=== PATIENT | female | born 1945 | race Caucasian/White ===

== ENCOUNTER 2018-10-23 01:34 | Inpatient (IN) | payer MEDICARE, MEDICAID ==
[2018-10-23] MEDS ORDERED: Levofloxacin 500 MG IVPREMIX(* 500 MG/100 ML BAG IVPB ONE (02:14)
[2018-10-23] MEDS ORDERED: Vancomycin(*) 1,000 MG in NS 0.9% 250 ML* 250 ML IVPB ONE (02:14)
--- NOTE | 2018-10-23 02:27 | ED ---
Skin Complaint - HPI Summary HPI Summary: This patient is a 73 year old F brought in by EMS to [facility] with a chief complaint of LLE cellulitis for the last month. She states it is not worse tonight states she came because she doesnt get enough help from [place], the [facility] where she lives. The patient rates the pain 9/10 in severity. Patient reports chills. Patient denies fever. She ambulates with a walker at baseline, does not see wound care, and states she is not on medication for it, her abx course was done at the of this month. Hx IDDM - History of Current Complaint Chief Complaint: EDExtremityLower Time Seen by Provider: 10/23/18 02:03 Stated Complaint: LEG PAIN Hx Obtained From: Patient Onset/Duration: Started Weeks Ago - 4, Still Present Skin Exposure Onset/Duration: Weeks Ago Timing: Constant, Lasting Weeks Onset Severity: Moderate Current Severity: Severe Pain Intensity: 9 Pain Scale Used: 0-10 Numeric Skin Location: Leg - Left Character: Redness Associated Signs & Symptoms: Chills - Allergy/Home Medications Allergies/Adverse Reactions: Allergies Allergy/AdvReac Type Severity Reaction Status Date / Time MS [place] [[place]] Allergy See Comment Verified 12/23/14 12:09 MS Penicillins [Penicillins] Allergy Hives Verified 12/23/14 12:09 PMH/Surg Hx/FS Hx/Imm Hx Endocrine/Hematology History: Reports: Hx Diabetes Cardiovascular History: Reports: Hx Hypertension - Cancer History Cancer Type, Location and Year: rectal - Surgical History Surgery Procedure, Year, and Place: rectal, hernia, tonsils, adnoids Infectious Disease History: Unable to Obtain/Confirm Infectious Disease History: Denies: Traveled Outside the [place] in Last 30 Days - Family History Known Family History: Positive: Non-Contributory Negative: Renal Disease, Seizure Disorder - Social History Alcohol Use: None Substance Use Type: Reports: None Smoking Status (MU): Never Smoked Tobacco Review of Systems Positive: Chills. Negative: Fever Positive: Other - increasing LLE cellulitis All Other Systems Reviewed And Are Negative: Yes Physical Exam - Summary Physical Exam Summary: VITAL SIGNS: Reviewed. GENERAL: Patient is a well-developed and nourished female who is lying comfortable in the stretcher. Patient is not in any acute respiratory distress. HEAD AND FACE: No signs of trauma. No ecchymosis, hematomas or skull depressions. No sinus tenderness. EYES: PERRLA, EOMI x 2, No injected conjunctiva, no nystagmus. EARS: Hearing grossly intact. Ear canals and tympanic membranes are within normal limits. MOUTH: Oropharynx within normal limits. NECK: Supple, trachea is midline, no adenopathy, no JVD, no carotid bruit, no c- spine tenderness, neck with full ROM. CHEST: Symmetric, no tenderness at palpation LUNGS: Clear to auscultation bilaterally. No wheezing or crackles. CVS: Regular rate and rhythm, S1 and S2 present, no murmurs or gallops appreciated. ABDOMEN: Soft, non-tender. No signs of distention. No rebound no guarding, and no masses palpated. Bowel sounds are normal. EXTREMITIES: bilateral LE redness, warmth, and edema. The left more than the right. NEURO: Alert and oriented x 3. No acute neurological deficits. Speech is normal and follows commands. SKIN: Dry and warm Triage Information Reviewed: Yes Vital Signs On Initial Exam: Initial Vitals Temp Pulse Resp BP Pulse Ox 98.9 F 95 18 165/76 95 10/23/18 01:37 10/23/18 01:37 10/23/18 01:37 10/23/18 01:37 10/23/18 01:37 Vital Signs Reviewed: Yes Diagnostics - Vital Signs Vital Signs Temp Pulse Resp BP Pulse Ox 10/23/18 01:37 98.9 F 95 18 165/76 95 - Laboratory Result Diagrams: 10/23/18 02:25 10/23/18 02:25 Lab Statement: Any lab studies that have been ordered have been reviewed, and results considered in the medical decision making process. Course/Dx - Course Assessment/Plan: This patient is a 73 year old F brought in by EMS to [facility] with a chief complaint of LLE cellulitis for the last month. She states it is not worse tonight states she came because she doesnt get enough help from [place], the jail where she lives. The patient rates the pain 9/10 in severity. Patient reports chills. Patient denies fever. She ambulates with a walker at baseline, does not see wound care, and states she is not on medication for it, her abx course was done at the of this month. Hx IDDM. Bloodwork obtained. In the ED course the patient was given tylenol and IV abx. We discussed patient care with Dr. Dyer who has accepted the patient for admission. Patient will be admitted. The patient is agreeable with this plan. - Diagnoses Provider Diagnoses: Cellulitis - Physician Notifications Discussed Care Of Patient With: Karen Dyer Time Discussed With Above Provider: 03:36 Instructed by Provider To: Admit As Inpatient Discharge - Sign-Out/Discharge Documenting (check all that apply): Patient Departure - admitted - Discharge Plan Condition: Fair Disposition: ADMITTED TO [facility] Referrals: Nate Douglass MD [Primary Care Provider] - - Attestation Statements Document Initiated by Scribe: Yes Documenting Scribe: Jim Huertas Provider For Whom Scribe is Documenting (Include Credential): Laura Spencer MD Scribe Attestation: Jim Borges , scribed for Laura Spencer MD on 10/23/18 at 0454. Status of Scribe Document: Ready
[2018-10-23 02:36] LABS: ABS Basophils 0 10^3/ul (0-0.2); ABS Eosinophils 0.2 10^3/ul (0-0.6); ABS Lymphocytes 0.7 10^3/ul (1.0-4.8); ABS Monocytes 0.5 10^3/ul (0-0.8); ABS Neutrophils 5.4 10^3/ul (1.5-7.7); ABS Nucleated RBC 0 10^3/ul; Eosinophil % 2.5 %; Hematocrit 30 % (35-47); Lymphocyte % 10.6 %; Mean Corpuscular HGB Conc 34 g/dl (31-36); Mean Corpuscular Hemoglobin 27 pg (27-31); Mean Corpuscular Volume 82 fL (80-97); Mean Platelet Volume 6.6 fL (7.4-10.4); Nucleated Red Blood Cells % 0; Platelet Count 247 10^3/ul (150-450); Red Blood Count 3.67 10^6/ul (4.00-5.40); Red Cell Distribution Width 17 % (10.5-15); White Blood Count 6.9 10^3/ul (3.5-10.8)
[2018-10-23 02:42] LABS: INR 0.97 (0.77-1.02)
[2018-10-23 02:51] LABS: EGFR Non-African American 33.2 (>60)
[2018-10-23] MEDS ORDERED: Acetaminophen TAB* 325 MG PO ONE (03:52)
[2018-10-23] MEDS ORDERED: Albuterol 2.5 MG/3 ML NEB.SOL* (0.083%) INH PRN (05:12)
[2018-10-23] MEDS ORDERED: Dextrose 50% Syringe 50 ML* 25 GM/50 ML SYRINGE IV PUSH PRN ×2 (05:29→14:18)
[2018-10-23] MEDS ORDERED: Insulin LISPRO* 1 UNITS UNIT SUBCUT SCH (08:30)
--- NOTE | 2018-10-23 09:07 | HP ---
CC: Providers at [facility] * HISTORY AND PHYSICAL: DATE OF ADMISSION: 10/23/18 PRIMARY CARE PROVIDER: Provider at [facility]. CHIEF COMPLAINT: Lower extremity redness. HISTORY OF PRESENT ILLNESS: Ms. Chowdhury is a 73-year-old female who is poor historian who is currently a resident of [facility], who was sent to the emergency room for concerns of possible bilateral lower extremity cellulitis. The patient states that she has had erythema to her bilateral lower legs for quite some time. She states that she has had an open wound on the left lower leg for approximately 2 months; however, later in our evaluation states that the wound had been present for a year. She believes it has been getting progressively worse. She admits to chills. She states that at times antibiotic ointment is being applied to the wound, other times she states just a gauze dressing is applied. She does admit to pain within the left lower extremity. The right leg, while it has some erythema, is not painful or concerning to her. She is really unable to provide any further history. PAST MEDICAL HISTORY: 1. Type 2 diabetes. 2. Hyperlipidemia. 3. Hypothyroidism. 4. Osteoporosis. 5. Bipolar disorder. 6. Anxiety. 7. History of rectal carcinoma status post resection, XRT, and chemotherapy. PAST SURGICAL HISTORY: 1. Rectal surgery. 2. Tonsillectomy. 3. Hernia repair. MEDICATIONS: 1. Tylenol 1000 mg p.o. q.8 hours p.r.n. pain. 2. Calcium plus D 1 tab p.o. b.i.d. 3. Albuterol 1 neb inhaled q.4 hours p.r.n. shortness of breath. 4. Aspirin 81 mg p.o. daily. 5. Tessalon 100 mg p.o. t.i.d. 6. Doxepin 10 mg p.o. q.h.s. 7. Lasix 40 mg p.o. daily. 8. Gabapentin 600 mg p.o. b.i.d. 9. NovoLog 7 units subcutaneous t.i.d. p.c. 10. Toujeo 88 units subcutaneous daily. 11. Levothyroxine 125 mcg p.o. daily. 12. Metolazone 2.5 mg p.o. daily. 13. Potassium chloride 10 mEq p.o. daily. 14. Entresto 49/51 mg 1 tab p.o. b.i.d. 15. Sertraline 50 mg p.o. daily. 16. Simvastatin 20 mg p.o. q.h.s. 17. Januvia 25 mg p.o. daily. ALLERGIES: PENICILLIN and LITHIUM. FAMILY HISTORY: Mom at the age of 76, her history is unknown. Dad at the age of 77, he reportedly of [place]. SOCIAL HISTORY: The patient smoked for a very short period of time several decades ago. She denies any alcohol use. She worked as a area secretary. She is . She has 2 children. She states that she does not want either of her daughters to be her healthcare proxy and at this point she cannot choose somebody to be her proxy. REVIEW OF SYSTEMS: A complete 11-system review of systems is obtained. Pertinent positives and negatives are as per HPI and in addition, the patient does also complain of cough that has been present over the last 2 months and chronic shortness of breath. PHYSICAL EXAMINATION GENERAL: The patient is a well-developed, morbidly obese elderly female seen sitting in the stretcher, eating sandwich, in no acute distress. VITAL SIGNS: Blood pressure 106/71, pulse 99, respirations 20, temp 98.9, and O2 sat 94% on room air. HEENT: Pupils are equal and round. Extraocular muscles are intact. Oropharynx is clear. Oral mucosa is moist. There is what appears to be a pencil eraser-sized papilla on the tongue that looks slightly inflamed. There is no submandibular, cervical, or supraclavicular adenopathy. Thyroid is not enlarged. No thyroid nodules are noted. PULMONARY: Lungs are clear to auscultation bilaterally. CARDIAC: Normal S1, S2. Regular rate and rhythm. There is a 3/6 systolic murmur heard best at the right upper sternal border. There is 1 to 2+ bilateral lower extremity pitting edema. ABDOMEN: Bowel sounds are present. Abdomen is obese, soft, nontender, nondistended. MUSCULOSKELETAL: There is no cyanosis or clubbing of the digits. There is full active range of motion of all 4 extremities. SKIN: Warm and dry. There is mild erythema to the right distal leg consistent with chronic venous stasis changes. There is brighter red and more angry appearing skin on the left leg. There is shallow ulceration with denuded skin almost circumferentially around the distal left leg. There is weeping from this area. There appears to be bogginess underneath it. This is painful to touch for the patient. I suspect this is chronic venous stasis ulcer. NEURO: Cranial nerves II through XII are grossly intact. Sensation is intact to light touch throughout. Strength is 5/5 and symmetric in both upper and lower extremities bilaterally. PSYCH: The patient is alert. She is oriented to situation. She is a very poor historian. LABORATORY DATA: WBC 6.9, hemoglobin 10.0, hematocrit 30, platelets 247,000. INR 0.97. Sodium 135, potassium 4.4, chloride 102, CO2 of 28, BUN 36, creatinine 1.54, glucose 282, lactic acid 1.1, calcium 9.7. Bilirubin 0.2, AST 12, ALT 14, alk phos 88. CPK 24, CRP 18.01. Albumin 3.4. ASSESSMENT AND PLAN: Ms. Chowdhury is a 73-year-old female with a history of diabetes, heart failure - unclear type, hypothyroidism, bipolar disorder and anxiety who presents to the emergency room with complaints of mainly left lower extremity redness, ulceration, and pain. 1. Venous stasis ulceration to left lower extremity. At this point, I suspect the wound on the patient's left lower extremity is a venous stasis ulceration. It is quite large. I do question if the patient may have been picking at this somewhat. She; however, states that she has not. I have a low suspicion that this is infected; however, her CRP is mildly elevated at 18. Given this is darker/brighter red than the right, I will go ahead and start doxycycline 100 mg IV q.12 hours. I will also obtain an ultrasound to the left lower leg to evaluate for underlying abscess. Wound consult will be ordered. ID consultation should be considered. He will follow the patient clinically for signs of true infection including fever or change in white blood cell count or increasing CRP. 2. Congestive heart failure. The patient is already on Entresto and Lasix. I will continue these 2 medications. A transthoracic echocardiogram will be ordered to evaluate her EF and murmur. The patient may benefit from increased diuretic therapy at this point to decrease swelling in her legs and thereby potentially improving the wound on her left leg. 3. Stage 3 chronic kidney disease. We do not have any prior labs to compare today's creatinine to; however, my suspicion is the patient has chronic kidney disease. This is based on her history of congestive heart failure and diabetes. We will monitor her creatinine. 4. Type 2 diabetes. I will continue Toujeo or an equivalent. We will also continue short-acting insulin t.i.d. p.c. and a sliding scale. 5. Bipolar disorder. We will continue doxepin at bedtime and sertraline. 6. Hyperlipidemia. Continue simvastatin. 7. DVT prophylaxis. According to the Adult Thrombosis Prophylaxis Risk Factor Assessment Guide, the patient has a total risk factor score of 5, making her the highest risk. She will be placed on heparin 5000 units subcutaneous q.8 hours. 8. Code status is full. TIME SPENT: Sixty-five minutes was spent admitting this patient. [id number]/[facility] #: [id number] RYAN
[2018-10-23] MEDS: Heparin VIAL(*) 5000 UNITS/ML VIAL (FIVE THOUSAND) SUBCUT SCH ×3 (09:37→21:20)
[2018-10-23] MEDS: Furosemide TAB* 40 MG PO SCH (09:38)
[2018-10-23] MEDS: Potassium Chlor TAB* 10 MEQ TAB.ER PO SCH (09:38)
[2018-10-23] MEDS: Aspirin 81 mg CHEW TAB* 81 MG TAB.CHEW PO SCH (09:38)
[2018-10-23] MEDS: Metolazone TAB* 5 MG PO SCH (09:40)
[2018-10-23] MEDS: Sertraline* 50 MG TAB PO SCH (09:41)
[2018-10-23] MEDS: Insulin GLARGINE(*) 1 UNITS UNIT SUBCUT SCH (09:41)
[2018-10-23] MEDS: Gabapentin CAP(*) 300 MG PO SCH ×2 (09:41→21:19)
[2018-10-23] MEDS: Acetaminophen TAB* 325 MG PO PRN ×2 (09:58→22:39)
[2018-10-23] MEDS: Levothyroxine TAB* 125 MCG TAB PO SCH (09:59)
[2018-10-23] MEDS: CMC:SitaGLIPtin (NF) 25 MG TAB PO SCH (09:59)
[2018-10-23] MEDS: DOXYcycline IV* 100 MG in NS 0.9% 250 ML* 250 ML IVPB SCH ×2 (10:01→21:22)
[2018-10-23] MEDS: Sacubitril/Valsartan 49/51(NF) TAB PO SCH ×2 (10:09→18:36)
[2018-10-23] MEDS: Insulin LISPRO* 1 UNITS UNIT SUBCUT SCH ×5 (10:09→21:21)
[2018-10-23] MEDS ORDERED: traMADol TAB* 50 MG PO PRN (13:13)
[2018-10-23] MEDS ORDERED: Perflutren Lipid Microsphere* 3 ML VIAL ONE (13:21)
--- NOTE | 2018-10-23 16:12 | ECHO ---
Patient: BINA RAMESH [facility] Rec#: [id number] : 1945 Date: 10/23/2018 Age: 73y Height: 152 cm / 59.8 in Weight: 91 kg / 200.6 lbs Sex: F BSA: 1.87 Room#: [facility] Admit Date#: 10/23/2018 Type: Inpatient Referring: Karen Dyer DO Reading: Celio Jerome MD Court Manager: Ila Kenyon RD,RDMS CC: Carlo King MD Transthoracic Echocardiogram Indication: CHF BP: 146/56 HR: 104 Rhythm: NSR with PVCs Findings History: DM, HTN, HLD, rectal cancer, chemotherapy Technical Comments: The study quality is fair. Left Ventricle: The left ventricular chamber size is normal. Mild to moderate concentric left ventricular hypertrophy is observed. There is global hypokinesis of the left ventricle with minor regional variation. There is mild to moderately decreased left ventricular systolic function. The estimated ejection fraction is 40-45%. There is an E to A reversal in the mitral valve flow pattern suggestive of diastolic dysfunction. Left Atrium: The left atrium is mildly dilated. Right Ventricle: The right ventricle wall thickness is mildly increased. The right ventricular cavity size is normal. The right ventricular global systolic function is low normal. Right Atrium: The right atrial cavity size is normal. Aortic Valve: The aortic valve is trileaflet. The aortic valve leaflets are mildly thickened. There is aortic annular calcification. There is a trace of aortic regurgitation. There is mild aortic stenosis. The mean gradient of the aortic valve is 13 mmHg. The aortic valve area, by VTI's, is calculated at 1.2 cm2. Mitral Valve: The mitral valve leaflets are mildly thickened. There is a trace of mitral regurgitation. There is no evidence of mitral stenosis. Tricuspid Valve: The tricuspid valve leaflets are normal. There is no evidence of tricuspid valve regurgitation. Unable to estimate the right ventricular systolic pressure. Pulmonic Valve: There is no evidence of pulmonic valve thickening. There is a trace pulmonic regurgitation. Pericardium: There is no significant pericardial effusion. Aorta: The aortic root appears normal. There is no dilatation of the aortic arch. Pulmonary Artery: The main pulmonary artery appears normal. Venous: The inferior vena cava is not visualized. Contrast: Definity was used to optimize study. A total of 2 ml was used. Summary: There was not any prior study for comparison. Conclusions Mild to moderate concentric left ventricular hypertrophy is observed. There is global hypokinesis of the left ventricle with minor regional variation. There is mild to moderately decreased left ventricular systolic function. The estimated ejection fraction is 40-45%. The right ventricular global systolic function is low normal. The aortic valve leaflets are mildly thickened. There is mild aortic stenosis. The mean gradient of the aortic valve is 13 mmHg. There is a trace of aortic regurgitation. There is a trace of mitral regurgitation. There is no evidence of tricuspid valve regurgitation. Unable to estimate the right ventricular systolic pressure. There is no significant pericardial effusion. Measurements Name Value Normal Range RVIDd (AP) 2D 3.1 cm (0.9 - 2.6) RVDdMajor (2D) 3.1 cm (2.2 - 4.4) RAd ISD 4CH 4.5 cm (3.4 - 4.9) RA (A4C)W 3.2 cm (2.9 - 4.6) IVSd (2D) 1.4 cm (0.6 - 1) LVPWd (2D) 1.4 cm (0.6 - 1) LVIDd (2D) 4.8 cm (3.6 - 5.4) LVIDs (2D) 3.3 cm - LV FS (2D) 32 % (25 - 45) Aortic Annulus 2.1 cm (1.4 - 2.6) Ao root diameter (2D) 2.6 cm (2.1 - 3.5) Ascending Ao 2.9 cm (2.1 - 3.4) Aortic arch 3.1 cm (1.8 - 3.4) LA dimension (AP) 2D 4.7 cm (2.3 - 3.8) LAd ISD 4CH 5.7 cm (2.9 - 5.3) LA ISD 4CH W 4 cm (2.5 - 4.5) Name Value Normal Range LA ESV BP (A/L) index 21 ml/m2 - Name Value Normal Range MV E-wave Vmax 0.5 m/sec - MV deceleration time 77 msec - MV A-wave Vmax 1.1 m/sec - MV E:A ratio 0.5 ratio - LV septal e' Vmax 0.07 m/sec - LV lateral e' Vmax 0.07 m/sec - LV E:e' septal ratio 7 ratio - LV E:e' lateral ratio 7 ratio - Name Value Normal Range AV Vmax 2.3 m/sec - AV VTI 42.5 cm - AV peak gradient 22 mmHg - AV mean gradient 13 mmHg - LVOT diameter 2 cm - LVOT Vmax 0.8 m/sec - LVOT VTI 16 cm - LVOT peak gradient 2.6 mmHg - LVOT mean gradient 2 mmHg - DOI (VTI) 0.4 ratio - AMY (continuity Vmax) 1.1 cm2 - AMY (continuity VTI) 1.2 cm2 - Name Value Normal Range MV Vmax 1 m/sec - MV VTI 19 cm - MV peak gradient 4 mmHg - MV mean gradient 2 mmHg - MV PHT 121 msec - MVA (PHT) 1.8 cm2 - MVA (continuity VTI) 2.6 cm2 - Name Value Normal Range RAP 8 mmHg - Name Value Normal Range PV Vmax 0.8 m/sec - PV peak gradient 2.6 mmHg -
[2018-10-23] MEDS: traMADol TAB* 50 MG PO PRN (18:27)
--- NOTE | 2018-10-23 19:16 | PN ---
Subjective Date of Service: 10/23/18 Interval History: Call received from nurse in the morning and patient did not have prn tylenol ordered and she usually takes tylenol for pain. Tylenol ordered. Later in the morning call received that tylenol not covering pain in left lower leg. Creatinine Clearance calculated 48ml/min. Tramadol ordered at 25 mg BID prn hold for sedation. On reassessment patient reports improvement in pain. Denies cp, sob, palpitations, n/v/d. Reports occasional cough which has been present for 2 weeks. 12 point ros completed and all other negative except as above mentioned Objective Active Medications: Acetaminophen (Tylenol Tab*) 975 mg PO Q8H PRN PRN Reason: PAIN OR TEMPERATURE Last Admin: 10/23/18 09:58 Dose: 975 mg Albuterol (Ventolin 2.5 Mg/3 Ml Neb.Keyana*) 2.5 mg INH Q4H PRN PRN Reason: SOB/WHEEZING Aspirin (Aspirin 81 Mg Chew Tab*) 81 mg PO DAILY [facility] Last Admin: 10/23/18 09:38 Dose: 81 mg Atorvastatin Calcium (Lipitor*) 10 mg PO BEDTIME [facility] Benzonatate (Tessalon Cap*) 100 mg PO TID PRN PRN Reason: COUGH Dextrose (D50w Syringe 50 Ml*) 12.5 gm IV PUSH .FOR FS < 60 - SS PRN PRN Reason: FS < 60 Doxepin HCl (Doxepin Hcl) 10 mg PO BEDTIME [facility] Furosemide (Lasix Tab*) 40 mg PO DAILY [facility] Last Admin: 10/23/18 09:38 Dose: 40 mg Gabapentin (Neurontin Cap(*)) 600 mg PO BID [facility] Last Admin: 10/23/18 09:41 Dose: 600 mg Heparin Sodium (Porcine) (Heparin Vial(*)) 5,000 units SUBCUT Q8HR [facility] Last Admin: 10/23/18 13:29 Dose: 5,000 units Doxycycline Hyclate 100 mg/ (Sodium Chloride) 250 mls @ 250 mls/hr IVPB Q12H [facility] Last Admin: 10/23/18 10:01 Dose: 250 mls/hr Insulin Glargine (Lantus(*)) 88 units SUBCUT DAILY [facility] Last Admin: 10/23/18 09:41 Dose: 88 units Insulin Human Lispro (Humalog*) 0 units SUBCUT ACHS [facility]; Protocol Last Admin: 10/23/18 18:36 Dose: 2 units Insulin Human Lispro (Humalog*) 4 units SUBCUT TID [facility] Levothyroxine Sodium (Synthroid Tab*) 125 mcg PO 0800 [facility] Last Admin: 10/23/18 09:59 Dose: 125 mcg Metolazone (Zaroxolyn Tab*) 2.5 mg PO DAILY [facility] Last Admin: 10/23/18 09:40 Dose: 2.5 mg Potassium Chloride (Klor Con Er Tab*) 10 meq PO DAILY [facility] Last Admin: 10/23/18 09:38 Dose: 10 meq Sacubitril/Valsartan (Entresto 49/51(Nf)) 1 tab PO 0800,1600 [facility] Last Admin: 10/23/18 18:36 Dose: Not Given Sertraline HCl (Zoloft*) 50 mg PO DAILY [facility] Last Admin: 10/23/18 09:41 Dose: 50 mg Sitagliptin Phosphate (Januvia (Nf)) 25 mg PO DAILY [facility]; Protocol Last Admin: 10/23/18 09:59 Dose: 25 mg Tramadol HCl (Ultram*) 25 mg PO Q12H PRN PRN Reason: PAIN Last Admin: 10/23/18 18:27 Dose: 25 mg Vital Signs - 8 hr 10/23/18 10/23/18 10/23/18 11:30 13:30 18:27 Temperature 99.1 F Pulse Rate 104 Respiratory 18 22 20 Rate Blood Pressure 134/41 (mmHg) O2 Sat by Pulse 98 Oximetry Oxygen Devices in Use Now: None Appearance: Chronically ill, NAD Eyes: PERRLA Ears/Nose/Mouth/Throat: Mucous Membranes Moist Neck: NL Appearance and Movements; NL JVP Respiratory: Symmetrical Chest Expansion and Respiratory Effort, Clear to Auscultation Cardiovascular: RRR, No Edema, - - S1, S2 present. Systolic murmur appreciated. No rubs or jallops Abdominal: NL Sounds; No Tenderness; No Distention Lymphatic: No Cervical Adenopathy Extremities: - - Mild bilateral le edema Skin: - - ulceration to anterior left lower leg; surrounding erythema and large amount serous weeping. Neurological: Alert and Oriented x 3, NL Muscle Strength and Tone Nutrition: Taking PO's Result Diagrams: 10/23/18 02:25 12/03/18 02:25 Additional Lab and Data: Laboratory Results - last 24 hr 10/23/18 10/23/18 10/23/18 02:25 02:25 02:25 WBC 6.9 RBC 3.67 L Hgb 10.0 L Hct 30 L MCV 82 MCH 27 MCHC 34 RDW 17 H Plt Count 247 MPV 6.6 L Neut % (Auto) 78.9 Lymph % (Auto) 10.6 Sanders % (Auto) 7.4 Eos % (Auto) 2.5 Baso % (Auto) 0.6 Absolute Neuts (auto) 5.4 Absolute Lymphs (auto) 0.7 L Absolute Monos (auto) 0.5 Absolute Eos (auto) 0.2 Absolute Basos (auto) 0 Absolute Nucleated RBC 0 Nucleated RBC % 0 INR (Anticoag Therapy) 0.97 APTT 35.3 Sodium 135 Potassium 4.4 Chloride 102 Carbon Dioxide 28 Anion Gap 5 BUN 36 H Creatinine 1.54 H Est GFR ( Amer) 40.2 Est GFR (Non-Af Amer) 33.2 BUN/Creatinine Ratio 23.4 H Glucose 282 H POC Glucose (mg/dL) Lactic Acid Calcium 9.7 Total Bilirubin 0.20 AST 12 L ALT 14 Alkaline Phosphatase 88 Total Creatine Kinase 24 C-Reactive Protein 18.01 H Total Protein 6.0 L Albumin 3.4 Globulin 2.6 Albumin/Globulin Ratio 1.3 10/23/18 10/23/18 10/23/18 02:25 08:32 11:40 WBC RBC Hgb Hct MCV MCH MCHC RDW Plt Count MPV Neut % (Auto) Lymph % (Auto) Sanders % (Auto) Eos % (Auto) Baso % (Auto) Absolute Neuts (auto) Absolute Lymphs (auto) Absolute Monos (auto) Absolute Eos (auto) Absolute Basos (auto) Absolute Nucleated RBC Nucleated RBC % INR (Anticoag Therapy) APTT Sodium Potassium Chloride Carbon Dioxide Anion Gap BUN Creatinine Est GFR ( Amer) Est GFR (Non-Af Amer) BUN/Creatinine Ratio Glucose POC Glucose (mg/dL) 205 H 271 H Lactic Acid 1.1 Calcium Total Bilirubin AST ALT Alkaline Phosphatase Total Creatine Kinase C-Reactive Protein Total Protein Albumin Globulin Albumin/Globulin Ratio Microbiology and Other Data: Awaiting wound culture Diagnostic Imaging: TECHNIQUE: Ankle-brachial indices and Doppler tracings were obtained of the lower extremities bilaterally. Volume pulse recordings were acquired at the bilateral ankles. REPORT: Ankle-brachial indices: Right: Value (SBP) Index Brachial: 157 Posterior tibialis: 170 1.08 Dorsalis pedis: 155 0.99 Digit: 92 0.59 Left: Value (SBP) Index Brachial: 147 Posterior tibialis: 110 0.70 Dorsalis pedis: 130 0.83 Digit: 64 0.41 Doppler waveforms (acquired at rest): In the interrogated lower extremity arteries, Doppler waveforms are triphasic at the right dorsalis pedis artery, biphasic at the right posterior tibial artery and left dorsalis pedis artery while the left posterior tibial artery is monophasic with notably reduced amplitude.. Volume pulse recordings (acquired at rest): Volume pulse recordings, measured at the bilateral ankles, are symmetric. IMPRESSION: Claudication values and derangement of arterial waveforms are recorded in the left lower extremity. In the presence of a chronic left lower extremity wound this could be seen in the setting of "critical limb ischemia". EKG Data: . Assess/Plan/Problems-Billing Assessment: 73 yr old female with DM, HF (unclear type), hypothyroid, bipolar, anxiety; who presented to the ed with left lower extremity redness, ulceration, and pain. She was admitted for IV abx and further evaluation given her hx of diabetes and heart disease - Patient Problems (1) Wound of left lower extremity Comment: - Redness to left lower extremeity with ulceration to left anterior matias. Weeping. - Wound consult appreciated. Dressing change ordered placed per their recommendations. - Wound culture sent - Consider ID consult tomorrow - Cont Doxy - Monitor WBC, CRP and vital signs (2) Venous stasis Comment: - Bilateral legs have evidence of venous statis - ABIs obtained - Dr Daniel to consult tomorrow for possible intervention (3) CHF (congestive heart failure) Comment: - Echo revealed EF of 40 to 45% - Mild aortic stenosis (4) CKD (chronic kidney disease) stage 3, GFR 30-59 ml/min Comment: - Creatinine 1.54 - Prior labs reveal this is slightly elevated from patient baseline - Will continue to monitor (5) Diabetes Comment: - Continue long acting insulin - Continue sliding scale - Patient initially refused standing 7 units TID. After explaining rational patient agreed to 4 units lispro TID - Will continue to monitor (6) Bipolar disorder Comment: - Cont meds as same from home (7) DVT (deep venous thrombosis) Comment: - Subq heparin (8) Full code status Comment: - Full code Status and Disposition: Inpatient. D/c return to [facility] when medically stable Attending: Alecia Sanchez
[2018-10-23 19:46] LABS: Urine Appearance Clear; Urine Blood Negative (Negative); Urine Color Straw; Urine Ketones Negative (Negative); Urine Protein Negative (Negative); Urine Red Blood Cell Trace(0-2/hpf) (Absent); Urine Specific Gravity 1.009 (1.010-1.030); Urine Urobilinogen Negative (Negative); Urine White Blood Cell Trace(0-5/hpf) (Absent)
[2018-10-23] MEDS: Atorvastatin* 10 MG TAB PO SCH (21:19)
[2018-10-24] MEDS: DOXEPIN 10 MG PO SCH ×2 (03:04→23:47)
[2018-10-24] MEDS: Heparin VIAL(*) 5000 UNITS/ML VIAL (FIVE THOUSAND) SUBCUT SCH ×3 (05:28→21:11)
[2018-10-24 06:53] LABS: Hematocrit 31 % (35-47); Hemoglobin 10.2 g/dl (12.0-16.0); Mean Corpuscular HGB Conc 33 g/dl (31-36); Mean Corpuscular Hemoglobin 27 pg (27-31); Mean Corpuscular Volume 82 fL (80-97); Mean Platelet Volume 6.5 fL (7.4-10.4); Platelet Count 243 10^3/ul (150-450); Red Blood Count 3.73 10^6/ul (4.00-5.40); Red Cell Distribution Width 17 % (10.5-15); White Blood Count 5.9 10^3/ul (3.5-10.8)
[2018-10-24 07:15] LABS: EGFR Non-African American 34.5 (>60)
[2018-10-24] MEDS: DOXYcycline IV* 100 MG in NS 0.9% 250 ML* 250 ML IVPB SCH ×2 (08:44→21:11)
[2018-10-24] MEDS: Insulin LISPRO* 1 UNITS UNIT SUBCUT SCH ×7 (08:45→21:11)
[2018-10-24] MEDS: Insulin GLARGINE(*) 1 UNITS UNIT SUBCUT SCH (08:45)
[2018-10-24] MEDS: Furosemide TAB* 40 MG PO SCH (08:49)
[2018-10-24] MEDS: Gabapentin CAP(*) 300 MG PO SCH ×2 (08:49→21:09)
[2018-10-24] MEDS: CMC:SitaGLIPtin (NF) 25 MG TAB PO SCH (08:50)
[2018-10-24] MEDS: Metolazone TAB* 5 MG PO SCH (08:50)
[2018-10-24] MEDS: Levothyroxine TAB* 125 MCG TAB PO SCH (08:50)
[2018-10-24] MEDS: Potassium Chlor TAB* 10 MEQ TAB.ER PO SCH (08:50)
[2018-10-24] MEDS: Sertraline* 50 MG TAB PO SCH (08:50)
[2018-10-24] MEDS: Aspirin 81 mg CHEW TAB* 81 MG TAB.CHEW PO SCH (08:50)
[2018-10-24] MEDS: Sacubitril/Valsartan 49/51(NF) TAB PO SCH (10:33)
[2018-10-24] MEDS: Acetaminophen TAB* 325 MG PO PRN (13:31)
--- NOTE | 2018-10-24 16:53 | PN ---
Subjective Date of Service: 10/24/18 Interval History: Sitting in recliner chair. Reports pain in left leg where wound is located and rates pain at "5". Reports pain is improved from yesterday. Reports she is urinating without difficulty, but per her baseline has some difficulty holding urine and has been incontinent waiting for someone to answer her call tiwari. It was noted that patient's socks were wet with urine. Reports occasional cough x 2 weeks. Denies sob, cp, palpitations, headache, weakness, fever/chills, n/v/d. Objective Active Medications: Acetaminophen (Tylenol Tab*) 975 mg PO Q8H PRN PRN Reason: PAIN OR TEMPERATURE Last Admin: 10/24/18 13:31 Dose: 975 mg Albuterol (Ventolin 2.5 Mg/3 Ml Neb.Keyana*) 2.5 mg INH Q4H PRN PRN Reason: SOB/WHEEZING Aspirin (Aspirin 81 Mg Chew Tab*) 81 mg PO DAILY [facility] Last Admin: 10/24/18 08:50 Dose: 81 mg Atorvastatin Calcium (Lipitor*) 10 mg PO BEDTIME [facility] Last Admin: 10/23/18 21:19 Dose: 10 mg Benzonatate (Tessalon Cap*) 100 mg PO TID PRN PRN Reason: COUGH Dextrose (D50w Syringe 50 Ml*) 12.5 gm IV PUSH .FOR FS < 60 - SS PRN PRN Reason: FS < 60 Doxepin HCl (Doxepin Hcl) 10 mg PO BEDTIME [facility] Last Admin: 10/24/18 03:04 Dose: Not Given Furosemide (Lasix Tab*) 40 mg PO DAILY [facility] Last Admin: 10/24/18 08:49 Dose: 40 mg Gabapentin (Neurontin Cap(*)) 600 mg PO BID [facility] Last Admin: 10/24/18 08:49 Dose: 600 mg Heparin Sodium (Porcine) (Heparin Vial(*)) 5,000 units SUBCUT Q8HR [facility] Last Admin: 10/24/18 13:28 Dose: 5,000 units Doxycycline Hyclate 100 mg/ (Sodium Chloride) 250 mls @ 250 mls/hr IVPB Q12H [facility] Last Admin: 10/24/18 08:44 Dose: 250 mls/hr Insulin Glargine (Lantus(*)) 88 units SUBCUT DAILY [facility] Last Admin: 10/24/18 08:45 Dose: 88 units Insulin Human Lispro (Humalog*) 0 units SUBCUT ACHS [facility]; Protocol Last Admin: 10/24/18 13:28 Dose: 6 units Insulin Human Lispro (Humalog*) 4 units SUBCUT TID [facility] Last Admin: 10/24/18 13:28 Dose: 4 unit Levothyroxine Sodium (Synthroid Tab*) 125 mcg PO 0800 [facility] Last Admin: 10/24/18 08:50 Dose: 125 mcg Metolazone (Zaroxolyn Tab*) 2.5 mg PO DAILY [facility] Last Admin: 10/24/18 08:50 Dose: 2.5 mg Potassium Chloride (Klor Con Er Tab*) 10 meq PO DAILY [facility] Last Admin: 10/24/18 08:50 Dose: 10 meq Sacubitril/Valsartan (Entresto /(Nf)) 2 tab PO BID [facility] Sertraline HCl (Zoloft*) 50 mg PO DAILY [facility] Last Admin: 10/24/18 08:50 Dose: 50 mg Sitagliptin Phosphate (Januvia (Nf)) 25 mg PO DAILY [facility]; Protocol Last Admin: 10/24/18 08:50 Dose: 25 mg Tramadol HCl (Ultram*) 25 mg PO Q12H PRN PRN Reason: PAIN Last Admin: 10/23/18 18:27 Dose: 25 mg Vital Signs - 8 hr 10/24/18 10/24/18 10/24/18 08:49 09:25 11:01 Temperature 97.9 F Pulse Rate 98 Respiratory 16 20 16 Rate Blood Pressure 151/75 (mmHg) O2 Sat by Pulse 93 94 Oximetry 10/24/18 10/24/18 11:41 15:01 Temperature 98.4 F Pulse Rate 100 Respiratory 16 18 Rate Blood Pressure 138/69 (mmHg) O2 Sat by Pulse 96 Oximetry Oxygen Devices in Use Now: None Appearance: Chronically ill, NAD Eyes: No Scleral Icterus Ears/Nose/Mouth/Throat: Mucous Membranes Moist Neck: NL Appearance and Movements; NL JVP Respiratory: Symmetrical Chest Expansion and Respiratory Effort, Clear to Auscultation Cardiovascular: RRR, - - S1, s2 present. Murmur appreciated. Mild bilateral le edema Abdominal: NL Sounds; No Tenderness; No Distention Lymphatic: No Cervical Adenopathy Extremities: No Clubbing, Cyanosis Skin: - - Dressing intact. Mild drainage noted on outer aspect of dressing. Neurological: Alert and Oriented x 3 Nutrition: Taking PO's Result Diagrams: 10/24/18 06:37 10/24/18 06:37 Additional Lab and Data: Laboratory Results - last 24 hr 10/23/18 10/23/18 10/23/18 17:41 19:00 20:26 WBC RBC Hgb Hct MCV MCH MCHC RDW Plt Count MPV Sodium Potassium Chloride Carbon Dioxide Anion Gap BUN Creatinine Est GFR ( Amer) Est GFR (Non-Af Amer) BUN/Creatinine Ratio Glucose POC Glucose (mg/dL) 154 H 129 H Calcium C-Reactive Protein Urine Color Straw Urine Appearance Clear Urine pH 5.0 Ur Specific [place] 1.009 L Urine Protein Negative Urine Ketones Negative Urine Blood Negative Urine Nitrate Negative Urine Bilirubin Negative Urine Urobilinogen Negative Ur Leukocyte Esterase Trace A Urine WBC (Auto) Trace(0-5/hpf) Urine RBC (Auto) Trace(0-2/hpf) Ur Squamous Epith Cells Present A Urine Bacteria Absent Hyaline Casts Present A Urine Glucose Negative 10/24/18 10/24/18 10/24/18 06:37 06:37 08:02 WBC 5.9 RBC 3.73 L Hgb 10.2 L Hct 31 L MCV 82 MCH 27 MCHC 33 RDW 17 H Plt Count 243 MPV 6.5 L Sodium 137 Potassium 3.7 Chloride 103 Carbon Dioxide 26 Anion Gap 8 BUN 37 H Creatinine 1.49 H Est GFR ( Amer) 41.7 Est GFR (Non-Af Amer) 34.5 BUN/Creatinine Ratio 24.8 H Glucose 271 H POC Glucose (mg/dL) 334 H Calcium 9.1 C-Reactive Protein 20.54 H Urine Color Urine Appearance Urine pH Ur Specific [place] Urine Protein Urine Ketones Urine Blood Urine Nitrate Urine Bilirubin Urine Urobilinogen Ur Leukocyte Esterase Urine WBC (Auto) Urine RBC (Auto) Ur Squamous Epith Cells Urine Bacteria Hyaline Casts Urine Glucose 10/24/18 12:02 WBC RBC Hgb Hct MCV MCH MCHC RDW Plt Count MPV Sodium Potassium Chloride Carbon Dioxide Anion Gap BUN Creatinine Est GFR ( Amer) Est GFR (Non-Af Amer) BUN/Creatinine Ratio Glucose POC Glucose (mg/dL) 203 H Calcium C-Reactive Protein Urine Color Urine Appearance Urine pH Ur Specific [place] Urine Protein Urine Ketones Urine Blood Urine Nitrate Urine Bilirubin Urine Urobilinogen Ur Leukocyte Esterase Urine WBC (Auto) Urine RBC (Auto) Ur Squamous Epith Cells Urine Bacteria Hyaline Casts Urine Glucose Microbiology and Other Data: Microbiology 10/23/18 18:30 Ankle Left Gram Stain - Final 10/23/18 18:30 Ankle Left Wound Culture - Preliminary Strep Group G 10/23/18 02:25 Blood Venous Aerobic Blood Culture - Preliminary No Growth Day 1 10/23/18 02:25 Blood Venous Anaerobic Blood Culture - Preliminary No Growth Day 1 10/23/18 02:17 Blood Venous Aerobic Blood Culture - Preliminary No Growth Day 1 10/23/18 02:17 Blood Venous Anaerobic Blood Culture - Preliminary No Growth Day 1 10/23/18 19:30 Nasal Nasal Screen MRSA (PCR) - Final Mrsa Not Detected Diagnostic Imaging: TECHNIQUE: Ankle-brachial indices and Doppler tracings were obtained of the lower extremities bilaterally. Volume pulse recordings were acquired at the bilateral ankles. REPORT: Ankle-brachial indices: Right: Value (SBP) Index Brachial: 157 Posterior tibialis: 170 1.08 Dorsalis pedis: 155 0.99 Digit: 92 0.59 Left: Value (SBP) Index Brachial: 147 Posterior tibialis: 110 0.70 Dorsalis pedis: 130 0.83 Digit: 64 0.41 Doppler waveforms (acquired at rest): In the interrogated lower extremity arteries, Doppler waveforms are triphasic at the right dorsalis pedis artery, biphasic at the right posterior tibial artery and left dorsalis pedis artery while the left posterior tibial artery is monophasic with notably reduced amplitude.. Volume pulse recordings (acquired at rest): Volume pulse recordings, measured at the bilateral ankles, are symmetric. IMPRESSION: Claudication values and derangement of arterial waveforms are recorded in the left lower extremity. In the presence of a chronic left lower extremity wound this could be seen in the setting of "critical limb ischemia". EKG Data: . Assess/Plan/Problems-Billing Assessment: 73 yr old female with DM, HF (unclear type), hypothyroid, bipolar, anxiety; who presented to the ed with left lower extremity redness, ulceration, and pain. She was admitted for IV abx and further evaluation given her hx of diabetes and heart disease - Patient Problems (1) Wound of left lower extremity Comment: - Redness to left lower extremeity with ulceration to left anterior matias. Weeping. - Wound consult appreciated. Dressing change ordered placed per their recommendations. - Wound culture revealed Group G strep. - Will consult ID - Cont Doxy - Monitor labs and vital signs (2) Venous stasis Comment: - Bilateral legs have evidence of venous statis - ABIs obtained - Dr Daniel to consult for possible intervention (3) CHF (congestive heart failure) Comment: - Echo revealed EF of 40 to 45% - Mild aortic stenosis (4) CKD (chronic kidney disease) stage 3, GFR 30-59 ml/min Comment: - Creatinine 1.49 - Prior labs reveal this is slightly elevated from patient baseline - Will continue to monitor (5) Diabetes Comment: - Continue long acting insulin - Continue sliding scale - Continue to units lispro TID - Will continue to monitor (6) Bipolar disorder Comment: - Cont meds as same from home (7) DVT (deep venous thrombosis) Comment: - Subq heparin (8) Full code status Comment: - Full code Status and Disposition: Inpatient. D/c return to [facility] when medically stable Attending: Holly Agarwal
--- NOTE | 2018-10-24 17:09 | CONSULT ---
Consult Consult: Date of Service: 10/24/18 Patient: BINA CHOWDHURY /Age: 02 1945 73 Admission Date: 10/23/18 Reason for Consultation Request: Left leg wound with in the presence of an abnormal GEN Consulting Provider: Brea Taylor JUVENILE COURT JUDGE PCP: Providers at [facility] (Focused) HISTORY OF PRESENT ILLNESS: Ms. Chowdhury is a 73-year-old female who is currently a resident of [facility], who was sent to the emergency room for concerns of possible bilateral lower extremity cellulitis. The patient states that she has had erythema to her bilateral lower legs for quite some time. She states that she has had an open wound on the left lower leg for approximately 2 months and erythematous swelling of both legs for a year. She believes it has been getting progressively worse. She states that at times antibiotic ointment is being applied to the wound, other times she states just a gauze dressing is applied. She does admit to pain within the left lower extremity. The right leg, while it has some erythema, is not painful or concerning to her. Prior to the wound she denies lower leg pain, symptoms characteristic of claudication or night time rest pain. She denies any walking limitations separate from the leg wound. She denies any large varicose veins. She reports she "sometimes gets her blood sugar down to the hundreds", but is usually over 200. PAST MEDICAL HISTORY: 1. Type 2 diabetes. 2. Hyperlipidemia. 3. Hypothyroidism. 4. Osteoporosis. 5. Bipolar disorder. 6. Anxiety. 7. History of rectal carcinoma status post resection, XRT, and chemotherapy. PAST SURGICAL HISTORY: 1. Rectal surgery. 2. Tonsillectomy. 3. Hernia repair. Pre-Admission MEDICATIONS: 1. Tylenol 1000 mg p.o. q.8 hours p.r.n. pain. 2. Calcium plus D 1 tab p.o. b.i.d. 3. Albuterol 1 neb inhaled q.4 hours p.r.n. shortness of breath. 4. Aspirin 81 mg p.o. daily. 5. Tessalon 100 mg p.o. t.i.d. 6. Doxepin 10 mg p.o. q.h.s. 7. Lasix 40 mg p.o. daily. 8. Gabapentin 600 mg p.o. b.i.d. 9. NovoLog 7 units subcutaneous t.i.d. p.c. 10. Toujeo 88 units subcutaneous daily. 11. Levothyroxine 125 mcg p.o. daily. 12. Metolazone 2.5 mg p.o. daily. 13. Potassium chloride 10 mEq p.o. daily. 14. Entresto 49/51 mg 1 tab p.o. b.i.d. 15. Sertraline 50 mg p.o. daily. 16. Simvastatin 20 mg p.o. q.h.s. 17. Januvia 25 mg p.o. daily. ALLERGIES: PENICILLIN and LITHIUM. FAMILY HISTORY: Mom at the age of 76, her history is unknown. Dad at the age of 77, he reportedly of [place]. SOCIAL HISTORY: The patient smoked for a very short period of time several decades ago. She denies any alcohol use. REVIEW OF SYSTEMS: A complete 11-system review of systems is obtained. Pertinent positives and negatives are as per HPI and in addition, the patient does also complain of cough and chronic shortness of breath. PHYSICAL EXAMINATION: Selected Entries 10/24/18 15:01 Temperature 98.4 F Temperature Oral Source Pulse Rate 100 Respiratory 18 Rate Blood Pressure 138/69 (mmHg) Blood Pressure 88 Mean O2 Sat by Pulse 96 Oximetry Patient on Room Yes Air GENERAL: The patient is a morbidly obese elderly female seen sitting on her bed in no acute distress. HEENT: Pupils are equal and round. Extraocular muscles are intact. Oropharynx is clear. Oral mucosa is moist. PULMONARY: Lungs are clear to auscultation bilaterally. CARDIOVASCULAR: Normal S1, S2. Regular rate and rhythm. 2+ pulses are readily palpable at bilateral DPA, pop and [employer] 1+ MEDICAL TRANSCRIPTION RADIOLOGY bilaterally. ABDOMEN: Bowel sounds are present. Abdomen is obese, soft, nontender, nondistended. RLQ ostomy with bag is in place. MUSCULOSKELETAL: There is full active range of motion of all 4 extremities. SKIN: Warm and dry. There is mild erythema to the bilateral lower extremities. The left lower leg wound is dressed with sterile gauze that was not taken down. No large varicose veins are seen in the recumbant position. NEURO: Cranial nerves II through XII are grossly intact. Sensation is intact to light touch throughout. Strength is 5/ 5 and symmetric in both upper and lower extremities bilaterally. Vascular Imaging: Patient Name: BINA CHOWDHURY Medical Record#: [id number] Ordering Physician: Brea Taylor NP Acct.#: [id number] : 1945 Age: 73 Sex: F Location: [address] [place] [address] MEDICAL Exam Date: 10/23/18 1419 ADM Status: ADM IN Order Information: VL ANK/ BRACHIAL INDICES Accession Number: [id number] CPT: 80850 INDICATION: Left medial calf wound x1 month COMPARISON: None. TECHNIQUE: Ankle-brachial indices and Doppler tracings were obtained of the lower extremities bilaterally. Volume pulse recordings were acquired at the bilateral ankles. REPORT: Ankle-brachial indices: Right: Value (SBP) Index Brachial: 157 Posterior tibialis: 170 1.08 Dorsalis pedis: 155 0.99 Digit: 92 0.59 Left: Value (SBP) Index Brachial: 147 Posterior tibialis: 110 0.70 Dorsalis pedis: 130 0.83 Digit: 64 0.41 Doppler waveforms (acquired at rest): In the interrogated lower extremity arteries, Doppler waveforms are triphasic at the right dorsalis pedis artery, biphasic at the right posterior tibial artery and left dorsalis pedis artery while the left posterior tibial artery is monophasic with notably reduced amplitude. Volume pulse recordings (acquired at rest): Volume pulse recordings, measured at the bilateral ankles, are symmetric. IMPRESSION: Claudication values and derangement of arterial waveforms are recorded in the left lower extremity. In the presence of a chronic left lower extremity wound this could be seen in the setting of "critical limb ischemia". <Electronically signed by Francois Daniel MD in OV> 10/23/181653 Dictated By: Francois Daniel MD Dictated Date/Time: 10/23/181653 Transcribed Date/Time: 10/23/18 1646 Relevant Labs: Laboratory Tests 10/24/18 10/24/18 06:37 06:37 WBC 5.9 RBC 3.73 L Hgb 10.2 L Hct 31 L BUN 37 H Creatinine 1.49 H Est GFR ( Amer) 41.7 Est GFR (Non-Af Amer) 34.5 Laboratory Tests 10/23/18 10/23/18 10/23/18 11:40 17:41 20:26 POC Glucose (mg/dL) 271 H 154 H 129 H C-Reactive Protein 10/24/18 10/24/18 10/24/18 06:37 08:02 12:02 POC Glucose (mg/dL) 334 H 203 H C-Reactive Protein 20.54 H SUMMARY: 73 yof with history and physical exam findings most consistent with a left lower leg venous stasis ulcer and bilateral lower leg venous hypertension. There are no physical exam findings to indicate flow limiting arterial insufficiency influencing her left lower leg wound. PLAN/RECOMMENDATION: 1. Venous reflux ultrasound of the LLE to determine if there is superficial varicose veins disease contributing to her presentation. * If this is positive then medical grade compression stockings or leg wraps will be recommended. 2. The patient appears to be a poorly controlled diabetic which will at least exacerbate her left leg wound. * The patient was encouraged to be more attentive to good blood sugar control.
[2018-10-24] MEDS: Benzonatate CAP* 100 MG PO PRN (18:11)
[2018-10-24] MEDS: traMADol TAB* 50 MG PO PRN (21:07)
[2018-10-24] MEDS: SACUBITRIL PO SCH (21:08)
[2018-10-24] MEDS: VALSARTAN PO SCH (21:08)
[2018-10-24] MEDS: Atorvastatin* 10 MG TAB PO SCH (21:09)
[2018-10-25] MEDS ORDERED: traZODone TAB* 50 MG TAB PO PRN (00:56)
[2018-10-25] MEDS: Heparin VIAL(*) 5000 UNITS/ML VIAL (FIVE THOUSAND) SUBCUT SCH ×2 (05:11→12:19)
[2018-10-25 06:09] LABS: ABS Basophils 0 10^3/ul (0-0.2); ABS Eosinophils 0.2 10^3/ul (0-0.6); ABS Lymphocytes 0.7 10^3/ul (1.0-4.8); ABS Monocytes 0.5 10^3/ul (0-0.8); ABS Neutrophils 6.2 10^3/ul (1.5-7.7); ABS Nucleated RBC 0 10^3/ul; Hematocrit 29 % (35-47); Hemoglobin 9.8 g/dl (12.0-16.0); Lymphocyte % 8.7 %; Mean Corpuscular HGB Conc 34 g/dl (31-36); Mean Corpuscular Hemoglobin 27 pg (27-31); Mean Corpuscular Volume 81 fL (80-97); Mean Platelet Volume 6.3 fL (7.4-10.4); Nucleated Red Blood Cells % 0; Platelet Count 225 10^3/ul (150-450); Red Blood Count 3.58 10^6/ul (4.00-5.40); Red Cell Distribution Width 17 % (10.5-15); White Blood Count 7.5 10^3/ul (3.5-10.8)
[2018-10-25 07:50] LABS: EGFR Non-African American 36.2 (>60)
[2018-10-25] MEDS: Gabapentin CAP(*) 300 MG PO SCH (09:08)
[2018-10-25] MEDS: Aspirin 81 mg CHEW TAB* 81 MG TAB.CHEW PO SCH (09:09)
[2018-10-25] MEDS: Potassium Chlor TAB* 10 MEQ TAB.ER PO SCH (09:09)
[2018-10-25] MEDS: Levothyroxine TAB* 125 MCG TAB PO SCH (09:09)
[2018-10-25] MEDS: Furosemide TAB* 40 MG PO SCH (09:09)
[2018-10-25] MEDS: VALSARTAN PO SCH (09:10)
[2018-10-25] MEDS: SACUBITRIL PO SCH (09:10)
[2018-10-25] MEDS: Sertraline* 50 MG TAB PO SCH (09:10)
[2018-10-25] MEDS: Metolazone TAB* 5 MG PO SCH (09:12)
[2018-10-25] MEDS: Insulin GLARGINE(*) 1 UNITS UNIT SUBCUT SCH (09:13)
[2018-10-25] MEDS: Insulin LISPRO* 1 UNITS UNIT SUBCUT SCH ×5 (09:17→17:25)
[2018-10-25] MEDS: DOXYcycline IV* 100 MG in NS 0.9% 250 ML* 250 ML IVPB SCH (09:24)
[2018-10-25] MEDS: Benzonatate CAP* 100 MG PO PRN ×2 (09:36→14:47)
[2018-10-25] MEDS ORDERED: Potassium Chlor TAB* 10 MEQ TAB.ER PO ONE (09:38)
[2018-10-25] MEDS: CMC:SitaGLIPtin (NF) 25 MG TAB PO SCH (09:45)
[2018-10-25 12:12] LABS: Immature Retic Fraction 0.59
[2018-10-25 12:13] LABS: Corrected Retic Count 2.3 % (0.5-1.5); Hematocrit for Retic CNT 29 % (35-47); RBC Retic Count 3.58 10^6/ul (4.6-6.2)
[2018-10-25] MEDS ORDERED: Insulin LISPRO* 1 UNITS UNIT SUBCUT SCH (14:00)
[2018-10-25] MEDS ORDERED: Nystatin TOP POWDER* 15 GM BTL TOPICAL SCH (14:00)
[2018-10-25 14:22] VITALS: BP 113/63
[2018-10-25] MEDS ORDERED: Magnesium Oxide TAB* 400 MG PO ONE (15:12)
--- NOTE | 2018-10-25 16:07 | DS ---
AMENDED REPORT NOW INCLUDES DESIGNATED COSIGNER - ESIGNED BEFORE ADJUSTMENTS CC: [facility]; Dr. Francois Daniel; W[facility] * DATE OF ADMISSION: 10/23/2018. DATE OF DISCHARGE: 10/25/2018. PRIMARY CARE PHYSICIAN: Provider at [facility]. ATTENDING PHYSICIAN: Dr. Holly Somers * (dictated by Bryan Pulido NP). PRIMARY DIAGNOSIS: Venous stasis ulcer of left lower extremity. SECONDARY DIAGNOSES: 1. Congestive heart failure. 2. Stage 3 chronic kidney disease. 3. Type 2 diabetes. 4. Bipolar disorder. CONSULTATIONS WHILE IN THE HOSPITAL: Dr. Francois Daniel; W[facility]. PROCEDURES WHILE IN THE HOSPITAL: There were no procedures. STUDIES WHILE IN THE HOSPITAL: 1. Ankle brachial indices: Impression: Claudication values and derangement of arterial waveforms are recorded in the left lower extremity. Per Dr. Daniel , there are no physical findings to indicate flow limiting arterial insufficiency influencing her left lower leg wound. 2. Soft tissue ultrasound: Impression: Extensive infiltrative subcutaneous edema noted. No loculated abscess collection evident. The visualized superficial veins appear patent. 3. Transthoracic echocardiogram: Impression: Mild to moderate concentric left ventricular hypertrophy is observed. There is global hypokinesis of the left ventricle with minor regional variation. There is mild to moderately decreased left ventricular systolic function. The estimated ejection fraction is 40 to 45 percent. The right ventricular global systolic function is low normal. The aortic valve leaflets are mildly thickened. There is mild aortic stenosis. The mean gradient of the aortic valve is 13 mmHg. There is a trace of aortic regurgitation. There is a trace of mitral regurgitation. There is no evidence of tricuspid valve regurgitation. Unable to estimate the right ventricular systolic pressure. There is no significant pericardial effusion. DISCHARGE HOME MEDICATIONS: No new home medications. Continued home medications: 1. Zoloft 50 mg p.o. daily. 2. Potassium 10 mEq p.o. daily. 3. Synthroid 125 mcg p.o. 0800. 4. Gabapentin 600 mg p.o. b.i.d. 5. Lasix 40 mg p.o. daily. 6. Doxepin 10 mg p.o. at bedtime. 7. Aspirin 81 mg p.o. daily. 8. Metolazone 2.5 mg p.o. daily. 9. Benzonatate 100 mg p.o. t.i.d. prn. 10. Albuterol 2.5 mg/3 ml 2.5 mg inhalation q.4 hours prn. 11. Tylenol 1,000 mg p.o. q.8 hours prn. 12. Calcium Carbonate/vitamin D3 one tab p.o. b.i.d. 13. Entresto 49 mg-51 mg tablet one tab p.o. 0800, 1600. 14. Januvia 25 mg p.o. daily. 15. Simvastatin 20 mg p.o. at bedtime. Changed home medications: 1. Insulin NovoLog 10 units subcu t.i.d. 2. Insulin Glargine 95 units subcu daily. Discontinued home medications: No home medications were discontinued. HISTORY OF PRESENT ILLNESS/HOSPITAL COURSE: Ms. Chowdhury is a 73-year-old female with a past medical history of diabetes, heart failure, hypothyroid, bipolar disorder, and anxiety who presented to the emergency room on 10/23/2018 with erythema to the bilateral lower legs for quite some time and an open wound on the left lower leg for approximately two months. Please see history and physical dictated by Dr. Dyer for a complete summary of the events leading up to the hospitalization. In short, when the patient presented to the ED she was noted to have mild erythema to the right distal leg consistent with chronic venous stasis changes and there was brighter red and more angry appearing skin on the left leg with a shallow ulcer with denuded skin almost circumferentially around the distal left leg. This area was also weeping and appeared to be boggy underneath. This area was also painful to the touch and it was suspected she had a chronic venous stasis ulcer. She was admitted to rule out infection and for further evaluation of venous stasis insufficiency and of venous stasis ulceration. There was concern for infection as her CRP was mildly elevated at 18 and the area was darker/brighter red than the right. She was admitted to the Medical floor and started on Doxycycline 100 mg IV. Ultrasound and GEN's were obtained as above. The patient was also consulted by Wound Care, ID, and Vascular Interventionalist. Ms. Chowdhury is stable for discharge today. Vital signs are temperature 97.8, pulse 97, respirations 21, blood pressure 113/63. LABORATORY DATA: Sodium 134, potassium 3.4, chloride 99, carbon dioxide 24, BUN 42, creatinine 1.43, glucose 293, magnesium 1.7. REVIEW OF SYSTEMS: The patient reports pain in the left lower matias where the wound is located. She reports pain has improved since admission. The patient denies numbness/tingling, fever/chills, calf pain, shortness of breath, palpitations, chest pain, nausea, vomiting, diarrhea. A 12 point review of systems was completed and all others are negative besides aforementioned. PHYSICAL ASSESSMENT: General: Ms. Chowdhury is an obese, elderly female, sitting in a recliner, in no acute distress. She appears stated age. HEENT: EOM's intact. PERRLA. Sclerae within normal limits. Oral mucosa moist and without lesions. Pharynx clear. Neck: Full range of motion. Supple. No cervical or supraclavicular lymphadenopathy. Respiratory: Symmetrical chest expansion. No accessory muscle use. Lung sounds are clear to auscultation. No rhonchi, wheezes, or rales. CV: Regular rate and rhythm. S1, S2 present. Systolic murmur appreciated. No rubs or gallops. No JVD. Extremities: Reddish discoloration to bilateral lower extremities consistent with venous insufficiency. Trace edema to bilateral lower extremities. Left anterior matias ulcer 14 cm x 16 cm x 0.1 cm with a center ulceration that is approximately 9 cm x 10 cm x 0.1 cm. Pedal pulses are +2 by palpation bilaterally. Musculoskeletal: No pain or deformities. Abdomen: Soft, nontender to palpation. Bowel sounds times four. Ostomy. Neuro: Awake, alert, and oriented times four. Moves all extremities. Skin: Grossly intact besides above mentioned on left anterior matias. DISCHARGE PLAN/FOLLOW-UP: 1. Left anterior matias venous stasis ulcer: The patient should have her first dressing change done by the Wound Care Clinic at [facility] on 10/27/18 at 0930. The patient should be monitored for signs and symptoms of infection, including increasing redness to area, fever, tachycardia, and chills. If dressing becomes saturated or falls off, please gently cleanse daily with soap and water. Apply collagen to open area and cover with ABD pad and wrap with gauze. Elevate legs when in bed. 2. Venous insufficiency: The patient has chronic venous insufficiency and would benefit from a venous reflux ultrasound of the left lower extremity to determine if there is superficial varicose vein disease contributing to her presentation. If these results are positive, then medical grade compression stockings or leg wraps will be recommended. I have ordered this venous reflux ultrasound and scheduled it for 11/06/18 at 2 pm at [facility] 3. Diabetes: The patient is a poorly controlled diabetic which at the least is exacerbating her left leg wound. The patient should be on a strict diabetic/ consistent carb diet. I have increased her long-acting insulin to 95 units a day. I have also increased her NovoLog insulin to 10 units t.i.d. This has been done as the patient has been hyperglycemic throughout her hospital stay with an average of 250 blood sugar. In addition, the patient's hemoglobin A1c today was 9.0. Therefore, I believe the patient would also benefit from a follow- up with Dr. Miguel Angel Hurley for better disease management. Referral has been placed and his office will reach out to patient. Patient should also have finger sticks obtained and recorded Morning, before meals and before bed for 2 weeks 4. Congestive heart failure: The patient had a transthoracic echocardiogram as mentioned above. The patient should continue her Entresto and Lasix as previously ordered. The patient should have a follow-up CBC and BMP in one to two weeks. 5. Stage three chronic kidney disease: The patient's creatinine remained elevated during her hospital stay. This is consistent with previous values on previous hospital stays. Creatinine today is 1.43. The patient should continue home medications the same. 6. Bipolar disorder: The patient should continue Doxepin and Sertraline. 7. Hyperlipidemia: Continue Simvastatin. 8. Anemia: The patient was noted to be mildly anemic with a hemoglobin of 9.8 and hematocrit of 29. I suspect this is due to the patient's chronic kidney disease with an elevated creatinine of 1.43. The patient did have iron studies which support the diagnosis of anemia due to chronic kidney disease: Iron 43, TIBC 245, saturation 18, unsaturated iron binding less than 230, transferrin 175 , ferritin 123.6. 9. Education: The patient was educated on diabetic diet, wound care, and when to seek further medical treatment. Please monitor the patient for any new or worsening symptoms such as shortness of breath, lightheadedness, dizziness, chest discomfort, high fever, chills, night sweats, loss of consciousness, or any other worrisome signs or symptoms and have her return to the emergency room immediately if any of these occur. This is a summarized report of a complex medical history and hospital stay. For further details, please see the entire medical record. In addition, this plan has been discussed with my attending, Dr. Holly Somers , who agrees with my plan. TIME SPENT: Approximately 45 minutes were spent on this discharge, greater than half that time was spent [id number] with the patient discussing discharge plan and instructions. BRYAN PULIDO, JORGE L [id number]/CPS #: [id number] RYAN
[2018-10-25] MEDS ORDERED: Potassium Chlor TAB* 20 MEQ TAB.ER PO ONE (19:00)
--- NOTE | 2018-10-25 20:05 | CONS ---
CONSULTATION REPORT: DATE OF CONSULT: 10/25/18 REQUESTING PROVIDER: Brea Taylor NP CONSULTING SERVICE: Infectious Disease. REASON FOR CONSULTATION: Left leg wound. IMPRESSION: 1. Bilateral venous stasis changes and venous stasis ulceration of the left leg. It grew group G Strep. There is no cellulitis or purulent drainage. I do not think there is an infection and blood cultures have been negative. 2. Likely venous insufficiency. 3. Chronic kidney disease. 4. Obesity. 5. PENICILLIN allergy. RECOMMENDATIONS: We will stop the doxycycline. Dr. Daniel has seen her and is going to arrange for ultrasound evaluation of venous flow. HISTORY OF PRESENT ILLNESS: This is a 73-year-old woman who had been in [facility] with diagnosis of cellulitis, had some antibiotics there, then was transferred to [facility] and then brought here for question of recurrence of cellulitis. She has had a left lower leg anterior medial leg ulceration for about a year. She has swelling in both legs. It does seem to get better. It is better when she wakes up first thing in the morning, worse during the course of the day. She has had no fevers, chills, or sweats. She had a culture of the wound here that grew group G Strep. Blood cultures essentially are negative. She has been on doxycycline here. She has had no fever and her C-reactive protein was about 18. She denies pain in her legs. She had an abnormal GEN and had been seen by Dr. Daniel. PAST MEDICAL HISTORY: 1. Morbid obesity. 2. Type 2 diabetes. 3. Hyperlipidemia. 4. Hypothyroidism. 5. Osteoporosis. 6. Bipolar disorder. 7. Anxiety. 8. Rectal cancer, status post resection, radiation and chemotherapy. 9. Status post tonsillectomy. 10. Status post hernia repair. ALLERGIES: PENICILLIN and LITHIUM. MEDICATIONS: 1. Tylenol. 2. Albuterol. 3. Aspirin. 4. Lipitor. 5. Lasix. 6. Gabapentin. 7. Heparin subcutaneous injection. 8. Insulin lispro. 9. Levothyroxine. 10. Metolazone. 11. Sertraline. 12. Sitagliptin. 13. Trazodone. 14. Doxycycline 100 mg IV every 12 hours. SOCIAL HISTORY: She lives in [place]. She has no travel or sick contacts. FAMILY HISTORY: No recurrent infections. Mom at 76. Father at 77 with an LA. REVIEW OF SYSTEMS: A 14-point review was negative except as noted above in the history of present illness. PHYSICAL EXAMINATION: Vital Signs: Temperature 36, heart rate 90, respiratory rate 18, blood pressure 126/42, oxygen saturation 93% on room air. In general, she is awake, not in distress. Neurologic: She is oriented x3. Follows all commands. Sensation: Decreased to light touch in both feet. HEENT: There is no conjunctival hemorrhage. Oropharynx: Without lesions. Neck is supple without mass. Heart: Regular rate and rhythm without murmurs, rubs, or gallops. Lungs are clear to auscultation bilaterally. Abdomen: Soft, nontender, nondistended. There are bowel sounds present. Skin: There are no rashes or splinter hemorrhages. Musculoskeletal: There is no spine tenderness to palpation. There is bilateral lower extremity nonpitting edema. There is a left anterior medial leg ulceration with some fibrinous slough. No surrounding erythema. There is no drainage. LABORATORY DATA: White blood cell count 7.5, hemoglobin 9.8, platelets 225. Creatinine 1.4. Please see impressions and recommendations outlined above. Thanks for asking me to see Ms. Chowdhury in consultation. [id number]/CPS #: [id number] RYAN
[2018-10-26] MEDS ORDERED: Insulin GLARGINE(*) 1 UNITS UNIT SUBCUT SCH (09:00)
== END 2018-10-25 17:50 | DRG 300 ==
LOC: ED 01:34 → MED 06:55
PROVIDERS: ADMIT Hospitalist; ATTEND Internal Medicine
DX: I87.2 Venous insufficiency (chronic) (peripheral) (principal); L03.116 Cellulitis of left lower limb; I13.0 Hypertensive heart and chronic kidney disease with heart failure and stage 1 through stage 4 chronic kidney disease, or unspecified chronic kidney disease; 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 of unspecified part of left lower leg with unspecified severity; Z68.41 Body mass index [BMI] 40.0-44.9, adult; I50.9 Heart failure, unspecified; E03.9 Hypothyroidism, unspecified; M81.0 Age-related osteoporosis without current pathological fracture; F31.9 Bipolar disorder, unspecified; F41.9 Anxiety disorder, unspecified; E66.01 Morbid (severe) obesity due to excess calories; N18.3 Chronic kidney disease, stage 3 (moderate); E11.22 Type 2 diabetes mellitus with diabetic chronic kidney disease; E78.5 Hyperlipidemia, unspecified; E11.622 Type 2 diabetes mellitus with other skin ulcer; E11.65 Type 2 diabetes mellitus with hyperglycemia; I73.9 Peripheral vascular disease, unspecified; D64.9 Anemia, unspecified; I08.0 Rheumatic disorders of both mitral and aortic valves; Z85.048 Personal history of other malignant neoplasm of rectum, rectosigmoid junction, and anus; Z88.0 Allergy status to penicillin; Z88.8 Allergy status to other drugs, medicaments and biological substances; Z82.49 Family history of ischemic heart disease and other diseases of the circulatory system; Z87.891 Personal history of nicotine dependence; Z92.21 Personal history of antineoplastic chemotherapy; Z92.3 Personal history of irradiation; Z79.82 Long term (current) use of aspirin; Z79.4 Long term (current) use of insulin
CPT/HCPCS: 36415; 80048; 80053; 81003; 81015; 82550; 82728; 83036; 83540; 83550; 83605; 83735; 85025; 85027; 85045; 85610; 85730; 86140; 87040; 87070; 87077; 87086; 87184; 87186; 87205; 87641; 93306; 93922; 99284; A9270-GY; C8929; J1644; J1956; J3370

== ENCOUNTER 2019-03-16 11:58 | Inpatient (IN) | payer MEDICARE, MEDICAID ==
[2019-03-16] MEDS ORDERED: Dextrose 50% Syringe 50 ML* 25 GM/50 ML SYRINGE IV PUSH PRN (14:25)
--- NOTE | 2019-03-16 14:42 | WND ---
CC: Primary Care Physician; [facility]; Wound Center WOUND CENTER CONSULTATION REPORT: DATE OF CONSULT: 03/16/19 HISTORY OF PRESENT ILLNESS: Ms. Chowdhury is a 74-year-old female, who presented to the wound center for routine care. This is being her 20th week at the wound center for venous stasis ulcerations at t he left lower extremity. The patient is a group home patient with urinary incontinence and lymphed fer along with venous insufficiency with reflux, who is scheduled for venous surgery in 2 weeks' time . At last visit a week ago, the patient showed improvement with regard to the ulcers, they were longsta nding, and we kept placing compression dressings to the sites. The patient has minimal pain. PAST MEDICAL HISTORY: Reviewed. PHYSICAL EXAM: Today, the patient is 211 pounds, body mass index at 41, temperature 97, blood pressu re 124/48, pulse 80, respirations 20. Alert and oriented x3, in no apparent distress. Focused exami nation of the left lower extremity reveals persistent edema with hyperpigmentation along with celluli tis at lower extremity consistent with infection. Wound measures 7.5 x 12 cm; it is mostly partial t hickness consistent with venous stasis disease with weeping drainage. It is minimally tender. It wa s coarsely debrided today and a collagen dressing was applied. IMPRESSION: Persistent venous stasis disease, now with cellulitis in a patient who is morbidly obese with multiple comorbidities, who I believe would benefit from leg elevation and IV antibiotics in [facility]. I described this recommendation to the hospitalist service, who agreed to admit. I feel that the patient will be ready for her vein surgery in 2 weeks' time, but it will be nice to have mo re control of the cellulitis and other complications with regards to the left lower extremity. The spitalist service was nice enough to admit her for this process. IV antibiotics recommended and leg elevation. I will see her on Tuesday. No surgical visit through the weekend is expected. My recomme ndation for wound care is alginate dressing daily followed by ABDs, and roll gauze. [id number]/[facility] #: [id number]
[2019-03-16] MEDS ORDERED: Clindamycin 600 MG/D5W BAG(*) 600 MG/50 ML BAG IV SCH (15:00)
[2019-03-16] MEDS: Acetaminophen TAB* 325 MG PO PRN (16:29)
[2019-03-16] MEDS: Heparin VIAL(*) 5000 UNITS/ML VIAL (FIVE THOUSAND) SUBCUT SCH ×2 (16:35→21:49)
[2019-03-16] MEDS: Insulin LISPRO* 1 UNITS UNIT SUBCUT SCH ×2 (16:35→21:49)
[2019-03-16 16:52] LABS: C Reactive Protein 11.54 mg/L (<8.01)
--- NOTE | 2019-03-16 17:18 | HP ---
CC: Kenny* HISTORY AND PHYSICAL: DATE OF ADMISSION: 03/16/19 PROVIDER: Oneida Ghosh NP. PRIMARY CARE PROVIDER: Kenny. ATTENDING PHYSICIAN WHILE IN THE HOSPITAL: Dr. Laz Prater* (dictated by Oneida Ghosh NP). CHIEF COMPLAINT: Left lower leg redness. HISTORY OF PRESENT ILLNESS: Ms. Chowdhury is a 74-year-old female with a past medical history significant for bipolar; anxiety; depression; diabetes; hyperlipidemia; hypothyroid; osteoporosis; history of rectal carcinoma, status post resection with a colostomy, who presents from the wound clinic for admission for left lower leg cellulitis. The patient has been treated at the wound clinic for approximately 20 weeks for venous stasis ulcers and cellulitis along with lymphedema. She was recently started on Bactrim p.o. as an outpatient with worsening symptoms in the left lower leg. Due to the worsening redness, Dr. Figueroa had recommended that the patient be admitted for IV antibiotics for cellulitis. The patient denies any fever, chills, nausea, vomiting, or diarrhea. Denies any chest pain or shortness of breath. Denies any hematuria, dysuria, focal weakness, or sensory loss. She does report pain in her left lower leg x20 weeks. She says that it is mild and dull aching, no changes. She does report that the leg is slightly more red than normal. She denies any depression or anxiety. The patient reports that she noticed approximately 2 to 3 days ago that she had increased redness in her right lower leg and when she went to her followup visit at the wound clinic today, it was recommended that she be admitted for IV antibiotics for treatment of cellulitis. PAST MEDICAL HISTORY: Significant for: 1. Depression. 2. Anxiety. 3. Bipolar disorder. 4. History of rectal carcinoma, status post resection with colostomy. 5. Hypothyroid. 6. Hyperlipidemia. 7. Type 2 diabetes. 8. Venous stasis disease. 9. Chronic Kidney Disease PAST SURGICAL HISTORY: 1. Rectal surgery. 2. Tonsillectomy. 3. Hernia repair. 4. Colostomy. HOME MEDICATIONS: 1. Aspirin 81 mg p.o. daily. 2. Furosemide 40 mg p.o. daily. 3. Doxepin 10 mg p.o. at bedtime. 4. Gabapentin 600 mg p.o. b.i.d. 5. NovoLog 24 units with meals, withholding for blood sugar less than 120. 6. Levothyroxine 125 mcg. 7. Zaroxolyn 2.5 mg p.o. daily. 8. Potassium chloride 10 mEq p.o. daily. 9. Entresto 49 mg/51 mg tablet 1 tablet b.i.d. 10. Zoloft 50 mg p.o. daily. 11. Zocor 20 mg at bedtime. 12. Januvia 25 mg p.o. daily. 13. Acetaminophen 1000 mg p.o. q.8 hours as needed for pain. 14. Albuterol nebulizer 2.5 mg p.o. q.4 hours as needed for shortness of breath. 15. Calcium with vitamin D one tab p.o. daily. 16. Bactrim DS 1 tablet po BID ALLERGIES: To PENICILLIN and LITHIUM. FAMILY HISTORY: Mom at the age of 76, unknown. Dad at 77 from a reported possible [place]. SOCIAL HISTORY: The patient denies any tobacco, alcohol, or illicit drug use. She currently resides at [facility]. Surrogate decision maker, in the event she is unable to make her own decision, are her daughters. She is a full code. REVIEW OF SYSTEMS: A review of 14 systems was completed. All pertinent positives were mentioned in the HPI. Otherwise were negative. PHYSICAL EXAMINATION GENERAL: At this time. Ms. Chowdhury is a 74-year-old female, resting comfortably in the bed in her room. She is in no acute distress. VITAL SIGNS: Temperature 97.4, pulse is 80, respirations are 20, O2 saturation 94%, blood pressure 127/49. HEENT: Head is atraumatic, normocephalic. Eyes: EOMs are intact. Sclerae anicteric and not pale. Oral mucosa appeared to be moist. NECK: Supple. LUNGS: Diminished throughout bilaterally. There are no wheezes, rales, or rhonchi. CARDIAC: S1, S2. Regular rate and rhythm. No murmurs, rubs, or gallops. ABDOMEN: Obese, soft, nontender. She does have a colostomy with light brown stool noted to the bag. Stoma is pink. Bowel sounds are present x4. EXTREMITIES: Bilateral lower extremities with +1 pitting edema. Her left lower leg with redness from just below the matias to the top of her ankle with a moderate amount of serous drainage. Dressing was saturated on arrival. Pedal pulses are +1 bilaterally. She is able to move all 4 extremities. There is no clubbing or cyanosis. NEUROLOGIC: She is awake, alert, oriented x3. Speech is clear. Thought process is intact. There are no gross focal deficits. SKIN: Her left lower extremity with edema and erythema with weeping serosanguineous drainage. DIAGNOSTIC STUDIES/LAB DATA: The patient currently has a CBC, BMP, wound culture and CRP that are currently pending as well as blood cultures. ASSESSMENT AND PLAN: Ms. Chowdhury is a 74-year-old female with past medical history significant for anxiety, depression, hyperlipidemia, diabetes type 2, venous stasis ulcers, who was a direct admission from wound care clinic for left lower leg cellulitis that failed outpatient doxycycline. The patient will be admitted for IV antibiotics to the medical floor. 1. Left lower leg cellulitis. I would encourage elevation. Dressing care as per Dr. Figueroa's recommendation of alginate dressing then cover with an ABD and roll gauze. We will start her on clindamycin 600 mg IV q.8 hours. Wound culture has been sent. CBC and BMP are currently pending. CRP is also currently pending. 2. Diabetes. I will place her on lispro sliding scale and resume her home Lantus. She will have fingersticks a.c. and h.s. 3. Depression and anxiety. She will continue on Zoloft as previously prescribed. 4. History of diastolic heart failure with ejection fraction of 40% to 45%. The patient will be continued on her Zaroxolyn and furosemide as previously prescribed. 5. Hypothyroidism. She will continue on levothyroxine as previously prescribed. 6. Chronic Kidney Disease. We will get a BMP, results are currently pending. Medications will be based on renal function and adjusted as needed. 6. FEN: She can have a consistent carb diet. 7. Code status: She is a full code. 8. DVT prophylaxis: I will place her on heparin subcu. TIME SPENT: Time spent on this admission was approximately 60 minutes, greater than half that time was spent at the bedside reviewing events leading thus far to her hospitalization, performing my physical exam, and reviewing my plan of care. ONEIDA GHOSH, ANTISQUEAK CHALKER [id number]/[facility] #: [id number] RYAN
[2019-03-16 18:30] LABS: ABS Basophils 0 10^3/ul (0-0.2); ABS Eosinophils 0.2 10^3/ul (0-0.6); ABS Lymphocytes 0.7 10^3/ul (1.0-4.8); ABS Monocytes 0.4 10^3/ul (0-0.8); ABS Neutrophils 4.5 10^3/ul (1.5-7.7); ABS Nucleated RBC 0 10^3/ul; Eosinophil % 4.1 %; Hematocrit 30 % (33-41); Hemoglobin 9.8 g/dL (12.0-16.0); Mean Corpuscular HGB Conc 33 g/dL (31-36); Mean Corpuscular Hemoglobin 28 pg (27-31); Mean Corpuscular Volume 85 fL (80-97); Mean Platelet Volume 6.8 fL (7.4-10.4); Nucleated Red Blood Cells % 0; Platelet Count 237 10^3/uL (150-450); Red Blood Count 3.52 10^6 /uL (3.70-4.87); Red Cell Distribution Width 19 % (10.5-15); White Blood Count 5.9 10^3/uL (3.5-10.8)
[2019-03-16 18:40] LABS: BUN/Creatinine Ratio 25.7 (8-20); Calcium 9.4 mg/dL (8.6-10.3); EGFR African American 22.6 (>60); EGFR Non-African American 18.7 (>60)
[2019-03-16 18:47] LABS: Potassium 5.1 mmol/L (3.5-5.0)
[2019-03-16] MEDS ORDERED: Vancomycin per Pharmacy* NOTE FOLLOW UP PRN (18:52)
[2019-03-16] MEDS ORDERED: Vancomycin 1500 MG IV - x ONCE IVPB ONE ×2 (19:00)
[2019-03-16] MEDS ORDERED: Albuterol 2.5 MG/3 ML NEB.SOL* (0.083%) INH PRN (20:11)
[2019-03-16] MEDS ORDERED: Benzonatate CAP* 100 MG PO PRN (20:11)
[2019-03-16] MEDS ORDERED: DOXEPIN 10 MG PO SCH (21:00)
[2019-03-16] MEDS ORDERED: NS 0.9% 500 ML* 500 ML IV SCH (21:00)
[2019-03-16] MEDS ORDERED: Cefepime* 2 GM in Dextrose 50mL Q24H (Duplex) IV SCH (21:00)
[2019-03-16] MEDS: Gabapentin CAP(*) 300 MG PO SCH (21:50)
[2019-03-16] MEDS: Atorvastatin* 10 MG TAB PO SCH (21:50)
[2019-03-16] MEDS: metroNIDAZOLE * 500 MG TABLET PO SCH (21:50)
[2019-03-17] MEDS: Carvedilol TAB* 3.125 MG PO SCH ×3 (00:31→21:17)
[2019-03-17] MEDS: Heparin VIAL(*) 5000 UNITS/ML VIAL (FIVE THOUSAND) SUBCUT SCH ×3 (05:29→21:17)
[2019-03-17] MEDS: Levothyroxine TAB* 125 MCG TAB PO SCH (05:29)
[2019-03-17] MEDS ORDERED: Vancomycin Random Level* NOTE FOLLOW UP ONE (06:00)
[2019-03-17] MEDS ORDERED: SACUBITRIL PO SCH (08:00)
[2019-03-17] MEDS ORDERED: VALSARTAN PO SCH (08:00)
[2019-03-17] MEDS: metroNIDAZOLE * 500 MG TABLET PO SCH ×2 (08:03→21:20)
[2019-03-17] MEDS: Gabapentin CAP(*) 300 MG PO SCH ×2 (08:03→21:16)
[2019-03-17] MEDS: Sertraline* 50 MG TAB PO SCH (08:03)
[2019-03-17] MEDS: Aspirin 81 mg CHEW TAB* 81 MG TAB.CHEW PO SCH (08:03)
[2019-03-17] MEDS: Insulin GLARGINE(*) 1 UNITS UNIT SUBCUT SCH ×2 (08:04→21:15)
[2019-03-17] MEDS: Insulin LISPRO* 1 UNITS UNIT SUBCUT SCH ×4 (08:05→21:18)
[2019-03-17 08:18] LABS: Vancomycin Random 16.3 mcg/mL
[2019-03-17 08:21] LABS: BUN/Creatinine Ratio 27.1 (8-20); Blood Urea Nitrogen 59 mg/dL (6-24); CO2 Carbon Dioxide 21 mmol/L (22-32); Chloride 107 mmol/L (101-111); EGFR African American 26.8 (>60); EGFR Non-African American 22.2 (>60); Glucose 234 mg/dL (70-100); Sodium 136 mmol/L (135-145)
[2019-03-17 08:32] LABS: Anion Gap 8 mmol/L (2-11); Potassium 5.1 mmol/L (3.5-5.0)
[2019-03-17] MEDS ORDERED: Potassium Chlor TAB* 10 MEQ TAB.ER PO SCH (09:00)
[2019-03-17] MEDS ORDERED: Furosemide TAB* 40 MG PO SCH (09:00)
[2019-03-17] MEDS: Vancomycin(*) 1,000 MG in NS 0.9% 250 ML* 250 ML IVPB SCH ×2 (10:46→22:10)
[2019-03-17] MEDS ORDERED: Insulin LISPRO* 1 UNITS UNIT SUBCUT ONE (12:05)
--- NOTE | 2019-03-17 14:58 | PN ---
Subjective Date of Service: 03/17/19 Interval History: Pt's R forearm IV infiltrated, the area is swollen and pruritic L leg still swollen and "red" Objective Active Medications: Acetaminophen (Tylenol Tab*) 650 mg PO Q6H PRN PRN Reason: FEVER/PAIN Last Admin: 03/16/19 16:29 Dose: 650 mg Albuterol (Ventolin 2.5 Mg/3 Ml Neb.Keyana*) 2.5 mg INH Q4H PRN PRN Reason: SOB/WHEEZING Aspirin (Aspirin 81 Mg Chew Tab*) 81 mg PO DAILY [facility] Last Admin: 03/17/19 08:03 Dose: 81 mg Atorvastatin Calcium (Lipitor*) 10 mg PO BEDTIME [facility] Last Admin: 03/16/19 21:50 Dose: 10 mg Benzonatate (Tessalon Cap*) 100 mg PO TID PRN PRN Reason: COUGH Last Admin: 03/16/19 21:50 Dose: 100 mg Carvedilol (Coreg Tab*) 3.125 mg PO BID [facility] Last Admin: 03/17/19 08:04 Dose: 3.125 mg Dextrose (D50w Syringe 50 Ml*) 12.5 gm IV PUSH .FOR FS < 60 - SS PRN PRN Reason: FS < 60 Furosemide (Lasix Tab*) 40 mg PO DAILY [facility] Gabapentin (Neurontin Cap(*)) 600 mg PO BID [facility] Last Admin: 03/17/19 08:03 Dose: 600 mg Heparin Sodium (Porcine) (Heparin Vial(*)) 5,000 units SUBCUT Q8HR [facility] Last Admin: 03/17/19 13:45 Dose: 5,000 units Vancomycin HCl 1,000 mg/ (Sodium Chloride) 250 mls @ 166.667 mls/hr IVPB Q12H [facility] Last Admin: 03/17/19 10:46 Dose: 166.667 mls/hr Insulin Glargine (Lantus(*)) 32 units SUBCUT 2100 [facility] Insulin Glargine (Lantus(*)) 48 units SUBCUT DAILY [facility] Last Admin: 03/17/19 08:04 Dose: 48 unit Insulin Human Lispro (Humalog*) 0 units SUBCUT ACHS [facility]; Protocol Last Admin: 03/17/19 12:09 Dose: 6 units Levothyroxine Sodium (Synthroid Tab*) 125 mcg PO 0600 [facility] Last Admin: 03/17/19 05:29 Dose: 125 mcg Metolazone (Zaroxolyn Tab*) 2.5 mg PO DAILY [facility] Metronidazole (Flagyl) 500 mg PO BID [facility] Last Admin: 03/17/19 08:03 Dose: 500 mg Pharmacy Consult (Vancomycin Per Pharmacy*) 1 note FOLLOW UP . PRN PRN Reason: PER PROTOCOL Pharmacy Profile Note (Vancomycin Trough Check) 1 note FOLLOW UP 0930 ONE Stop: 03/19/19 09:31 Sertraline HCl (Zoloft*) 50 mg PO DAILY [facility] Last Admin: 03/17/19 08:03 Dose: 50 mg Vital Signs - 8 hr 03/17/19 03/17/19 03/17/19 07:56 08:00 08:03 Temperature 97.0 F Pulse Rate 98 Respiratory 20 20 20 Rate Blood Pressure 136/42 (mmHg) O2 Sat by Pulse 94 Oximetry 03/17/19 03/17/19 08:19 10:17 Temperature Pulse Rate Respiratory 20 19 Rate Blood Pressure (mmHg) O2 Sat by Pulse Oximetry Oxygen Devices in Use Now: None Appearance: 74 yo F in nAD, AAOx3 Eyes: No Scleral Icterus, PERRLA Ears/Nose/Mouth/Throat: NL Teeth, Lips, Gums, Mucous Membranes Moist Neck: NL Appearance and Movements; NL JVP, Trachea Midline Respiratory: Symmetrical Chest Expansion and Respiratory Effort, Clear to Auscultation Cardiovascular: NL Sounds; No Murmurs; No JVD Abdominal: NL Sounds; No Tenderness; No Distention, No Hepatosplenomegaly Lymphatic: No Cervical Adenopathy Extremities: No Clubbing, Cyanosis, - - b/l LE's edema L>>R with left leg below the knee with marked erytherma due to cellulitis and edema. Dressings the were just applied by RN were not removed. will evaluate wound later Skin: No Nodules or Sclerosis Neurological: Alert and Oriented x 3, NL Muscle Strength and Tone Result Diagrams: 03/16/19 16:27 03/17/19 07:17 Microbiology and Other Data: Microbiology 03/16/19 16:34 Skin and Soft Tissue MRSA/MSSA (PCR - Final Leg Left Mrsa Positive S.aureus Positive Gram Stain - Final Assess/Plan/Problems-Billing Assessment: 74 yo F with h/o venous stasis leg ulcers, obesity, DM, CKD3 hypothyroidism with left leg cellulitis - Patient Problems (1) Wound of left lower extremity Comment: - with cellulitis. -cx positive MRSA:Vanc started, cont Flagyl, d/c Cefepime. - Dressing change ordered placed as per Dr. Figueroa recommendations. (2) CHF (congestive heart failure) Comment: - Echo revealed EF of 40 to 45% in 10/2018 - chronic diastolc CHF, not in exacerbation, cont Lasix , metolazone, daily weights -holding Aldactone for hyperkalemia (3) CKD (chronic kidney disease) stage 3, GFR 30-59 ml/min Comment: - Creatinine 1.5-baseline. - now slightly elevated from patient baseline - Will continue to monitor (4) Diabetes Comment: - Continue long acting insulin - Continue sliding scale (5) Venous stasis Comment: - Bilateral legs have evidence of venous stasis -leg elevation encouraged (6) Normocytic anemia Comment: new since 2018 [place] iron studies, check stool hemocult no evidence of acute bleeding (7) DVT prophylaxis Comment: HSQ Status and Disposition: inpatient
[2019-03-17 15:21] LABS: Corrected Retic Count 2.3 % (0.5-1.5); Hematocrit for Retic CNT 30 % (33-41); Immature Retic Fraction 0.56; RBC Retic Count 3.53 10^6/uL (3.70-4.87)
[2019-03-17 15:32] LABS: % Iron Saturation 8 % (15-55); Iron 22 ug/dL (50-212); Total Iron Binding Capacity 290 mcg/dL (250-450); Transferrin 207 mg/dL (203-362)
[2019-03-17 15:57] LABS: Folate 12.19 ng/mL (>3.99)
[2019-03-17] MEDS: Atorvastatin* 10 MG TAB PO SCH (21:16)
[2019-03-17] MEDS: Acetaminophen TAB* 325 MG PO PRN (21:20)
[2019-03-18] MEDS: Levothyroxine TAB* 125 MCG TAB PO SCH (05:06)
[2019-03-18] MEDS: Heparin VIAL(*) 5000 UNITS/ML VIAL (FIVE THOUSAND) SUBCUT SCH ×3 (05:07→21:45)
[2019-03-18 08:06] LABS: Hematocrit 29 % (33-41); Hemoglobin 9.5 g/dL (12.0-16.0); Mean Corpuscular HGB Conc 33 g/dL (31-36); Mean Corpuscular Hemoglobin 28 pg (27-31); Mean Corpuscular Volume 84 fL (80-97); Mean Platelet Volume 6.1 fL (7.4-10.4); Platelet Count 194 10^3/uL (150-450); Red Blood Count 3.47 10^6 /uL (3.70-4.87); Red Cell Distribution Width 19 % (10.5-15); White Blood Count 3.7 10^3/uL (3.5-10.8)
[2019-03-18] MEDS: Insulin LISPRO* 1 UNITS UNIT SUBCUT SCH ×4 (08:10→21:45)
[2019-03-18] MEDS: Insulin GLARGINE(*) 1 UNITS UNIT SUBCUT SCH ×2 (08:11→21:47)
[2019-03-18] MEDS: Gabapentin CAP(*) 300 MG PO SCH ×2 (08:11→21:44)
[2019-03-18] MEDS: Aspirin 81 mg CHEW TAB* 81 MG TAB.CHEW PO SCH (08:11)
[2019-03-18] MEDS: Furosemide TAB* 40 MG PO SCH (08:11)
[2019-03-18] MEDS: Sertraline* 50 MG TAB PO SCH (08:11)
[2019-03-18] MEDS: Metolazone TAB* 5 MG PO SCH (08:11)
[2019-03-18] MEDS: metroNIDAZOLE * 500 MG TABLET PO SCH (08:11)
[2019-03-18] MEDS: Carvedilol TAB* 3.125 MG PO SCH ×2 (08:11→21:45)
[2019-03-18 08:31] LABS: BUN/Creatinine Ratio 27.4 (8-20); Calcium 8.8 mg/dL (8.6-10.3); EGFR African American 34.6 (>60); EGFR Non-African American 28.6 (>60); Potassium 4.6 mmol/L (3.5-5.0)
[2019-03-18] MEDS ORDERED: Spironolactone TAB* 25 MG PO SCH (09:00)
[2019-03-18 09:38] LABS: Urine Appearance Cloudy; Urine Bacteria Absent (Absent); Urine Bilirubin Negative (Negative); Urine Blood Negative (Negative); Urine Color Yellow; Urine Glucose Negative (Negative); Urine Ketones Negative (Negative); Urine Nitrite Negative (Negative); Urine Protein Negative (Negative); Urine Red Blood Cell Trace(0-2/hpf) (Absent); Urine Specific Gravity 1.013 (1.010-1.030); Urine Squamous Epithelial Cell Present (Absent); Urine Urobilinogen Negative (Negative); Urine White Blood Cell Trace(0-5/hpf) (Absent)
[2019-03-18] MEDS ORDERED: NS 0.9% 250 ML* 250 ML ONE (10:05)
[2019-03-18] MEDS: Vancomycin(*) 1,000 MG in NS 0.9% 250 ML* 250 ML IVPB SCH ×2 (10:09→21:44)
--- NOTE | 2019-03-18 10:27 | PN ---
Subjective Date of Service: 03/18/19 Interval History: pt did not sleep well,otherwise no new complaints Objective Active Medications: Acetaminophen (Tylenol Tab*) 650 mg PO Q6H PRN PRN Reason: FEVER/PAIN Last Admin: 03/17/19 21:20 Dose: 650 mg Albuterol (Ventolin 2.5 Mg/3 Ml Neb.Keyana*) 2.5 mg INH Q4H PRN PRN Reason: SOB/WHEEZING Aspirin (Aspirin 81 Mg Chew Tab*) 81 mg PO DAILY [facility] Last Admin: 03/18/19 08:11 Dose: 81 mg Atorvastatin Calcium (Lipitor*) 10 mg PO BEDTIME [facility] Last Admin: 03/17/19 21:16 Dose: 10 mg Benzonatate (Tessalon Cap*) 100 mg PO TID PRN PRN Reason: COUGH Last Admin: 03/16/19 21:50 Dose: 100 mg Carvedilol (Coreg Tab*) 3.125 mg PO BID [facility] Last Admin: 03/18/19 08:11 Dose: 3.125 mg Dextrose (D50w Syringe 50 Ml*) 12.5 gm IV PUSH .FOR FS < 60 - SS PRN PRN Reason: FS < 60 Furosemide (Lasix Tab*) 40 mg PO DAILY [facility] Last Admin: 03/18/19 08:11 Dose: 40 mg Gabapentin (Neurontin Cap(*)) 600 mg PO BID [facility] Last Admin: 03/18/19 08:11 Dose: 600 mg Heparin Sodium (Porcine) (Heparin Vial(*)) 5,000 units SUBCUT Q8HR [facility] Last Admin: 03/18/19 05:07 Dose: 5,000 units Vancomycin HCl 1,000 mg/ (Sodium Chloride) 250 mls @ 166.667 mls/hr IVPB Q12H [facility] Last Admin: 03/18/19 10:09 Dose: 166.667 mls/hr Insulin Glargine (Lantus(*)) 32 units SUBCUT 2100 [facility] Last Admin: 03/17/19 21:15 Dose: 32 units Insulin Glargine (Lantus(*)) 48 units SUBCUT DAILY [facility] Last Admin: 03/18/19 08:11 Dose: 48 unit Insulin Human Lispro (Humalog*) 0 units SUBCUT ACHS [facility]; Protocol Last Admin: 03/18/19 08:10 Dose: 9 units Levothyroxine Sodium (Synthroid Tab*) 125 mcg PO 0600 [facility] Last Admin: 03/18/19 05:06 Dose: 125 mcg Metolazone (Zaroxolyn Tab*) 2.5 mg PO DAILY [facility] Last Admin: 03/18/19 08:11 Dose: 2.5 mg Metronidazole (Flagyl) 500 mg PO BID [facility] Last Admin: 03/18/19 08:11 Dose: 500 mg Pharmacy Consult (Vancomycin Per Pharmacy*) 1 note FOLLOW UP . PRN PRN Reason: PER PROTOCOL Pharmacy Profile Note (Vancomycin Trough Check) 1 note FOLLOW UP 929 ONE Stop: 03/19/19 09:31 Sertraline HCl (Zoloft*) 50 mg PO DAILY [facility] Last Admin: 03/18/19 08:11 Dose: 50 mg Valsartan (Diovan Tab*) 40 mg PO DAILY [facility] Zolpidem Tartrate (Ambien Tab*) 5 mg PO BEDTIME [facility] Vital Signs - 8 hr 03/18/19 03/18/19 03/18/19 03:35 07:01 07:46 Temperature 97.1 F 97.5 F 97.5 F Pulse Rate 90 81 81 Respiratory 22 20 20 Rate Blood Pressure 119/54 128/49 128/49 (mmHg) O2 Sat by Pulse 97 95 95 Oximetry 03/18/19 03/18/19 08:00 08:11 Temperature Pulse Rate Respiratory 18 18 Rate Blood Pressure (mmHg) O2 Sat by Pulse Oximetry Oxygen Devices in Use Now: None Appearance: 74 yo F in nAD, aAOx3 Eyes: No Scleral Icterus, PERRLA Ears/Nose/Mouth/Throat: NL Teeth, Lips, Gums, Mucous Membranes Moist Neck: NL Appearance and Movements; NL JVP, Trachea Midline Respiratory: Symmetrical Chest Expansion and Respiratory Effort, Clear to Auscultation Cardiovascular: RRR, - - 2/6 WANDA Abdominal: NL Sounds; No Tenderness; No Distention, No Hepatosplenomegaly Lymphatic: No Cervical Adenopathy Extremities: No Clubbing, Cyanosis, - - b/l LE's edema R>L, pedal pulses palpable b/l Skin: No Nodules or Sclerosis, - - left leg, 10 cm below the knee with cellultis (not worse since yesterday)-multiple shallow flat bottom ulcers and macerated skin below the knee abd above the left ankle-draining serous fluid Neurological: Alert and Oriented x 3, NL Muscle Strength and Tone Result Diagrams: 03/18/19 07:33 03/18/19 07:33 Microbiology and Other Data: Microbiology 03/16/19 16:34 Skin and Soft Tissue MRSA/MSSA (PCR - Final Leg Left Mrsa Positive S.aureus Positive Gram Stain - Final Assess/Plan/Problems-Billing Assessment: 74 yo F with h/o venous stasis leg ulcers, obesity, DM, CKD3 hypothyroidism with left leg cellulitis - Patient Problems (1) Wound of left lower extremity Comment: - with cellulitis. -cx positive MRSA:Vanc started, cont Flagyl, d/c Cefepime. - Dressing change ordered placed as per Dr. Figueroa recommendations -will ask DR. Figueroa to see pt in aM (2) CHF (congestive heart failure) Comment: - Echo revealed EF of 40 to 45% in 10/2018 - chronic diastolc CHF, not in exacerbation, cont Lasix , metolazone, daily weights -held Aldactone for hyperkalemia on -will restart today -Entresto not on [facility] formulary-start Valsartan only (3) CKD (chronic kidney disease) stage 3, GFR 30-59 ml/min Comment: - Creatinine 1.5-baseline. - now slightly elevated from patient baseline - Will continue to monitor (4) Diabetes Comment: - Continue long acting insulin - Continue sliding scale (5) Venous stasis Comment: - Bilateral legs have evidence of venous stasis -leg elevation encouraged (6) Normocytic anemia Comment: new since 2018 Iron studies shows ACD, but also low iron level-will start ferrous sulfate stool hemocult neg Low normal Vit B12 level-will start PO supplement no evidence of acute bleeding (7) DVT prophylaxis Comment: HSQ Status and Disposition: inpatient
[2019-03-18] MEDS ORDERED: Levofloxacin 250 MG IVPREMX(*) 250 MG/50 ML BAG IVPB SCH (11:00)
[2019-03-18] MEDS: Spironolactone TAB* 25 MG PO SCH (12:02)
[2019-03-18] MEDS: Cyanocobalamin TAB* 500 MCG PO SCH (12:02)
[2019-03-18] MEDS: Valsartan TAB* 40 MG PO SCH (12:03)
[2019-03-18] MEDS: Acetaminophen TAB* 325 MG PO PRN ×2 (15:13→21:55)
[2019-03-18] MEDS ORDERED: Zolpidem TAB* 5 MG PO SCH (21:00)
[2019-03-18] MEDS: Ferrous Gluconate TAB* 324 MG TAB PO SCH (21:45)
[2019-03-18] MEDS: Atorvastatin* 10 MG TAB PO SCH (21:45)
[2019-03-19 04:46] VITALS: BP 143/58
[2019-03-19] MEDS: Heparin VIAL(*) 5000 UNITS/ML VIAL (FIVE THOUSAND) SUBCUT SCH (05:41)
[2019-03-19] MEDS: Levothyroxine TAB* 125 MCG TAB PO SCH (05:41)
[2019-03-19 07:05] LABS: BUN/Creatinine Ratio 25.6 (8-20); EGFR African American 37.3 (>60); EGFR Non-African American 30.8 (>60); Potassium 4.9 mmol/L (3.5-5.0)
[2019-03-19] MEDS: Insulin GLARGINE(*) 1 UNITS UNIT SUBCUT SCH (09:28)
[2019-03-19] MEDS: Insulin LISPRO* 1 UNITS UNIT SUBCUT SCH (09:30)
[2019-03-19] MEDS ORDERED: Vancomycin Trough Check NOTE FOLLOW UP ONE (09:30)
[2019-03-19] MEDS: Metolazone TAB* 5 MG PO SCH (09:31)
[2019-03-19] MEDS: Gabapentin CAP(*) 300 MG PO SCH (10:21)
[2019-03-19] MEDS: Vancomycin(*) 1,000 MG in NS 0.9% 250 ML* 250 ML IVPB SCH (10:24)
[2019-03-19] MEDS: Sertraline* 50 MG TAB PO SCH (10:25)
[2019-03-19] MEDS: Furosemide TAB* 40 MG PO SCH (10:25)
[2019-03-19] MEDS: Carvedilol TAB* 3.125 MG PO SCH (10:25)
[2019-03-19] MEDS: Spironolactone TAB* 25 MG PO SCH (10:25)
[2019-03-19] MEDS: Aspirin 81 mg CHEW TAB* 81 MG TAB.CHEW PO SCH (10:26)
[2019-03-19] MEDS: Valsartan TAB* 40 MG PO SCH (10:26)
[2019-03-19] MEDS: Ferrous Gluconate TAB* 324 MG TAB PO SCH (10:26)
[2019-03-19] MEDS: Acetaminophen TAB* 325 MG PO PRN (10:26)
[2019-03-19] MEDS: Cyanocobalamin TAB* 500 MCG PO SCH (10:52)
--- NOTE | 2019-03-19 10:56 | DS ---
CC: [facility]; Dr. Uriel Figueroa* DATE OF ADMISSION: 03/16/2019 DATE OF DISCHARGE AND TRANSFER BACK TO [facility]: 03/19/2019. PRIMARY CARE PHYSICIAN: Physician from [facility]. DISCHARGE DIAGNOSIS: Cellulitis on top of chronic venous stasis wounds of the left lower extremity. SECONDARY DIAGNOSES: 1. History of chronic venous stasis changes in the bilateral lower extremities and edema. 2. Diabetes. 3. Depression. 4. Anxiety. 5. Bipolar disorder. 6. History of rectal carcinoma, status post resection with colostomy. 7. History of hypothyroidism. 8. Dyslipidemia. 9. Chronic kidney disease, stage 3. MEDICATIONS AT DISCHARGE: 1. Levaquin 250 mg daily for 5 days then stop. 2. Doxycycline 100 mg p.o. b.i.d. for 5 days then stop. The remaining medications are unchanged and include: 1. Acetaminophen 1,000 mg every 8 hours prn. 2. Albuterol nebulizer on a prn basis. 3. Aspirin 81 mg daily. 4. Tessalon 100 mg three times a day prn. 5. Calcium Carbonate with vitamin one tablet b.i.d. 6. Coreg 3.125 mg b.i.d. 7. Doxepin 10 mg at bedtime. 8. Furosemide 40 mg daily. 9. Neurontin 600 mg b.i.d. 10. Insulin Aspart 24 units with each meal 3 times a day. 11. Insulin Basaglar 60 units subcutaneously every day in the morning and 40 units at bedtime. 12. Levothyroxine 125 mcg daily. 13. Zaroxolyn 2.5 mg daily. 14. Entresto 49/51 one tablet b.i.d. 15. Zoloft 100 mg daily. 16. Zocor 20 mg at bedtime. 17. Januvia 25 mg daily. 18. Aldactone 25 mg daily. Medications discontinued at discharge: Potassium Chloride 10 mEq daily due to mild hyperkalemia in this patient at admission. CONSULTATIONS DURING HOSPITAL STAY: Dr. Figueroa from General Surgery. HOSPITAL COURSE: Tamiko Chowdhury is a 74-year-old female with a history of chronic venous stasis in the bilateral lower extremities, as well as diabetes and hypothyroidism who was sent to the hospital on Tuesday, the 16 of March, from Dr. Figueroa's [facility] for worsening of cellulitis. The patient was on Bactrim as an outpatient and she developed increasing creatinine and hyperkalemia. The hyperkalemia was mild with maximum potassium level of 5.1. Her Bactrim was stopped. Her wound cultures were positive for pseudomonas as well as corynebacterium and enterococcus. Pseudomonas sensitivities were sensitive to Cefepime, fluoroquinolones, Gentamicin, Meropenem, and Zosyn. The patient's wound was also positive for MRSA. The patient was placed on Levaquin and treated with IV Vancomycin with good results. Her wound was treated with alginate dressing changes daily. At discharge, the patient was treated with a Unna boot placed at the left lower extremity by the [facility] and she is to follow-up with the [facility] and Dr. Figueroa on 03/23/2019 which is Tuesday at 11:00 a.m. for follow- up. The patient is being discharged today with recommendation to continue the Unna boot until her next visit at the [facility]. She is recommended to continue the antibiotics including Doxycycline for MRSA and Levaquin for pseudomonas for at least five days. PHYSICAL EXAMINATION AT THE TIME OF DISCHARGE: General: The patient is a very pleasant 74-year-old female with a BMI of 41. The patient is in no acute distress. Alert, awake and oriented times three. Vital Signs: Blood pressure 143/58, heart rate of 86 and regular, respiratory rate of 20, oxygen saturation 97 percent on room air, temperature 97.9. HEENT: Head atraumatic and normocephalic. Eyes: Pupils are equal, reactive to light and accommodation. Oropharynx is clear. Mucosa is moist. Neck: Supple. No JVD. No bruits bilaterally. Cardiovascular: Regular rate and rhythm. No murmur. Respiratory : Clear to auscultation bilaterally. Abdomen: Soft and nontender. Bowel sounds are present in all quadrants. Colostomy is in place with stool present in colostomy bag. Extremities: There is bilateral lower extremity edema due to venous stasis, left more than right. There is venous stasis brown discoloration of the skin in the right lower extremity. The left lower extremity wounds and cellulitis are recessing. The wounds that were wet for the past couple of days are now drying up. There is very superficial scarred areas of ulcers with flat bottom of approximately 4 x 5 cm in diameter. There are about two or three of those. Pulses are +2 bilaterally. Neuro: Speech is clear. Cranial nerves II through XII grossly intact. Motor strength is 5/5 bilaterally. Please note that the patient's increase in creatinine and mild hyperkalemia is likely related to Bactrim treatment. The patient is being discharged back to [facility] with the above mentioned recommendations. Please note that this is a short summary of the patient's hospital stay. Please refer to further medical records for details. TIME SPENT: Approximately 45 minutes were spent on the patient's discharge. [id number]/[facility] #: [id number] RYAN
--- NOTE | 2019-03-19 12:06 | PN ---
Progress Note - Progress Note Date of Service: 03/19/19 SOAP: Subjective: Patient seen and examined. Feels better than when when admitted. Patient's Legs elevated. Cultures reviewed and patient's antibiotics also reviewed. Objective: [ Focused examination of the LEFT lower leg reveals significant improvement. Collagen dressing in place. Scant drainage. Decreased erythema. Assessment: Resolving cellulitis. Venous stasis disease. Plan: [ Okay for discharge to the [facility]. This was discussed with the hospitalist service. Patient to follow-up at the wound center on Tuesday. Unna boot placement today. Patient is aware of the plan. Antibiotics as per the hospitalist group
== END 2019-03-19 12:00 | DRG 603 ==
LOC: MED 13:06
PROVIDERS: ADMIT Internal Medicine; ATTEND Internal Medicine
DX: L03.116 Cellulitis of left lower limb (principal); F33.9 Major depressive disorder, recurrent, unspecified; L97.829 Non-pressure chronic ulcer of other part of left lower leg with unspecified severity; I50.30 Unspecified diastolic (congestive) heart failure; B95.62 Methicillin resistant Staphylococcus aureus infection as the cause of diseases classified elsewhere; B96.5 Pseudomonas (aeruginosa) (mallei) (pseudomallei) as the cause of diseases classified elsewhere; B95.2 Enterococcus as the cause of diseases classified elsewhere; I87.8 Other specified disorders of veins; E11.22 Type 2 diabetes mellitus with diabetic chronic kidney disease; N18.3 Chronic kidney disease, stage 3 (moderate); F41.9 Anxiety disorder, unspecified; E03.9 Hypothyroidism, unspecified; E78.5 Hyperlipidemia, unspecified; E87.5 Hyperkalemia; M81.0 Age-related osteoporosis without current pathological fracture; D51.9 Vitamin B12 deficiency anemia, unspecified; D50.9 Iron deficiency anemia, unspecified; I89.0 Lymphedema, not elsewhere classified; Z93.3 Colostomy status; Z85.048 Personal history of other malignant neoplasm of rectum, rectosigmoid junction, and anus; Z79.84 Long term (current) use of oral hypoglycemic drugs; Z79.1 Long term (current) use of non-steroidal anti-inflammatories (NSAID); Z79.82 Long term (current) use of aspirin; Z79.4 Long term (current) use of insulin; Z79.51 Long term (current) use of inhaled steroids; Z79.899 Other long term (current) drug therapy; Z88.0 Allergy status to penicillin; Z88.8 Allergy status to other drugs, medicaments and biological substances; Z82.49 Family history of ischemic heart disease and other diseases of the circulatory system
CPT/HCPCS: 36415; 80048; 80202; 81003; 81015; 82272; 82607; 82746; 83540; 83550; 85025; 85027; 85045; 86140; 87040; 87070; 87077; 87086; 87186; 87205; 87640; 87641; A9270-GY; J0692; J1644; J1956; J3370

== ENCOUNTER 2019-05-21 12:28 | Inpatient (IN) | payer MEDICARE, MEDICAID ==
--- NOTE | 2019-05-21 13:06 | ED ---
Lower Extremity - HPI Summary HPI Summary: This pt is a 74 y/o female presenting to [facility] referred from the Wound Care for possible cellulitis of left leg. She notes she has had left leg wound for the past 6 months. Pt states she has been having worsening left leg redness, drainage, and pain. Additionally reports SOB that began 2-3 days ago. Pt notes she was sent by Dr. Figueroa to see Dr. Downing at the Wound Care for a second opinion. Dr. Downing saw the pt today and sent her to the ED. Pt states she is on antibiotics, but is unable to remember the name. - History of Current Complaint Chief Complaint: EDGeneral Stated Complaint: POSS CELLULITIS PER NURSE Time Seen by Provider: 05/21/19 12:51 Hx Obtained From: Patient Mechanism Of Injury: Other - no trauma Onset of Pain: Days Onset/Duration: Still Present Severity Currently: Moderate Pain Intensity: 8 Pain Scale Used: 0-10 Numeric Timing: Lasting Days Location: Is Discrete @ - left leg Associated Signs And Symptoms: Positive: Swelling, Redness, Other - POSITIVE: SOB. Negative: Fever, Knee Pain Aggravating Factor(s): Nothing Alleviating Factor(s): Nothing - Allergies/Home Medications Allergies/Adverse Reactions: Allergies Allergy/AdvReac Type Severity Reaction Status Date / Time lithium Allergy Unknown Verified 05/21/19 12:39 Reaction Details Penicillins Allergy Hives Verified 05/21/19 12:39 Home Medications: Home Medications Liraglutide (NF) [Victoza (NF)] 1.2 mg SUBCUT BEDTIME 05/21/19 [History Confirmed 05/21/19] Simvastatin TAB(NF) [Zocor(NF)] 20 mg PO DAILY 05/21/19 [History Confirmed 05/21] Spironolactone TAB* [Aldactone TAB*] 25 mg PO DAILY 05/21/19 [History Confirmed 05/21/19] Sulfamethox/Trimethoprim DS* [Bactrim DS 800/160 TAB*] 1 tab PO BID 05/21/19 [ History Confirmed 05/21/19] traMADol TAB* [Ultram*] 50 mg PO TID 05/21/19 [History Confirmed 05/21/19] PMH/Surg Hx/FS Hx/Imm Hx Endocrine/Hematology History: Reports: Hx Diabetes, Hx Thyroid Disease - hypothryoid., Hx Anemia Cardiovascular History: Reports: Hx Congestive Heart Failure, Hx Hypercholesterolemia, Hx Hypertension, Hx Peripheral Vascular Disease Respiratory History: Reports: Hx Asthma GI History: Reports: 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 History: Reports: Other Problems/Disorders - One kidney low performing Musculoskeletal History: Reports: Hx Arthritis - spine Sensory History: Reports: Hx Contacts or Glasses Denies: Hx Hearing Aid, Hx Hearing Problem Opthamlomology History: Reports: Hx Contacts or Glasses Psychiatric History: Reports: Hx Anxiety, Hx Depression, Hx Suicide Attempt - Over 20 years ago Denies: Other Psychiatric Issues/Disorders - Cancer History Cancer Type, Location and Year: rectal Hx Chemotherapy: Yes Hx Radiation Therapy: Yes - Surgical History Surgical History: Yes Surgery Procedure, Year, and Place: rectal, hernia, tonsils, adnoids Hx Anesthesia Reactions: No Infectious Disease History: Yes Infectious Disease History: Denies: Traveled Outside the [place] in Last 30 Days - Family History Known Family History: Positive: Cardiac Disease - Father with IN at age 77 y/o - Social History Alcohol Use: None Substance Use Type: Reports: None Smoking Status (MU): Never Smoked Tobacco Review of Systems Negative: Fever, Chills Positive: Shortness Of Breath Musculoskeletal: Other - POSITIVE: left leg pain Skin: Other - POSITIVE: left leg with redness and drainage All Other Systems Reviewed And Are Negative: Yes Physical Exam - Summary Physical Exam Summary: VITAL SIGNS: Reviewed. GENERAL: Patient is a well-developed and nourished female who is lying comfortable in the stretcher. Patient is not in any acute respiratory distress. HEAD AND FACE: No signs of trauma. No ecchymosis, hematomas or skull depressions. No sinus tenderness. EYES: PERRLA, EOMI x 2, No injected conjunctiva, no nystagmus. EARS: Hearing grossly intact. Ear canals and tympanic membranes are within normal limits. MOUTH: Oropharynx within normal limits. NECK: Supple, trachea is midline, no adenopathy, no JVD, no carotid bruit, no c- spine tenderness, neck with full ROM. CHEST: Symmetric, no tenderness at palpation LUNGS: Clear to auscultation bilaterally. No wheezing or crackles. CVS: Regular rate and rhythm, S1 and S2 present, no murmurs or gallops appreciated. ABDOMEN: Soft, non-tender. No signs of distention. No rebound, no guarding, and no masses palpated. Bowel sounds are normal. EXTREMITIES: Redness and weeping on the left lower extremity from the knee down. NEURO: Alert and oriented x 3. No acute neurological deficits. Speech is normal and follows commands. SKIN: Dry and warm Triage Information Reviewed: Yes Vital Signs On Initial Exam: Initial Vitals Temp Pulse Resp BP Pulse Ox 97.5 F 89 21 116/60 95 05/21/19 12:31 05/21/19 12:31 05/21/19 12:31 05/21/19 12:31 05/21/19 12:31 Vital Signs Reviewed: Yes Diagnostics - Vital Signs Vital Signs Temp Pulse Resp BP Pulse Ox 05/21/19 12:31 97.5 F 89 21 116/60 95 - Laboratory Result Diagrams: 05/21/19 14:28 05/21/19 14:28 Lab Statement: Any lab studies that have been ordered have been reviewed, and results considered in the medical decision making process. - Radiology Chest XR Radiology Interpretation Completed By: Radiologist Summary of Radiographic Findings: IMPRESSION: #. Stigmata of chronic obstructive pulmonary disease. #. Cardiomegaly and mild pulmonary vascular congestion. Dr. Chirinos has reviewed this report. - Ultrasound No standard instances Ultrasound Interpretation Completed By: Radiologist Summary of Ultrasound Findings: Bilateral Lower Extremity US IMPRESSION: #. No evidence for RIGHT lower extremity DVT with assessment of the peroneal veins is limited as noted. #. No evidence for LEFT lower extremity DVT through the popliteal vein. The calf veins could not be visualized limiting assessment. Patency of the LEFT posterior tibial and peroneal veins is indeterminate. #. Extensive LEFT lower leg subcutaneous edema. Dr. Chirinos has reviewed this report. Re-Evaluation - Re-Evaluation First Eval Re-Evaluation Time: 14:38 Comment: Pt is wheezing. Second Eval Re-Evaluation Time: 17:10 Comment: Dr. Rios, flight simulator teacher, at bedside. Third Eval Re-Evaluation Time: 17:29 Comment: Dr. Rios examined the patient and he recommends admission to the hospitalist. Lower Extremity Course/Dx - Course Assessment/Plan: This pt is a 74 y/o female presenting to [facility] referred from the Wound Care for possible cellulitis of left leg. She notes she has had left leg wound for the past 6 months. Pt states she has been having worsening left leg redness, drainage, and pain. Additionally reports SOB that began 2-3 days ago. Pt notes she was sent by Dr. Figueroa to see Dr. Downing at the Wound Care for a second opinion. Dr. Downing saw the pt today and sent her to the ED. Pt states she is on antibiotics, but is unable to remember the name. Past medical history significant for venous stasis disease, CHF, chronic kidney disease, diabetes, bipolar disorder, DVT and normocytic normochromic anemia. Blood work shows a chronic anemia with a hemoglobin of 9.10, hematocrit of 27, sodium 130, potassium 5.1, chloride is 98, carbon dioxide 20, Anion gap 12, BUN is 105, creatinine is 4.32, and CRP of 64.8. Bilateral LE U/S IMPRESSION: #. No evidence for RIGHT lower extremity DVT with assessment of the peroneal veins is limited as noted. #. No evidence for LEFT lower extremity DVT through the popliteal vein. The calf veins could not be visualized limiting assessment. Patency of the LEFT posterior tibial and peroneal veins is indeterminate. #. Extensive LEFT lower leg subcutaneous edema. In the ED course the patient became hypotensive therefore the patient was started on IV fluids boluses and the patient was started on vancomycin and cefepime. I discussed the case with Dr. Shetty from nephrology and agrees with management. She recommends admission to the hospitalist. The patient continues to be hypotensive therefore we obtained another IV access and the patient was started with a second liter of fluids. I discussed the case with Dr. Rios from the ICU services and he recommends to give 2-3 L IV boluses to see if the hypotension improves. Dr. Rios is aware of the patients CHF history. The patient declined the central line. The blood pressure is improving 128/62. The patient is wheezing at this point therefore the patient was given 3 DuoNebs and Solu-Medrol. Patient reports that she is feeling a bit better. At this time, Dr. Rios came and assessed the patient and he recommends for the patient to be admitted to the hospitalist services. I discussed the case with Dr. Verde from the hospitalist services and she acceptes the patient for admission. - Diagnoses Provider Diagnoses: Cellulitis, Sepsis, Hypotension, Acute renal failure - Physician Notifications Discussed Care Of Patient With: Amy Shetty Time Discussed With Above Provider: 15:28 Instructed by Provider To: Other - Discussed the case with ARIE Lamar, who recommends admission of the pt to the hospitalist. [15:48] Spoke with Dr. Rios, flight simulator teacher, who recommends 2-3 L of boluses [16:12] Discussed again with Dr. Rios, flight simulator teacher, who accepts the pt for admission to the ICU. [17:30] Spoke with Dr. Verde, hospitalist, who accepted the pt for admission - Critical Care Time Critical Care Time: 75-104 min Discharge - Sign-Out/Discharge Documenting (check all that apply): Patient Departure - Admit to [facility] Patient Received Moderate/Deep Sedation with Procedure: No - Discharge Plan Condition: Stable Disposition: ADMITTED TO [facility] Referrals: Daya Little NP [Primary Care Provider] - - Billing Disposition and Condition Condition: STABLE Disposition: Admitted to [facility] - Attestation Statements Document Initiated by Julio: Yes Documenting Scribe: Cindy Landry Provider For Whom Julio is Documenting (Include Credential): Calros Chirinos MD Scribe Attestation: Cindy Borges, scribed for Carlos Chirinos MD on 05/21/19 at 1849. Scribe Documentation Reviewed: Yes Provider Attestation: The documentation as recorded by the Cindy zavala accurately reflects the service I personally performed and the decisions made by , Carlos Chirinos MD Status of Scribe Document: Viewed
[2019-05-21] MEDS ORDERED: Vancomycin(*) 1,000 MG in NS 0.9% 250 ML* 250 ML IVPB ONE (14:32)
[2019-05-21] MEDS ORDERED: NS 0.9% 1000 ML** 1,000 ML IV ONE ×2 (14:33→15:52)
[2019-05-21 14:38] LABS: ABS Eosinophils 0.2 10^3/ul (0-0.6); ABS Lymphocytes 0.7 10^3/ul (1.0-4.8); ABS Monocytes 0.6 10^3/ul (0-0.8); ABS Neutrophils 4.8 10^3/ul (1.5-7.7); Eosinophil % 2.5 %; Hematocrit 27 % (35-47); Hemoglobin 9.1 g/dL (12.0-16.0); Mean Corpuscular HGB Conc 34 g/dL (31-36); Mean Corpuscular Hemoglobin 28 pg (27-31); Mean Corpuscular Volume 83 fL (80-97); Mean Platelet Volume 6.1 fL (7.4-10.4); Nucleated Red Blood Cells % 0.1; Platelet Count 309 10^3/uL (150-450); Red Blood Count 3.24 10^6 /uL (3.70-4.87); Red Cell Distribution Width 17 % (10-15); White Blood Count 6.3 10^3/uL (3.5-10.8)
[2019-05-21] MEDS ORDERED: methylPREDNISolone 125 MG* 2 ML VIAL IV ONE (14:50)
[2019-05-21] MEDS ORDERED: Albuterol/Ipratropium NEB.SOL* Albuterol 2.5 MG/Ipratropium 0.5 MG 3 ML INH ONE (14:50)
[2019-05-21 14:55] LABS: C Reactive Protein 64.85 mg/L (<8.01); Uric Acid 13.5 mg/dL (2.3-6.6)
[2019-05-21 14:58] LABS: Albumin 3.6 g/dL (3.2-5.2); Albumin/Globulin Ratio 1.1 (1-3); BUN/Creatinine Ratio 24.3 (8-20); Calcium 9.2 mg/dL (8.6-10.3); EGFR African American 12.2 (>60); EGFR Non-African American 10.1 (>60); Globulin 3.2 g/dL (2-4); Total Bilirubin 0.2 mg/dL (0.2-1.0); Total Protein 6.8 g/dL (6.4-8.9)
[2019-05-21 15:18] LABS: Potassium 5.1 mmol/L (3.5-5.0)
[2019-05-21] MEDS ORDERED: Cefepime 2 GM in Dextrose(*) 2 GM/50 ML BAG IV ONE (15:31)
[2019-05-21] MEDS ORDERED: Albuterol 2.5 MG/3 ML NEB.SOL* (0.083%) INH ONE (16:31)
[2019-05-21] MEDS ORDERED: Norepinephrine VIAL* 8 MG in NS 0.9% 500 ML* 492 ML IV SCH (17:00)
--- NOTE | 2019-05-21 17:19 | PN ---
Date of Service: 05/21/19 Critical Care Services: 74 F with hx of COPD (does not use her prescribed oxygen given to her 3 years ago), CHF (unknown LVEF -seen in [place]), CKD, PVD and cellulitis. Has been on ABX times 25 weeks for cellulitis but recently lesion has gotten worse. Sent today to ED because of worsening cellulitis and hypotension. Patient received 1 1/2 liters IVF's and now SBP 120-130's. Remains AF. HR in the high 90's. Labs notable for no WBC count and negative BNP. Elevated CRP Vital Signs: Temp Pulse Resp BP SpO2 FiO2 97.5 F 103 16 128/70 99 05/21/19 12:31 05/21/19 17:00 05/21/19 15:18 05/21/19 16:38 05/21/19 17:00 Physical Exam: Gen: NAD. AO times 3. Obsee and pleasant. no respiratory distress. HEENT: EOMI Lungs: Decreased BS's b/l Cardiac: sinus tachy Abdomen:obese, + BS's, soft, NTP. No rebound or guarding Extremities: No CINDY. L LE erythematous with mild discharge Neuro:moving all extremities Fluid Balance (Past 24 Hours): I= O= Net Intake & Output 05/19/19 05/20/19 05/21/19 05/22/19 06:59 06:59 06:59 06:59 Weight 210 lb Intake and Output Start: 05/21/19 12: 39 Freq: Status: Active Protocol: Created 05/21/19 12:39 System (Rec: 05/21/19 12:39 System [id number]) Labs: Laboratory Results - last 24 hr 05/21/19 05/21/19 05/21/19 14:28 14:28 14:28 WBC 6.3 RBC 3.24 L Hgb 9.1 L Hct 27 L MCV 83 MCH 28 MCHC 34 RDW 17 H Plt Count 309 MPV 6.1 L Neut % (Auto) 75.7 Lymph % (Auto) 11.0 [place] % (Auto) 10.1 Eos % (Auto) 2.5 Baso % (Auto) 0.7 Absolute Neuts (auto) 4.8 Absolute Lymphs (auto) 0.7 L Absolute Monos (auto) 0.6 Absolute Eos (auto) 0.2 Absolute Basos (auto) 0.0 Absolute Nucleated RBC 0.0 Nucleated RBC % 0.1 Patient Temperature ABG pH ABG pH (Temp Correct) ABG pCO2 ABG pCO2 (Temp Corrct ABG pO2 ABG pO2 (Temp Correct ABG HCO3 ABG O2 Saturation ABG Base Excess Respiration Rate O2 Delivery Device Ventilator Type Vent Mode FiO2 Inspiratory Time PEEP Pressure Support Pressure Control EPAP IPAP BiPAP Sodium 130 L Potassium 5.1 H Chloride 98 L Carbon Dioxide 20 L Anion Gap 12 H BUN 105 H Creatinine 4.32 H Est GFR ( Amer) 12.2 Est GFR (Non-Af Amer) 10.1 BUN/Creatinine Ratio 24.3 H Glucose 86 Lactic Acid Uric Acid 13.5 H Calcium 9.2 Total Bilirubin 0.20 AST 18 ALT 17 Alkaline Phosphatase 84 C-Reactive Protein 64.85 H B-Natriuretic Peptide Total Protein 6.8 Albumin 3.6 Globulin 3.2 Albumin/Globulin Ratio 1.1 05/21/19 05/21/19 05/21/19 14:28 15:54 16:45 WBC RBC Hgb Hct MCV MCH MCHC RDW Plt Count MPV Neut % (Auto) Lymph % (Auto) [place] % (Auto) Eos % (Auto) Baso % (Auto) Absolute Neuts (auto) Absolute Lymphs (auto) Absolute Monos (auto) Absolute Eos (auto) Absolute Basos (auto) Absolute Nucleated RBC Nucleated RBC % Patient Temperature Not Reportable ABG pH 7.28 L ABG pH (Temp Correct) Not Reportable ABG pCO2 37 ABG pCO2 (Temp Corrct Not Reportable ABG pO2 75 L ABG pO2 (Temp Correct Not Reportable ABG HCO3 18.1 L ABG O2 Saturation 97.0 ABG Base Excess -8.6 L Respiration Rate Not Reportable O2 Delivery Device nasal cannula 3lpm Ventilator Type Not Reportable Vent Mode Not Reportable FiO2 Not Reportable Inspiratory Time Not Reportable PEEP Not Reportable Pressure Support Not Reportable Pressure Control Not Reportable EPAP Not Reportable IPAP Not Reportable BiPAP Not Reportable Sodium Potassium Chloride Carbon Dioxide Anion Gap BUN Creatinine Est GFR ( Amer) Est GFR (Non-Af Amer) BUN/Creatinine Ratio Glucose Lactic Acid 0.5 Uric Acid Calcium Total Bilirubin AST ALT Alkaline Phosphatase C-Reactive Protein B-Natriuretic Peptide 32 Total Protein Albumin Globulin Albumin/Globulin Ratio Studies: negative LE DVT studies Impression: Sepsis 2/2 cellulitis COPD with non-compliance PVD LE's not amendable per patient to further surgical interventions CHF CKD 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 If elevated would Rx Repeat BMP's to see if creat's and BUN improving with gentle IVF's. Nephrology consult Continue empiric ABX Get old records to see ABX and Culture hx Oxygen therapy. Continue duonebs and monitor HR ID consult Get baseline TTE to see patient's heart function. Not in failure now as BNP and exam do not demonstrate overload. Patient does not need ICU monitoring at the moment. Please re-consult ICU if patient's condition de-compensates. Critical Care Time: 67 minutes.
[2019-05-21] MEDS ORDERED: Al Hydrox/Mg Hydrox/Simet LIQ* 30 ML UDC PO PRN (19:32)
[2019-05-21] MEDS ORDERED: Albuterol/Ipratropium NEB.SOL* Albuterol 2.5 MG/Ipratropium 0.5 MG 3 ML INH PRN (19:32)
[2019-05-21] MEDS ORDERED: Ondansetron INJ* 2 MG/ML VIAL IV PRN (19:32)
[2019-05-21] MEDS ORDERED: Dextrose 50% Syringe 50 ML* 25 GM/50 ML SYRINGE IV PUSH PRN ×2 (19:43→23:06)
[2019-05-21] MEDS ORDERED: Vancomycin per Pharmacy* NOTE FOLLOW UP PRN (19:48)
[2019-05-21] MEDS ORDERED: Vancomycin(*) 0 MG in NS 0.9% 250 ML* 250 ML IVPB SCH (20:00)
[2019-05-21] MEDS ORDERED: ED ONCE IVPB ONE (20:00)
[2019-05-21] MEDS ORDERED: Insulin LISPRO* 1 UNITS UNIT SUBCUT SCH (20:00)
[2019-05-21] MEDS ORDERED: LEVOFLOXACIN 500 MG IVPB ONE (20:00)
[2019-05-21] MEDS: Calcium/Vitamin D TAB 250/125* TAB PO SCH (22:36)
[2019-05-21] MEDS: Gabapentin CAP(*) 300 MG PO SCH (22:36)
[2019-05-21] MEDS: Heparin VIAL(*) 5000 UNITS/ML VIAL (FIVE THOUSAND) SUBCUT SCH (22:36)
[2019-05-21] MEDS: Carvedilol TAB* 3.125 MG PO SCH (22:36)
[2019-05-21] MEDS: Senna TAB PO SCH (22:37)
[2019-05-21] MEDS: NS 0.9% 1000 ML** 1,000 ML IV SCH (23:00)
[2019-05-21] MEDS: Insulin GLARGINE(*) 1 UNITS UNIT SUBCUT SCH (23:18)
[2019-05-21] MEDS: DOXEPIN HCL 10 MG PO SCH (23:19)
[2019-05-21] MEDS: NF: Liraglutide (NF) 18 MG/3 ML SUBCUT SCH (23:19)
[2019-05-21] MEDS ORDERED: Insulin LISPRO* 1 UNITS UNIT SUBCUT ONE (23:30)
[2019-05-21 23:33] LABS: Urine Appearance Clear; Urine Bacteria 1+ (Absent); Urine Bilirubin Negative (Negative); Urine Blood 1+ (Negative); Urine Color Straw; Urine Glucose Negative (Negative); Urine Ketones Negative (Negative); Urine Nitrite Negative (Negative); Urine Protein Negative (Negative); Urine Red Blood Cell Trace(0-2/hpf) (Absent); Urine Specific Gravity 1.009 (1.010-1.030); Urine Squamous Epithelial Cell Present (Absent); Urine Urobilinogen Negative (Negative); Urine White Blood Cell Trace(0-5/hpf) (Absent)
--- NOTE | 2019-05-21 23:56 | HP ---
ADMISSION HISTORY AND PHYSICAL: DATE OF ADMISSION: 05/21/19 PROVIDER: ABHI Devine. ATTENDING PHYSICIAN: Dr. Alecia Sanchez * (dictated by ABHI Devine) PRIMARY CARE PROVIDER: Kenny. CHIEF COMPLAINT: Worsening leg chronic ulcers, shortness of breath. HISTORY OF PRESENT ILLNESS: Tamiko Chowdhury is a 74-year-old white female with past medical history significant for depression, anxiety, bipolar disorder, type 2 diabetes, venous stasis disease, chronic kidney disease, and heart failure with reduced ejection fraction, who presents to the emergency department on direction by Dr. Downing at the wound clinic due to worsening chronic wounds. The patient reports that she did notice that she had increased clear drainage about 2 or 3 days ago from her ulcers, which she noted through her sock on her left lower extremity. She did not notice any purulent drainage. The nursing staff at [facility] [place] changes her wound dressings everyday and she follows the wound clinic once a week. She additionally believes that she has been worsening shortness of breath for the last 2 to 3 days. She does not use prescribed oxygen at home. Additionally, she notes that she had a mechanical fall 3 nights ago without head trauma and additional mechanical fall 1 week ago and notes that she did hit her head, but was not sent to the emergency department by [facility] staff. Of note, it is clear from records from [facility] that she was started on Bactrim on 05/16/19. The patient denies fever, chills, chest pain, headache, visual changes. She endorses cough for the last several months which is unchanged recently. She does note that she has been feeling dizzy with change in position for the last approximately 7 days. Her shortness of breath has been slowly worsening over the last 2 to 3 days with exertion and does not believe she was feeling short of breath at rest. ED COURSE: When patient arrived to the emergency department, her temperature was 97.5 degrees Fahrenheit, pulse rate of 89, respiratory rate 21, oxygen saturation 95%, 100% on 3L. Blood pressure 116/60. During her time in the emergency department, her blood pressure did drop as low as to 78/67. She was given fluid bolus and contract management specialist Dr. Rios was consulted, who did not recommend pressers at that time due to good response with IV fluids and did not believe she needed ICU monitoring. Therefore, Hospitalist Medicine was asked to evaluate the patient for admission. PAST MEDICAL HISTORY: 1. Depression. 2. Anxiety. 3. Bipolar disorder. 4. History of rectal carcinoma, status post resection with colostomy. 5. Hypothyroidism. 6. Hyperlipidemia. 7. Type 2 diabetes. 8. Venous insufficiency. 9. Chronic kidney disease. 10. Heart failure with reduced ejection fraction of 40% to 45%. PAST SURGICAL HISTORY: 1. Rectal surgery. 2. Colostomy. 3. Hernia repair. 4. Tonsillectomy. 5. Possible oophorectomy. 6. Recent venous surgery with Dr. Mcgee 2 months ago, specifics unknown to patient. ALLERGIES: LITHIUM and PENICILLIN. HOME MEDICATIONS: 1. Tramadol 50 mg p.o. t.i.d 2. Victoza 1.2 mg subcu at bedtime. 3. NovoLog 20 units subcu before meals. 4. Glargine 40 units subcu b.i.d. 5. Aspirin 81 mg daily. 6. Aldactone 25 mg daily. 7. Simvastatin 20 mg daily. 8. Carvedilol 3.125 mg p.o. b.i.d. 9. Zoloft 100 mg p.o. daily. 10. Gabapentin 600 mg p.o. b.i.d. 11. Lasix 40 mg p.o. daily. 12. Entresto 1 tab p.o. b.i.d at 0800 and at 4:00 p.m. 13. Levothyroxine 125 mcg p.o. daily. 14. Doxepin 10 mg p.o. at bedtime. 15. Metolazone 2.5 mg p.o. daily. 16. Calcium carbonate and vitamin D3 one tab p.o. b.i.d. 17. Bactrim DS two tabs p.o. b.i.d FAMILY HISTORY: The patient's sister at age 67 of an [place]. Mother at age 76 of unknown causes. Father age 77 from possible [place]. SOCIAL HISTORY: The patient is a long-term resident at [facility] [place]. She denies tobacco, alcohol, or illicit drug use. She states that her surrogate decision maker should she need will be her daughters, Adrianne Chowdhury and Sia Figueroa. REVIEW OF SYSTEMS: An 11-point review of systems has been completed. The patient additionally endorses urinary incontinence, which is chronic issue for her, otherwise all pertinent positive and negatives are above in the HPI. All other systems are negative. PHYSICAL EXAMINATION GENERAL: Elderly white obese female, lying in hospital bed, appearing in mild distress and tachypneic. HEENT: Head: Normocephalic, atraumatic. Eyes: PERRL. Sclerae anicteric. ENT: Mucous membranes moist. NECK: Supple. LUNGS: Expiratory wheezing in bilateral lung bases and mid lung august. CARDIO: Regular rate and rhythm without murmurs, rubs, or gallops appreciated. Dorsalis pedis pulses intact bilaterally, 3/4. ABDOMEN: Soft, nontender, nondistended. Colostomy bag present in the left lower quadrant. EXTREMITIES: Trace edema throughout bilateral lower extremities pretibially. Extensive ulcerations throughout left lower extremity in the midcalf region. No overt purulence. Surrounding erythema from foot and ankle up to approximately mid calf with what appears to be some desquamation. NEUROLOGIC: The patient is alert and oriented x3. No focal deficits. Strength is 5/5 in all extremities. The patient does have uncontrolled tongue movements which appear consistent with possible long-term use of antipsychotics. DIAGNOSTIC STUDIES/LAB DATA: Venous Doppler of bilateral lower extremities do not show evidence of DVT; however, the left calf veins could not be visualized and patency of left posterior tibial and peroneal veins was indeterminant. Additionally, the right peroneal vein is limited. Chest x-ray demonstrates stigmata of chronic obstructive pulmonary disease, cardiomegaly and pulmonary vascular congestion. White blood cell count 6.3, hemoglobin 9.1, hematocrit 27, platelet count 309. ABG: PH 7.28, CO2 of 37, O2 of 75, bicarb 18.1. Base excess -8.6. Sodium 130 , potassium 5.1, chloride 98, carbon dioxide 20, anion gap 12, BUN 105, creatinine 4.32, glucose 86, lactic acid 0.5, uric acid 13.5. CRP 64.85, total bili 0.2, AST 18, ALT 17, alk phos 84. ASSESSMENT AND PLAN: Tamiko Chowdhury is a 74-year-old white female with past medical history significant for depression, anxiety and bipolar disorder, hypothyroidism, type 2 diabetes, venous insufficiency, chronic kidney disease and heart failure with reduced ejection fraction, who presents to the emergency room department by the direction of wound clinic due to worsening of chronic lower extremity ulcers. The patient will be admitted inpatient for: 1. Severe sepsis. The patient meets criteria for severe sepsis due to her hypotension and her creatinine as well as tachycardia. However, her lactic acid is normal at this time. The patient did not receive a full bolus of fluids in the emergency department, though she did receive 2 L. I would not give additional fluid bolus at this time due to her heart failure and she does already have vascular congestion. I will continue 75 mL per hour of normal saline at this time. It is likely that this severe sepsis is due to surrounding cellulitis around her chronic venous ulcerations. I will place a wound care consult and order for wound culture. In a recent hospitalization, the patient had wound culture positive for MRSA, pseudomonas, enterococcus, and corynebacterium. Therefore, I will start cefepime, renally adjusted Levaquin, and vancomycin. In the emergency department, she already received cefepime and vancomycin. Additionally, I will be in touch with the infectious disease specialist in the morning for further recommendations. This patient would likely benefit from CTA of her lower extremity to evaluate arterial disease contributing to her ulcers, however this would be contraindicated in the setting of YESSY. 2. Acute kidney injury. The patient has a creatinine of 4.32. Dr. Sehtty with the nephrology service has already been contacted regarding this patient and has no intervention at this time and there will be a followup tomorrow morning. Urinalysis is pending. There will be urine culture reflex sent. I will order a renal bladder ultrasound as well as fractional excretion of sodium. Likely this YESSY is the cause of her elevated uric acid and it is unclear why this was tested. I will not recheck uric acid. Additionally, this is likely contributing to mild hyperkalemia at 5.1 and we will continue to monitor this. As previously mentioned, the patient will have fluids continued and we will continue to monitor her kidney function. She does have a past medical history of chronic kidney disease and her baseline creatinine appears to be around 1.3. Her recent use of Bactrim is likely contributing to creatinine elevation. I will be holding the patient's home diuretics which include furosemide, spironolactone, and metolazone. Additionally, I will be holding the patient's home Entresto due to acute kidney injury. I am also holding the patient's home tramadol and decreasing her home dose of her gabapentin due to her acute kidney injury to reduce sedation. Her gabapentin will be given 300 mg p.o. b.i.d. 3. [id number] respiratory failure. The patient has a prescription use of oxygen at home and has not been using at [facility] for an undetermined amount of time. She has been having increased shortness of breath. She is requiring oxygen here in the emergency department at 3 L as this is likely an exacerbation of her respiratory failure. It appears she may have chronic obstructive pulmonary disease; however, she does not appear to carry this diagnosis. I will treat with scheduled DuoNebs. This does also possibly represent an exacerbation of her chronic heart failure, which is why we need to closely monitor her fluids. Daily weights have been ordered. For further treatment of patient's possible chronic heart failure exacerbation, I will continue her home carvedilol. The patient received Solu-Medrol in the ED and I will continue her on some oral prednisone 40 mg. 4. Diabetes. The patient's home insulin glargine is 40 units b.i.d. I will cut this in half and add lispro sliding scale on fingersticks a.c. I will continue the patient's formulary equivalent to the patient's Victoza as there is no decreased oral intake at this time. 5. Mechanical fall. The patient reports a recent mechanical fall at [facility] where she was not sent to the emergency department just by having reported head trauma. The patient has been experiencing some dizziness. I will order a CT brain to rule out intracranial pathology. She is neurologically intact at the time of evaluation. 6. Depression and anxiety. The patient's home Zoloft will be continued. The patient is not currently under mood stabilizer and she reports that she does not carry a history of bipolar disorder; however, it appears that she has been on lithium in the past due to the allergy on her medication list. 6. DVT prophylaxis. Heparin subcu t.i.d. 7. FEN. Carb-consistent diet. Fluids as above. 8. Code status: Full code. TIME SPENT: Approximately 60 minutes was spent on this admission, approximately half of this time was spent at bedside. This case has been reviewed by my attending Dr. Alecia Sanchez and she agrees with my assessment and plan of care. ABHI DEVINE [id number]/[facility] #: [id number] [facility]
[2019-05-22] MEDS: Acetaminophen TAB* 325 MG PO PRN (00:08)
[2019-05-22] MEDS: Insulin LISPRO* 1 UNITS UNIT SUBCUT SCH ×5 (00:13→22:28)
--- NOTE | 2019-05-22 00:56 | PN ---
Sepsis Event Evaluation Date of Evaluation: 05/22/19 Current Stage of Sepsis: Sepsis Vital Signs - Last 12 Hours: Vital Signs - 12 hr Temp Pulse Resp BP Pulse Ox 05/21/19 22:36 18 05/21/19 21:33 97.8 F 107 17 154/44 96 05/21/19 21:14 98 F 108 16 122/68 94 05/21/19 20:26 98 F 05/21/19 20:10 116 122/68 94 05/21/19 20:00 108 96 05/21/19 19:54 112 91/66 93 05/21/19 19:39 106 112/53 92 05/21/19 19:23 106 166/65 93 05/21/19 19:13 103 153/93 96 05/21/19 19:01 106 98 05/21/19 18:59 107 93/71 98 05/21/19 18:55 93/71 05/21/19 18:39 123/54 05/21/19 18:24 102 145/108 91 05/21/19 18:10 107 119/65 96 05/21/19 18:00 103 96 05/21/19 17:54 103/81 05/21/19 17:38 97 136/94 93 05/21/19 17:28 107 126/66 96 05/21/19 17:00 103 99 05/21/19 16:38 101 128/70 100 05/21/19 16:29 102 116/65 94 05/21/19 16:13 98 130/63 95 05/21/19 16:00 93 94 05/21/19 15:30 92 78/67 91 05/21/19 15:18 86 16 100 05/21/19 15:01 84 90 05/21/19 14:59 86 100/38 93 05/21/19 14:30 83 87/50 93 05/21/19 14:01 87 93 05/21/19 13:59 87 80/52 94 05/21/19 13:30 85 95/49 92 05/21/19 13:00 93 96 05/21/19 12:59 88 94 Lactic Acid: 05/21/19 15:54 Lactic Acid 0.5 - Cardiopulmonary Exam Capillary Refill: Immediate Respiratory: Symmetrical Chest Expansion and Respiratory Effort, Clear to Auscultation Cardiovascular: NL Sounds; No Murmurs; No JVD, RRR, No Edema - Peripheral Pulse Exam Radial Pulses: Bilateral Normal Pedal Pulses: Bilateral Normal - Skin Exam Skin Exam: Normal Turgor - Industry Coma Scale Best Eye Response: 4 - Spontaneous Best Motor Response: 6 - Obeys Commands Assess/Plan/Problems-Billing Assessment: - Patient Problems (1) Sepsis Current Visit: Yes Status: Acute Comment: hypotension has resolved sbp 145 - will continue Normal saline at 75cc/hr - continue with current plan Status and Disposition: inpatient
[2019-05-22] MEDS ORDERED: Morphine INJ* 2 MG/ML 1 ML SYRINGE (TWO MG - NEW SYRINGE VERSION) IV ONE (01:00)
[2019-05-22] MEDS: traMADol TAB* 50 MG PO PRN ×2 (02:00→14:02)
[2019-05-22 05:13] LABS: Urine Creatinine Concentration 32.07 mg/dL
[2019-05-22] MEDS: Heparin VIAL(*) 5000 UNITS/ML VIAL (FIVE THOUSAND) SUBCUT SCH ×3 (05:32→21:02)
[2019-05-22] MEDS: Levothyroxine TAB* 125 MCG TAB PO SCH (05:33)
[2019-05-22] MEDS ORDERED: Vancomycin Random Level* NOTE FOLLOW UP ONE (06:00)
[2019-05-22 06:58] LABS: ABS Lymphocytes 0.3 10^3/ul (1.0-4.8); ABS Monocytes 0.2 10^3/ul (0-0.8); ABS Neutrophils 5.9 10^3/ul (1.5-7.7); Hematocrit 26 % (35-47); Hemoglobin 8.7 g/dL (12.0-16.0); Lymphocyte % 5.1 %; Mean Corpuscular HGB Conc 34 g/dL (31-36); Mean Corpuscular Hemoglobin 28 pg (27-31); Mean Corpuscular Volume 83 fL (80-97); Mean Platelet Volume 6.2 fL (7.4-10.4); Nucleated Red Blood Cells % 0.1; Platelet Count 269 10^3/uL (150-450); Red Blood Count 3.09 10^6 /uL (3.70-4.87); Red Cell Distribution Width 17 % (10-15); White Blood Count 6.5 10^3/uL (3.5-10.8)
[2019-05-22 07:12] LABS: Anion Gap 11 mmol/L (2-11); Blood Urea Nitrogen 84 mg/dL (6-24); CO2 Carbon Dioxide 18 mmol/L (22-32); Calcium 8.7 mg/dL (8.6-10.3); Chloride 109 mmol/L (101-111); EGFR African American 18.6 (>60); EGFR Non-African American 15.3 (>60); Glucose 157 mg/dL (70-100); Potassium 4.8 mmol/L (3.5-5.0); Sodium 138 mmol/L (135-145)
[2019-05-22 07:15] LABS: Vancomycin Random 11.3 mcg/mL
[2019-05-22 08:11] LABS: Creatinine, Serum 2.79 mg/dL (0.51-0.95)
[2019-05-22] MEDS: Senna TAB PO SCH ×2 (08:30→22:01)
[2019-05-22] MEDS: Sertraline* 50 MG TAB PO SCH (08:30)
[2019-05-22] MEDS: Calcium/Vitamin D TAB 250/125* TAB PO SCH ×2 (08:30→21:01)
[2019-05-22] MEDS: predniSONE TAB* 20 MG PO SCH (08:30)
[2019-05-22] MEDS: Carvedilol TAB* 3.125 MG PO SCH ×2 (08:30→21:00)
[2019-05-22] MEDS: Gabapentin CAP(*) 300 MG PO SCH ×2 (08:30→21:01)
[2019-05-22] MEDS: Atorvastatin* 10 MG TAB PO SCH (08:30)
[2019-05-22] MEDS: Aspirin 81 mg CHEW TAB* 81 MG TAB.CHEW PO SCH (08:30)
[2019-05-22] MEDS: Insulin GLARGINE(*) 1 UNITS UNIT SUBCUT SCH ×2 (08:31→21:01)
[2019-05-22] MEDS ORDERED: Vancomycin(*) 1,000 MG in NS 0.9% 250 ML* 250 ML IVPB ONE (09:00)
--- NOTE | 2019-05-22 11:32 | PN ---
Subjective Date of Service: 05/22/19 Interval History: Patient feels her leg pain is more controlled today and reports her breathing feels more comfortable. She denies fever/chills, chest pain, SOB, dyspnea, abd pain, n/v. She reports some dizziness when getting up today, which is better than the last several days but still lingering. Objective Active Medications: Acetaminophen (Tylenol Tab*) 650 mg PO Q4H PRN PRN Reason: FEVER/PAIN Last Admin: 05/22/19 00:08 Dose: 650 mg Al Hydrox/Mg Hydrox/Simethicone (Maalox Plus*) 30 ml PO Q6H PRN PRN Reason: INDIGESTION Albuterol/Ipratropium (Duoneb (Albuterol 2.5 Mg/Ipratropium 0.5 Mg)) 1 neb INH [id number] AWAKE PRN PRN Reason: sob/wheexing Aspirin (Aspirin 81 Mg Chew Tab*) 81 mg PO DAILY [facility] Last Admin: 05/22/19 08:30 Dose: 81 mg Atorvastatin Calcium (Lipitor*) 10 mg PO DAILY [facility] Last Admin: 05/22/19 08:30 Dose: 10 mg Calcium/Vitamin D (Oscal D Tab 250/125*) 1 tab PO BID [facility] Last Admin: 05/22/19 08:30 Dose: 1 tab Carvedilol (Coreg Tab*) 3.125 mg PO BID [facility] Last Admin: 05/22/19 08:30 Dose: 3.125 mg Dextrose (D50w Syringe 50 Ml*) 12.5 gm IV PUSH .FOR FS < 60 - SS PRN PRN Reason: FS < 60 Gabapentin (Neurontin Cap(*)) 300 mg PO BID [facility] Last Admin: 05/22/19 08:30 Dose: 300 mg Heparin Sodium (Porcine) (Heparin Vial(*)) 5,000 units SUBCUT Q8HR [facility] Last Admin: 05/22/19 05:32 Dose: 5,000 units Levofloxacin/Dextrose (Levaquin 500 Mg Ivpremix(*)) 500 mg in 100 mls @ 100 mls /hr IVPB Q48H [facility]; Protocol Cefepime HCl (Maxipime 1 Gm In Dextrose Duplex (*)) 1 gm in 50 mls @ 100 mls/ hr IV Q24H [facility] Sodium Chloride (Ns 0.9% 1000 Ml) 1,000 mls @ 75 mls/hr IV PER RATE [facility] Last Admin: 05/21/19 23:00 Dose: 75 mls/hr Insulin Glargine (Lantus(*)) 20 units SUBCUT Q12H [facility] Last Admin: 05/22/19 08:31 Dose: 20 units Insulin Human Lispro (Humalog*) 0 units SUBCUT ACHS [facility]; Protocol Last Admin: 05/22/19 08:31 Dose: 2 units Levothyroxine Sodium (Synthroid Tab*) 125 mcg PO QAM@0600 [facility] Last Admin: 05/22/19 05:33 Dose: 125 mcg Liraglutide (Victoza (Nf)) 1.2 mg SUBCUT BEDTIME [facility] Last Admin: 05/21/19 23:19 Dose: Not Given Pto: Doxepin Hcl [ (Silenor] 10 Mg) 10 mg PO BEDTIME [facility] Last Admin: 05/21/19 23:19 Dose: Not Given Ondansetron HCl (Zofran Inj*) 4 mg IV Q4H PRN PRN Reason: NAUSEA/VOMITING Pharmacy Consult (Vancomycin Per Pharmacy*) 1 note FOLLOW UP . PRN PRN Reason: PER PROTOCOL Prednisone (Deltasone Tab*) 40 mg PO DAILY [facility] Last Admin: 05/22/19 08:30 Dose: 40 mg Senna (Senokot Tab*) 1 tab PO BID [facility] Last Admin: 05/22/19 08:30 Dose: 1 tab Sertraline HCl (Zoloft*) 100 mg PO DAILY [facility] Last Admin: 05/22/19 08:30 Dose: 100 mg Tramadol HCl (Ultram*) 50 mg PO Q12H PRN PRN Reason: PAIN Last Admin: 05/22/19 02:00 Dose: 50 mg Vital Signs - 8 hr 05/22/19 05/22/19 05/22/19 04:35 08:00 08:11 Temperature 97.4 F Pulse Rate 95 Respiratory 19 18 21 Rate Blood Pressure 152/50 (mmHg) O2 Sat by Pulse 96 Oximetry 05/22/19 05/22/19 08:30 11:09 Temperature Pulse Rate Respiratory 16 16 Rate Blood Pressure (mmHg) O2 Sat by Pulse Oximetry Oxygen Devices in Use Now: None Appearance: Obese white female, laying in hospital bed, appearing comfortable and in NAD Eyes: No Scleral Icterus, PERRLA Ears/Nose/Mouth/Throat: Mucous Membranes Moist, - - edentulous Neck: NL Appearance and Movements; NL JVP Respiratory: Symmetrical Chest Expansion and Respiratory Effort, - - Expiratory wheezing in bilateral lower and mid lung august Cardiovascular: RRR, - - Grade II systolic murmur Abdominal: - - abd soft, nontender, nondistended; colostomy present Extremities: No Clubbing, Cyanosis, - - left lower leg dressings with clear discharge; pedal pulses intact; trace pretibial edema to LLE, no edema in other extremities Skin: - - Ulcerations throughout left lower leg, surrounding erythema and desquamation Neurological: Alert and Oriented x 3, NL Muscle Strength and Tone Result Diagrams: 05/22/19 06:30 05/22/19 06:30 Assess/Plan/Problems-Billing Assessment: 74 yo white female with PMHx depression, anxiety, bipolar disorder, rectal CA with colostomy, DM T2, venous insufficiency, and HFrEF presents to the ED upon direction of the wound clinic due to worsening chronic wounds to left lower limb , as well as SOB x2-3 days. - Patient Problems (1) Severe sepsis Current Visit: Yes Status: Acute Code(s): A41.9 - SEPSIS, UNSPECIFIED ORGANISM; R65.20 - SEVERE SEPSIS WITHOUT SEPTIC SHOCK SNOMED Code(s): 37661679 Comment: -secondary to cellulitis surrounding venous stasis ulcers -severe hypotension in ED as well as tachycardia and YESSY on CKD; hypotension resolved with fluids, YESSY improving -in recent hospitalization, wound culture of LLE ulcers grew enterococcus, MRSA , pseudomonas -at this time Dr. Leyva recommends against would culture and recommends discontinuing levaquin and vanco -continue cefepime -wound care consult pending -blood culture no growth to date (2) Acute kidney injury superimposed on CKD Current Visit: Yes Status: Acute Code(s): N17.9 - ACUTE KIDNEY FAILURE, UNSPECIFIED; N18.9 - CHRONIC KIDNEY DISEASE, UNSPECIFIED SNOMED Code(s): 62586055 Comment: -some improvement today, Cr to 3.00 -likely related to both severe hypotension due to severe sepsis as well as recent use of bactrim -FeNa 6%, renal ultrasound pending, UA with +1 blood, urine culture pending -mildly hyperkalemic at admission, now resolved -patient received NS 75 ml/hr throughout the day and will DC now so as to not further exacerbate CHF -nephrology consult placed, appreciate Dr. Shetty's input -holding home diuretics and entresto, and decreased home gabapentin (3) Venous stasis ulcer Current Visit: Yes Status: Acute Comment: -pending obtaining records from Dr. Mcgee's office, patient had surgery approx 2 months ago and unclear what procedure performed -significant hx of venous stasis ulcers and follows weekly in wound clinic -also previous GEN in 2018 demonstrates critical limb ischema of LLE, arterial component -would not perform CTA at this time due to YESSY, will discuss with Dr. Daniel (4) CHF (congestive heart failure) Current Visit: No Status: Acute Code(s): I50.9 - HEART FAILURE, UNSPECIFIED SNOMED Code(s): 61102143 Comment: -recent echo with EF 40-45% -likely does have decompensation given CXR demonstrating vascular congestion and worsening SOB for 2-3 days before admission; however holding diuretics in setting of YESSY respiratory status has improved given no O2 requirement today and symptomatic improvement of SOB -d/c fluids -no worsening of LE edema -continue carvedilol (5) Bronchospasm Current Visit: Yes Status: Acute Code(s): J98.01 - ACUTE BRONCHOSPASM SNOMED Code(s): 3127416 Comment: -wheezing noted on exam, continue prednisone and duonebs -minimall improved today -after checking with former PCP office in [place], it appears patient was never prescribed oxygen at home, but was diagnosed with sleep apnea (unclear whether obstructive or central); patient has not been using CPAP at [facility] (6) Hypothyroid Current Visit: Yes Status: Acute Code(s): E03.9 - HYPOTHYROIDISM, UNSPECIFIED SNOMED Code(s): 34140922 Comment: -continue levothyroxine (7) Depression Current Visit: Yes Status: Acute Code(s): F32.9 - MAJOR DEPRESSIVE DISORDER , SINGLE EPISODE, UNSPECIFIED SNOMED Code(s): 09405095 Comment: -continue zoloft -patient denies history of BPD though it is documented in EMR and she has taken lithium in the past -no current rx for mood stabilizer (8) Diabetes Current Visit: No Status: Acute Code(s): E11.9 - TYPE 2 DIABETES MELLITUS WITHOUT COMPLICATIONS SNOMED Code(s): 94210119 Comment: -continue long acting insulin at half normal home rate, home januvia, and lispro SS (9) DVT prophylaxis Current Visit: No Status: Acute Code(s): OVF4623 - SNOMED Code(s): 533656680 Comment: -HSQ (10) Full code status Current Visit: No Status: Acute Code(s): Z78.9 - OTHER SPECIFIED HEALTH STATUS SNOMED Code(s): 580758189 Status and Disposition: inpatient
[2019-05-22 12:11] LABS: % Iron Saturation 15 % (15-55); Iron 41 ug/dL (50-212); Total Iron Binding Capacity 280 mcg/dL (250-450); Transferrin 200 mg/dL (203-362)
[2019-05-22] MEDS: NS 0.9% 1000 ML** 1,000 ML IV SCH (15:33)
[2019-05-22] MEDS: Cefepime 1 GM in Dextrose(*) 1 GM/50 ML BAG IV SCH (16:52)
--- NOTE | 2019-05-22 17:53 | CONS ---
CONSULTATION REPORT: DATE OF CONSULT: 05/22/19 REQUESTING PROVIDER: ABHI Devine. CONSULTING SERVICE: Infectious disease. REASON FOR CONSULTATION: Left leg wound. IMPRESSION: 1. Chronic nonhealing wound, left lower extremity in the setting of venous insufficiency that is circumferential. There is no surrounding erythema. 2. Penicillin allergy. 3. Dyspnea. 4. Chronic kidney disease. RECOMMENDATIONS: I will stop the vancomycin and Levaquin. Continue cefepime. Follow her leg examination. Wound consult is occurring. I do not think there is anything to culture in the wound as it essentially just looks like burned skin. Her blood culture so far negative. HISTORY OF PRESENT ILLNESS: This is a 74-year-old woman with venous insufficiency who has had a vein procedure in the left leg, has had about 6 months of wounds in the left lower extremity that have been followed at the wound clinic to no avail. A urinalysis shows blood. No leukocyte esterase. She has no dysuria. Her blood cultures here are negative. Her dyspnea is resolved with corticosteroids and nebulizers. She has had no fevers, chills, or sweats. She lives at [facility]. She feels she obtained MRSA. PAST MEDICAL HISTORY: 1. Depression. 2. Anxiety. 3. Bipolar disorder. 4. Rectal cancer, treated with resection and ostomy. 5. Hypothyroidism. 6. Hyperlipidemia. 7. Type 2 diabetes. 8. Venous insufficiency. 9. Chronic kidney disease. 10. Heart failure with reduced ejection fraction 40% to 45%. 11. Status post tonsillectomy. MEDICATIONS: 1. Vancomycin. 2. Levaquin. 3. Cefepime 1 g once a day. 4. Tylenol. 5. Albuterol inhaler. 6. Aspirin. 7. Lipitor. 8. Calcium. 9. Vitamin D. 10. Coreg. 11. Gabapentin. 12. Insulin glargine. 13. Insulin lispro. 14. Levothyroxine. 15. Liraglutide. 16. Prednisone. 17. Zofran. 18. Senna. 19. Sertraline. ALLERGIES: LITHIUM and PENICILLIN. SOCIAL HISTORY: She lives at [facility]. She is a nonsmoker. FAMILY HISTORY: No recurrent infections. REVIEW OF SYSTEMS: All negative, except as noted above to a 12-point review. PHYSICAL EXAM: Vital Signs: Temperature is 37, heart rate 90, respiratory rate 20, blood pressure 147/67, oxygen saturation 94% on room air. In general, she is awake, not in distress. Neurologic: She is oriented x3, follows all commands. HEENT: There is no conjunctival hemorrhage. Oropharynx without lesions. Neck: Supple without mass. Heart is regular rate and rhythm without murmurs, rubs, or gallops. Lungs: Clear to auscultation bilaterally. Abdomen : Soft, nontender, nondistended. There are bowel sounds present. Skin: There are no rashes. No hemorrhage. Musculoskeletal: There is bilateral lower extremity nonpitting edema. There is diffuse superficial desquamation circumferentially in the left lower leg below the knee and above the ankle. There is tenderness to palpation. There is no crepitus. There is no draining fluid. DIAGNOSTIC STUDIES/LAB DATA: Laboratory Data: White blood cell count 6, hemoglobin 8, platelets 269, MCV 83. Creatinine is 3, BUN 84. CRP 65. Please see impressions and recommendations outlined above. Thank you for asking me to see Ms. Chowdhury in consultation. [id number]/[facility] #: [id number] [facility] HOSPITALGerri
--- NOTE | 2019-05-22 18:10 | CONS ---
INITIAL CONSULT NOTE: DATE OF CONSULT: 05/22/19 REASON FOR CONSULT: YESSY on CKD. SERVICE: [facility]. REQUESTING PROVIDER: ABIH Devine. HISTORY OF PRESENT ILLNESS: A 74-year-old female with past medical history of depression, anxiety, bipolar disorder, type 2 diabetes, venous stasis disease, chronic kidney disease stage 3 with a baseline creatinine of 1.7 to 1.8, heart failure with reduced ejection fraction came in to the ER under the direction by Dr. Downing [facility] due to worsening chronic wounds. The patient also noticed some drainage. The patient lives at [facility] and has dressing changes there with followup at the Wound Clinic every week. In the ER , the patient's blood pressure was noted to be low. The patient was also recently started on Bactrim as an outpatient for the last few days. The patient has also been feeling short of breath and has had a low appetite and has not been eating much. The patient's blood pressure in the ER was noted to be 78/67. The patient has received 2 L of IV fluids so far with stable blood pressures currently. PAST MEDICAL HISTORY: 1. Depression. 2. Anxiety. 3. Bipolar disorder. 4. History of rectal cancer, status post resection and colostomy. 5. Hypothyroidism. 6. Hyperlipidemia. 7. Type 2 diabetes. 8. Chronic kidney disease stage 3. 9. Venous insufficiency. 10. Heart failure with ejection fraction of 40% to 45%. PAST SURGICAL HISTORY: 1. Rectal surgery. 2. Colostomy. 3. Hernia repair. 4. Tonsillectomy. 5. Possible oophorectomy. 6. Recent venous surgery with Dr. Mcgee 2 months ago. The patient not sure of the specifics. MEDICATION LIST: 1. Tramadol 50 mg p.o. t.i.d. 2. Bactrim 800 mg p.o. daily. 3. Spironolactone 25 mg p.o. daily. 4. Simvastatin 20 mg p.o. daily. 5. Sertraline 100 mg p.o. daily. 6. Entresto 1 tab b.i.d. 7. Metolazone 2.5 mg p.o. daily. 8. Liraglutide 1.2 mg subcu daily. 9. Levothyroxine 125 mcg p.o. q.a.m. 10. Insulin sliding scale. 11. Gabapentin 600 mg p.o. b.i.d. 12. Furosemide 40 mg p.o. daily. 13. Doxepin 10 mg p.o. at bedtime. 14. Carvedilol 3.125 p.o. b.i.d. 15. Aspirin 81 mg p.o. daily. FAMILY HISTORY: Sister at age 67 from an [place]. Mother at age 76 of unknown causes. Father at 77 from possible [place]. SOCIAL HISTORY: Long-term resident at [facility]. Does not use alcohol, tobacco , or recreational drugs. REVIEW OF SYSTEMS: As described in the HPI. Other 14-point review of systems was noted to be negative. PHYSICAL EXAM: General: Alert, oriented, in no acute distress. HEENT: NC/ AT. Heart: S1, S2 present. Regular at the time of exam. Lungs: Minimal expiratory wheezes. Abdomen: Soft, nontender. Colostomy bag present. No rebound, no guarding. Extremities: Edema to bilateral lower extremities. Dressing recently changed. Some erythema in the foot and ankle. Neuro: Alert and oriented x3. Good strength. Gait not tested. DIAGNOSTIC STUDIES/LAB DATA: Imaging: Chest x-ray, stigmata of COPD, cardiomegaly, and some pulmonary vascular congestion. Labs: WBC 6.3, hemoglobin 9.1, hematocrit 27, platelets 309. ABG yesterday, pH 7.28, pCO2 of 37, pO2 of 75, bicarb 18.5. Yesterday's labs, sodium 130, potassium 5.1, chloride 98, CO2 of 20, BUN 105, creatinine 4.32, uric acid 13.5. ASSESSMENT AND PLAN: A 74-year-old female with past medical history of depression, anxiety, bipolar disorder, hypothyroidism, type 2 diabetes, chronic kidney disease stage 3, heart failure with reduced ejection fraction here for further worsening and cellulitis with sepsis and acute kidney injury. 1. Sepsis with cellulitis. The patient has a history of methicillin-resistant Staphylococcus aureus, pseudomonas, enterococcus. We will leave IV antibiotics to the primary team and infectious disease. The patient was resuscitated with IV hydration yesterday. 2. Acute kidney injury. The patient's creatinine yesterday was 4.2. This is improved with holding the patient's diuretics including metolazone and Lasix and spironolactone. The patient's Entresto is also on hold in the setting of her acute kidney injury. Would continue to hold this currently. Agree with adjustment of gabapentin dose due to reduced kidney function. The patient's etiology of renal failure is likely prerenal in nature in the setting of dehydration from being on multiple diuretics, hypotension in the setting of active infection, and Bactrim can also cause hypersecretion of creatinine and increase her creatinine number without actual damage to the kidney sometimes. Agree with holding all these above meds and the patient's kidney function is improving. Also, recommend checking urine electrolytes to evaluate FENa. The FENa would not be accurate in the setting of her being on diuretics, can calculate FEUrea on the patient and renal ultrasound is currently pending to rule out any obstructive etiology and a urine culture to rule out urinary tract infection. 3. We will follow closely with primary team. 4. [id number] respiratory failure per medical team. [id number]/[facility] #: [id number] RYAN
--- NOTE | 2019-05-22 19:03 | CONSULT ---
Subjective Date of Service: 05/22/19 Interval History: Ms. Chowdhury is a 74 yo female with PMH significant for depression, anxiety, bipolar disorder, DM2, venous stasis, CKD, and CHF; who presented to the emergency room with complaints of worsening ulcers of left LE and shortness of breath. She was admitted to the hospital with severe sepsis secondary to cellulitis of the left LE. Patient has had wounds to the left LE for 25 weeks, she is followed by the wound clinic at [facility]. Patient seen and examined at bedside. Family History: Unchanged from Admission Social History: Unchanged from Admission Past Medical History: Unchanged from Admission Review of Systems - Measurements Intake and Output: Intake and Output Last 24 Hours 05/20/19 05/21/19 05/22/19 05/23/19 06:59 06:59 06:59 06:59 Intake Total 2803 1720 Balance 2803 1720 Weight 225 lb 14.4 oz Intake: IV Fluids 2803 590 NS (0.9%) 503 590 IVPB 290 ABX - VANCOMYCIN 290 Oral 0 840 Other: Estimated Void Large Estimated Stool Amount Large # Voids 0 1 - Review of Systems Constitutional Symptoms: Negative: Fever, Other - Chills Dermatology: Positive: Other - Chronic ulcers to the left LE Endocrinology: Positive: Obesity, Diabetes Mellitus Objective Active Medications: Acetaminophen (Tylenol Tab*) 650 mg PO Q4H PRN Reason: FEVER/PAIN Al Hydrox/Mg Hydrox/Simethicone (Maalox Plus*) 30 ml PO Q6H PRN Reason: INDIGESTION Albuterol/Ipratropium (Duoneb (Albuterol 2.5 Mg/Ipratropium 0.5 Mg)) 1 neb INH [id number] AWAKE PRN Reason: sob/wheexing Aspirin (Aspirin 81 Mg Chew Tab*) 81 mg PO DAILY JYOTSNA Atorvastatin Calcium (Lipitor*) 10 mg PO DAILY [facility] Calcium/Vitamin D (Oscal D Tab 250/125*) 1 tab PO BID JYOTSNA Carvedilol (Coreg Tab*) 3.125 mg PO BID JYOTSNA Dextrose (D50w Syringe 50 Ml*) 12.5 gm IV PUSH .FOR FS < 60 - SS PRN Reason: FS < 60 Gabapentin (Neurontin Cap(*)) 300 mg PO BID JYOTSNA Heparin Sodium (Porcine) (Heparin Vial(*)) 5,000 units SUBCUT Q8HR JYOTSNA Cefepime HCl (Maxipime 1 Gm In Dextrose Duplex (*)) 1 gm in 50 mls @ 100 mls/ hr IV Q24H JYOT[facility]NA Insulin Glargine (Lantus(*)) 20 units SUBCUT Q12H JYOTSNA Insulin Human Lispro (Humalog*) 0 units SUBCUT ACHS JYOTSNA; Protocol Levothyroxine Sodium (Synthroid Tab*) 125 mcg PO QAM@0600 JYOTSNA Liraglutide (Victoza (Nf)) 1.2 mg SUBCUT BEDTIME JYOTSNA Pto: Doxepin Hcl [ (Silenor] 10 Mg) 10 mg PO BEDTIME JYOTSNA Ondansetron HCl (Zofran Inj*) 4 mg IV Q4H PRN Reason: NAUSEA/VOMITING Prednisone (Deltasone Tab*) 40 mg PO DAILY JYOTSNA Senna (Senokot Tab*) 1 tab PO BID JYOTSNA Sertraline HCl (Zoloft*) 100 mg PO DAILY JYOTSNA Tramadol HCl (Ultram*) 50 mg PO Q12H PRN Reason: PAIN Vital Signs - 8 hr 05/22/19 05/22/19 05/22/19 11:09 12:19 14:02 Temperature 98.9 F Pulse Rate 97 Respiratory 16 20 16 Rate Blood Pressure 147/67 (mmHg) O2 Sat by Pulse 94 Oximetry 05/22/19 05/22/19 15:53 16:57 Temperature 98.8 F Pulse Rate 20 Respiratory 20 16 Rate Blood Pressure 149/68 (mmHg) O2 Sat by Pulse 97 Oximetry Oxygen Devices in Use Now: None Appearance: NAD, laying in bed Ears/Nose/Mouth/Throat: Mucous Membranes Moist Respiratory: Symmetrical Chest Expansion and Respiratory Effort Skin: - - See skin note below Neurological: Alert and Oriented x 3 Nutrition: Taking PO's Result Diagrams: 05/24/19 06:05 05/24/19 06:05 Additional Lab and Data: Above labs were pulled into the note when edited prior to signing, please see labs from day of consultation below Laboratory Tests 05/21/19 05/22/19 05/22/19 14:28 06:30 06:30 WBC 6.5 Hgb 8.7 L Hct 26 L Plt Count 269 Sodium 138 D Potassium 4.8 Chloride 109 Carbon Dioxide 18 L BUN 84 H Creatinine 3.00 H Glucose 157 H C-Reactive Protein 64.85 H Microbiology and Other Data: Microbiology 05/21/19 14:28 Aerobic Blood Culture - Preliminary Blood Venous No Growth Day 1 Anaerobic Blood Culture - Preliminary No Growth Day 1 05/21/19 14:23 Aerobic Blood Culture - Preliminary Blood Venous No Growth Day 1 Anaerobic Blood Culture - Preliminary No Growth Day 1 Diagnostic Imaging: Exam Date: 10/23/18 1419 - VL ANK/BRACHIAL INDICES Right: Value (SBP) Index Brachial: 157 Posterior tibialis: 170 1.08 Dorsalis pedis: 155 0.99 Digit: 92 0.59 Left: Value (SBP) Index Brachial: 147 Posterior tibialis: 110 0.70 Dorsalis pedis: 130 0.83 Digit: 64 0.41 IMPRESSION: Claudication values and derangement of arterial waveforms are recorded in the left lower extremity. In the presence of a chronic left lower extremity wound this could be seen in the setting of "critical limb ischemia". Exam Date: 05/21/19 1310 - VL LOWER EXT VEINS BILATERAL IMPRESSION: #. No evidence for RIGHT lower extremity DVT with assessment of the peroneal veins is limited as noted. #. No evidence for LEFT lower extremity DVT through the popliteal vein. The calf veins could not be visualized limiting assessment. Patency of the LEFT posterior tibial and peroneal veins is indeterminate. #. Extensive LEFT lower leg subcutaneous edema. Skin Deviation Note - Skin Deviation Findings Medial left LE - There are superficial open areas. The medial open area measures , 2 cm x 2 cm x 0.1 cm. Difficult to assess the wound bases in the presence of erythema. There is serous drainage noted. Lateral Left LE - There are superficial open areas. The proximal open area measures, 2 cm x 1.5 cmx 0.1 cm. Difficult to assess the wound bases in the presence of erythema. There is serous drainage noted. There is a cluster of wounds to the anterior leg, these measure 3 cm x 4.5 cm x 0.1 cm. Not pictured: There is a callous to the left 2nd toe, measures 1 cm x 1 cm. There is also a superficial open area to the posterior left ankle, measuring 0.5 cm x2.5 cm x 0.1 cm. The wound base is also difficult to visualize due to the erythema. There is no drainage noted from the wound. Assessment/Plan: Ms. Chowdhury is a 74 yo female with PMH significant for depression, anxiety, bipolar disorder, DM2, venous stasis, CKD, and CHF; who presented to the emergency room with complaints of worsening ulcers of left LE and shortness of breath. She was admitted to the hospital with severe sepsis secondary to cellulitis of the left LE. Patient has had wounds to the left LE for 25 weeks, she is followed by the wound clinic. 1. Left LE venous stasis ulcers. Recommend applying calcium alginate to the open areas, followed by 4x4 gauze, and rolled gauze. Change dressing daily or as needed for drainage. If wounds continue to persist and not improve could consider using a collagen dressing. Refer back to the wound clinic on discharge. 2. Left LE cellulitis. Management per primary medicine team. 3. DM2. HgA1C was 8.3 on 04/23/19. Maintain good glycemic control to allow for wound healing. 4. Morbid obesity. BMI 44.1 5. Diet. Consistent Carbohydrate diet. 6. Code Status. Full Code Status. 7. Disposition. Inpatient, disposition per primary medicine team. TIME SPENT: Time for this wound consult was 20 minutes and 10 minutes was spent with the patient discussing past medical history; assessing, measuring, and photographing the wounds. Wound Problem/Plan Is Patient a Wound Clinic Patient: [facility] Current Treatment: Dry gauze and rolled gauze, change daily Attending: Coco Charles
[2019-05-22] MEDS: DOXEPIN HCL 10 MG PO SCH (22:24)
[2019-05-22] MEDS: NF: Liraglutide (NF) 18 MG/3 ML SUBCUT SCH (22:24)
[2019-05-23] MEDS: Levothyroxine TAB* 125 MCG TAB PO SCH (05:19)
[2019-05-23] MEDS: Heparin VIAL(*) 5000 UNITS/ML VIAL (FIVE THOUSAND) SUBCUT SCH ×3 (05:19→20:09)
[2019-05-23] MEDS: Insulin LISPRO* 1 UNITS UNIT SUBCUT SCH ×4 (08:43→20:33)
[2019-05-23] MEDS: predniSONE TAB* 20 MG PO SCH (08:51)
[2019-05-23] MEDS: traMADol TAB* 50 MG PO PRN (08:52)
[2019-05-23] MEDS: Aspirin 81 mg CHEW TAB* 81 MG TAB.CHEW PO SCH (08:52)
[2019-05-23] MEDS: Gabapentin CAP(*) 300 MG PO SCH ×2 (08:52→20:08)
[2019-05-23] MEDS: Calcium/Vitamin D TAB 250/125* TAB PO SCH ×2 (08:52→20:08)
[2019-05-23] MEDS: Carvedilol TAB* 3.125 MG PO SCH ×2 (08:53→20:08)
[2019-05-23] MEDS: Atorvastatin* 10 MG TAB PO SCH (08:53)
[2019-05-23] MEDS: Senna TAB PO SCH ×2 (08:53→20:08)
[2019-05-23] MEDS: Insulin GLARGINE(*) 1 UNITS UNIT SUBCUT SCH ×2 (08:53→20:10)
[2019-05-23] MEDS: Sertraline* 50 MG TAB PO SCH (08:53)
[2019-05-23 09:16] LABS: Hematocrit 26 % (35-47); Hemoglobin 8.7 g/dL (12.0-16.0); Mean Corpuscular HGB Conc 33 g/dL (31-36); Mean Corpuscular Hemoglobin 28 pg (27-31); Mean Corpuscular Volume 85 fL (80-97); Mean Platelet Volume 6.2 fL (7.4-10.4); Platelet Count 267 10^3/uL (150-450); Red Cell Distribution Width 17 % (10-15); White Blood Count 6.1 10^3/uL (3.5-10.8)
[2019-05-23 09:42] LABS: ABS Lymphocytes 0.7 10^3/ul (1.0-4.8); ABS Monocytes 0.5 10^3/ul (0-0.8); ABS Neutrophils 4.8 10^3/ul (1.5-7.7); Eosinophil % 0.3 %; Lymphocyte % 11.6 %; Nucleated Red Blood Cells % 0.1
[2019-05-23 09:45] LABS: Potassium 4.8 mmol/L (3.5-5.0)
[2019-05-23 09:50] LABS: BUN/Creatinine Ratio 36.4 (8-20); EGFR African American 27.4 (>60); EGFR Non-African American 22.7 (>60)
[2019-05-23] MEDS: Acetaminophen TAB* 325 MG PO PRN ×2 (16:15→20:34)
[2019-05-23] MEDS: Cefepime 1 GM in Dextrose(*) 1 GM/50 ML BAG IV SCH (17:44)
--- NOTE | 2019-05-23 19:49 | PN ---
Subjective Date of Service: 05/23/19 Interval History: Per nursing, patient requests to go to [employer] today and is very angry when request is denied. At time of eval, patient has no complaints. She denies difficulty breathing at rest but does evidently have dyspnea with minimal exertion. Denies chest pain, abd pain, hematuria, hematochezia, n/v, fever/chills, dizziness. Family History: Unchanged from Admission Social History: Unchanged from Admission Past Medical History: Unchanged from Admission Objective Active Medications: Acetaminophen (Tylenol Tab*) 650 mg PO Q4H PRN PRN Reason: FEVER/PAIN Last Admin: 05/23/19 16:15 Dose: 650 mg Al Hydrox/Mg Hydrox/Simethicone (Maalox Plus*) 30 ml PO Q6H PRN PRN Reason: INDIGESTION Albuterol/Ipratropium (Duoneb (Albuterol 2.5 Mg/Ipratropium 0.5 Mg)) 1 neb INH [id number] AWAKE PRN PRN Reason: sob/wheexing Aspirin (Aspirin 81 Mg Chew Tab*) 81 mg PO DAILY [facility] Last Admin: 05/23/19 08:52 Dose: 81 mg Atorvastatin Calcium (Lipitor*) 10 mg PO DAILY [facility] Last Admin: 05/23/19 08:53 Dose: 10 mg Calcium/Vitamin D (Oscal D Tab 250/125*) 1 tab PO BID [facility] Last Admin: 05/23/19 08:52 Dose: 1 tab Carvedilol (Coreg Tab*) 3.125 mg PO BID [facility] Last Admin: 05/23/19 08:53 Dose: 3.125 mg Dextrose (D50w Syringe 50 Ml*) 12.5 gm IV PUSH .FOR FS < 60 - SS PRN PRN Reason: FS < 60 Furosemide (Lasix Tab*) 40 mg PO DAILY [facility] Gabapentin (Neurontin Cap(*)) 300 mg PO BID [facility] Last Admin: 05/23/19 08:52 Dose: 300 mg Heparin Sodium (Porcine) (Heparin Vial(*)) 5,000 units SUBCUT Q8HR [facility] Last Admin: 05/23/19 13:32 Dose: 5,000 units Cefepime HCl (Maxipime 1 Gm In Dextrose Duplex (*)) 1 gm in 50 mls @ 100 mls/ hr IV Q24H [facility] Last Admin: 05/23/19 17:44 Dose: 100 mls/hr Insulin Glargine (Lantus(*)) 20 units SUBCUT Q12H [facility] Last Admin: 05/23/19 08:53 Dose: 20 units Insulin Human Lispro (Humalog*) 0 units SUBCUT ACHS [facility]; Protocol Last Admin: 05/23/19 17:44 Dose: 9 units Levothyroxine Sodium (Synthroid Tab*) 125 mcg PO QAM@0600 [facility] Last Admin: 05/23/19 05:19 Dose: 125 mcg Liraglutide (Victoza (Nf)) 1.2 mg SUBCUT BEDTIME [facility] Last Admin: 05/22/19 22:24 Dose: Not Given Pto: Doxepin Hcl [ (Silenor] 10 Mg) 10 mg PO BEDTIME [facility] Last Admin: 05/22/19 22:24 Dose: Not Given Ondansetron HCl (Zofran Inj*) 4 mg IV Q4H PRN PRN Reason: NAUSEA/VOMITING Prednisone (Deltasone Tab*) 40 mg PO DAILY [facility] Last Admin: 05/23/19 08:51 Dose: 40 mg Senna (Senokot Tab*) 1 tab PO BID [facility] Last Admin: 05/23/19 08:53 Dose: 1 tab Sertraline HCl (Zoloft*) 100 mg PO DAILY [facility] Last Admin: 05/23/19 08:53 Dose: 100 mg Tramadol HCl (Ultram*) 50 mg PO Q12H PRN PRN Reason: PAIN Last Admin: 05/23/19 08:52 Dose: 50 mg Vital Signs - 8 hr 05/23/19 05/23/19 05/23/19 11:47 13:32 13:33 Temperature 98.0 F Pulse Rate 81 Respiratory 20 17 17 Rate Blood Pressure 146/65 (mmHg) O2 Sat by Pulse 95 Oximetry 05/23/19 16:02 Temperature 98.2 F Pulse Rate 86 Respiratory 24 Rate Blood Pressure (mmHg) O2 Sat by Pulse 97 Oximetry Oxygen Devices in Use Now: None Appearance: Obese white female laying in bed appearing in NAD Eyes: No Scleral Icterus, PERRLA Ears/Nose/Mouth/Throat: Mucous Membranes Moist Neck: NL Appearance and Movements; NL JVP Respiratory: Symmetrical Chest Expansion and Respiratory Effort, - - faint end- expiratory wheezing Cardiovascular: NL Sounds; No Murmurs; No JVD, RRR Abdominal: NL Sounds; No Tenderness; No Distention Extremities: No Clubbing, Cyanosis, - - trace edema pretibially but not pedally in left LE, otherwise no edema Skin: - - left LE ulcers in dressing, dry Neurological: Alert and Oriented x 3, NL Muscle Strength and Tone Result Diagrams: 05/23/19 05:51 05/23/19 05:55 Additional Lab and Data: Above labs were pulled into the note when edited prior to signing, please see labs from day of consultation below Laboratory Tests 05/21/19 05/22/19 05/22/19 14:28 06:30 06:30 WBC 6.5 Hgb 8.7 L Hct 26 L Plt Count 269 Sodium 138 D Potassium 4.8 Chloride 109 Carbon Dioxide 18 L BUN 84 H Creatinine 3.00 H Glucose 157 H C-Reactive Protein 64.85 H Microbiology and Other Data: Microbiology 05/21/19 14:28 Aerobic Blood Culture - Preliminary Blood Venous No Growth Day 1 Anaerobic Blood Culture - Preliminary No Growth Day 1 05/21/19 14:23 Aerobic Blood Culture - Preliminary Blood Venous No Growth Day 1 Anaerobic Blood Culture - Preliminary No Growth Day 1 Diagnostic Imaging: Exam Date: 10/23/18 1419 - VL ANK/BRACHIAL INDICES Right: Value (SBP) Index Brachial: 157 Posterior tibialis: 170 1.08 Dorsalis pedis: 155 0.99 Digit: 92 0.59 Left: Value (SBP) Index Brachial: 147 Posterior tibialis: 110 0.70 Dorsalis pedis: 130 0.83 Digit: 64 0.41 IMPRESSION: Claudication values and derangement of arterial waveforms are recorded in the left lower extremity. In the presence of a chronic left lower extremity wound this could be seen in the setting of "critical limb ischemia". Exam Date: 05/21/19 1310 - VL LOWER EXT VEINS BILATERAL IMPRESSION: #. No evidence for RIGHT lower extremity DVT with assessment of the peroneal veins is limited as noted. #. No evidence for LEFT lower extremity DVT through the popliteal vein. The calf veins could not be visualized limiting assessment. Patency of the LEFT posterior tibial and peroneal veins is indeterminate. #. Extensive LEFT lower leg subcutaneous edema. Assess/Plan/Problems-Billing Assessment: 74 yo white female with PMHx depression, anxiety, bipolar disorder, rectal CA with colostomy, DM T2, venous insufficiency, and HFrEF presents to the ED upon direction of the wound clinic due to worsening chronic wounds to left lower limb , as well as SOB x2-3 days. - Patient Problems (1) Severe sepsis Current Visit: Yes Status: Acute Code(s): A41.9 - SEPSIS, UNSPECIFIED ORGANISM; R65.20 - SEVERE SEPSIS WITHOUT SEPTIC SHOCK SNOMED Code(s): 03654691 Comment: -secondary to cellulitis surrounding LLE ulcers -severe hypotension in ED as well as tachycardia and YESSY on CKD; hypotension resolved with fluids, YESSY improving -in recent hospitalization, wound culture of LLE ulcers grew enterococcus, MRSA , pseudomonas -at this time Dr. Leyva recommends against would culture and recommends discontinuing levaquin and vanco -continue cefepime -wound care consult recommends calcium alginate to open areas and daily dressing changes -blood culture no growth to date (2) Acute kidney injury superimposed on CKD Current Visit: Yes Status: Acute Code(s): N17.9 - ACUTE KIDNEY FAILURE, UNSPECIFIED; N18.9 - CHRONIC KIDNEY DISEASE, UNSPECIFIED SNOMED Code(s): 05618349 Comment: -improvement today, Cr to 2.14 -likely related to both severe hypotension due to severe sepsis as well as recent use of bactrim -FeNa 6%, UA with +1 blood, urine culture pending -mildly hyperkalemic at admission, now resolved -d/c IVF -Dr. Shetty recommends restarting just lasix and outpatient follow up with cardiology regarding other home diuretics which may have contributed to YESSY; restarting entresto as well -holding home spironolactone and metolazone, and decreased home gabapentin -regarding renal US, demonstrates R kidney cyst which warrants outpatient urology follow up per Dr. Shetty (3) Venous stasis ulcer Current Visit: Yes Status: Acute Comment: -pending obtaining records from Dr. Mcgee's office, patient had surgery approx 2 months ago and unclear what procedure performed -significant hx of venous stasis ulcers and follows weekly in wound clinic -also previous GEN in 2018 demonstrates critical limb ischema of LLE, arterial component -would not perform CTA at this time due to YESSY -Dr. Daniel consulted and appreciate recommendations (4) CHF (congestive heart failure) Current Visit: No Status: Acute Code(s): I50.9 - HEART FAILURE, UNSPECIFIED SNOMED Code(s): 15786711 Comment: -recent echo with EF 40-45% -likely does have decompensation given CXR demonstrating vascular congestion and worsening SOB for 2-3 days before admission; however holding diuretics in setting of YESSY respiratory status has improved given no O2 requirement today and symptomatic improvement of SOB -d/c fluids -no worsening of LE edema -continue carvedilol -restarting lasix and entresto (5) Bronchospasm Current Visit: Yes Status: Acute Code(s): J98.01 - ACUTE BRONCHOSPASM SNOMED Code(s): 6865317 Comment: -wheezing far improved today -will D/C prednisone but continue duonebs -after checking with former PCP office in [place], it appears patient was never prescribed oxygen at home, but was diagnosed with sleep apnea (unclear whether obstructive or central); patient has not been using CPAP at [facility]; would benefit from pulm follow up (6) Hypothyroid Current Visit: Yes Status: Acute Code(s): E03.9 - HYPOTHYROIDISM, UNSPECIFIED SNOMED Code(s): 76060597 Comment: -continue levothyroxine (7) Depression Current Visit: Yes Status: Acute Code(s): F32.9 - MAJOR DEPRESSIVE DISORDER , SINGLE EPISODE, UNSPECIFIED SNOMED Code(s): 76640427 Comment: -continue zoloft -patient denies history of BPD though it is documented in EMR and she has taken lithium in the past -no current rx for mood stabilizer (8) Diabetes Current Visit: No Status: Acute Code(s): E11.9 - TYPE 2 DIABETES MELLITUS WITHOUT COMPLICATIONS SNOMED Code(s): 53865697 Comment: -continue long acting insulin at half normal home rate, home januvia, and lispro SS (9) DVT prophylaxis Current Visit: No Status: Acute Code(s): DSY3382 - SNOMED Code(s): 248946777 Comment: -HSQ (10) Full code status Current Visit: No Status: Acute Code(s): Z78.9 - OTHER SPECIFIED HEALTH STATUS SNOMED Code(s): 912397133 Status and Disposition: inpatient, pt is a [facility] resident at [facility]
[2019-05-23] MEDS ORDERED: Levofloxacin 500 MG IVPREMIX(* 500 MG/100 ML BAG IVPB SCH (20:00)
[2019-05-23] MEDS: NF: Liraglutide (NF) 18 MG/3 ML SUBCUT SCH (20:33)
[2019-05-23] MEDS: DOXEPIN HCL 10 MG PO SCH (20:34)
[2019-05-24] MEDS: Acetaminophen TAB* 325 MG PO PRN ×3 (01:59→21:10)
[2019-05-24] MEDS: Heparin VIAL(*) 5000 UNITS/ML VIAL (FIVE THOUSAND) SUBCUT SCH ×3 (06:18→21:21)
[2019-05-24] MEDS: Levothyroxine TAB* 125 MCG TAB PO SCH (06:18)
[2019-05-24 06:56] LABS: Hematocrit 26 % (35-47); Hemoglobin 8.8 g/dL (12.0-16.0); Mean Corpuscular HGB Conc 34 g/dL (31-36); Mean Corpuscular Hemoglobin 28 pg (27-31); Mean Corpuscular Volume 84 fL (80-97); Mean Platelet Volume 6.1 fL (7.4-10.4); Platelet Count 270 10^3/uL (150-450); Red Blood Count 3.13 10^6 /uL (3.70-4.87); Red Cell Distribution Width 17 % (10-15); White Blood Count 7.8 10^3/uL (3.5-10.8)
[2019-05-24 07:19] LABS: Calcium 9.2 mg/dL (8.6-10.3); EGFR African American 44.7 (>60); Potassium 4.6 mmol/L (3.5-5.0)
[2019-05-24 07:47] LABS: ABS Eosinophils 0.1 10^3/ul (0-0.6); ABS Monocytes 0.6 10^3/ul (0-0.8); ABS Neutrophils 6.1 10^3/ul (1.5-7.7); Eosinophil % 1.4 %; Lymphocyte % 12.5 %; Nucleated Red Blood Cells % 0.2
[2019-05-24] MEDS: Insulin LISPRO* 1 UNITS UNIT SUBCUT SCH ×4 (08:05→21:16)
[2019-05-24] MEDS: Senna TAB PO SCH ×2 (08:57→21:11)
[2019-05-24] MEDS: Insulin GLARGINE(*) 1 UNITS UNIT SUBCUT SCH ×2 (08:57→21:14)
[2019-05-24] MEDS: Sacubitril/Valsartan 49/51(NF) TAB PO SCH ×2 (08:57→15:15)
[2019-05-24] MEDS: Atorvastatin* 10 MG TAB PO SCH (08:57)
[2019-05-24] MEDS: Calcium/Vitamin D TAB 250/125* TAB PO SCH ×2 (08:57→21:11)
[2019-05-24] MEDS: Furosemide TAB* 40 MG PO SCH (08:57)
[2019-05-24] MEDS: Sertraline* 50 MG TAB PO SCH (08:57)
[2019-05-24] MEDS: Carvedilol TAB* 3.125 MG PO SCH ×2 (08:57→21:11)
[2019-05-24] MEDS: Gabapentin CAP(*) 300 MG PO SCH ×2 (08:57→21:10)
[2019-05-24] MEDS: Aspirin 81 mg CHEW TAB* 81 MG TAB.CHEW PO SCH (08:57)
[2019-05-24] MEDS ORDERED: Furosemide TAB* 40 MG PO SCH (09:00)
--- NOTE | 2019-05-24 15:34 | PN ---
Subjective Date of Service: 05/24/19 Interval History: Patient seen and examined. No acute overnight events. Patient feeling improved. Still has some pain in the LL extremity when she ambulated. Denies fever, fatigue or chills, no chest pain, no SOB. Family History: Unchanged from Admission Social History: Unchanged from Admission Past Medical History: Unchanged from Admission Objective Active Medications: Acetaminophen (Tylenol Tab*) 650 mg PO Q4H PRN PRN Reason: FEVER/PAIN Last Admin: 05/24/19 13:30 Dose: 650 mg Al Hydrox/Mg Hydrox/Simethicone (Maalox Plus*) 30 ml PO Q6H PRN PRN Reason: INDIGESTION Albuterol/Ipratropium (Duoneb (Albuterol 2.5 Mg/Ipratropium 0.5 Mg)) 1 neb INH [id number] AWAKE PRN PRN Reason: sob/wheexing Aspirin (Aspirin 81 Mg Chew Tab*) 81 mg PO DAILY [facility] Last Admin: 05/24/19 08:57 Dose: 81 mg Atorvastatin Calcium (Lipitor*) 10 mg PO DAILY [facility] Last Admin: 05/24/19 08:57 Dose: 10 mg Calcium/Vitamin D (Oscal D Tab 250/125*) 1 tab PO BID [facility] Last Admin: 05/24/19 08:57 Dose: 1 tab Carvedilol (Coreg Tab*) 3.125 mg PO BID [facility] Last Admin: 05/24/19 08:57 Dose: 3.125 mg Dextrose (D50w Syringe 50 Ml*) 12.5 gm IV PUSH .FOR FS < 60 - SS PRN PRN Reason: FS < 60 Furosemide (Lasix Tab*) 40 mg PO DAILY [facility] Last Admin: 05/24/19 08:57 Dose: 40 mg Gabapentin (Neurontin Cap(*)) 300 mg PO BID [facility] Last Admin: 05/24/19 08:57 Dose: 300 mg Heparin Sodium (Porcine) (Heparin Vial(*)) 5,000 units SUBCUT Q8HR [facility] Last Admin: 05/24/19 13:09 Dose: 5,000 units Cefepime HCl (Maxipime 1 Gm In Dextrose Duplex (*)) 1 gm in 50 mls @ 100 mls/ hr IV Q24H [facility] Last Admin: 05/23/19 17:44 Dose: 100 mls/hr Insulin Glargine (Lantus(*)) 20 units SUBCUT Q12H [facility] Last Admin: 05/24/19 08:57 Dose: 20 units Insulin Human Lispro (Humalog*) 0 units SUBCUT ACHS [facility]; Protocol Last Admin: 05/24/19 11:32 Dose: Not Given Levothyroxine Sodium (Synthroid Tab*) 125 mcg PO QAM@0600 [facility] Last Admin: 05/24/19 06:18 Dose: 125 mcg Liraglutide (Victoza (Nf)) 1.2 mg SUBCUT BEDTIME [facility] Last Admin: 05/23/19 20:33 Dose: Not Given Pto: Doxepin Hcl [ (Silenor] 10 Mg) 10 mg PO BEDTIME [facility] Last Admin: 05/23/19 20:34 Dose: Not Given Ondansetron HCl (Zofran Inj*) 4 mg IV Q4H PRN PRN Reason: NAUSEA/VOMITING Sacubitril/Valsartan (Entresto 49/51(Nf)) 1 tab PO 0800,1600 [facility] Last Admin: 05/24/19 15:15 Dose: Not Given Senna (Senokot Tab*) 1 tab PO BID [facility] Last Admin: 05/24/19 08:57 Dose: 1 tab Sertraline HCl (Zoloft*) 100 mg PO DAILY [facility] Last Admin: 05/24/19 08:57 Dose: 100 mg Tramadol HCl (Ultram*) 50 mg PO Q12H PRN PRN Reason: PAIN Last Admin: 05/23/19 08:52 Dose: 50 mg Vital Signs - 8 hr 05/24/19 05/24/19 05/24/19 08:00 08:40 08:57 Temperature 97.9 F Pulse Rate 75 Respiratory 20 18 16 Rate Blood Pressure 166/67 (mmHg) O2 Sat by Pulse 99 Oximetry 05/24/19 05/24/19 11:46 12:57 Temperature 98.9 F Pulse Rate 85 Respiratory 16 18 Rate Blood Pressure 177/72 (mmHg) O2 Sat by Pulse 96 Oximetry Oxygen Devices in Use Now: None Appearance: alert, NAD Eyes: No Scleral Icterus, PERRLA Ears/Nose/Mouth/Throat: NL Teeth, Lips, Gums, Mucous Membranes Moist Neck: NL Appearance and Movements; NL JVP, Trachea Midline Respiratory: Symmetrical Chest Expansion and Respiratory Effort, Clear to Auscultation Cardiovascular: NL Sounds; No Murmurs; No JVD, RRR, - Abdominal: NL Sounds; No Tenderness; No Distention, - - obese Extremities: - - LLE with edema and swelling, dressing CDI Skin: - - wounds LLE, dressing CDI Nutrition: Taking PO's Result Diagrams: 05/24/19 06:05 05/24/19 06:05 Additional Lab and Data: Above labs were pulled into the note when edited prior to signing, please see labs from day of consultation below Laboratory Tests 05/21/19 05/22/19 05/22/19 14:28 06:30 06:30 WBC 6.5 Hgb 8.7 L Hct 26 L Plt Count 269 Sodium 138 D Potassium 4.8 Chloride 109 Carbon Dioxide 18 L BUN 84 H Creatinine 3.00 H Glucose 157 H C-Reactive Protein 64.85 H Microbiology and Other Data: Microbiology 05/21/19 14:28 Aerobic Blood Culture - Preliminary Blood Venous No Growth Day 1 Anaerobic Blood Culture - Preliminary No Growth Day 1 05/21/19 14:23 Aerobic Blood Culture - Preliminary Blood Venous No Growth Day 1 Anaerobic Blood Culture - Preliminary No Growth Day 1 Diagnostic Imaging: Exam Date: 10/23/18 1419 - VL ANK/BRACHIAL INDICES Right: Value (SBP) Index Brachial: 157 Posterior tibialis: 170 1.08 Dorsalis pedis: 155 0.99 Digit: 92 0.59 Left: Value (SBP) Index Brachial: 147 Posterior tibialis: 110 0.70 Dorsalis pedis: 130 0.83 Digit: 64 0.41 IMPRESSION: Claudication values and derangement of arterial waveforms are recorded in the left lower extremity. In the presence of a chronic left lower extremity wound this could be seen in the setting of "critical limb ischemia". Exam Date: 05/21/19 1310 - VL LOWER EXT VEINS BILATERAL IMPRESSION: #. No evidence for RIGHT lower extremity DVT with assessment of the peroneal veins is limited as noted. #. No evidence for LEFT lower extremity DVT through the popliteal vein. The calf veins could not be visualized limiting assessment. Patency of the LEFT posterior tibial and peroneal veins is indeterminate. #. Extensive LEFT lower leg subcutaneous edema. Assess/Plan/Problems-Billing Assessment: 74 yo white female with PMHx depression, anxiety, bipolar disorder, rectal CA with colostomy, DM T2, venous insufficiency, and HFrEF presents to the ED upon direction of the wound clinic due to worsening chronic wounds to left lower limb , as well as SOB x2-3 days and sepsis. - Patient Problems (1) Venous stasis ulcer Comment: - Pending obtaining records from Dr. Mcgee's office, patient had surgery approx 2 months ago and unclear what procedure performed - Significant hx of venous stasis ulcers and follows weekly in wound clinic - Previous GEN in 2018 demonstrates critical limb ischema of LLE, arterial component - Would not perform CTA at this time due to YESSY - Dr. Daniel consulted and appreciate recommendations - continue local wound care and cefepime (2) Acute kidney injury superimposed on CKD Code(s): N17.9 - ACUTE KIDNEY FAILURE, UNSPECIFIED; N18.9 - CHRONIC KIDNEY DISEASE, UNSPECIFIED SNOMED Code(s): 15710784 Comment: - 2/2 sepsis, hypotension and bactrim and diuretics - Creat back to baseline today at 1.4 - FeNa 6%, UA with +1 blood, urine culture pending - Dr. Shetty recommends restarting just lasix and outpatient follow up with cardiology regarding other home diuretics which may have contributed to YESSY; restarting entresto as well - holding home spironolactone and metolazone, and decreased home gabapentin - regarding renal US, demonstrates R kidney cyst which warrants outpatient urology follow up per Dr. Shetty (3) Bronchospasm Code(s): J98.01 - ACUTE BRONCHOSPASM SNOMED Code(s): 6181815 Comment: - No wheeze today, prdnisone dc'd yesterday - As per former PCP office in [place], it appears patient was never prescribed oxygen at home, but was diagnosed with sleep apnea (unclear whether obstructive or central); patient has not been using CPAP at [facility]; would benefit from pulm follow up (4) Depression Current Visit: Yes Status: Acute Code(s): F32.9 - MAJOR DEPRESSIVE DISORDER , SINGLE EPISODE, UNSPECIFIED SNOMED Code(s): 11404786 Comment: - continue zoloft - patient denies history of BPD though it is documented in EMR and she has taken lithium in the past - no current rx for mood stabilizer (5) Sepsis Comment: - 2/2 cellulitis, now resolved (6) Diabetes Code(s): E11.9 - TYPE 2 DIABETES MELLITUS WITHOUT COMPLICATIONS SNOMED Code(s) : 09321074 Comment: - continue long acting insulin at half normal home rate, home januvia, and lispro SS (7) DVT (deep venous thrombosis) Code(s): I82.409 - ACUTE EMBOLISM AND THOMBOS UNSP DEEP VN UNSP LOWER EXTREMITY SNOMED Code(s): 110632278 Comment: - Subq heparin (8) Full code status Code(s): Z78.9 - OTHER SPECIFIED HEALTH STATUS SNOMED Code(s): 884860995 Status and Disposition: inpatient, pt is a [facility] resident at [facility]
[2019-05-24] MEDS: Cefepime 1 GM in Dextrose(*) 1 GM/50 ML BAG IV SCH (16:48)
[2019-05-24] MEDS: DOXEPIN HCL 10 MG PO SCH (21:16)
[2019-05-24] MEDS: NF: Liraglutide (NF) 18 MG/3 ML SUBCUT SCH (21:17)
[2019-05-25] MEDS: traMADol TAB* 50 MG PO PRN (00:58)
[2019-05-25] MEDS ORDERED: hydrALAZINE IV* 20 MG/ML VIAL IV SLOW PU ONE (04:15)
[2019-05-25] MEDS: Heparin VIAL(*) 5000 UNITS/ML VIAL (FIVE THOUSAND) SUBCUT SCH (06:23)
[2019-05-25] MEDS: Levothyroxine TAB* 125 MCG TAB PO SCH (06:24)
[2019-05-25] MEDS: Insulin LISPRO* 1 UNITS UNIT SUBCUT SCH ×2 (08:03→11:40)
[2019-05-25] MEDS: Carvedilol TAB* 3.125 MG PO SCH (09:04)
[2019-05-25] MEDS: Senna TAB PO SCH (09:04)
[2019-05-25] MEDS: Atorvastatin* 10 MG TAB PO SCH (09:04)
[2019-05-25] MEDS: Sertraline* 50 MG TAB PO SCH (09:04)
[2019-05-25] MEDS: Calcium/Vitamin D TAB 250/125* TAB PO SCH (09:04)
[2019-05-25] MEDS: Aspirin 81 mg CHEW TAB* 81 MG TAB.CHEW PO SCH (09:04)
[2019-05-25] MEDS: Furosemide TAB* 40 MG PO SCH (09:04)
[2019-05-25] MEDS: Gabapentin CAP(*) 300 MG PO SCH (09:04)
[2019-05-25] MEDS: Insulin GLARGINE(*) 1 UNITS UNIT SUBCUT SCH (09:05)
[2019-05-25] MEDS: Sacubitril/Valsartan 49/51(NF) TAB PO SCH (09:07)
[2019-05-25] MEDS: Acetaminophen TAB* 325 MG PO PRN (11:40)
[2019-05-25 11:49] VITALS: BP 181/62
--- NOTE | 2019-05-25 15:03 | DS ---
CC: Dr. Serafin Leyva; Dr. Shetty * DISCHARGE SUMMARY: DATE OF ADMISSION: 05/21/19 DATE OF DISCHARGE: 05/25/19 PRIMARY CARE PROVIDER: [facility] [place] [facility]. MY ATTENDING FOR TODAY: Dr. Alecia Sanchez.* (DICTATED BY ANDREW GOFF NP) HOSPITAL COURSE: Please refer to admitting H and P on 05/21/19, but in short, Ms. Chowdhury is a 74-year-old female with past medical history significant for depression and anxiety, bipolar disorder, diabetes mellitus type 2, venostasis disease with chronic wounds, chronic kidney disease, heart failure, and obesity , who presented to the emergency department after going to the wound clinic for worsening chronic wounds of the left lower extremity. The patient noticed that she had some drainage coming from her left leg for about 2 or 3 days. At that time, she did not notice any purulence, but staff at [facility] [place] said that her drainages was becoming increasingly worse. She also had noticed some worsening shortness of breath. She also had a mechanical fall 2 times, and for these reasons, she was sent to the emergency department for evaluation. There were also some questionable issues regarding some cough and shortness of breath and some need for oxygen also while she was at her facility. In the emergency department, the patient was found to need 2 L of oxygen. She was reporting some difficulty breathing and some hypotension. Blood pressure was recorded at 78/67. She was given fluid resuscitation. She was consulted with the calender inspector, Dr. Rios, who noted to continue fluid resuscitation. She was likely septic secondary to cellulitis because of her nonhealing leg wound. The patient did not meet criteria for ICU admission, but she was admitted to medicine service. She was given broad-spectrum antibiotics including vancomycin , renally adjusted Levaquin and cefepime. Important to note the patient did have recent wound cultures that were positive for MRSA, pseudomonas, enterococcus, corynebacterium, and MSSA. These 3 antibiotic choices gave her coverage for all of these bacterium. Wound care consult was placed as well as consultation with Infectious Disease. During this time, she was also found to have an acute kidney injury on top of CKD. Initial creatinine was 4.32. Nephrology was consulted. Given the patient's profound hypotension in addition to some medications that were likely contributing to her acute kidney injury including furosemide, spironolactone, metolazone, and Entresto, all of these medications can contribute to renal dysfunction and were held. The patient was given fluid resuscitation. Renal function was serially monitored. Her renal function did come back to baseline over the course of the next 48 hours. Her creatinine on 05/24/19 is 1.4, which is actually better than her baseline which is usually around 1.6. In terms of the patient's respiratory failure, hypoxia, and shortness of breath, she did receive a single dose of Solu-Medrol and was started on some prednisone. Her chest x-ray does appear to show some baseline COPD. She does have likely undiagnosed obstructive sleep apnea and likely obesity hypoventilation syndrome. She was started on DuoNeb. She was weaned off oxygen and progressed back to her baseline. The patient has been on room air for the last 48 hours and has not required any additional interventions on her respiratory status. Her diabetes remained well controlled on insulin sliding scale and long- acting insulin. In terms of wound care for her left lower extremity, calcium alginate dressings were recommended with rolled gauze Carl. I also had a discussion with Dr. Leyva today for antibiotics for discharge. He recommends doxycycline for 10 days for discharge, which she will be starting tomorrow. REVIEW OF SYSTEMS: On 05/25/19, the patient's review of systems, she states no fever, fatigue, or chills. No acute shortness of breath, no chest pain, no nausea, no vomiting, no abdominal pain, no urinary complaints. Her leg pain is improved and well controlled. She does have some pain with ambulation, but again this is improved, and she denies any further constitutional complaints. PHYSICAL EXAMINATION: Her physical exam reveals a well-appearing woman in no acute distress. Her vital signs are, blood pressure 160/67, heart rate 76, respiratory rate 20, O2 saturation 98% on room air, with temperature of 97.5. HEENT: The patient is atraumatic, normocephalic. PERRLA. Nonicteric sclerae. Oral mucosa is moist. Tongue is midline. Neck is supple, nontender. No JVD noted. No carotid bruit auscultated. Cardiovascular: S1, S2 present. No murmurs, gallops, or rubs noted. Rate is slightly irregular. Lungs are clear bilaterally to auscultation at the apices, diminished at the bases with no appreciable wheezing, rhonchi, or rales. Abdomen is soft, nontender, nondistended, obese. Positive bowel sounds in all 4 quadrants. is deferred. Musculoskeletal: There is no clubbing, no cyanosis. She does have bipedal trace edema on the right, and on the left, she does have a significant amount of edema with improved erythema. Some open wounds of the left lower extremity, which are also improved with some drainage. Her dressing is currently clean, dry, and intact. She has a +2 distal pulse on the affected side with brisk capillary refill. Neurologic: Grossly intact with no focal deficits. Psychiatric: She is cooperative and appropriate. IMAGING/LAB DATA: WBCs 7.8, RBCs 3.13, hemoglobin 8.8, hematocrit 26, platelets 270. Sodium 141, potassium 4.6, chloride 114, CO2 21, BUN 70, creatinine 1.40, GFR 37, glucose 76. Imaging: Venous Doppler of the lower extremities dated 05/21/19 shows no evidence of DVT on the right. No evidence of DVT on the left. Does show extensive left lower leg subcutaneous edema. Chest x-ray also dated 05/21/19 shows stigmata of COPD, cardiomegaly, and some mild pulmonary vascular congestion. Abdomen and bladder ultrasound shows a complex cyst within the internal septations in the inferior pole of the right kidney measuring a maximum of 5.4 cm. This lesion may be more accurately assessed with a dedicated CT or MRI, renal mass protocol. No hydronephrosis or visible calculi. CT of the brain also dated 05/21/19 shows age-related diffuse cerebral or cerebellar volume loss, chronic microvascular ischemic disease. There is chronic lacunar infarct at the left basal ganglia with no acute intracranial pathology noted. DISCHARGE DIAGNOSES: 1. Non-healing venostasis ulcer of the left lower extremity. 2. Acute kidney injury superimposed on chronic kidney disease. 3. Bronchospasm in the presence of chronic obstructive pulmonary disease. 4. History of depression, anxiety, and bipolar, stable. 5. Sepsis related to left lower extremity cellulitis and nonhealing wound. 6. Insulin-dependent diabetes mellitus. SECONDARY DIAGNOSES: 1. History of rectal cancer with colostomy. 2. Venous insufficiency. 3. History of heart failure. 4. History of depression, anxiety, and bipolar disorder. DISCHARGE MEDICATIONS: 1. Tramadol 50 mg p.o. 3 times a day. 2. Victoza 1.2 mg subcu at bedtime. 3 NovoLog 20 units subcu before meals. 4. Glargine 40 units subcu b.i.d. 5. Aspirin 81 mg daily. 6. Aldactone 25 mg daily. 7. Zocor 20 mg daily. 8. Carvedilol 3.125 mg p.o. b.i.d. 9. Zoloft 100 mg p.o. daily. 10. Gabapentin 600 mg p.o. b.i.d. 11. Lasix 40 mg p.o. daily. 12. Entresto 1 tab p.o. 2 times a day at 0800 and at 4:00 p.m. 13. Levothyroxine 125 mcg p.o. daily. 14. Doxepin 10 mg p.o. at bedtime. 15. Metolazone 2.5 mg p.o. daily. 16. Calcium carbonate and vitamin D3 one tab p.o. b.i.d. New medications: Doxycycline 100 mg p.o. b.i.d. Discontinued medication: Bactrim. FOLLOWUPS: 1. The patient was instructed to follow up with her primary care provider at [facility] upon return. 2. Dr. Serafin Leyva in 1 to 2 weeks for Infectious Disease, Dr. Rainey and Dr. Shetty for her CKD in 1 to 2 weeks, and Urology Dr. Cadet within the next month for a renal cyst that was discovered on CAT scan. ACTIVITY: Progress activity as tolerated. DIET: Diabetic as tolerated. WOUND CARE: Calcium alginate dressing to the left lower extremity with rolled gauze q.24 hours. DISPOSITION: The patient was discharged to [facility] [place] [facility] in stable condition. All questions were answered. The patient states her understanding of her discharge plan, medications, and followups. TIME SPENT: 45 minutes on discharge planning. ANDREW GOFF, JORGE L [id number]/[facility] #: [id number] [facility] HOSPITALGerri
[2019-05-25] MEDS ORDERED: VALSARTAN PO SCH (16:00)
[2019-05-25] MEDS ORDERED: SACUBITRIL PO SCH (16:00)
== END 2019-05-25 13:27 | DRG 871 ==
LOC: ED 12:28 → MEDTELE 19:32
PROVIDERS: ADMIT Internal Medicine; ATTEND Internal Medicine
DX: A41.9 Sepsis, unspecified organism (principal); J96.20 Acute and chronic respiratory failure, unspecified whether with hypoxia or hypercapnia; I50.23 Acute on chronic systolic (congestive) heart failure; N17.9 Acute kidney failure, unspecified; 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 of unspecified part of left lower leg with unspecified severity; L03.90 Cellulitis, unspecified; Z68.41 Body mass index [BMI] 40.0-44.9, adult; E66.2 Morbid (severe) obesity with alveolar hypoventilation; E11.622 Type 2 diabetes mellitus with other skin ulcer; J44.9 Chronic obstructive pulmonary disease, unspecified; E11.42 Type 2 diabetes mellitus with diabetic polyneuropathy; E11.22 Type 2 diabetes mellitus with diabetic chronic kidney disease; Z99.81 Dependence on supplemental oxygen; D64.9 Anemia, unspecified; R65.20 Severe sepsis without septic shock; E87.5 Hyperkalemia; N18.3 Chronic kidney disease, stage 3 (moderate); K76.89 Other specified diseases of liver; J98.01 Acute bronchospasm; F32.9 Major depressive disorder, single episode, unspecified; F41.9 Anxiety disorder, unspecified; G47.33 Obstructive sleep apnea (adult) (pediatric); E78.5 Hyperlipidemia, unspecified; I87.8 Other specified disorders of veins; F31.9 Bipolar disorder, unspecified; E03.9 Hypothyroidism, unspecified; R32 Unspecified urinary incontinence; Z93.3 Colostomy status; Z85.048 Personal history of other malignant neoplasm of rectum, rectosigmoid junction, and anus; Z88.0 Allergy status to penicillin; Z88.8 Allergy status to other drugs, medicaments and biological substances; Z82.49 Family history of ischemic heart disease and other diseases of the circulatory system; Z91.81 History of falling; Z79.84 Long term (current) use of oral hypoglycemic drugs; Z79.899 Other long term (current) drug therapy
CPT/HCPCS: 36415; 70450; 71045; 76770; 80048; 80053; 80202; 81003; 81015; 82272; 82540; 82570; 82728; 82803; 82947; 83540; 83550; 83605; 83789; 83880; 84300; 84520; 84550; 85025; 86140; 86850; 86900; 86901; 87040; 87086; 93970; 99285; A9270-GY; J0692; J1644; J1956; J2270; J2930; J3370; J7512

== ENCOUNTER 2019-06-11 12:15 | Emergency (ER) | payer MEDICARE, MEDICAID ==
[2019-06-11 13:54] LABS: ABS Eosinophils 0.2 10^3/ul (0-0.6); ABS Lymphocytes 0.5 10^3/ul (1.0-4.8); ABS Monocytes 0.7 10^3/ul (0-0.8); ABS Neutrophils 7.7 10^3/ul (1.5-7.7); Eosinophil % 2.6 %; Hematocrit 29 % (35-47); Hemoglobin 9.5 g/dL (12.0-16.0); Lymphocyte % 5.1 %; Mean Corpuscular HGB Conc 33 g/dL (31-36); Mean Corpuscular Hemoglobin 28 pg (27-31); Mean Corpuscular Volume 84 fL (80-97); Mean Platelet Volume 6.2 fL (7.4-10.4); Platelet Count 307 10^3/uL (150-450); Red Blood Count 3.42 10^6 /uL (3.70-4.87); Red Cell Distribution Width 17 % (10-15); White Blood Count 9.1 10^3/uL (3.5-10.8)
[2019-06-11 14:18] LABS: Albumin 3.6 g/dL (3.2-5.2); BUN/Creatinine Ratio 38.5 (8-20); C Reactive Protein 184.75 mg/L (<8.01); Calcium 9.9 mg/dL (8.6-10.3); EGFR African American 24.1 (>60); EGFR Non-African American 19.9 (>60); Globulin 3.7 g/dL (2-4); Total Bilirubin 0.2 mg/dL (0.2-1.0); Total Protein 7.3 g/dL (6.4-8.9)
[2019-06-11 14:26] LABS: Potassium 5.1 mmol/L (3.5-5.0)
[2019-06-11] MEDS ORDERED: Ondansetron INJ* 2 MG/ML VIAL IV ONE (16:04)
[2019-06-11] MEDS ORDERED: Ciprofloxacin 400MG IVPREMIX(* 400 MG/200 ML BAG IVPB ONE (16:04)
[2019-06-11] MEDS ORDERED: HYDROmorphone INJ1* 1 MG/ML SYRINGE IV SLOW PU ONE (16:04)
[2019-06-11] MEDS ORDERED: Cefepime(*) 1 GM in NS 0.9% 50 ML* 50 ML IVPB ONE (16:32)
[2019-06-11] MEDS ORDERED: Cefepime 1 GM in Dextrose(*) 1 GM/50 ML BAG IV ONE (17:00)
[2019-06-11] MEDS ORDERED: Cefepime 1 GM IV - ED ONCE IVPB ONE ×2 (17:00)
--- NOTE | 2019-06-11 17:25 | ED ---
Lower Extremity - HPI Summary HPI Summary: This patient is a 74 year old F presenting to [facility] accompanied by a female wood tool maker with a chief complaint of left lower extremity pain since 25 weeks ago. The pain has gotten worse recently. Dr. Downing from wound clinic wrapped her left lower extremity and told her to come into [facility]. Pt is here for antibiotics and PICC line. The pt rates the pain 9/10 in severity. Symptoms aggravated by nothing. Symptoms alleviated by nothing. Pt denies fever. - History of Current Complaint Chief Complaint: EDExtremityLower Stated Complaint: PT NEEDS IV ANTIBIOTICS PER PT Time Seen by Provider: 06/11/19 14:58 Hx Obtained From: Patient Onset/Duration: Weeks - 25 weeks ago Severity Currently: Severe Pain Intensity: 9 Pain Scale Used: 0-10 Numeric Timing: Constant, Lasting Weeks - 25 weeks, worse since recently Location: Other - lower left extremity Associated Signs And Symptoms: Negative: Fever Aggravating Factor(s): Nothing Alleviating Factor(s): Nothing - Allergies/Home Medications Allergies/Adverse Reactions: Allergies Allergy/AdvReac Type Severity Reaction Status Date / Time lithium Allergy Unknown Verified 05/21/19 12:39 Reaction Details Penicillins Allergy Hives Verified 05/21/19 12:39 Home Medications: Home Medications Acetaminophen [Acetaminophen Extra Strength] 1,000 mg PO Q8HR PRN 06/11/19 [ History Confirmed 06/11/19] Albuterol 2.5MG/3ML (0.083%)* [Ventolin 2.5 MG/3 ML NEB.LIANG*] 2.5 mg INH Q4H PRN 06/11/19 [History Confirmed 06/11/19] Biofreeze 1 applic TOPICAL BID 06/11/19 [History Confirmed 06/11/19] Ciprofloxacin TAB* [Cipro 500 MG TAB*] 500 mg PO BID 06/11/19 [History Confirmed 06/11/19] Doxepin (NF) 10 mg PO BEDTIME 06/11/19 [History Confirmed 06/11/19] Furosemide TAB* [Lasix TAB*] 40 mg PO DAILY 06/11/19 [History Confirmed 06/11/19 ] GuaiFENesin DM* [Robitussin DM*] 10 ml PO Q4H PRN 06/11/19 [History Confirmed ] Liraglutide (NF) [Victoza (NF)] 1.8 mg SUBCUT BEDTIME 06/11/19 [History Confirmed 06/11/19] Sertraline* [Zoloft*] 100 mg PO QAM 06/11/19 [History Confirmed 06/11/19] Skin Protectant * [Critic-Aid Clear Moisture *] 1 applic TOPICAL DAILY 06/11/19 [History Confirmed 06/11/19] PMH/Surg Hx/FS Hx/Imm Hx Previously Healthy: No Endocrine/Hematology History: Reports: Hx Diabetes, Hx Thyroid Disease - hypothryoid., Hx Anemia Cardiovascular History: Reports: Hx Congestive Heart Failure, Hx Hypercholesterolemia, Hx Hypertension, Hx Peripheral Vascular Disease Respiratory History: Reports: Hx Asthma GI History: Reports: 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 History: Reports: Other Problems/Disorders - One kidney low performing Musculoskeletal History: Reports: Hx Arthritis - spine Sensory History: Reports: Hx Contacts or Glasses Denies: Hx Hearing Aid, Hx Hearing Problem Opthamlomology History: Reports: Hx Contacts or Glasses Psychiatric History: Reports: Hx Anxiety, Hx Depression, Hx Suicide Attempt - Over 20 years ago Denies: Other Psychiatric Issues/Disorders - Cancer History Cancer Type, Location and Year: rectal Hx Chemotherapy: Yes Hx Radiation Therapy: Yes - Surgical History Surgical History: Yes Surgery Procedure, Year, and Place: rectal, hernia, tonsils, adnoids Hx Anesthesia Reactions: No Infectious Disease History: Yes Infectious Disease History: Reports: Hx of Known/Suspected MRSA Denies: Traveled Outside the [place] in Last 30 Days - Family History Known Family History: Positive: Cardiac Disease - Father with NV at age 77 y/o Negative: Renal Disease, Seizure Disorder - Social History Alcohol Use: None Hx Substance Use: No Substance Use Type: Reports: None Hx Tobacco Use: No Smoking Status (MU): Never Smoked Tobacco Do You Chew or Dip Tobacco: No Have You Chewed or Dipped Tobacco in the LAST YEAR: No Have You Smoked in the Last Year: No Review of Systems Negative: Fever Musculoskeletal: Other - positive - left lower extremity pain All Other Systems Reviewed And Are Negative: Yes Physical Exam - Summary Physical Exam Summary: Appearance: The patient is well-nourished in no acute distress and in no acute pain. Skin: The skin is warm and dry and skin color reflects adequate perfusion. HEENT: The head is normocephalic and atraumatic. The pupils are equal and reactive. The conjunctivae are clear and without drainage. Nares are patent and without drainage. Mouth reveals moist mucous membranes and the throat is without erythema and exudate. The external ears are intact. The ear canals are patent and without drainage. The tympanic membranes are intact. Neck: The neck is supple with full range of motion and non-tender. There are no carotid bruits. There is no neck vein distension. Respiratory: Chest is non-tender. Lungs are clear to auscultation and breath sounds are symmetrical and equal. Cardiovascular: Heart is regular rate and rhythm. There is no murmur or rub auscultated. There is no peripheral edema and pulses are symmetrical and equal. Abdomen: The abdomen is soft and non-tender. There are normal bowel sounds heard in all four quadrants and there is no organomegaly palpated. Musculoskeletal: There is no back tenderness noted. Extremities are non-tender with full range of motion. There is good capillary refill. There is no peripheral edema or calf tenderness elicited. Neurological: Patient is alert and oriented to person, place and time. The patient has symmetrical motor strength in all four extremities. Cranial nerves are grossly intact. Deep tendon reflexes are symmetrical and equal in all four extremities. Psychiatric: The patient has an appropriate affect and does not exhibit any anxiety or depression. Triage Information Reviewed: Yes Vital Signs On Initial Exam: Initial Vitals Temp Pulse Resp BP Pulse Ox 98.4 F 99 18 142/49 98 06/11/19 12:20 06/11/19 12:20 06/11/19 12:20 06/11/19 12:20 06/11/19 12:20 Vital Signs Reviewed: Yes Diagnostics - Vital Signs Vital Signs Temp Pulse Resp BP Pulse Ox 06/11/19 16:24 22 06/11/19 16:22 140/51 06/11/19 16:00 98 94 06/11/19 15:53 103 113/49 87 06/11/19 15:22 101 103/47 93 06/11/19 15:00 104 96 06/11/19 14:52 92 110/66 93 06/11/19 14:22 98 108/51 96 06/11/19 14:20 102 95 06/11/19 12:20 98.4 F 99 18 142/49 98 - Laboratory Lab Results: Lab Results 06/11/19 06/11/19 06/11/19 Range/Units 13:41 13:41 13:41 WBC 9.1 (3.5-10.8) 10^3/uL RBC 3.42 L (3.70-4.87) 10^6 /uL Hgb 9.5 L (12.0-16.0) g/dL Hct 29 L (35-47) % MCV 84 (80-97) fL MCH 28 (27-31) pg MCHC 33 (31-36) g/dL RDW 17 H (10-15) % Plt Count 307 (150-450) 10^3/uL MPV 6.2 L (7.4-10.4) fL Neut % (Auto) 84.4 % Lymph % (Auto) 5.1 % Loíza % (Auto) 7.5 % Eos % (Auto) 2.6 % Baso % (Auto) 0.4 % Absolute Neuts (auto) 7.7 (1.5-7.7) 10^3/ul Absolute Lymphs (auto) 0.5 L (1.0-4.8) 10^3/ul Absolute Monos (auto) 0.7 (0-0.8) 10^3/ul Absolute Eos (auto) 0.2 (0-0.6) 10^3/ul Absolute Basos (auto) 0.0 (0-0.2) 10^3/ul Absolute Nucleated RBC 0.0 10^3/ul Nucleated RBC % 0.0 Sodium 134 L (135-145) mmol/L Potassium 5.1 H (3.5-5.0) mmol/L Chloride 103 (101-111) mmol/L Carbon Dioxide 23 (22-32) mmol/L Anion Gap 8 (2-11) mmol/L BUN 92 H (6-24) mg/dL Creatinine 2.39 H (0.51-0.95) mg/dL Est GFR ( Amer) 24.1 (>60) Est GFR (Non-Af Amer) 19.9 (>60) BUN/Creatinine Ratio 38.5 H (8-20) Glucose 85 (70-100) mg/dL Lactic Acid 0.9 (0.5-2.0) mmol/L Calcium 9.9 (8.6-10.3) mg/dL Total Bilirubin 0.20 (0.2-1.0) mg/dL AST 21 (13-39) U/L ALT 28 (7-52) U/L Alkaline Phosphatase 98 (34-104) U/L C-Reactive Protein 184.75 H (<8.01) mg/L Total Protein 7.3 (6.4-8.9) g/dL Albumin 3.6 (3.2-5.2) g/dL Globulin 3.7 (2-4) g/dL Albumin/Globulin Ratio 1.0 (1-3) Result Diagrams: 06/11/19 13:41 06/11/19 13:41 Lab Statement: Any lab studies that have been ordered have been reviewed, and results considered in the medical decision making process. Lower Extremity Course/Dx - Course Course Of Treatment: Ms. Chowdhury was sent over from the wound clinic with a concern that she may need IV antibiotics. She had a culture of the wound on her left lower leg on the . It's been taking a long time to heal and getting worse. She grew out Pseudomonas that was sensitive to penicillins, cephalosporins and carbapenams. It was resistant to Levaquin and had intermediate sensitivity to Cipro. She was started on Cipro apparently because she has a penicillin allergy. This is not working and she was sent over. She was nontoxic in appearance with stable vital signs. Labs were obtained and were unremarkable. I spoke with Dr. Sun who recommended cephalosporins and follow-up as an outpatient. - Diagnoses Provider Diagnoses: Diabetic foot ulcer Discharge - Sign-Out/Discharge Documenting (check all that apply): Patient Departure - discharge Patient Received Moderate/Deep Sedation with Procedure: No - Discharge Plan Condition: Stable Disposition: HOME Prescriptions: Cefdinir cap* [Cefdinir 300 MG cap (NF)] 300 mg PO BID #20 cap Cefdinir cap* [Cefdinir 300 MG cap (NF)] 300 mg PO BID #20 cap Patient Education Materials: Diabetic Foot Ulcers (ED) Referrals: Daya Little NP [Primary Care Provider] - Gordon MCMILLAN,Serafin Reina [Medical Doctor] - 2 Days Additional Instructions: Follow up with Dr. Leyva within 2-3 days. Return to the ED for any new or worsening symptoms. - Billing Disposition and Condition Condition: STABLE Disposition: Home - Attestation Statements Document Initiated by Scribe: Yes Documenting Scribe: Terry Ng Provider For Whom Scribe is Documenting (Include Credential): Dr. Hiro Alcocer MD Scribe Attestation: I, Terry Ng scribed for Dr. Hiro Alcocer MD on 06/11/19 at 2106. Scribe Documentation Reviewed: Yes Provider Attestation: The documentation as recorded by the Terry zavala accurately reflects the service I personally performed and the decisions made by me, Dr. Hiro Alcocer MD Status of Scribe Document: Viewed
[2019-06-11 19:06] VITALS: BP 122/74
== END 2019-06-11 19:04 | disposition home or self-care (01) ==
LOC: ED 12:15
DX: E11.621 Type 2 diabetes mellitus with foot ulcer (principal); L97.529 Non-pressure chronic ulcer of other part of left foot with unspecified severity; E03.9 Hypothyroidism, unspecified; I50.9 Heart failure, unspecified; E78.00 Pure hypercholesterolemia, unspecified; I11.0 Hypertensive heart disease with heart failure; F41.9 Anxiety disorder, unspecified; Z88.0 Allergy status to penicillin; Z88.8 Allergy status to other drugs, medicaments and biological substances; Z79.899 Other long term (current) drug therapy
CPT/HCPCS: 36415; 80053; 83605; 85025; 86140; 87040; 96365; 96375; 99283; J0692; J0744; J1170; J2405

== ENCOUNTER 2019-06-23 18:02 | Inpatient (IN) | payer MEDICARE, MEDICAID ==
--- NOTE | 2019-06-23 18:29 | ED ---
GI/ HPI - HPI Summary HPI Summary: This patient is a 74 year old female brought in by EMS from [facility], [place] presenting to [facility] with a chief complaint of blood in her ostomy bag. She has a Hx of rectal cancer and ostomy many years ago. Patient denies ever having blood in her stool. Patient states she has some mild right lower quadrant tenderness that is crampy, and 3/10. Patient denies fevers. The patient had a recent admission for sepsis secondary to a left lower extremity wound. She has been following up with wound care, reports chronic pain in her left leg but denies increased redness or drainage from the area. She reports a rash on her abdomen and her flanks that is mildly itchy. She denies any new detergents, lotions. - History of Current Complaint Time Seen by Provider: 06/23/19 18:10 Stated Complaint: GENERAL ILLNESS PER EMS Hx Obtained From: Patient Onset/Duration: Started Hours Ago Pain Intensity: 6 Location of Pain: RUQ, RLQ - Additional Pertinent History Primary Care Physician: OLIVIA - Allergy/Home Medications Allergies/Adverse Reactions: Allergies Allergy/AdvReac Type Severity Reaction Status Date / Time lithium Allergy Unknown Verified 05/21/19 12:39 Reaction Details Penicillins Allergy Hives Verified 05/21/19 12:39 Home Medications: Home Medications Calcium Alginate [Curasorb 12" Rope] 1 dose TOPICAL DAILY 06/23/19 [History Confirmed 06/23/19] Dextromethorphan-Guaifenesin [Dextromethorphan/Guaifene 10-100 mg/5Ml] 10 ml PO Q4H PRN 06/23/19 [History Confirmed 06/23/19] PMH/Surg Hx/FS Hx/Imm Hx Endocrine/Hematology History: Reports: Hx Diabetes, Hx Thyroid Disease - hypothryoid., Hx Anemia Cardiovascular History: Reports: Hx Congestive Heart Failure, Hx Hypercholesterolemia, Hx Hypertension, Hx Peripheral Vascular Disease Respiratory History: Reports: Hx Asthma GI History: Reports: 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 History: Reports: Other Problems/Disorders - One kidney low performing Musculoskeletal History: Reports: Hx Arthritis - spine Sensory History: Reports: Hx Contacts or Glasses Denies: Hx Hearing Aid, Hx Hearing Problem Opthamlomology History: Reports: Hx Contacts or Glasses Psychiatric History: Reports: Hx Anxiety, Hx Depression, Hx Suicide Attempt - Over 20 years ago Denies: Other Psychiatric Issues/Disorders - Cancer History Cancer Type, Location and Year: rectal Hx Chemotherapy: Yes Hx Radiation Therapy: Yes - Surgical History Surgery Procedure, Year, and Place: rectal, hernia, tonsils, adnoids Hx Anesthesia Reactions: No Infectious Disease History: No Infectious Disease History: Reports: Hx of Known/Suspected MRSA Denies: Traveled Outside the [place] in Last 30 Days - Family History Known Family History: Positive: Cardiac Disease - Father with PA at age 77 y/o Negative: Renal Disease, Seizure Disorder - Social History Alcohol Use: None Hx Substance Use: No Substance Use Type: Reports: None Hx Tobacco Use: No Smoking Status (MU): Never Smoked Tobacco Have You Smoked in the Last Year: No Review of Systems Positive: Abdominal Pain Positive: other - Bleeding in ostomy bag Positive: Rash All Other Systems Reviewed And Are Negative: Yes Physical Exam - Summary Physical Exam Summary: Constitutional: Elderly, chronically ill-appearing. Skin: Warm, Dry HENT: Normocephalic; Atraumatic. Protrusion of tongue intermittently Eyes: Conjunctiva normal Neck: Musculoskeletal ROM normal neck. (-) JVD, (-) Stridor, (-) Nuchal rigidity Cardio: Rhythm regular, tachycardic, sounds normal; Intact distal pulses; Radial pulses are 2+ and symmetric. (-) Murmur Pulmonary/Chest wall: Effort normal. (-) Respiratory distress, (-) Wheezes, (-) Rales Abd: Obese, Ostomy LLQ with scant liquid bloody stool. Mild right sided tenderness. Musculoskeletal: (-) Edema. LLE wound circumferential distal tibia approximately 10 cm in length, with macerated skin and weeping wound. Lymph: (-) Cervical adenopathy Neuro: Alert, Oriented x3, intermittently somnolent Psych: Deferred Triage Information Reviewed: Yes Vital Signs On Initial Exam: Initial Vitals Temp Pulse Resp BP Pulse Ox 99.2 F 94 20 100/60 96 06/23/19 18:06 06/23/19 18:06 06/23/19 18:06 06/23/19 18:06 06/23/19 18:06 Vital Signs Reviewed: Yes Procedures - Procedure Summary Procedure Summary: Arterial line Procedure: R Fem arterial line placement Indication: Patient frequently requires pressors, to obtain more accurate BP readings Consent: Emergent Sterility: Area was cleaned with chlorhexidine, sterile gloves used. Draped. Technique: Femoral artery palpated, ultrasound used to better visualize artery. Arterial line needle and catheter was then inserted. Arterial blood return was obtained and a wire was passed. The arterial catheter was placed over the wire with good return of pulsatile waves. The wire was taken out and the catheter was sutured in place. Disposition: The patient tolerated the procedure very well. No acute complications. Central lines Ultrasound Guided Central Line Insertion Procedure Note Indication: Medications requring central access Consent: Emergent Skin Prep: Chlorhexidine Sterile Prep (allowed to dry for thirty seconds) Sterility: Patient prepped and draped in sterile fashion, sterile gloves and gown used Insertion: Appropriate time out was taken. Patient was prepped and draped in the usual fashion. Ultrasound guidance was utilized for vein selection and to document selected vessel patency. 5 mls of 1% lidocaine was infiltrated. Real time ultrasound visualization of needle entry into venous lumen was utilized and catheter was placed using Seldinger technique. Guide wire advanced without resistance and was removed intact. All ports austin back easily and were flushed with normal saline. The central line was sutured. Insertion Site: R Femoral vein Type of catheter: triple lumen Blood return: yes Saline lock: yes Post Procedure: Estimated blood loss: minimal Complications: none Diagnostics - Vital Signs Vital Signs Temp Pulse Resp BP Pulse Ox 06/23/19 18:06 99.2 F 94 20 100/60 96 - Laboratory Result Diagrams: 06/23/19 18:51 06/23/19 18:51 Lab Statement: Any lab studies that have been ordered have been reviewed, and results considered in the medical decision making process. - Radiology CXR Radiology Interpretation Completed By: ED Physician Summary of Radiographic Findings: No acute cardiopulmonary disease. Pending official radiologist report. - EKG 1850 Cardiac Rate: NL - 95 BPM EKG Rhythm: Sinus Rhythm Summary of EKG Findings: An EKG at 1850 reveals normal sinus rhythm 95 BPM, nml axis, nml intervals. No STEMI. Normal LA and QTc intervals. No acute changes. Re-Evaluation - Re-Evaluation First Eval Re-Evaluation Time: 19:24 Comment: Hypotensive to 75 systolic. Try 500 cc of fluids. During episode of hypotension patient became mildly altered, however when her blood pressure returned to 100 systolic she was alert and oriented 3. Patient denies complaints aside from pain in her leg. Second Eval Re-Evaluation Time: 20:45 Comment: Pt hypotensive to [address] a central line and start on levophed. Inspection antibiotics ordered including vancomycin, cefepime, and Flagyl. Sepsis source unknown. Wound does not appear superinfected. Possible GI source given reported bleeding however this could be secondary to episodes of hypotension versus irritated skin of the ostomy site. Has no known indwelling lines. We'll check a chest x-ray to assess for pneumonia. Patient does not have nuchal rigidity, headache or altered mental status aside when she is hypotensive therefore low suspicion meningitis. . Plan. IV fluid bolus - 1 L given history of heart failure. serum lactate. blood cultures x 2. broad spectrum antibiotics. transfer to higher level of care - ICU GIGU Course/Dx - Course Course Of Treatment: 74 y/o F with a history of CHF, diabetes, venous stasis ulcers, hypothyroidism, rectal cancer status post colostomy who presents with concern for GI bleed. Recent admit for sepsis. - check CT a/p given bloody stools. RLQ TTP on exam. No fevers to suggest infectious cause at this time. Patient denies complaints aside from pain in her leg. Her leg does not appear to be superinfected. - Diagnoses Provider Diagnoses: Hypotension, Sepsis associated hypotension, GI bleed - Physician Notifications Discussed Care Of Patient With: Ina Mason - GI Time Discussed With Above Provider: 19:30 - Agreed with imaging plan. Will follow up tomorrow but can call back for emergent consult if needed - Critical Care Time Critical Care Time: 30-74 min - exclusive of procedures Discharge - Sign-Out/Discharge Documenting (check all that apply): Patient Departure - Admission to ICU. Accepted by Dr. Lundberg, Financial Investigator. Patient Received Moderate/Deep Sedation with Procedure: No - Discharge Plan Condition: Stable Disposition: ADMITTED TO [facility] - Billing Disposition and Condition Condition: STABLE Disposition: Admitted to [facility] - Attestation Statements Document Initiated by Scribe: Yes Documenting Scribe: Alhaji Peguero Provider For Whom Scribe is Documenting (Include Credential): Donato Fay MD Scribe Attestation: Alhaji Borges, scribed for Donato Fay MD on 06/23/19 at 2229. Scribe Documentation Reviewed: Yes Provider Attestation: The documentation as recorded by the scribe, Alhaji Peguero accurately reflects the service I personally performed and the decisions made by me, Donato Fay MD Status of Scribe Document: Viewed
[2019-06-23 18:58] LABS: ABS Basophils 0.1 10^3/ul (0-0.2); ABS Eosinophils 0.3 10^3/ul (0-0.6); ABS Lymphocytes 0.8 10^3/ul (1.0-4.8); ABS Monocytes 0.9 10^3/ul (0-0.8); ABS Neutrophils 11.1 10^3/ul (1.5-7.7); Hematocrit 27 % (35-47); Hemoglobin 8.8 g/dL (12.0-16.0); Lymphocyte % 5.8 %; Mean Corpuscular HGB Conc 32 g/dL (31-36); Mean Corpuscular Hemoglobin 27 pg (27-31); Mean Corpuscular Volume 84 fL (80-97); Platelet Count 343 10^3/uL (150-450); Red Blood Count 3.24 10^6 /uL (3.70-4.87); Red Cell Distribution Width 16 % (10-15); White Blood Count 13.1 10^3/uL (3.5-10.8)
[2019-06-23 19:07] LABS: INR 1.09 (0.82-1.09)
[2019-06-23 19:15] LABS: Albumin 3.4 g/dL (3.2-5.2); Albumin/Globulin Ratio 1.1 (1-3); BUN/Creatinine Ratio 26.3 (8-20); Calcium 9.7 mg/dL (8.6-10.3); EGFR African American 19.7 (>60); EGFR Non-African American 16.3 (>60); Potassium 3.9 mmol/L (3.5-5.0); Total Bilirubin 0.2 mg/dL (0.2-1.0); Total Protein 6.4 g/dL (6.4-8.9)
[2019-06-23] MEDS ORDERED: NS 0.9% 1000 ML** 1,000 ML IV ONE (19:25)
[2019-06-23] MEDS ORDERED: metroNIDAZOLE IV 500 MG/100ML* 500 MG/100 ML BAG IVPB ONE (19:58)
[2019-06-23] MEDS ORDERED: Cefepime(*) 2 GM in NS 0.9% 50 ML* 50 ML IVPB ONE (19:58)
[2019-06-23 20:00] LABS: Troponin I 0.01 ng/mL (<0.04)
[2019-06-23] MEDS ORDERED: Vancomycin(*) 1,000 MG VIAL IVPB SCH (20:00)
[2019-06-23] MEDS ORDERED: Vancomycin(*) 1,250 MG IV x ONCE IVPB ONE ×2 (20:16)
[2019-06-23] MEDS ORDERED: Vancomycin(*) 1,000 MG in NS 0.9% 250 ML* 250 ML IVPB SCH (20:37)
[2019-06-23] MEDS ORDERED: Albuterol 2.5 MG/3 ML NEB.SOL* (0.083%) INH PRN (20:38)
[2019-06-23] MEDS ORDERED: PROCHLORPERAZINE INJ 5 MG/ML 2 ML VIAL IV PRN (20:39)
[2019-06-23] MEDS ORDERED: Lidocaine 1% INJ* 10 MG/ML 30 ML SDV ONE (20:46)
[2019-06-23] MEDS ORDERED: Lidocaine 1% MPF ** 5 ML VIAL ONE (20:47)
[2019-06-23] MEDS ORDERED: Vancomycin per Pharmacy* NOTE FOLLOW UP SCH (21:00)
[2019-06-23] MEDS ORDERED: Norepinephrine 16MCG/ML IVPRE* 4,000 MCG/250 ML BAG IV SCH ×3 (21:00→23:02)
[2019-06-23] MEDS ORDERED: Lactated Ringers 1000 ML Bag* 1,000 ML IV SCH (21:00)
[2019-06-23] MEDS ORDERED: Norepinephrine 16MCG/ML IVPRE* 4,000 MCG/250 ML BAG IV ONE (21:00)
[2019-06-23 21:12] LABS: TSH (Thyroid Stimulating Horm) 0.56 mcIU/mL (0.34-5.60)
[2019-06-23] MEDS ORDERED: Vancomycin(*) 1,500 MG in NS 0.9% 250 ML* 250 ML IVPB ONE (21:35)
[2019-06-23] MEDS ORDERED: NS 0.9% 50 ML* 50 ML ONE (21:40)
[2019-06-23] MEDS: Hydrocortisone INJ* 100 MG VIAL IV SCH (21:48)
[2019-06-23] MEDS ORDERED: Cefepime* 2 GM in Dextrose 50mL Q12H (Duplex) IV ONE (22:00)
[2019-06-23] MEDS ORDERED: Heparin VIAL(*) 5000 UNITS/ML VIAL (FIVE THOUSAND) SUBCUT SCH (22:00)
[2019-06-23] MEDS ORDERED: Dextrose 50% VIAL 50 ml IV PUSH PRN (22:11)
[2019-06-23 22:14] LABS: Urine Appearance Clear; Urine Bilirubin Negative (Negative); Urine Blood Negative (Negative); Urine Color Yellow; Urine Glucose Negative (Negative); Urine Ketones Negative (Negative); Urine Nitrite Negative (Negative); Urine Protein Negative (Negative); Urine Specific Gravity 1.011 (1.010-1.030); Urine Urobilinogen Negative (Negative)
[2019-06-23] MEDS: Insulin LISPRO* 1 UNITS UNIT SUBCUT SCH (23:52)
[2019-06-24 00:08] LABS: Hematocrit 25 % (35-47); Hemoglobin 8.2 g/dL (12.0-16.0)
--- NOTE | 2019-06-24 00:08 | PN ---
Sepsis Event Evaluation Date of Evaluation: 06/24/19 Current Stage of Sepsis: Septic Shock Vital Signs - Last 12 Hours: Vital Signs - 12 hr Temp Pulse Resp BP Pulse Ox 06/23/19 23:58 22 06/23/19 23:10 98.4 F 83 19 112/41 94 06/23/19 23:00 98.4 F 83 16 88/63 100 06/23/19 22:44 98.4 F 88 21 156/55 99 06/23/19 22:33 98.4 F 92 31 156/55 76 06/23/19 22:09 98.7 F 88 19 138/56 95 06/23/19 22:00 87 19 98 06/23/19 21:57 84 21 94/48 06/23/19 21:43 85 23 99/49 96 06/23/19 21:27 93 28 119/65 86 06/23/19 21:12 87 22 109/41 91 06/23/19 21:00 84 24 95 06/23/19 20:58 85 25 113/41 95 06/23/19 20:43 87 29 90/34 94 06/23/19 20:30 89 31 89/33 93 06/23/19 20:29 89 30 59/43 96 06/23/19 20:27 84 23 67/54 99 06/23/19 20:13 90 29 81/45 97 06/23/19 20:00 90 22 98 06/23/19 19:57 91 34 96/40 95 06/23/19 19:47 90 27 82/37 93 06/23/19 19:34 90 19 81/38 94 06/23/19 19:24 90 29 75/43 96 06/23/19 19:22 94 29 84/42 94 06/23/19 19:17 91 33 78/54 95 06/23/19 19:00 93 22 93 06/23/19 18:38 93 27 78/48 95 06/23/19 18:21 86 23 71/48 95 06/23/19 18:16 106 22 95 06/23/19 18:06 99.2 F 94 20 100/60 96 Lactic Acid: 06/23/19 06/23/19 18:51 20:48 Lactic Acid 1.3 0.6 - Cardiopulmonary Exam Capillary Refill: Immediate Respiratory: Symmetrical Chest Expansion and Respiratory Effort, Clear to Auscultation Cardiovascular: RRR - Normal S1 and S2 - Peripheral Pulse Exam Radial Pulses: Bilateral Normal - Skin Exam Skin Exam: Normal Turgor - Swapna Coma Scale Best Eye Response: 3 - To Speech Best Motor Response: 6 - Obeys Commands Best Verbal Response: 4 - Confused Coma Scale Total: 13 Assess/Plan/Problems-Billing Assessment: Labs and CT reviewed. Sepsis source still unclear. Suspect her colitis is ischemic in the setting of septic shock, and not the source. She has a sacral decubitus with foul smell, so this is the presumed source at this time. Will continue current management.
--- NOTE | 2019-06-24 00:39 | HP ---
CC: Daya Little NP; [facility] HISTORY AND PHYSICAL: DATE OF ADMISSION: 06/23/19 TIME OF EVALUATION: 8:30 p.m. PRIMARY CARE PROVIDER: Daya Little NP CHIEF COMPLAINT: Unable to obtain from the patient due to her lethargy but as per ED provider, hypotension. HISTORY OF PRESENT ILLNESS: Mrs. Chowdhury is a 74-year-old female with a past medical history of depression, anxiety, bipolar disorder, rectal carcinoma status post resection and colostomy, hypothyroidism, hyperlipidemia, type 2 diabetes, CKD stage 4, systolic congestive heart failure with less ejection fraction 40% to 45%, chronic venous insufficiency with lower extremity wounds, who presented to the emergency room, sent from [facility] with complaints of blood in her ostomy bag. The patient was admitted to [facility] from 05/21/19 to 05/25/19. At that time, she presented with severe sepsis secondary to probable infection of her lower extremity wounds. She was treated with IV hydration and did not require pressors. She was treated with vancomycin, levofloxacin, and cefepime and her wound cultures grew polymicrobial susie including Pseudomonas, Enterococcus faecalis. She was discharged back to [facility] to continue treatment with doxycycline and she is unable to provide much history at this time. In the emergency room, she was noted to be hypotensive and at the time of my evaluation , her systolic was 59, so at that point the emergency room provider went to place a central line, so we could start pressors. As I said before, as per the ED provider, the patient was complaining of right- sided abdominal pain. By the time I went to see her, she could not give me any meaningful information. PAST MEDICAL HISTORY: 1. Depression. 2. Anxiety. 3. Bipolar disorder. 4. History of rectal carcinoma, status post resection with colostomy. 5. Hypothyroidism. 6. Hyperlipidemia. 7. Type 2 diabetes. 8. CKD stage 4. 9. Systolic congestive heart failure with ejection fraction of 40% to 45%. 10. Venous insufficiency with chronic wounds, status post recent admission with severe sepsis secondary to wound infection. PAST SURGICAL HISTORY: 1. Status post rectal resection. 2. Status post colostomy. 3. Status post hernia repair. 4. Status post tonsillectomy. 5. Status post possible oophorectomy. 6. History of venous surgery with Dr. Mcgee around March 2019. MEDICATIONS: Medication list as per shelter records: 1. Acetaminophen 1000 mg p.o. q.8 hours p.r.n. pain or fever. 2. Albuterol 2.5 mg inhaled q.4 hours p.r.n. shortness of breath and wheezing. 3. Aspirin 81 mg p.o. daily. 4. Biofreeze topical b.i.d. to left shoulder. 5. Calcium alginate dressing topical daily to left lower extremity wounds. 6. Calcium carbonate plus vitamin D 1 tablet p.o. b.i.d. 7. Coreg 3.125 mg p.o. b.i.d. 8. Dextromethorphan guaifenesin 10/100 mg, 10 mL p.o. q.4 hours p.r.n. cough. 9. Doxepin 10 mg p.o. at bedtime. 10. Furosemide 40 mg p.o. daily. 11. Gabapentin 600 mg p.o. b.i.d. 12. NovoLog 20 units subcutaneously after meals. 13. Basaglar insulin 40 units subcutaneously b.i.d. 14. Levothyroxine 125 mcg p.o. q.a.m. 15. Liraglutide 1.8 mg subcutaneously at bedtime. 16. Metolazone 2.5 mg p.o. daily. 17. Entresto 49/51 mg 1 tablet p.o. at 8 a.m. and 4 p.m. 18. Sertraline 100 mg p.o. q.a.m. 19. Simvastatin 20 mg p.o. at bedtime. 20. Skin protectant topical daily. 21. Spironolactone 25 mg p.o. daily. 22. Tramadol 50 mg p.o. t.i.d. ALLERGIES: With LITHIUM, the patient had no reaction and with PENICILLIN, she had hives. FAMILY HISTORY: As per records, the patient's sister at age 67 of an NC, mother at age 76 of unknown causes, father at age 77 from possible NC. SOCIAL HISTORY: Also obtained from records due to the patient's lethargy. She is a long-term resident at [facility]. There is no history of tobacco, alcohol, or drug use. Surrogate decision makers are her daughters, Sia Figueroa [phone] or Latoya Chowdhury with same phone number. REVIEW OF SYSTEMS: I am unable to obtain from the patient due to her lethargy. PHYSICAL EXAMINATION GENERAL: The patient is an elderly obese lady, lying in the ED stretcher, in no acute distress, but lethargic. VITAL SIGNS: Temperature 99.2, heart rate is 88, respiratory rate 21, oxygen saturation 98% on 2 L, blood pressure was 69/40. HEENT: Pupils are equal. Dry mucous membranes. CHEST: Breath sound present bilaterally, diminished in bases but no added sounds. CVS: S1, S2. Regular rate and rhythm. ABDOMEN: Obese, soft with mild right lower quadrant tenderness. No guarding, no rebound. The patient has a functioning ostomy. EXTREMITIES: No edema. The patient has circumferential open areas on her left lower extremity with granulation tissue. I do not appreciate any significant purulent discharge, only serous drainage. There is no foul smell. NEUROLOGIC: She is lethargic, arousable to voice, oriented to self only. Able to move all 4 extremities. SKIN: The patient has an erythematous rash on her genital area suggestive of an yeast infection but she also has a faint macular rash on her hips extending to her back that is not pruritic. LABORATORY AND IMAGING DATA: The patient had a CBC that showed a WBC of 13.1, hemoglobin of 8.8, hematocrit of 27. INR is 1.09. Chemistry showed sodium of 134, potassium 3.9, chloride 103, bicarbonate 20, BUN 75, creatinine of 2.85, glucose of 131, lactic acid 1.3, calcium 9.7. LFTs are normal. EKG done on 06/23/19 at 6:50 p.m. showed sinus rhythm at 95 beats per minute with no acute ischemic changes. There is no prior EKG to compare. Chest x-ray is not yet officially read, but it does not show any gross infiltrate to my read. ASSESSMENT AND PLAN: Mrs. Chowdhury is a 74-year-old female with past medical history of depression, anxiety, bipolar disorder, rectal carcinoma, status post resection and colostomy, hypothyroidism, hyperlipidemia, type 2 diabetes, venous insufficiency with chronic lower extremity wound, chronic kidney disease stage 4, systolic congestive heart failure that presented to the emergency room sent with blood noted from her colostomy but found to be in shock, probably septic. 1. Septic shock. This presentation is similar to her presentation on 05/21/19 but at that point, the patient responded to IV fluids and did not require pressors. The impression at that time was that the source was her lower extremity wounds. At this point, the patient is going to be admitted to the intensive care unit. We are going to continue IV fluids but she will require pressors. I am going to check TSH and random cortisol level. She appears to be a little dry but not dry enough to justify that this is a hypovolemic shock. Although she was sent because they noted blood from her colostomy, her H and H is stable but we will continue to monitor. The source of her infection at this point is unclear. It could still be her lower extremity wounds, but at this point, I do not see any significant erythema besides just the "raw" areas on her left leg. There is no foul smell, no purulent drainage. Of note is the fact that on her admission, she grew Pseudomonas and Enterococcus on her wound cultures and she was discharged on doxycycline but I see on her medication list from [facility] that she recently completed a course of ciprofloxacin. Of note, the Pseudomonas that grew on her culture was resistant to quinolones, so her wound could be a source. I do not see any significant infiltrates on her chest x-ray, and a urinalysis will be sent. She has complained of right lower quadrant pain that I suspect is probably associated with ischemic colitis in the setting of hypotension but the patient will have a CT of the abdomen and pelvis. 2. GI bleed. At the time of evaluation, the patient had no blood coming from her ostomy but I suspect this may be secondary to ischemic colitis secondary to her shock. She will be continued on broad spectrum antibiotics and we are going to monitor her H and H. 3. Type 2 diabetes. The patient will be monitored for fingersticks and covered with lispro sliding scale. 4. Congestive heart failure. Stable at this time. I am going to hold her cardiac medication at this time as she is not awake enough to swallow and she does not have enough blood pressure room to give them at this time. Depending on how she responds to treatment, we may be able to resume it. 5. DVT prophylaxis. The patient has a score of 3 on DVT Prophylaxis Assessment Guide and pharmacological prophylaxis is contraindicated in the setting of possible GI bleed. She will have SCDs. 6. Code status. According to MOLST form sent from [employer], the patient is a full code. TIME SPENT: Approximately 70 minutes of critical care time were spent. [id number]/[facility] #: [id number] RYAN
[2019-06-24] MEDS: Insulin LISPRO* 1 UNITS UNIT SUBCUT SCH ×5 (04:09→20:54)
[2019-06-24 04:11] LABS: Hematocrit 26 % (35-47); Hemoglobin 8.3 g/dL (12.0-16.0); Mean Corpuscular HGB Conc 33 g/dL (31-36); Mean Corpuscular Hemoglobin 27 pg (27-31); Mean Corpuscular Volume 84 fL (80-97); Mean Platelet Volume 6.1 fL (7.4-10.4); Platelet Count 306 10^3/uL (150-450); Red Blood Count 3.05 10^6 /uL (3.70-4.87); Red Cell Distribution Width 16 % (10-15)
[2019-06-24 04:28] LABS: Albumin/Globulin Ratio 1.1 (1-3); Calcium 8.6 mg/dL (8.6-10.3); EGFR African American 24.2 (>60); Globulin 2.7 g/dL (2-4); Potassium 4.1 mmol/L (3.5-5.0); Total Bilirubin 0.2 mg/dL (0.2-1.0); Total Protein 5.7 g/dL (6.4-8.9)
[2019-06-24 04:45] LABS: ABS Basophils 0.1 10^3/ul (0-0.2); ABS Eosinophils 0.1 10^3/ul (0-0.6); ABS Lymphocytes 0.5 10^3/ul (1.0-4.8); ABS Monocytes 0.6 10^3/ul (0-0.8); ABS Neutrophils 11.9 10^3/ul (1.5-7.7); Eosinophil % 0.4 %; Lymphocyte % 3.5 %
[2019-06-24] MEDS ORDERED: Levothyroxine INJ* 100 MCG/5 ML VIAL IV SCH (06:00)
[2019-06-24] MEDS: Hydrocortisone INJ* 100 MG VIAL IV SCH ×3 (06:08→20:30)
[2019-06-24] MEDS: metroNIDAZOLE IV 500 MG/100ML* 500 MG/100 ML BAG IVPB SCH ×2 (07:47→15:47)
--- NOTE | 2019-06-24 12:46 | CONSULT ---
Consult Consult: Consultation Note -- Critical Care Requesting Physician: Dr Agarwal Reason for consult: septic shock Limitations in history/physical: none Date of consult: 06/24/2019 HPI: 74y F w/pmhx of depression, anxiety disorder, bipolar, rectal Ca s/p resection/colostomy, hypothyroidism, HLD, DM, CKD4, chronic LV systolic dysfunction (lvef 40-45%), chronic venous insuff; presented from [facility] due to blood in colostomy bag. Recent admission noted that she had sepsis due to Lower extremity cellulitis of left leg, treated with IV abx/fluids/pressors, growing pseudomonas/enterococcus, discharged back to [facility]. in ER, she was hypotensive, 60s, started on IVF and IV abx, needed IV pressor support. She was afebrile, wbc 13. CXR without focal process. CT abdomen with colitis noted. She is awake, alert. off pressors overnight. making urine. no distress or abd pain/n/v. ED/floor Course: as above ROS: negative except for pertinent positives mentioned above PMHx: depression, anxiety disorder, bipolar, rectal Ca s/p resection/colostomy, hypothyroidism, HLD, DM, CKD4, chronic LV systolic dysfunction (lvef 40-45%), chronic venous insuff PSHx: rectal resection, colostomy, hernia repair, tonsillectomy, oophorectomy Family History: sister 67 due to DE, mother dised 76 uknown, father 77 due to CAD/DE Social History: lives at [facility], 2 daughters , no tobacco/alcohol/drug use; decision maker is victorino Figueroa or Latoya zamora Allergies: Allergies Allergy/AdvReac Type Severity Reaction Status Date / Time lithium Allergy Unknown Verified 05/21/19 12:39 Reaction Details Penicillins Allergy Hives Verified 05/21/19 12:39 Home Medications: Aspirin 81 mg CHEW TAB* 81 mg PO DAILY 10/23/18 [History Confirmed 06/23/19] Calcium Carbonate/Vitamin D3 [Calcium 600-Vit D3 400 Tablet] 1 tab PO BID [History Confirmed 06/23/19] Gabapentin TAB(NF) [Neurontin 600 mg TAB(NF)] 600 mg PO BID 10/23/18 [History Confirmed 06/23/19] Levothyroxine TAB* [Synthroid 125 MCG TAB*] 125 mcg PO QAM 10/23/18 [History Confirmed 06/23/19] Metolazone TAB* [Zaroxolyn TAB*] 2.5 mg PO DAILY 10/23/18 [History Confirmed 02/06] Sacubitril/Valsartan [Entresto 49 mg-51 mg Tablet] 1 tab PO 0800,1600 10/23/18 [ History Confirmed 06/23/19] Carvedilol TAB* [Coreg TAB*] 3.125 mg PO BID 03/16/19 [History Confirmed ] Insulin ASPART (NF) [Novolog (NF)] 20 units SUBCUT PC 03/16/19 [History Confirmed 06/23/19] Insulin Glargine,Hum.rec.anlog [Basaglar Kwikpen U-100] 40 unit SUBCUT BID 03/16 [History Confirmed 06/23/19] Simvastatin TAB(NF) [Zocor 20 MG (NF)] 20 mg PO BEDTIME 05/21/19 [History Confirmed 06/23/19] Spironolactone TAB* [Aldactone TAB 25 MG*] 25 mg PO DAILY 05/21/19 [History Confirmed 06/23/19] traMADol TAB* [Ultram*] 50 mg PO TID 05/21/19 [History Confirmed 06/23/19] Acetaminophen [Acetaminophen Extra Strength] 1,000 mg PO Q8HR PRN 06/11/19 [ History Confirmed 06/23/19] Albuterol 2.5MG/3ML (0.083%)* [Ventolin 2.5 MG/3 ML NEB.LIANG*] 2.5 mg INH Q4H PRN 06/11/19 [History Confirmed 06/23/19] Biofreeze 1 applic TOPICAL BID 06/11/19 [History Confirmed 06/23/19] Doxepin (NF) 10 mg PO BEDTIME 06/11/19 [History Confirmed 06/23/19] Furosemide TAB* [Lasix TAB*] 40 mg PO DAILY 06/11/19 [History Confirmed 06/23/19 ] Liraglutide (NF) [Victoza (NF)] 1.8 mg SUBCUT BEDTIME 06/11/19 [History Confirmed 06/23/19] Sertraline* [Zoloft*] 100 mg PO QAM 06/11/19 [History Confirmed 06/23/19] Skin Protectant * [Critic-Aid Clear Moisture *] 1 applic TOPICAL DAILY 06/11/19 [History Confirmed 06/23/19] Calcium Alginate [Curasorb 12" Rope] 1 dose TOPICAL DAILY 06/23/19 [History Confirmed 06/23/19] Dextromethorphan-Guaifenesin [Dextromethorphan/Guaifene 10-100 mg/5Ml] 10 ml PO Q4H PRN 06/23/19 [History Confirmed 06/23/19] Tele: NSR Vitals: Vital Signs Temp 97.7 F 06/24/19 12:33 Pulse 85 06/24/19 12:33 Resp 23 06/24/19 12:33 BP 121/56 06/24/19 12:33 Pulse Ox 95 06/24/19 12:33 Intake & Output 06/23/19 06/24/19 06/24/19 18:59 06:59 18:59 Intake Total 2822 Output Total 1310 800 Balance 1512 -800 Weight 94.347 kg 93.3 kg Intake: IV Fluids 2375 LR 492 normal saline 1083 IVPB 390 abx 390 Medicated IV 57 Levophed 57 Output: Cox 1310 800 O2/Vent: RA Infusions: NS; off levophed Current Medications: Acetaminophen (Tylenol Tab*) 650 mg PO Q6H PRN PRN Reason: MILD PAIN or TEMP > 100.4 Albuterol (Ventolin 2.5 Mg/3 Ml Neb.Liang*) 2.5 mg INH Q4H PRN PRN Reason: WHEEZING Aspirin (Aspirin 81 Mg Chew Tab*) 81 mg PO DAILY [facility]YOTSNA Dextrose (Dextrose 50% Vial 50 Ml*) 25 ml IV PUSH .FOR FS < 60 - SS PRN PRN Reason: FS < 60 Hydrocortisone Sodium Succinate (Solu-Cortef*) 100 mg IV Q8H [facility] Last Admin: 06/24/19 06:08 Dose: 100 mg Cefepime HCl (Maxipime 2 Gm In Dextrose Duplex (*)) 2 gm in 50 mls @ 100 mls/ hr IV Q24H [facility] Metronidazole/Sodium Chloride (Flagyl 500 Mg Ivpb*) 500 mg in 100 mls @ 100 mls /hr IVPB Q8H [facility] Last Admin: 06/24/19 07:47 Dose: 100 mls/hr Lactated Ringer's (Lactated Ringers 1000 Ml Bag*) 1,000 mls @ 75 mls/hr IV PER RATE [facility] Last Admin: 06/23/19 23:30 Dose: 75 mls/hr Cefepime HCl 1 gm/ Sodium (Chloride) 50 mls @ 100 mls/hr IVPB Q24HR [facility] Insulin Human Lispro (Humalog*) 0 units SUBCUT FS Q4 ICU [facility]; Protocol Last Admin: 06/24/19 08:38 Dose: 3 units Levothyroxine Sodium (Synthroid Tab*) 125 mcg PO QAM [facility] Prochlorperazine Edisylate (Compazine Inj*) 5 mg IV Q6H PRN PRN Reason: NAUSEA/VOMITING Sertraline HCl (Zoloft*) 100 mg PO QAM [facility] Physical Exam: Constitutional: awake, alert, no distress, no diaphoresis Head: normocephalic, atraumatic Eyes: no pallor, no icterus ENT: moist mucous membranes Neck: soft, supple, no jvd, no stridor CVS: normal rate, regular, no murmur Resp: bilateral air entry, no rhales, no wheeze, no rhonchi, no acc muscle use Abdomen/GI: soft, nontender, nondistended, BS+; colostomy+ and intact Ext/Msk: warm, pulses+, no edema Skin: left lower leg wound with dressing+ Neuro: awake, alert, orientedx3, moving all extremities, no gross focal deficit Labs: Laboratory Results - last 24 hr 06/23/19 06/23/19 06/23/19 18:51 18:51 18:51 WBC 13.1 H RBC 3.24 L Hgb 8.8 L Hct 27 L MCV 84 MCH 27 MCHC 32 RDW 16 H Plt Count 343 MPV 6.0 L Neut % (Auto) 84.9 Lymph % (Auto) 5.8 Apache % (Auto) 6.8 Eos % (Auto) 2.0 Baso % (Auto) 0.5 Absolute Neuts (auto) 11.1 H Absolute Lymphs (auto) 0.8 L Absolute Monos (auto) 0.9 H Absolute Eos (auto) 0.3 Absolute Basos (auto) 0.1 Absolute Nucleated RBC 0.0 Nucleated RBC % 0.0 INR (Anticoag Therapy) Sodium 134 L Potassium 3.9 Chloride 103 Carbon Dioxide 20 L Anion Gap 11 BUN 75 H Creatinine 2.85 H Est GFR ( Amer) 19.7 Est GFR (Non-Af Amer) 16.3 BUN/Creatinine Ratio 26.3 H Glucose 131 H POC Glucose (mg/dL) Lactic Acid Calcium 9.7 Total Bilirubin 0.20 AST 13 ALT 24 Alkaline Phosphatase 69 Troponin I 0.01 Total Protein 6.4 Albumin 3.4 Globulin 3.0 Albumin/Globulin Ratio 1.1 TSH 0.56 Cortisol 14.86 Urine Color Urine Appearance Urine pH Ur Specific Watrous Urine Protein Urine Ketones Urine Blood Urine Nitrate Urine Bilirubin Urine Urobilinogen Ur Leukocyte Esterase Urine Glucose Blood Type A Positive Antibody Screen Negative 06/23/19 06/23/19 06/23/19 18:51 18:51 20:48 WBC RBC Hgb Hct MCV MCH MCHC RDW Plt Count MPV Neut % (Auto) Lymph % (Auto) Apache % (Auto) Eos % (Auto) Baso % (Auto) Absolute Neuts (auto) Absolute Lymphs (auto) Absolute Monos (auto) Absolute Eos (auto) Absolute Basos (auto) Absolute Nucleated RBC Nucleated RBC % INR (Anticoag Therapy) 1.09 Sodium Potassium Chloride Carbon Dioxide Anion Gap BUN Creatinine Est GFR ( Amer) Est GFR (Non-Af Amer) BUN/Creatinine Ratio Glucose POC Glucose (mg/dL) Lactic Acid 1.3 0.6 Calcium Total Bilirubin AST ALT Alkaline Phosphatase Troponin I Total Protein Albumin Globulin Albumin/Globulin Ratio TSH Cortisol Urine Color Urine Appearance Urine pH Ur Specific Wat[place] Urine Protein Urine Ketones Urine Blood Urine Nitrate Urine Bilirubin Urine Urobilinogen Ur Leukocyte Esterase Urine Glucose Blood Type Antibody Screen 06/23/19 06/23/19 06/23/19 22:03 23:37 23:55 WBC RBC Hgb 8.2 L Hct 25 L MCV MCH MCHC RDW Plt Count MPV Neut % (Auto) Lymph % (Auto) Apache % (Auto) Eos % (Auto) Baso % (Auto) Absolute Neuts (auto) Absolute Lymphs (auto) Absolute Monos (auto) Absolute Eos (auto) Absolute Basos (auto) Absolute Nucleated RBC Nucleated RBC % INR (Anticoag Therapy) Sodium Potassium Chloride Carbon Dioxide Anion Gap BUN Creatinine Est GFR ( Amer) Est GFR (Non-Af Amer) BUN/Creatinine Ratio Glucose POC Glucose (mg/dL) 103 H Lactic Acid Calcium Total Bilirubin AST ALT Alkaline Phosphatase Troponin I Total Protein Albumin Globulin Albumin/Globulin Ratio TSH Cortisol Urine Color Yellow Urine Appearance Clear Urine pH 5.0 Ur Specific Watrous 1.011 Urine Protein Negative Urine Ketones Negative Urine Blood Negative Urine Nitrate Negative Urine Bilirubin Negative Urine Urobilinogen Negative Ur Leukocyte Esterase Negative Urine Glucose Negative Blood Type Antibody Screen 06/24/19 06/24/19 04:00 04:00 WBC 13.0 H RBC 3.05 L Hgb 8.3 L Hct 26 L MCV 84 MCH 27 MCHC 33 RDW 16 H Plt Count 306 MPV 6.1 L Neut % (Auto) 91.3 Lymph % (Auto) 3.5 Apache % (Auto) 4.4 Eos % (Auto) 0.4 Baso % (Auto) 0.4 Absolute Neuts (auto) 11.9 H Absolute Lymphs (auto) 0.5 L Absolute Monos (auto) 0.6 Absolute Eos (auto) 0.1 Absolute Basos (auto) 0.1 Absolute Nucleated RBC 0.0 Nucleated RBC % 0.0 INR (Anticoag Therapy) Sodium 135 Potassium 4.1 Chloride 107 Carbon Dioxide 20 L Anion Gap 8 BUN 69 H Creatinine 2.38 H Est GFR ( Amer) 24.2 Est GFR (Non-Af Amer) 20.0 BUN/Creatinine Ratio 29.0 H Glucose 210 H POC Glucose (mg/dL) Lactic Acid Calcium 8.6 Total Bilirubin 0.20 AST 12 L ALT 22 Alkaline Phosphatase 60 Troponin I Total Protein 5.7 L Albumin 3.0 L Globulin 2.7 Albumin/Globulin Ratio 1.1 TSH Cortisol Urine Color Urine Appearance Urine pH Ur Specific Wat[place] Urine Protein Urine Ketones Urine Blood Urine Nitrate Urine Bilirubin Urine Urobilinogen Ur Leukocyte Esterase Urine Glucose Blood Type Antibody Screen Imaging: CXR 06/23 - no infiltrates CT abd/pelvis 06/23 - descending colitis/thickening+ Assessment: 74y F w/pmhx of depression, anxiety disorder, bipolar, rectal Ca s/ p resection/colostomy, hypothyroidism, HLD, DM, CKD4, chronic LV systolic dysfunction (lvef 40-45%), chronic venous insuff; presented from [facility] due to blood in colostomy bag. Recent admission noted that she had sepsis due to Lower extremity cellulitis of left leg, treated with IV abx/fluids/pressors, growing pseudomonas/enterococcus, discharged back to [facility]. in ER, she was hypotensive, 60s, started on IVF and IV abx, needed IV pressor support. She was afebrile, wbc 13. CXR without focal process. CT abdomen with colitis noted. -Severe Sepsis with shock, improved -Colitis -YESSY on CKD -chronic left lower leg cellulitus+ h/o rectal ca with colostomy Plan: Neuro- -awake/alert -Delirium prec; avoid BDZ CVS- -off pressors; stable BP -d/c art line -cont IVF LR x10 hrs more -cont IV abx -taper steroids to 24 more hours and d/c -hold diuretic today; restart toorrow; d/c IVF tomorrow if appears euvolemic -Maintain MAP>65 Resp- -RA, no distress -CXR /3 without infitlrate -Wean Fio2 to keep sat>92% -Bronchodilators PRN, Aspiration prec ID- afebrile. wbc 13 -CT with desc colitis -check c.diff -IV abx cefepime/flagyl (day#2); d/c vanco GI- -Colitis on CT -no furhter bleeding -GI consult for possible ischemic colitis -hg stable though -IV abx -check c.diff -diabetic diet -GI prophylaxis Renal- -YESSY on CKD4; making urine; lytes okay -cont LR for 10 more hours -off pressors -cox in place, may d/c later today -strict I/O, replete to keep K>4, Mg>2 -cox as indicated Heme- anemia; hg stable 8-9; no change from priors -plt okay -DVT proph SCD only for now due to bleeding Endo- Maintain BG<200, insulin protocol as needed Musculsk- pressure ulcer prophylaxis. Bedrest, oob to cahir as tolerated later Wounds- wound care to Left leg Nutrition- diabetic diet DVT prophylaxis: SCD GI prophylaxis: none Central Line: right fem 8/3 Arterial Line: right fem 8/3 Cox Cathetor: yes Disposition: BP stable, alert; can d/c lines today; may be able to transfer to floor. has been off pressors since overnight Patient Clinical Status: stable currently Code Status: full code Jhon Lundberg MD Laboratory Coordinator (Electronically Signed)
[2019-06-24] MEDS: Aspirin 81 mg CHEW TAB* 81 MG TAB.CHEW PO SCH (13:13)
[2019-06-24] MEDS: Sertraline* 100 MG TAB PO SCH (13:13)
[2019-06-24] MEDS ORDERED: Lactated Ringers 1000 ML Bag* 1,000 ML IV SCH (14:00)
[2019-06-24] MEDS ORDERED: Cefepime 1 GM in Dextrose(*) 1 GM/50 ML BAG IV SCH (14:00)
--- NOTE | 2019-06-24 17:06 | CONS ---
CONSULTATION REPORT: DATE OF CONSULT: 06/24/19 REQUESTING PHYSICIAN: Dr. Lundberg. REASON FOR CONSULT: Bleeding in ostomy. HISTORY OF PRESENT ILLNESS: Ms. Chowdhury is a 74-year-old woman with a history of multiple medical conditions including bipolar disorder; anxiety/depression; CKD stage 4; hyperlipidemia; CHF; chronic venous insufficiency with lower extremity wounds; and rectal cancer status post resection with colostomy in 2005 , who presents with blood in her ostomy bag. The patient lives at [facility]. The nurse noted that she was having some bleeding into the ostomy bag. The patient describes seeing half a bag of red blood in the ostomy bag. She does not recall seeing any additional bleeding. Since admission, nursing has not seen any additional bleeding. The stool is brown now. She was having some right lower quadrant discomfort, which is now resolved. Her hemoglobin was noted to be similar to baseline over the past few months. Hemoglobin has been in the 8 to 9 range since February, although currently she is on the lower end of this range at 8.3. This has been stable overnight. She was noted to be quite hypotensive to as low as 60 systolic and was transferred to the ICU for pressors and fluids. She has been able to come off the pressors and is maintaining her blood pressure well now. This presentation has raised some concern for a septic shock. She is on antibiotics. CT abdomen and pelvis was performed without IV contrast given renal impairment. This demonstrated diffuse wall thickening in the descending colon compatible with a nonspecific colitis. GI consulted. On interview, Ms. Chowdhury states that she feels okay. Denies any abdominal pain. States that her ostomy is no longer having any blood in it. She cannot recall when she last had a colonoscopy. She is very against having a colonoscopy at the present time as she had a very poor experience with the last procedure. She says that she was not sedated adequately and felt "everything." PAST MEDICAL HISTORY: 1. Depression. 2. Anxiety. 3. Bipolar disorder. 4. History of rectal cancer, status post resection and colostomy in 2005. 5. Hypothyroidism. 6. Hyperlipidemia. 7. Type 2 diabetes. 8. CKD, stage 4. 9. Systolic heart failure. 10. Venous insufficiency with chronic wounds, status post recent admission in May with severe sepsis secondary to wound infection. PAST SURGICAL HISTORY: 1. Status post rectal resection with ostomy. 2. Status post hernia repair. 3. Status post tonsillectomy. 4. Status post oophorectomy. 5. History of venous surgery in March 2019. MEDICATIONS: Home medications (per H and P). 1. Tylenol p.r.n. 2. Albuterol p.r.n. 3. Aspirin 81 mg daily. 4. Calcium alginate dressing topically to lower extremity wounds. 5. Calcium carbonate and vitamin D. 6. Coreg 3.125 b.i.d. 7. Dextromethorphan/guaifenesin p.r.n. 8. Doxepin 10 mg at bedtime. 9. Furosemide 40 mg daily. 10. Gabapentin 600 mg twice daily. 11. NovoLog 20 units subcutaneously after meals. 12. Insulin. 13. Levothyroxine 125 mcg every morning. 14. Liraglutide 1.8 mg subcutaneously at bedtime. 15. Metolazone 2.5 mg daily. 16. Entresto 49/51 twice a day. 17. Sertraline 100 mg daily. 18. Simvastatin 20 mg daily. 19. Spironolactone 25 mg daily. 20. Tramadol 50 mg t.i.d. ALLERGIES: To LITHIUM and PENICILLIN. FAMILY HISTORY: No known GI or liver disease in family. SOCIAL HISTORY: The patient lives at [facility]. No history of tobacco, alcohol , or drug use. REVIEW OF SYSTEMS: A complete review of systems is negative except as above. PHYSICAL EXAM: Vital Signs: Afebrile, heart rate 94, blood pressure 140s to 160s/50s to 60s, 94% or higher on room air, respiratory rate 17 to 28. General: Chronically ill-appearing woman. No acute distress. HEENT: Dry mucous membranes. Cardiovascular: Regular rate and rhythm. Pulm: Breath sounds decreased in bases. No wheezing. Breathing comfortably. Abdomen: Soft, nontender, nondistended. Ostomy with brown liquid stool. Extremities: No significant edema. Lower extremity wounds not examined in detail on my interview. Neurologic: A and O x3. DIAGNOSTIC STUDIES/LAB DATA: White count 13, hemoglobin 8.3, hematocrit 26, MCV 84, platelet count 306. INR on admission was 1.09. Creatinine 2.38, BUN 69. Lactic acid normal on admission. LFTs not elevated. Albumin low at 3. Imaging: CT of the abdomen and pelvis without contrast as discussed in HPI. There is diffuse wall thickening in the descending colon compatible with nonspecific colitis. Also multiple gallstones in the gallbladder and a complex right renal cyst. IMPRESSION AND RECOMMENDATIONS: Ms. Chowdhury is a 74-year-old with multiple medical conditions including a history of rectal cancer, status post resection with an ostomy in 2005, who is admitted with an episode of bleeding into the ostomy bag and significant hypotension out of proportion to bleeding. The patient had 1 episode of red blood filling half of her ostomy bag. She has not had any bleeding since this time per the patient and nursing. Hemoglobin is roughly stable within her recent baseline. Her vital signs demonstrated significant hypotension out of proportion to the amount of bleeding concerning for a septic shock. She required pressors temporarily, but has been weaned off the pressors. Blood pressure is now hypertensive. Reviewed with the patient that her imaging does suggest some colitis in the descending colon. I am suspicious for a possible ischemic colitis given her significant hypotension and history of vascular disease. An infectious colitis is possible as well as thickening related to the diverticular disease. The patient feels quite strongly that she does not want to proceed with a colonoscopy through her ostomy at this time. She mentions a colonoscopy sometime in the past during which she was more awake than she wanted to be. This procedure seems to have been fairly traumatic for her. 1. Continue to monitor CBC. Monitor for evidence of recurrent bleeding in the ostomy. If there is recurrent bleeding, then we would need to discuss with the patient again the possibility of a scope through her stoma. The patient indicated that she might consider such procedure in the future if she has ongoing issues with bleeding. 2. Continue supportive care. Avoid hypotension. 3. Agree with antibiotics, particularly if there is concern for ischemic colitis. There does not appear to be any evidence clinically to suggest a complication of ischemic colitis such as peritonitis. Thank you very much for this consult. GI will continue to follow along. [id number]/[facility] #: [id number] RYAN
[2019-06-24] MEDS ORDERED: Vancomycin(*) 1,250 MG in NS 0.9% 250 ML* 250 ML IVPB SCH (18:00)
[2019-06-24] MEDS: Cefepime 1 GM in Dextrose(*) 1 GM/50 ML BAG IV SCH (20:26)
[2019-06-24] MEDS: Acetaminophen TAB* 325 MG PO PRN (20:56)
[2019-06-24] MEDS ORDERED: Cefepime 2 GM in Dextrose(*) 2 GM/50 ML BAG IV SCH (21:00)
[2019-06-25] MEDS: metroNIDAZOLE IV 500 MG/100ML* 500 MG/100 ML BAG IVPB SCH ×4 (00:26→23:59)
[2019-06-25] MEDS: Insulin LISPRO* 1 UNITS UNIT SUBCUT SCH ×6 (00:44→22:40)
[2019-06-25] MEDS: Acetaminophen TAB* 325 MG PO PRN ×4 (05:44→22:27)
[2019-06-25] MEDS: Levothyroxine TAB* 125 MCG TAB PO SCH (05:45)
[2019-06-25] MEDS: Hydrocortisone INJ* 100 MG VIAL IV SCH (05:45)
[2019-06-25] MEDS: Aspirin 81 mg CHEW TAB* 81 MG TAB.CHEW PO SCH (08:20)
[2019-06-25] MEDS: Sertraline* 100 MG TAB PO SCH (08:20)
--- NOTE | 2019-06-25 12:09 | PN ---
Subjective Date of Service: 06/25/19 Interval History: Patient is not feeling well when I see her this morning. She states that she feels SOB with wheezing. When questioned, she says it is because she is anxious. She also c/o abd pain, pointing to R abdominal area, but unable to specify further. She denies CP, cough, fever. She denies n/v/d. She is eating well. Colostomy output has been fine. She does not know if there has been blood or melena in colostomy bag, although she notes she does change it herself. She states her feet hurt. Objective Active Medications: Acetaminophen (Tylenol Tab*) 650 mg PO Q6H PRN Albuterol (Ventolin 2.5 Mg/3 Ml Neb.Keyana*) 2.5 mg INH Q4H PRN Aspirin (Aspirin 81 Mg Chew Tab*) 81 mg PO DAILY JYOTSNA Dextrose (Dextrose 50% Vial 50 Ml*) 25 ml IV PUSH .FOR FS < 60 - SS PRN Hydrocortisone Sodium Succinate (Solu-Cortef*) 50 mg IV Q8H [facility] Metronidazole/Sodium Chloride (Flagyl 500 Mg Ivpb*) 500 mg in 100 mls @ 100 mls /hr IVPB Q8H [facility] Cefepime HCl (Maxipime 1 Gm In Dextrose Duplex (*)) 1 gm in 50 mls @ 100 mls/ hr IV Q24HR@2100 [facility] Insulin Human Lispro (Humalog*) 0 units SUBCUT FS Q4 ICU [facility]; Protocol Levothyroxine Sodium (Synthroid Tab*) 125 mcg PO 0600 [facility] Prochlorperazine Edisylate (Compazine Inj*) 5 mg IV Q6H PRN Sertraline HCl (Zoloft*) 100 mg PO QAM [facility] Vital Signs: Temp Pulse Resp BP Pulse Ox 96.3 F 95 18 144/53 96 06/25/19 04:00 06/25/19 11:30 06/25/19 11:30 06/25/19 04:00 06/25/19 11:30 Oxygen Devices in Use Now: None Appearance: Pt is tearful states that feet are painful. She answers questions appropriately and does not appear to be in respiratory distress, although she is mildly tachypneic due to anxiety. Ears/Nose/Mouth/Throat: NL Teeth, Lips, Gums, Clear Oropharnyx, Mucous Membranes Moist Neck: NL Appearance and Movements; NL JVP, Trachea Midline Respiratory: Symmetrical Chest Expansion and Respiratory Effort, Clear to Auscultation Cardiovascular: NL Sounds; No Murmurs; No JVD, RRR Abdominal: - - BS in all quadrants. Abd TTP. L colostomy in place with brown stool in pouch; no hematochezia or melena noted. Extremities: No Clubbing, Cyanosis, - - Chronic LE lymphedema with chronic LLE wound. Dressing CDI to wound. Feet are painful to palpation; pt even cries out in anticipation of feet being touched. Neurological: Alert and Oriented x 3 Result Diagrams: 06/25/19 16:00 06/24/19 04:00 Microbiology and Other Data: Microbiology 06/23/19 21:59 Aerobic Blood Culture - Preliminary Blood Line No Growth Day 1 Anaerobic Blood Culture - Preliminary No Growth Day 1 06/23/19 20:48 Aerobic Blood Culture - Preliminary Blood Venous No Growth Day 1 Anaerobic Blood Culture - Preliminary No Growth Day 1 06/23/19 20:02 Stool Occult Blood (JACKI) - Final Stool Assess/Plan/Problems-Billing Assessment: Labs and CT reviewed. Sepsis source still unclear. Suspect her colitis is ischemic in the setting of septic shock, and not the source. She has a sacral decubitus with foul smell, so this is the presumed source at this time. Will continue current management. - Patient Problems (1) Colitis Comment: -Pt is h/o colon resection with colostomy in place sent to ER with blood from ostomy, found to be in septic shock -Possible ischemic colitis vs infectious colitis -Currently without melena, hematochezia in colostomy -GI following; thank you for recommendations -Pt refusing colonoscopy, but may agree in future if ongoing bleeding -Continue metronidazole, cefepime -Continue to monitor CBC (2) GI bleed Comment: -Sent to ER due to blood coming from ostomy -Positive stool for occult blood, but no blood visible from ostomy, possibly due to ischemic colitis and shock -Pt refusing colonoscopy at this time -Continue to monitor H/H (3) Acute kidney injury superimposed on CKD Comment: -Likely d/t severe sepsis with shock on admission -Cr trending down -Continue to monitor (4) Diabetes Comment: -BS have been elevated; pt eating well -Restart lantus -Lispro ss with fingerstick AC (5) CHF (congestive heart failure) Comment: -Recent echo with EF 40-45% -Pt admitted 06/23 with septic shock, now resolved. In light of recent hypotension requiring pressors, continuing to hold home medications entresto, furosemide, spironolactone, carvedilol -Monitor for need for restart (6) Septic shock Comment: -Resolved -Unknown source of infection; ? skin with h/o chronic LE wound, decubitus ulcer -Required vasopressors (7) Hyperlipidemia Comment: -Restart home statin (8) Hypothyroid Comment: -Continue levothyroxine (9) DVT prophylaxis Comment: -Hold chemoprophylaxis in light of GIB; holding SCDs d/t chronic wounds to b/l LE (10) Full code status Status and Disposition: Inpatient. Discharge back to [facility] when stable.
[2019-06-25] MEDS: Gabapentin CAP(*) 300 MG PO SCH (15:58)
[2019-06-25 16:18] LABS: Hematocrit 24 % (35-47); Hemoglobin 8.3 g/dL (12.0-16.0)
[2019-06-25] MEDS: Insulin GLARGINE(*) 1 UNITS UNIT SUBCUT SCH (20:51)
[2019-06-25] MEDS: Atorvastatin* 10 MG TAB PO SCH (20:52)
[2019-06-25] MEDS: Cefepime 1 GM in Dextrose(*) 1 GM/50 ML BAG IV SCH (20:54)
[2019-06-26] MEDS: Insulin LISPRO* 1 UNITS UNIT SUBCUT SCH ×6 (02:42→22:53)
[2019-06-26 05:34] LABS: ABS Eosinophils 0.2 10^3/ul (0-0.6); ABS Lymphocytes 0.7 10^3/ul (1.0-4.8); ABS Monocytes 0.7 10^3/ul (0-0.8); ABS Neutrophils 5.1 10^3/ul (1.5-7.7); Eosinophil % 2.3 %; Hematocrit 30 % (35-47); Hemoglobin 8.8 g/dL (12.0-16.0); Lymphocyte % 9.9 %; Mean Corpuscular HGB Conc 29 g/dL (31-36); Mean Corpuscular Hemoglobin 27 pg (27-31); Mean Corpuscular Volume 91 fL (80-97); Mean Platelet Volume 6.7 fL (7.4-10.4); Platelet Count 341 10^3/uL (150-450); Red Blood Count 3.31 10^6 /uL (3.70-4.87); Red Cell Distribution Width 17 % (10-15); White Blood Count 6.6 10^3/uL (3.5-10.8)
[2019-06-26] MEDS: Levothyroxine TAB* 125 MCG TAB PO SCH (05:47)
[2019-06-26 05:51] LABS: BUN/Creatinine Ratio 32.5 (8-20); Calcium 8.7 mg/dL (8.6-10.3); EGFR African American 40.1 (>60); EGFR Non-African American 33.1 (>60); Potassium 3.3 mmol/L (3.5-5.0)
[2019-06-26] MEDS: metroNIDAZOLE IV 500 MG/100ML* 500 MG/100 ML BAG IVPB SCH ×3 (09:01→22:54)
[2019-06-26] MEDS: Gabapentin CAP(*) 300 MG PO SCH ×2 (09:05→21:03)
[2019-06-26] MEDS: Aspirin 81 mg CHEW TAB* 81 MG TAB.CHEW PO SCH (09:05)
[2019-06-26] MEDS: Insulin GLARGINE(*) 1 UNITS UNIT SUBCUT SCH ×2 (09:05→22:53)
[2019-06-26] MEDS: Sertraline* 100 MG TAB PO SCH (09:05)
[2019-06-26] MEDS: Acetaminophen TAB* 325 MG PO PRN (12:57)
--- NOTE | 2019-06-26 13:31 | PN ---
Subjective Date of Service: 06/26/19 Interval History: Discussed patient with RN who requests Nystatin for groin, out of bed ordered, and physical therapy ordered. Per nurse she only transfers from bed to wheelchair at [facility]. In addition RN has not noted any obvious blood in ostomy. On assessment patient is sitting in bed. Has not complaints and reports she feels well today. Denies cp, sob, palpitations, nausea, vomiting, fever, chills. Objective Active Medications: Acetaminophen (Tylenol Tab*) 650 mg PO Q6H PRN PRN Reason: MILD PAIN or TEMP > 100.4 Last Admin: 06/26/19 12:57 Dose: 650 mg Albuterol (Ventolin 2.5 Mg/3 Ml Neb.Keyana*) 2.5 mg INH Q4H PRN PRN Reason: WHEEZING Last Admin: 06/25/19 11:26 Dose: 2.5 mg Aspirin (Aspirin 81 Mg Chew Tab*) 81 mg PO DAILY [facility] Last Admin: 06/26/19 09:05 Dose: 81 mg Atorvastatin Calcium (Lipitor*) 10 mg PO BEDTIME [facility] Last Admin: 06/25/19 20:52 Dose: 10 mg Dextrose (Dextrose 50% Vial 50 Ml*) 25 ml IV PUSH .FOR FS < 60 - SS PRN PRN Reason: FS < 60 Gabapentin (Neurontin Cap(*)) 600 mg PO BID [facility] Last Admin: 06/26/19 09:05 Dose: 600 mg Metronidazole/Sodium Chloride (Flagyl 500 Mg Ivpb*) 500 mg in 100 mls @ 100 mls /hr IVPB Q8H [facility] Last Admin: 06/26/19 09:01 Dose: 100 mls/hr Cefepime HCl (Maxipime 1 Gm In Dextrose Duplex (*)) 1 gm in 50 mls @ 100 mls/ hr IV Q24HR@2100 [facility] Last Admin: 06/25/19 20:54 Dose: 100 mls/hr Insulin Glargine (Lantus(*)) 32 units SUBCUT BID [facility] Last Admin: 06/26/19 09:05 Dose: 32 units Insulin Human Lispro (Humalog*) 0 units SUBCUT ACHS [facility]; Protocol Last Admin: 06/26/19 12:57 Dose: 6 units Levothyroxine Sodium (Synthroid Tab*) 125 mcg PO 0600 [facility] Last Admin: 06/26/19 05:47 Dose: 125 mcg Nystatin (Nystatin Top Powder*) 1 applic TOPICAL TID [facility] Prochlorperazine Edisylate (Compazine Inj*) 5 mg IV Q6H PRN PRN Reason: NAUSEA/VOMITING Last Admin: 06/25/19 08:21 Dose: 5 mg Sertraline HCl (Zoloft*) 100 mg PO QAM [facility] Last Admin: 06/26/19 09:05 Dose: 100 mg Vital Signs - 8 hr 06/26/19 06/26/19 08:00 09:05 Respiratory 20 20 Rate Oxygen Devices in Use Now: None Appearance: Comfortable, NAD Eyes: No Scleral Icterus Ears/Nose/Mouth/Throat: Clear Oropharnyx, Mucous Membranes Moist Neck: NL Appearance and Movements; NL JVP Respiratory: Symmetrical Chest Expansion and Respiratory Effort, Clear to Auscultation Cardiovascular: NL Sounds; No Murmurs; No JVD, RRR, No Edema Abdominal: NL Sounds; No Tenderness; No Distention, - - No obvious blood in ostomy. Extremities: No Clubbing, Cyanosis Skin: - - Patient has scaling wound with surrounding redness to LLE. In addition has some scaling and redness (which is blanchable to buttocks) Neurological: Alert and Oriented x 3 Nutrition: Taking PO's Result Diagrams: 06/26/19 04:45 06/26/19 04:45 Additional Lab and Data: Laboratory Results - last 24 hr 06/25/19 06/25/19 06/25/19 16:00 17:15 22:31 WBC RBC Hgb 8.3 L Hct 24 L MCV MCH MCHC RDW Plt Count MPV Neut % (Auto) Lymph % (Auto) [place] % (Auto) Eos % (Auto) Baso % (Auto) Absolute Neuts (auto) Absolute Lymphs (auto) Absolute Monos (auto) Absolute Eos (auto) Absolute Basos (auto) Absolute Nucleated RBC Nucleated RBC % Sodium Potassium Chloride Carbon Dioxide Anion Gap BUN Creatinine Est GFR ( Amer) Est GFR (Non-Af Amer) BUN/Creatinine Ratio Glucose POC Glucose (mg/dL) 152 H 232 H Calcium Magnesium 06/26/19 06/26/19 06/26/19 04:45 04:45 08:10 WBC 6.6 RBC 3.31 L Hgb 8.8 L Hct 30 L MCV 91 MCH 27 MCHC 29 L RDW 17 H Plt Count 341 MPV 6.7 L Neut % (Auto) 77.5 Lymph % (Auto) 9.9 [place] % (Auto) 9.8 Eos % (Auto) 2.3 Baso % (Auto) 0.5 Absolute Neuts (auto) 5.1 Absolute Lymphs (auto) 0.7 L Absolute Monos (auto) 0.7 Absolute Eos (auto) 0.2 Absolute Basos (auto) 0.0 Absolute Nucleated RBC 0.0 Nucleated RBC % 0.0 Sodium 146 H D Potassium 3.3 L Chloride 113 H Carbon Dioxide 24 Anion Gap 9 BUN 50 H Creatinine 1.54 H Est GFR ( Amer) 40.1 Est GFR (Non-Af Amer) 33.1 BUN/Creatinine Ratio 32.5 H Glucose 106 H POC Glucose (mg/dL) 162 H Calcium 8.7 Magnesium 2.0 06/26/19 12:13 WBC RBC Hgb Hct MCV MCH MCHC RDW Plt Count MPV Neut % (Auto) Lymph % (Auto) [place] % (Auto) Eos % (Auto) Baso % (Auto) Absolute Neuts (auto) Absolute Lymphs (auto) Absolute Monos (auto) Absolute Eos (auto) Absolute Basos (auto) Absolute Nucleated RBC Nucleated RBC % Sodium Potassium Chloride Carbon Dioxide Anion Gap BUN Creatinine Est GFR ( Amer) Est GFR (Non-Af Amer) BUN/Creatinine Ratio Glucose POC Glucose (mg/dL) 242 H Calcium Magnesium Microbiology and Other Data: Microbiology 06/23/19 21:59 Blood Line Aerobic Blood Culture - Preliminary No Growth Day 2 06/23/19 21:59 Blood Line Anaerobic Blood Culture - Preliminary No Growth Day 2 06/23/19 20:48 Blood Venous Aerobic Blood Culture - Preliminary No Growth Day 2 06/23/19 20:48 Blood Venous Anaerobic Blood Culture - Preliminary No Growth Day 2 06/23/19 20:02 Stool Stool Occult Blood (JACKI) - Final Assess/Plan/Problems-Billing Assessment: 74 yr old female with pmh of depression, anxiety, bipolar disorder, hx of rectal carcinoma, hypothyroid, hld, DM2, CKD, systolic chf; who presented to ED due to lethargy. 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 -Continue metronidazole, cefepime. Consider transitioning to Cefuroxime and Flagyl PO for d/c (2) GI bleed Comment: - See above - Sent to ER due to blood coming from ostomy - Positive stool for occult blood, but no blood visible from ostomy, possibly due to ischemic colitis and shock - Pt refusing colonoscopy at this time - Continue to monitor H/H (3) Septic shock Comment: - Resolved - Unknown source of infection; ? skin with h/o chronic LE wound, decubitus ulcer - Required vasopressors - BC have no growth - Cont abx (4) CHF (congestive heart failure) Comment: - Recent echo with EF 40-45% - Pt admitted 06/23 with septic shock, now resolved. In light of recent hypotension requiring pressors, was holding home medications entresto, furosemide, spironolactone, carvedilol - Given increase BP today I will start by restarting Carvedilol - Daily weight and Strict I&Os (5) Diabetes Comment: -BS have been elevated; pt eating well -Restart lantus -Lispro ss with fingerstick AC (6) Acute kidney injury superimposed on CKD Comment: -Likely d/t severe sepsis with shock on admission -Cr trending down and near baseline -Continue to monitor (7) Wound of left lower extremity Comment: - Chronic - Wound care consulting (8) Hyperlipidemia Current Visit: Yes Status: Acute Code(s): E78.5 - HYPERLIPIDEMIA, UNSPECIFIED SNOMED Code(s): 35673623 Comment: - Cont home statin (9) Hypothyroid Comment: -Continue levothyroxine (10) DVT prophylaxis Comment: -Hold chemoprophylaxis in light of GIB; holding SCDs d/t chronic wounds to b/l LE Status and Disposition: Inpatient. Discharge back to [facility] when stable. Attending: Erica Martinez
[2019-06-26] MEDS: Nystatin TOP POWDER* 15 GM BTL TOPICAL SCH ×2 (13:47→23:04)
[2019-06-26] MEDS: Cefepime 1 GM in Dextrose(*) 1 GM/50 ML BAG IV SCH (15:59)
--- NOTE | 2019-06-26 17:21 | CONSULT ---
Subjective Date of Service: 06/26/19 Interval History: Ms. Chowdhury is a 74 yo female with PMH significant for depression, anxiety, bipolar disorder, DM2, venous stasis, CKD, and CHF; who presented to the emergency room with complaints of blood in her colostomy bag. She was admitted to the hospital with septic shock of unknown cause. Patient has had wounds to the left LE for 30 weeks, she is followed by the wound clinic at [facility]. She is also noted to have erythema to her buttocks. Patient seen and examined at bedside. Family History: Unchanged from Admission Social History: Unchanged from Admission Past Medical History: Unchanged from Admission Review of Systems - Measurements Intake and Output: Intake and Output Last 24 Hours 06/24/19 06/25/19 06/26/19 06/27/19 06:59 06:59 06:59 06:59 Intake Total 2822 1683 1450 658 Output Total 1310 2105 200 Balance 1512 -422 1250 658 Weight 205 lb 11.06 oz 207 lb 206 lb 8 oz Intake: IV Fluids 2375 1383 80 LR 492 889 abx 285 normal saline 1083 209 80 IVPB 390 300 abx 390 flagyl 300 Medicated IV 57 Levophed 57 Oral 300 1070 658 Output: Pagan 1310 2050 Colostomy 55 200 Other: Estimated Void Large Large # Bowel Movements 0 0 # Voids 2 1 - Review of Systems Constitutional Symptoms: Negative: Fever, Other - Chills Dermatology: Positive: Other - Chronic open areas to left lower leg Endocrinology: Positive: Diabetes Mellitus Objective Active Medications: Acetaminophen (Tylenol Tab*) 650 mg PO Q6H PRN Reason: MILD PAIN or TEMP > 100.4 Albuterol (Ventolin 2.5 Mg/3 Ml Neb.Keyana*) 2.5 mg INH Q4H PRN Reason: WHEEZING Aspirin (Aspirin 81 Mg Chew Tab*) 81 mg PO DAILY [facility] Atorvastatin Calcium (Lipitor*) 10 mg PO BEDTIME [facility] Carvedilol (Coreg Tab*) 3.125 mg PO BID [facility] Dextrose (Dextrose 50% Vial 50 Ml*) 25 ml IV PUSH .FOR FS < 60 - SS PRN Reason : FS < 60 Gabapentin (Neurontin Cap(*)) 600 mg PO BID [facility] Metronidazole/Sodium Chloride (Flagyl 500 Mg Ivpb*) 500 mg in 100 mls @ 100 mls /hr IVPB Q8H [facility] Cefepime HCl (Maxipime 1 Gm In Dextrose Duplex (*)) 1 gm in 50 mls @ 100 mls/ hr IV Q12H [facility] Insulin Glargine (Lantus(*)) 32 units SUBCUT BID [facility] Insulin Human Lispro (Humalog*) 0 units SUBCUT ACHS [facility]; Protocol Levothyroxine Sodium (Synthroid Tab*) 125 mcg PO 0600 [facility] Nystatin (Nystatin Top Powder*) 1 applic TOPICAL TID [facility] Prochlorperazine Edisylate (Compazine Inj*) 5 mg IV Q6H PRN Reason: NAUSEA/ VOMITING Sertraline HCl (Zoloft*) 100 mg PO QAM [facility] Vital Signs 06/26/19 15:46 Temperature 97.3 F Pulse Rate 89 Respiratory 22 Rate Blood Pressure 169/53 (mmHg) O2 Sat by Pulse 97 Oximetry Oxygen Devices in Use Now: None Appearance: NAD, laying in bed Ears/Nose/Mouth/Throat: Mucous Membranes Moist Respiratory: Symmetrical Chest Expansion and Respiratory Effort Skin: - - See skin note below Nutrition: Taking PO's Result Diagrams: 06/27/19 05:17 06/27/19 05:17 Additional Lab and Data: Above labs were pulled into the note, when the note was edited prior to signing the note on a later date. See below for labs from the day of consultation. Laboratory Tests 06/24/19 06/26/19 06/26/19 04:00 04:45 04:45 WBC 6.6 Hgb 8.8 L Hct 30 L Plt Count 341 Sodium 146 H D Potassium 3.3 L Chloride 113 H Carbon Dioxide 24 BUN 50 H Creatinine 1.54 H Glucose 106 H Total Protein 5.7 L Albumin 3.0 L Diagnostic Imaging: Exam Date: 10/23/18 1419 - VL ANK/BRACHIAL INDICES Right: Value (SBP) Index Brachial: 157 Posterior tibialis: 170 1.08 Dorsalis pedis: 155 0.99 Digit: 92 0.59 Left: Value (SBP) Index Brachial: 147 Posterior tibialis: 110 0.70 Dorsalis pedis: 130 0.83 Digit: 64 0.41 IMPRESSION: Claudication values and derangement of arterial waveforms are recorded in the left lower extremity. In the presence of a chronic left lower extremity wound this could be seen in the setting of "critical limb ischemia". Exam Date: 05/21/19 1310 - VL LOWER EXT VEINS BILATERAL IMPRESSION: #. No evidence for RIGHT lower extremity DVT with assessment of the peroneal veins is limited as noted. #. No evidence for LEFT lower extremity DVT through the popliteal vein. The calf veins could not be visualized limiting assessment. Patency of the LEFT posterior tibial and peroneal veins is indeterminate. #. Extensive LEFT lower leg subcutaneous edema. Skin Deviation Note - Skin Deviation Findings Left medial lower leg - There is an open area, the total area measures 8 cm x 24 cm x 0.2 cm. The wound base is pink and red granulation tissue. There is a small amount of serosang drainage. The surrounding skin with erythema. The skin above the open area is dry and intact. Left medial/anterior lower leg - See above description. There is dry and flaky skin on the left foot. Left anterior lower leg and dorsal left foot - See above regarding open area on the left leg. There is an open area to the left foot, measures 5 cm x 5 cm x 0.1 cm. The wound base is pink granulation tissue. There is no drainage noted. THe surrounding skin with erythema. Buttocks - Superficial skin peeling notes. There is erythema to bilateral buttocks that is blanchable, there is an area that is nonblanchable to bilateral buttocks. Surrounding skin is intact. Wound Problem/Plan Ms. Chowdhury is a 74 yo female with PMH significant for depression, anxiety, bipolar disorder, DM2, venous stasis, CKD, and CHF; who presented to the emergency room with complaints of blood in her colostomy bag. She was admitted with sepsis of unknown cause. Patient has had wounds to the left LE for 30 weeks , she is followed by the wound clinic. 1. Left LE venous stasis ulcers. Known abnormal ABIs. Wash leg with soap and water. Apply lotion to the intact skin. Recommend applying calcium alginate to the open areas, followed by 4x4 gauze, and rolled gauze. Change dressing every other day or as needed for drainage. If wounds continue to persist and not improve could consider using a collagen dressing. Refer back to the wound clinic on discharge. Could also consider using a barrier cream or Sensi-care barrier cream to the leg and leave open to the air. Suspect some of the issue is the dressing gets urine on it and is not changed frequently enough once soiled. 2. Buttocks. Apply barrier cream as needed. Frequent turning and repositioning. Use a lifting device for moving in bed. consider check a pre-albumin level. 3. DM2. HgA1C was 8.3 on 04/23/19. Maintain good glycemic control to allow for wound healing. 4. Morbid obesity. BMI 44.1 5. Diet. Consistent Carbohydrate diet. 6. Code Status. Full Code Status. Is Patient a Wound Clinic Patient: Yes - Dr. Downing Current Treatment: Acticoat flex, change once weekly Status and Disposition: Disposition. Inpatient, disposition per primary medicine team. Counseling and/or Coordination of Care Minutes: 35 Points of Discussion: TIME SPENT: Time for this wound consult was 35 minutes and 25 minutes was spent with the patient discussing past medical history; removing old dressing; assessing, measuring, and photographing the wounds; reapply the dressing. Attending: Coco Charles
[2019-06-26] MEDS ORDERED: Vancomycin Trough Check NOTE FOLLOW UP ONE (17:30)
[2019-06-26] MEDS: Carvedilol TAB* 3.125 MG PO SCH (21:04)
[2019-06-26] MEDS: Atorvastatin* 10 MG TAB PO SCH (21:04)
[2019-06-27] MEDS: Cefepime 1 GM in Dextrose(*) 1 GM/50 ML BAG IV SCH ×2 (02:30→15:42)
[2019-06-27] MEDS: Levothyroxine TAB* 125 MCG TAB PO SCH (05:32)
[2019-06-27 05:53] LABS: ABS Eosinophils 0.2 10^3/ul (0-0.6); ABS Lymphocytes 0.8 10^3/ul (1.0-4.8); ABS Monocytes 0.7 10^3/ul (0-0.8); Eosinophil % 2.6 %; Hematocrit 26 % (35-47); Hemoglobin 8.4 g/dL (12.0-16.0); Lymphocyte % 11.4 %; Mean Corpuscular HGB Conc 33 g/dL (31-36); Mean Corpuscular Hemoglobin 28 pg (27-31); Mean Corpuscular Volume 84 fL (80-97); Mean Platelet Volume 6.3 fL (7.4-10.4); Platelet Count 371 10^3/uL (150-450); Red Blood Count 3.06 10^6 /uL (3.70-4.87); Red Cell Distribution Width 16 % (10-15); White Blood Count 6.7 10^3/uL (3.5-10.8)
[2019-06-27 06:06] LABS: BUN/Creatinine Ratio 28.2 (8-20); Calcium 8.5 mg/dL (8.6-10.3); EGFR African American 48.3 (>60); EGFR Non-African American 39.9 (>60); Potassium 3.5 mmol/L (3.5-5.0)
[2019-06-27] MEDS: Insulin GLARGINE(*) 1 UNITS UNIT SUBCUT SCH (08:46)
[2019-06-27] MEDS: metroNIDAZOLE IV 500 MG/100ML* 500 MG/100 ML BAG IVPB SCH ×2 (08:46→15:54)
[2019-06-27] MEDS: Carvedilol TAB* 3.125 MG PO SCH (08:47)
[2019-06-27] MEDS: Aspirin 81 mg CHEW TAB* 81 MG TAB.CHEW PO SCH (08:47)
[2019-06-27] MEDS: Sertraline* 100 MG TAB PO SCH (08:47)
[2019-06-27] MEDS: Insulin LISPRO* 1 UNITS UNIT SUBCUT SCH ×2 (08:47→12:40)
[2019-06-27] MEDS: Gabapentin CAP(*) 300 MG PO SCH (08:48)
[2019-06-27] MEDS: Nystatin TOP POWDER* 15 GM BTL TOPICAL SCH ×2 (09:20→14:57)
[2019-06-27 11:41] VITALS: BP 149/50
[2019-06-27] MEDS: Acetaminophen TAB* 325 MG PO PRN (14:57)
--- NOTE | 2019-06-27 15:15 | DS ---
DATE OF ADMISSION: 06/23/2019. DATE OF DISCHARGE: 06/27/2019. PRIMARY CARE PHYSICIAN: Daya Little NP. ATTENDING PHYSICIAN: Dr. Eloisa Martinez * (dictated by Bryan Pulido NP). PRIMARY DIAGNOSES: 1. Colitis. 2. GI bleed. 3. Septic shock. 4. CHF. 5. Diabetes. 6. Acute kidney injury superimposed on CKD. 7. Wound to left lower extremity. 8. Hyperlipidemia. 9. Hypothyroid. SECONDARY DIAGNOSES: 1. Depression. 2. Anxiety. 3. Bipolar disorder. 4. History of rectal carcinoma. CONSULTATIONS WHILE IN THE HOSPITAL: Dr. Mason, GI. STUDIES WHILE IN THE HOSPITAL: 1. Abdomen/pelvis CT: Impression: There is diffuse wall thickening noted of the descending colon. Findings are compatible with a nonspecific colitis. There are multiple gallstones noted in the gallbladder. There is a complex right renal cyst noted at the lower pole measuring approximately 3.2 x 2.8 cm. Recommend renal protocol imaging for further evaluation. 2. EKG: Impression: Sinus rhythm. 3. Chest x-ray: Impression: No evidence for acute disease. DISCHARGE MEDICATIONS: Continued home medications: 1. Acetaminophen 1,000 mg p.o. q.8 hours prn pain or fever. 2. Albuterol 2.5 mg inhaled q.4 hours prn shortness of breath or wheezing. 3. Aspirin 81 mg p.o. daily. 4. Biofreeze topical b.i.d. to left shoulder. 5. Calcium Alginate dressing topically daily to lower left extremity wounds. 6. Calcium Carbonate plus vitamin D one tab p.o. b.i.d. 7. Coreg 3.125 mg p.o. b.i.d. 8. Dextromethorphan-Guaifenesin 10/100 mg 10 ml p.o. q.4 hours prn cough. 9. Doxepin 10 mg p.o. at bedtime. 10. Furosemide 40 mg p.o. daily. 11. Gabapentin 600 mg p.o. b.i.d. 12. NovoLog 20 units subcu after meals. 13. Basaglar insulin 40 units subcu b.i.d. 14. Levothyroxine 125 mcg p.o. q.a.m. 15. Liraglutide 1.8 mg subcutaneously at bedtime. 16. Metolazone 2.5 mg p.o. daily. 17. Entresto 49/51 mg one tab p.o. at 8:00 a.m. and at 4:00 p.m. 18. Sertraline 100 mg p.o. q.a.m. 19. Simvastatin 20 mg p.o. at bedtime. 20. Skin protectant daily. 21. Spironolactone 25 mg p.o. daily. 22. Tramadol 50 mg p.o. t.i.d. New home medications: 1. Flagyl 500 mg p.o. t.i.d. times 4 days. 2. Cefuroxime 500 mg p.o. b.i.d. times 4 days. HISTORY OF PRESENT ILLNESS/HOSPITAL COURSE: Ms. Chowdhury is a 74-year-old female with a past medical history significant for depression, anxiety, bipolar , rectal carcinoma, hypothyroid, hyperlipidemia, diabetes, CKD, and systolic congestive heart failure who presented to the emergency department from [facility] with complaints of blood in her ostomy bag. Please see history and physical dictated by Dr. Holly Somers for a complete summary of the events up to this hospitalization. In short, the patient was found to be in septic shock while in the emergency room. Given complaints of right lower quadrant pain, the patient was admitted to the ICU and a CT of the abdomen and pelvis was ordered. While in the ICU, the patient received IV fluids, antibiotics, and vasopressors. CT revealed colitis. The patient's antibiotics of Flagyl and Cefepime were continued. The patient improved with support and was transferred to the medical floor. The patient was also seen by Dr. Mason from GI given reports of blood in her ostomy bag from [facility] and findings of colitis on CT. Dr. Damaris Alvarado recommended monitoring CBC, continued supportive care, avoiding hypotension, and continuing antibiotics. There was discussion of a colonoscopy through her ostomy, but the patient quite strongly did not want to proceed with this evaluation. During this hospital stay, the patient's H and H remained stable. The patient' s leukocytosis has improved. The patient has remained afebrile. The patient's blood pressure is now mildly hypertensive and she will be resuming her home medications. The patient got up with physical therapy and occupational therapy and it was deemed that the patient is at her baseline. The patient has had no overt blood noted in her ostomy. The patient is stable for discharge to [facility]. Vital signs: Temperature 97.2, heart rate 79, respiratory rate 16, O2 saturation 96 percent on room air, blood pressure 149/50. REVIEW OF SYSTEMS: The patient denies abdominal pain, nausea, vomiting, fever, chills, dizziness, chest pain, and shortness of breath. A 14 point review of systems was completed and all were negative. PHYSICAL EXAMINATION: General: Ms. Chowdhury is a 74-year-old female who is lying in bed. She appears to be in no acute distress. She appears her stated age. HEENT: EOM's intact. PERRLA. Oral mucosa is moist without lesion. Posterior pharynx is clear. Neck: Supple, no lymphadenopathy. Cardiac: S1, S2 present. Slight systolic murmur. No rubs or gallops. Regular rate and rhythm. Respiratory: Lungs are clear to auscultation. No accessory muscle use. Good aeration. No wheezes, rhonchi, or rubs. Abdomen: Soft, nontender. Bowel sounds normoactive. Ostomy is draining brown/ green stool. No blood noted. Extremities: No edema. No clubbing or cyanosis. Peripheral pulse is 2+ bilaterally. Musculoskeletal: No pain or deformities. Skin: The patient has chronic venous stasis ulcers to the left lower extremity. Dressing was changed today and was clean, dry and intact. Neuro: Neuro exam is grossly intact. No focal deficits or weakness. LABORATORY DATA: WBC 6.7, hemoglobin 8.4, hematocrit 26, platelet 371; sodium 143, potassium 3.5, chloride 112, carbon dioxide 24, BUN 37, creatinine 1.31, glucose 144. DISCHARGE PLAN/FOLLOW-UP: 1. Colitis: As mentioned above, the patient's CT revealed evidence of colitis. Possible ischemic versus infectious. The patient has improved with IV antibiotics of Flagyl and Cefepime. The patient will be discharged on Cefuroxime and Flagyl to complete a total of seven days of antibiotics. The patient should have a repeat CBC in one to three days to monitor her hemoglobin and hematocrit. I would recommend if she has any increase in anemia or new bleeding in the ostomy, that she follow-up with GI or return to the emergency department. 2. GI bleed: The patient was initially sent to the emergency department as nurses noted blood in her ostomy. The patient's stool was positive for blood, but no visible blood in the ostomy since that time. The patient is refusing colonoscopy. We have been monitoring her H and H which has remained stable while an inpatient. I would recommend following up with her H and H in one to three days. If the patient has recurrence of blood and/or a dip in her hemoglobin/hematocrit, I would recommend either following up with Gastroenterology or come into the emergency department depending on the severity. 3. Septic shock: As mentioned above, the patient met septic shock criteria and was admitted to the ICU on vasopressors. The patient was also ellsworth cultured and her blood cultures had no growth. The patient has stabilized well. The patient may resume her home medications. 4. CHF: The patient had no evidence of congestive heart failure exacerbation. I would continue her home medications of Entresto, Furosemide, Spironolactone , and Coreg. I would continue weighing the patient daily and contact her primary care and/or [employer] if she has a greater than three pound weight gain in one day. 5. Diabetes: The patient can resume her home diabetic regimen. The patient should adhere to a diabetic diet. 6. YESSY superimposed on CKD: On admission, the patient's creatinine was elevated at 2.85 which is markedly above her baseline. With IV fluids and supportive care, she is now back to her baseline and her creatinine is 1.13. I would monitor BMP in one week. 7. Open wound left lower extremity: While patient was here in the hospital, she was evaluated by Wound Care who evaluated her chronic left lower leg venous stasis ulcer and also her buttocks. It was recommended that patient apply calcium alginate to open areas followed by 4 x 4 gauze and rolled gauze. This dressing should be changed every other day or as needed for drainage. The patient should also follow-up with the [facility], who she is also established with. If she does not already have a follow-up, she should make one for next week. It could also be considered using a barrier cream or Sensi- Care barrier cream to the leg and leave open to air if the dressing is continuously moist. As for the buttocks, the patient should have barrier cream applied and frequent turning and positioning. The patient should avoid being left in wet Depends. 8. Hyperlipidemia: The patient should continue her statin. 9. Hypothyroid: The patient should continue her Levothyroxine. 10. Anxiety, depression: The patient should continue her Sertraline 100 mg p.o. q.a.m. 11. Bipolar disorder: The patient should continue her home medication regimen and have supportive care. 12. History of rectal carcinoma: The patient should follow-up with her primary care and have recommended screenings. 13. Follow-up: The patient should call to schedule a follow-up with the [facility] next week. She is already established with this office, therefore they should be able to accommodate. The patient should be seen by her primary care provider or primary care provider at [facility] in one to three days. The patient should have a repeat CBC in three days. The patient should have a repeat BMP in one week. I am recommending the repeat CBC to assess her anemia. I am recommending the repeat BMP to assess her electrolyte status. I will be restarting her home medications, some of which can alter electrolytes. These medications have been held while she was in the hospital given her septic shock. 14. The patient should return to the emergency department if she has any returning, new, or worsening symptoms, including but not limited to blood in her ostomy, fever, chills, syncope, chest pain, shortness of breath. This is a summarized report of a complex medical history and hospital stay. For further details, please see the entire medical record. TIME SPENT: Approximately 40 minutes were spent on this discharge, greater than half that time was spent [id number] with the patient discussing discharge plans and instructions. This plan has also been discussed with my attending, Dr. Eloisa Martinez, who is in agreement with my plan of care. Reviewed by BRYAN PULIDO NP 07/04/19 @ [id number]/CPS #: [id number] RYAN
== END 2019-06-27 16:20 | DRG 871 ==
LOC: ED 18:02 → ICU 20:58 → MED 06-24 18:55
PROVIDERS: ADMIT Internal Medicine; ATTEND Internal Medicine
PROC: 06HM33Z Insertion of Infusion Device into Right Femoral Vein, Percutaneous Approach (ICD-10-PCS; principal; 2019-06-23)
PROC: B54BZZA Ultrasonography of Right Lower Extremity Veins, Guidance (ICD-10-PCS; 2019-06-23)
DX: A41.9 Sepsis, unspecified organism (principal); R65.21 Severe sepsis with septic shock; N18.4 Chronic kidney disease, stage 4 (severe); I13.0 Hypertensive heart and chronic kidney disease with heart failure and stage 1 through stage 4 chronic kidney disease, or unspecified chronic kidney disease; K55.9 Vascular disorder of intestine, unspecified; N17.9 Acute kidney failure, unspecified; K92.2 Gastrointestinal hemorrhage, unspecified; L03.116 Cellulitis of left lower limb; I50.22 Chronic systolic (congestive) heart failure; 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 of unspecified part of left lower leg with unspecified severity; E11.22 Type 2 diabetes mellitus with diabetic chronic kidney disease; F31.9 Bipolar disorder, unspecified; E78.5 Hyperlipidemia, unspecified; L89.159 Pressure ulcer of sacral region, unspecified stage; M47.9 Spondylosis, unspecified; F41.9 Anxiety disorder, unspecified; I83.029 Varicose veins of left lower extremity with ulcer of unspecified site; E66.01 Morbid (severe) obesity due to excess calories; Z68.41 Body mass index [BMI] 40.0-44.9, adult; Z85.048 Personal history of other malignant neoplasm of rectum, rectosigmoid junction, and anus; Z79.82 Long term (current) use of aspirin; Z93.3 Colostomy status; Z90.49 Acquired absence of other specified parts of digestive tract; Z88.8 Allergy status to other drugs, medicaments and biological substances; Z88.0 Allergy status to penicillin; Z82.49 Family history of ischemic heart disease and other diseases of the circulatory system; Z91.5 Personal history of self-harm; Z92.21 Personal history of antineoplastic chemotherapy; Z92.3 Personal history of irradiation
CPT/HCPCS: 36415; 71045; 74176; 80048; 80053; 80202; 81003; 82272; 82533; 83605; 83735; 84443; 84484; 85014; 85018; 85025; 85610; 86850; 86900; 86901; 87040; 93005; 94640; 99285; A9270-GY; G8978-GP-CK; G8979-GP-CI; J0692; J0780; J1644; J1720; J3370

== ENCOUNTER 2019-06-28 09:00 | Emergency (ER) | payer MEDICARE, MEDICAID ==
--- OUTSIDE RECORDS SUMMARY | 2019-06-28 09:26 | XMS REPORT | Continuity of Care Document ---
:1945 External Reference #:[id number] Author Name Shayla Alberto Care Team Providers Name Role Phone Blaine David MD Primary Care Physician Unavailable Payers Date Identification Numbers Payment Provider Subscriber Policy Number: [id number] [employer] Medicare Tamiko Chowdhury PayID: [id number] [address] [place] [address] Expires: 2017 Policy Number: [id number] Medicare Tamiko Chowdhury PayID: [id number] [address] [place] [address] Policy Number: [id number] Medicaid Tamiko Chowdhury Group Name: 1 1 [address] PayID: [id number] [place] [address] Family History Date Family Member(s) Observation Comments Father due to ME () Mother due to ME () Siblings 1 1 sister, from [place] Social History Type Date Description Comments Sex Unknown Lives With Assisted living ETOH Use Occasionally consumes alcohol wine Tobacco Use Start: Unknown End: Patient is a former smoker Unknown Recreational Drug Use Denies Drug Use Smoking Status Reviewed: 06/22/19 Patient is a former smoker Allergies, Adverse Reactions, Alerts Active Allergies Reaction Severity Comments Date Penicillin 01/14/2015 [place] pt almost 01/14/2015 Medications Active Medications SIG Qnty Indications Ordering Date Provider Victoza start 0.6mg for 1 9ml E11.22 Miguel Angel Hurley MD 05/10/2019 18mg/3ML Solution week, then 1.2mg Pen-Inject for 1 week, then 1.8mg daily Basaglar Kwikpen 60 units in the 15ml Miguel Angel Hurley MD 02/08/2019 100Unit/ML am, 40 units at Solution Pen-Inject bedtime. Tramadol HCL 1-2 tablets by Unknown 50mg Tablets mouth every 6 hours as needed pain Sertraline HCL 1 by mouth every Unknown 100mg day Tablets Spironolactone 1 by mouth every Unknown 25mg Tablets day Carvedilol 1 by mouth twice a Unknown 3.125mg Tablets day Calcium take one tablet by Unknown Carbonate-Vitamin D mouth twice a day with food [id number] Tablets Novolog Flexpen 20 units with 30ml Miguel Angel Hurley MD 100Unit/ML meals plus sliding Solution Pen-Inject scale, mdd 100 Aspirin 81 Low Dose 1 by mouth every Unknown 81mg day Chewtabs Metolazone take 1 tablet by Unknown 2.5mg Tablets mouth every morning as needed 30 minutes prior to furosemide Entresto 1 tab by mouth Unknown 49-51mg Tablets twice daily Simvastatin 1 by mouth every Unknown 20mg Tablets day Doxepin HCL 1 tablet at Unknown 10mg Capsules bedtime Toujeo Solostar 40 units am, and 9ml Miguel Angel Hurley MD 300Unit/ML 40 units pm or as Solution Pen-Inject directed, mdd 90 Gabapentin 2 tabets twice Nicole-Ko, 300mg Capsules daily Theresa, JORGE L Furosemide 1 tablet daily Roma Mendoza 40mg Tablets A., NON PROFIT JOB TITLES Levothyroxine Sodium Atbeverly, 125mcg Basia, P.A. Tablets History Medications Januvia take 100mg once 30tabs Miguel Angel Hurley MD 11/02/2018 - 100mg Tablets daily by mouth 05/10/2019 Januvia 1 by mouth every 90tabs Miguel Angel Hurley MD 11/02/2018 - 25mg Tablets day 11/02/2018 Trazodone HCL Marlee Gupta - 50mg Tablets A.MD 03/01/2018 Calcium Carbonate Unknown - 600mg Tablets 03/01/2018 Vesicare Unknown - 5mg Tablets 10/31/2018 Humalog Unknown - 100Unit/ML Solution 02/07/2019 Albuterol Sulfate Unknown - (2.5mg/3ML) 06/21/2019 0.083% Nebulizer Sertraline HCL Unknown - 25mg Tablets 10/25/2018 Nyamyc Unknown - [id number]/GM Powder 03/01/2018 Aripiprazole take one tablet Unknown - 5mg Tablets by mouth nightly 10/31/2018 at bedtime Potassium Chloride Mattie ER 1 by mouth every Unknown - 10Meq day 06/21/2019 Tablets ER Januvia 1 by mouth every Unknown - 25mg Tablets day 10/25/2018 Ferrous Sulfate take 1 tablet Unknown - 325(65Fe) mg once daily. 06/21/2019 Tablets Nystatin topically twice a Unknown - [id number] Cream day as needed 06/21/2019 Ciprofloxacin HCL one by mouth Unknown - 250mg Tablets twice a day for 7 10/31/2018 days Robitussin Nighttime Cough Unknown - DM 06/21/2019 12.5-30mg/10ML Liquid Benzonatate take one or two Unknown - 100mg Capsules capsules every 8 06/21/2019 hours as needed for cough. Basaglar Kwikpen 95 units daily Unknown - 100Unit/ML 10/31/2018 Solution Pen-Inject Moxifloxacin HCL 1 by mouth every Unknown - 400mg Tablets day for 7 days 05/28/2019 Doxycycline Hyclate one tablet twice Unknown - 100mg Capsules daily 06/21/2019 Abilify Unknown - 5mg Tablets 10/31/2018 Glipizide ER Lewis, - 5mg Tablets ER 24HR Viet Gates, RPA 10/31/2018 Klor-Con M20 Lewis, - 20Meq Tablets ER Viet Gates RPA 03/01/2018 Omeprazole Lewis, - 20mg Capsules DR Viet Gates, RPA 03/01/2018 Pioglitazone HCL Lewis, - 30mg Tablets Viet Gates, RPA 03/01/2018 Sertraline HCL 1 daily Lewis, - 50mg Tablets Viet Gates, RPA 02/08/2019 Alendronate Sodium Lewis, - 70mg Tablets Viet Gates, RPA 03/01/2018 Lisinopril Nicole-Ko, - 5mg Tablets Theresa, NON PROFIT JOB TITLES 03/01/2018 Piroxicam Unknown - 20mg Capsules 03/01/2018 Levothyroxine Sodium Lewis, - 100mcg Tablets Viet Gates, RPA 10/27/2018 Toviaz Lewis, - 8mg Tablets ER 24HR Viet Gates, RPA 03/01/2018 Hydrochlorothiazide Lewis, - 12.5mg Capsules Viet Gates, RPA 03/01/2018 Diovan Lewis, - 320mg Tablets Viet Gates, RPA 06/17/2015 Fluconazole Atkins, - 150mg Tablets Bianca Flor 03/01/2018 Metoprolol Succinate ER Cheng Mixon, - 100mg MD 03/01/2018 Tablets ER 24HR Sulfacetamide Sodium Unknown - 10% Solution 03/01/2018 Glipizide XL Marlee Gupta - 2.5mg Tablets ER 24HR MD Colby 10/31/2018 Olanzapine Marlee Gupta - 15mg Tablets MD Colby 03/01/2018 Tolterodine Tartrate ER Marlee Gupta - 4mg Caps ER MD Colby 03/01/2018 24HR Medications Administered in Office Medication SIG Qnty Indications Ordering Provider Date Depomedrol 40MG Александр Jackson MD 03/02/2018 Injection Depomedrol 80MG Alhaji De M.D. 02/11/2015 Injection Vital Signs Date Vital Result Comment 06/22/2019 2:21pm Height 60 inches 5'0" Heart Rate 111 /min BP Systolic Sitting 104 mmHg BP Diastolic Sitting 62 mmHg Respiratory Rate 14 /min Body Temperature 98.9 F 05/10/2019 11:10am Height 60 inches 5'0" Weight 216.00 lb w/ shoes Heart Rate 82 /min BP Systolic Sitting 120 mmHg BP Diastolic Sitting 60 mmHg BMI (Body Mass Index) 42.2 kg/m2 02/08/2019 10:54am Height 60 inches 5'0" Weight 213.00 lb w/ shoes Heart Rate 82 /min BP Systolic Sitting 118 mmHg BP Diastolic Sitting 68 mmHg BMI (Body Mass Index) 41.6 kg/m2 12/05/2018 10:54am Height 60 inches 5'0" Weight 216.00 lb w/ coat and shoes Heart Rate 80 /min BP Systolic Sitting 104 mmHg BP Diastolic Sitting 62 mmHg BMI (Body Mass Index) 42.2 kg/m2 11/02/2018 10:37am Height 60 inches 5'0" Weight 200.00 lb w/ shoes Heart Rate 78 /min BP Systolic Sitting 132 mmHg BP Diastolic Sitting 68 mmHg BMI (Body Mass Index) 39.1 kg/m2 08/24/2018 9:49am Height 60 inches 5'0" Heart Rate 98 /min BP Systolic 126 mmHg BP Diastolic 72 mmHg Respiratory Rate 20 /min Pain Level 0 05/25/2018 10:31am Height 60 inches 5'0" Weight 206.00 lb Heart Rate 72 /min BP Systolic 140 mmHg BP Diastolic 78 mmHg Respiratory Rate 12 /min Pain Level 0 BMI (Body Mass Index) 40.2 kg/m2 03/02/2018 9:39am Height 60 inches 5'0" Weight 206.00 lb BP Systolic 132 mmHg BP Diastolic 86 mmHg Respiratory Rate 15 /min Pain Level 6 BMI (Body Mass Index) 40.2 kg/m2 06/17/2015 8:42am Heart Rate 88 /min BP Systolic Sitting 138 mmHg BP Diastolic Sitting 88 mmHg 02/11/2015 9:22am Heart Rate 88 /min BP Systolic Sitting 128 mmHg BP Diastolic Sitting 88 mmHg 01/14/2015 9:22am Height 58 inches 4'10" Weight 190.00 lb Heart Rate 88 /min BP Systolic Sitting 128 mmHg BP Diastolic Sitting 88 mmHg BMI (Body Mass Index) 39.7 kg/m2 Results Test Date Facility Test Result H/L Range Note Laboratory test 03/16/2019 [facility] Point of Care 159 mg/dL High 70-[address] [address] [phone] Laboratory test 02/08/2019 [facility] Glucose Random 124 finding Hemoglobin A1c 8.3 High 5-7 Laboratory test finding 12/05/2018 [facility] Glucose Random 254 Laboratory test finding 11/02/2018 [facility] Glucose Random 407 Ketones 0.1 1 Lighting Adviser: [id number] Procedures Date Code Description Status 02/16/2019 88907 Removal Devitalized Tissue Wound Greater Than 20 Square CM Completed 02/16/2019 23454 Removal Devitalization Tissue Wound Less Than Equal 20 Completed Square CM 12/15/2018 48400 Removal Devitalized Tissue Wound Greater Than 20 Square CM Completed 12/15/2018 14333 Removal Devitalization Tissue Wound Less Than Equal 20 Completed Square CM 10/27/2018 38985 Removal Devitalized Tissue Wound Greater Than 20 Square CM Completed 10/27/2018 36239 Removal Devitalization Tissue Wound Less Than Equal 20 Completed Square CM 10/23/2018 23591 ECHO Transthorasic Realtime 2D W Doppler & Color Flow Hosp Completed 03/02/2018 54240 Inject/Drain Joint/Bursa Major W/O US Completed 06/17/2015 39217 Xray Knee 3 Views Completed 02/11/2015 55649 Inject/Drain Joint/Bursa Major W/O US Completed Encounters Type Date Location Provider Dx Diagnosis Office Visit 05/25/2019 [facility] L97.929 Non-prs chronic 11:41a Assoc,pc Doto, NON PROFIT JOB TITLES ulc unsp prt of Hospitalists l low leg w unsp severity E11.622 Type 2 diabetes mellitus with other skin ulcer A41.9 Sepsis, unspecified organism N17.9 Acute kidney failure, unspecified 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 Yessica A41.9 Sepsis, Assoc,pc Obed, PA-C unspecified Hospitalists organism R65.21 Severe sepsis with septic shock N17.9 Acute kidney failure, unspecified L97.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 R06.2 Wheezing Office Visit 05/22/2019 8:30a Wound Care Nava Herr L03.116 Cellulitis of Center AT [facility] Mejia, JORGE L left lower limb L97.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 Office Visit 05/21/2019 [facility] J96.00 Acute respiratory 11:39a Assoc,pc Obed, PAKeshiaC failure, unsp w Hospitalists hypoxia or hypercapnia N17.9 Acute kidney failure, unspecified R65.21 Severe sepsis with septic shock A41.9 Sepsis, unspecified organism L97.928 Non-prs chronic ulc unsp prt of l low leg with oth severity Office Visit 05/10/2019 11:40a [facility] Miguel Angel Hurley, E11.22 Type 2 diabetes [facility] MD mellitus w diabetic chronic kidney disease N18.3 Chronic kidney disease, stage 3 (moderate) Office Visit 05/04/2019 11:00a Wound Care Uriel Chua I87.2 Venous insufficiency Center AT [facility] Figueroa MD, (chronic) FACS (peripheral) L97.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 D50.8 Other iron deficiency anemias M19.90 Unspecified osteoarthritis, unspecified site E03.9 Hypothyroidism, unspecified L03.116 Cellulitis of left lower limb Office Visit 04/27/2019 10:00a Wound Care Uriel Chua I87.2 Venous insufficiency Center AT [facility] Fgiueroa MD, (chronic) FACS (peripheral) L97.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 D50.8 Other iron deficiency anemias M19.90 Unspecified osteoarthritis, unspecified site E03.9 Hypothyroidism, unspecified L03.116 Cellulitis of left lower limb Office Visit 04/13/2019 10:00a Wound Care Uriel Chua I87.2 Venous insufficiency Center AT [facility] Figueroa MD, (chronic) FACS (peripheral) L97.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 D50.8 Other iron deficiency anemias M19.90 Unspecified osteoarthritis, unspecified site E03.9 Hypothyroidism, unspecified L03.119 Cellulitis of unspecified part of limb Office Visit 03/30/2019 10:45a Wound Care Uriel Chua I87.2 Venous insufficiency Center AT [facility] Figueroa MD, (chronic) FACS (peripheral) L97.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 D50.8 Other iron deficiency anemias M19.90 Unspecified osteoarthritis, unspecified site E03.9 Hypothyroidism, unspecified L03.116 Cellulitis of left lower limb Office Visit 03/23/2019 11:00a Wound Care Uriel Chua I87.2 Venous insufficiency Center AT [facility] Figueroa MD, (chronic) FACS (peripheral) L97.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 D50.8 Other iron deficiency anemias M19.90 Unspecified osteoarthritis, unspecified site E03.9 Hypothyroidism, unspecified L03.116 Cellulitis of left lower limb [facility]116 Cellulitis of 10:31a peggy Guzman M.D. 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 Alecia Hohn, L03.116 Cellulitis of 10:30a peggy Guzman M.D. 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 Alecia Hohn, L03.116 Cellulitis of 10:30a peggy Guzman M.D. 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 [place] L03.116 Cellulitis of 10:30a peggy Guzman NP left lower limb Hospitalists E11.22 Type 2 diabetes mellitus w diabetic chronic kidney disease N18.3 Chronic kidney disease, stage 3 (moderate) I50.30 Unspecified diastolic (congestive) heart failure Office Visit 03/16/2019 10:30a Wound Care Uriel Chua I87.2 Venous insufficiency Center AT [facility] MD Henry, (chronic) FACS (peripheral) L97.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 D50.8 Other iron deficiency anemias M19.90 Unspecified osteoarthritis, unspecified site E03.9 Hypothyroidism, unspecified L03.116 Cellulitis of left lower limb Office Visit 03/09/2019 10:30a Wound Care Uriel P. I87.2 Venous insufficiency Center AT [facility] Figueroa MD, (chronic) FACS (peripheral) L97.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 D50.8 Other iron deficiency anemias M19.90 Unspecified osteoarthritis, unspecified site E03.9 Hypothyroidism, unspecified L03.116 Cellulitis of left lower limb Office Visit 03/02/2019 10:30a Wound Care Uriel P. I87.2 Venous insufficiency Center AT [facility] Figueroa MD, (chronic) FACS (peripheral) L97.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 D50.8 Other iron deficiency anemias M19.90 Unspecified osteoarthritis, unspecified site E03.9 Hypothyroidism, unspecified L03.116 Cellulitis of left lower limb Office Visit 02/09/2019 10:00a Wound Care Uriel Chua I87.2 Venous insufficiency Center AT [facility] Figueroa MD, (chronic) FACS (peripheral) L97.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 D50.8 Other iron deficiency anemias M19.90 Unspecified osteoarthritis, unspecified site E03.9 Hypothyroidism, unspecified Office Visit 02/08/2019 [facility] Michelle Coch, E11.9 Type 2 diabetes 11:20a Endocrinology of mellitus without [facility] complications Office Visit 02/02/2019 [facility] Uriel P. I87.2 Venous 10:15a AT [facility] Figueroa MD, insufficiency FACS (chronic) (peripheral) L97.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 D50.8 Other iron deficiency anemias M19.90 Unspecified osteoarthritis, unspecified site E03.9 Hypothyroidism, unspecified Office Visit 01/26/2019 9:45a Wound Care Uriel P. I87.2 Venous insufficiency Center AT [facility] Figueroa MD, (chronic) FACS (peripheral) L97.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 D50.8 Other iron deficiency anemias M19.90 Unspecified osteoarthritis, unspecified site E03.9 Hypothyroidism, unspecified Office Visit 01/19/2019 10:30a Wound Care Uriel P. I87.2 Venous insufficiency Center AT [facility] Figueroa MD, (chronic) FACS (peripheral) L97.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 D50.8 Other iron deficiency anemias M19.90 Unspecified osteoarthritis, unspecified site E03.9 Hypothyroidism, unspecified Office Visit 01/05/2019 10:30a Wound Care Uriel P. I87.2 Venous insufficiency Center AT [facility] Figueroa MD, (chronic) FACS (peripheral) L97.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 D50.8 Other iron deficiency anemias M19.90 Unspecified osteoarthritis, unspecified site E03.9 Hypothyroidism, unspecified Office Visit 12/22/2018 10:00a Wound Care Uriel Chua I87.2 Venous insufficiency Center AT [facility] Figueroa MD, (chronic) FACS (peripheral) L97.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 D50.8 Other iron deficiency anemias M19.90 Unspecified osteoarthritis, unspecified site E03.9 Hypothyroidism, unspecified Office Visit 12/05/2018 [facility] Michelle Coch, E11.65 Type 2 diabetes 11:00a Endocrinology of MD mellitus with [facility]ia[facility] hyperglycemia I83.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 veins of 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 E03.9 Hypothyroidism, unspecified Z79.4 termite treater (current) use of insulin E11.69 Type 2 diabetes mellitus with other specified complication Office Visit 11/24/2018 11:00a Wound Care Uriel Chua I87.2 Venous insufficiency Center AT [facility] Figueroa MD, (chronic) FACS (peripheral) L97.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 D50.8 Other iron deficiency anemias M19.90 Unspecified osteoarthritis, unspecified site E03.9 Hypothyroidism, unspecified Office Visit 11/10/2018 11:15a Wound Care Uriel Chua I87.2 Venous insufficiency Center AT [facility] Figueroa MD, (chronic) FACS (peripheral) L97.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 D50.8 Other iron deficiency anemias M19.90 Unspecified osteoarthritis, unspecified site E03.9 Hypothyroidism, unspecified Office Visit 11/02/2018 [facility] Miguel Angel Coch, E11.65 Type 2 diabetes 11:20a [facility] of [place] mellitus with [facility] hyperglycemia Z79.4 half-way (current) use of insulin Office Visit 10/25/2018 11:17a [facility] E11.622 Type 2 Assoc,peggy Taylor NP diabetes Hospitalists mellitus with other skin ulcer E11.22 Type 2 diabetes mellitus w diabetic chronic kidney disease N18.3 Chronic kidney disease, stage 3 (moderate) Z79.4 termite treater (current) use of insulin I50.9 Heart failure, unspecified Office Visit 10/25/2018 [facility] Serafin Reina I87.2 Venous 12:23p For Infectious Di Vasquez insufficiency Diseases (chronic) (peripheral) B95.4 Oth streptococcus as the cause of diseases classd elswhr E11.9 Type 2 diabetes mellitus without complications Office Visit 10/24/2018 11:17a [facility] E11.622 Type 2 Assoc,peggy Taylor NP diabetes Hospitalists mellitus with other skin ulcer L97.828 Non-prs chronic ulcer oth prt l low leg with oth severity E11.22 Type 2 diabetes mellitus w diabetic chronic kidney disease N18.3 Chronic kidney disease, stage 3 (moderate) Z79.4 half-way (current) use of insulin I50.9 Heart failure, unspecified Office Visit 10/24/2018 3:05p [facility] Francois Huizar I87.2 Venous insufficiency [facility] Daniel M.D. (chronic) (peripheral) I10 Essential (primary) hypertension Office Visit 10/23/2018 11:16a [facility] E11.622 Type 2 Assoc,peggy Dyer D.O. diabetes Hospitalists mellitus with other skin ulcer L97.828 Non-prs chronic ulcer oth prt l low leg with oth severity Z79.4 half-way (current) use of insulin N18.3 Chronic kidney disease, stage 3 (moderate) E11.22 Type 2 diabetes mellitus w diabetic chronic kidney disease I50.9 Heart failure, unspecified Office Visit 08/24/2018 Orth[facility] Александр Angel M77.02 Medial 10:00a [facility] epicondylitis, left C.M.A. elbow Office Visit 05/25/2018 Orthopedic Александр Angel S46.012A Strain of musc/tend 10:00a [facility] the rotator cuff of C.M.A. left shoulder, init M75.52 Bursitis of left shoulder M77.02 Medial epicondylitis, left elbow M75.82 Other shoulder lesions, left shoulder Office Visit 03/02/2018 9:15a Orthopedic Александр Angel S46.012A Strain of [facility] musc/tend the C.M.A. rotator cuff of left shoulder, init M54.2 Cervicalgia M75.52 Bursitis of left shoulder Office Visit 06/17/2015 8:00a Orthopedic Alhaji 924.11 Contusion Knee [facility] Of [place] De M.D. [place] Office Visit 02/11/2015 10:00a Eliazar Mane 726.2 Shoulder Region [facility] De M.D. Affections Other AT [place] Not Elsewhere Class 916.0 Injury Superficial Abrasion Hip Thigh Leg Ankle W/O Infec Office Visit 01/14/2015 9:15a Orthopedic Alhaji 924.11 Contusion Knee [facility] [place] De M.D. [place] 840.4 Sprains & Strains Rotator Cuff (Capsule) Plan of Treatment Future Appointment(s):08/08/2019 11:00 am - Miguel Angel Hurley MD at [facility] [facility]06/22/2019 - Nava Ba, NPL97.929 Non- prs chronic ulc unsp prt of l low leg w unsp [id number] Rash and other nonspecific skin gwihnujqA44.02 Shortness of etzygmY35.622 Type 2 diabetes mellitus with other skin ulcer
--- NOTE | 2019-06-28 09:32 | ED ---
Syncope/Near Syncope - HPI Summary HPI Summary: This pt is a 74 Y/O F brought in by EMS to [facility] from a [facility] for a syncopal episode this morning and blood in her depends. She states that she does not remember when she fell to the ground but stated that when she was woken up she was found with blood in her depends. She also stated that she has a headache. She denies any chest pain, abdominal pain, N/V, fevers, chills, and SOB. She has no aggravating or alleviating symptoms. She states that she was discharged from [facility] yesterday. She has a Hx of a colostomy bag, CHF, and colon cancer. - History Of Current Complaint Chief Complaint: EDSyncope Time Seen by Provider: 06/28/19 09:06 Hx Obtained From: Patient Onset/Duration: Sudden Onset, Resolved Context: Unwitnessed Activity At Onset: Unknown Associated Head Trauma: Yes Aggravating Factor(s): Nothing Alleviating Factor(s): Spontaneous Resolution Associated Signs And Symptoms: Negative - chest pain, abdominal pain, N/V, fevers, chills, and SOB., GI Blood Loss, Headache, Other - decubitus ulcer - Allergies/Home Medications Allergies/Adverse Reactions: Allergies Allergy/AdvReac Type Severity Reaction Status Date / Time lithium Allergy Unknown Verified 06/28/19 09:19 Reaction Details Penicillins Allergy Hives Verified 06/28/19 09:19 Home Medications: Home Medications ceFUROXime TAB(*) [Ceftin TAB 250 MG(*)] 250 mg PO BID 06/28/19 [History Confirmed 06/28/19] PMH/Surg Hx/FS Hx/Imm Hx Previously Healthy: No Endocrine/Hematology History: Reports: Hx Diabetes - Type 2, Hx Thyroid Disease - hypothryoid., Hx Anemia Cardiovascular History: Reports: Hx Congestive Heart Failure, Hx Hypercholesterolemia, Hx Hypertension, Hx Peripheral Vascular Disease Respiratory History: Reports: Hx Asthma GI History: Reports: 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 History: Reports: Other Problems/Disorders - One kidney low performing Musculoskeletal History: Reports: Hx Arthritis - spine Sensory History: Reports: Hx Contacts or Glasses Denies: Hx Hearing Aid, Hx Hearing Problem Opthamlomology History: Reports: Hx Contacts or Glasses Psychiatric History: Reports: Hx Anxiety, Hx Depression, Hx Suicide Attempt - Over 20 years ago Denies: Other Psychiatric Issues/Disorders - Cancer History Cancer Type, Location and Year: rectal Hx Chemotherapy: Yes Hx Radiation Therapy: Yes - Surgical History Surgery Procedure, Year, and Place: rectal, hernia, tonsils, adnoids Hx Anesthesia Reactions: No Infectious Disease History: Yes Infectious Disease History: Reports: Hx of Known/Suspected MRSA Denies: Traveled Outside the [place] in Last 30 Days - Family History Known Family History: Positive: Cardiac Disease - Father with NE at age 77 y/o Negative: Renal Disease, Seizure Disorder - Social History Alcohol Use: None Hx Substance Use: No Substance Use Type: Reports: None Hx Tobacco Use: No Smoking Status (MU): Never Smoked Tobacco Have You Smoked in the Last Year: No Review of Systems Negative: Fever, Chills Negative: Chest Pain Negative: Shortness Of Breath Negative: Vomiting, Nausea Genitourinary: Other - bleeding from rectal area Positive: Other - decubitus ulcer stage 1 Positive: Headache All Other Systems Reviewed And Are Negative: Yes Physical Exam - Summary Physical Exam Summary: GENERAL: Patient is a well-developed and nourished F who is lying comfortable in the stretcher. Patient is not in any acute respiratory distress. HEAD AND FACE: Normocephalic EYES: PERRLA, EOMI x 2. EARS: Hearing grossly intact. MOUTH: Oropharynx within normal limits. NECK: Supple, trachea is midline, no adenopathy, no JVD, no carotid bruit. CHEST: Symmetric, no tenderness at palpation LUNGS: Clear to auscultation bilaterally. No wheezing or crackles. CVS: Regular rate and rhythm, S1 and S2 present, no murmurs or gallops appreciated. ABDOMEN: Soft, non-tender. Bowel sounds are normal. No abnormal abdominal pulsations. EXTREMITIES: Full ROM in all major joints, no edema, no cyanosis or clubbing. NEURO: Alert and oriented x 3. No acute neurological deficits. Speech is normal and follows commands. SKIN: Dry and warm, Stage one decubitus ulcer ulcer with gross blood, Colostomy bag with greenish output but no gross blood Triage Information Reviewed: Yes Vital Signs On Initial Exam: Initial Vitals Temp Pulse Resp BP Pulse Ox 97.5 F 94 20 168/64 98 06/28/19 09:04 06/28/19 09:04 06/28/19 09:04 06/28/19 09:04 06/28/19 09:04 Vital Signs Reviewed: Yes Diagnostics - Vital Signs Vital Signs Temp Pulse Resp BP Pulse Ox 06/28/19 09:09 92 23 168/64 96 06/28/19 09:07 90 24 98 06/28/19 09:04 97.5 F 94 20 168/64 98 - Laboratory Result Diagrams: 06/28/19 09:52 06/28/19 09:52 Lab Statement: Any lab studies that have been ordered have been reviewed, and results considered in the medical decision making process. - Radiology CXR Radiology Interpretation Completed By: Radiologist Summary of Radiographic Findings: 1. No acute cardiopulmonary process by radiograph. 2. Left hemidiaphragm elevation. ED Physician has reviewed this report. - CT Brain CT CT Interpretation Completed By: Radiologist Summary of CT Findings: 1. No acute intracranial abnormality. 2. Mild chronic small vessel ischemic disease is likely. 3. Mild cerebral volume loss. ED Physician has reviewed this report. - EKG 09 Cardiac Rate: NL - 90 BPM Ectopy: PVCs Summary of EKG Findings: EKG at 0931 reveals a NSR at 90 BPMs with LVH and PVCs. Interpreted by Dr. Rivera at 0931 06/28/19. Course/Dx Course Of Treatment: This pt is a 74 Y/O F brought in by EMS to [facility] from a [facility] for a syncopal episode this morning and blood in her depends. Upon her PE she is found to have Stage one cubits ulcer with gross blood, Colostomy bag with greenish output but no gross blood. She was discharged yesterday from [facility] after being admitted for septic shock. Her EKG at 0931 reveals a NSR at 90 BPMs with LVH and PVCs. Her Brain CT shows the following : 1. No acute intracranial abnormality. 2. Mild chronic small vessel ischemic disease is likely. 3. Mild cerebral volume loss. Her CXR shows the followin. No acute cardiopulmonary process by radiograph. 2. Left hemidiaphragm elevation. She has no abnormal labrtory findings. Dr. Hylton, hospitalist, was consulted at 1110 and she stated that she will discuss the pt's case and evaluate the pt for an admission. Her Dx is syncope. Case discussed with hospitalist. I discussed results with patient. The patient agrees with this plan. Patient was seen and evaluated at the bedside by the hospitalist. Per the hospitalist, the patient would like to go back to [facility] [place] and would not like anything done. Patient updated her MOLST form, stating that she doesn't want to be sent to the hospital anymore. Therefore, the patient will be discharged home. She is hemodynamically stable and safe for discharge. Strict return precautions given and she will otherwise follow up with her PCP. - Diagnoses Provider Diagnoses: Syncope - Physician Notifications Discussed Care of Patient With: Cindy Hylton Time Discussed With Above Provider: 11:11 Instructed by Provider To: Admit As Inpatient Admit/Transition Orders Completed By ED Provider: Yes Discharge - Sign-Out/Discharge Documenting (check all that apply): Patient Departure - Discharge Patient Received Moderate/Deep Sedation with Procedure: No - Discharge Plan Condition: Stable Disposition: HOME Patient Education Materials: Syncope (ED) Referrals: Daya Little NP [Primary Care Provider] - 1 Day Additional Instructions: Follow up with your primary care physician in 1-3 days. RETURN TO THE EMERGENCY DEPARTMENT FOR CHANGING OR WORSENING SYMPTOMS. - Billing Disposition and Condition Condition: STABLE Disposition: Home - Attestation Statements Document Initiated by Rodrigoibe: Yes Documenting Scribe: Thad Ponce Provider For Whom Scribe is Documenting (Include Credential): Georgi Rivera MD Scribe Attestation: Thad Borges scribed for Georgi Rivera MD on 06/30/19 at 0758. Scribe Documentation Reviewed: Yes Provider Attestation: The documentation as recorded by the Thad zavala accurately reflects the service I personally performed and the decisions made by , Georgi Rivera MD Status of Scribe Document: Viewed
[2019-06-28 10:04] LABS: ABS Basophils 0.1 10^3/ul (0-0.2); ABS Eosinophils 0.2 10^3/ul (0-0.6); ABS Lymphocytes 0.7 10^3/ul (1.0-4.8); ABS Monocytes 0.7 10^3/ul (0-0.8); ABS Neutrophils 6.6 10^3/ul (1.5-7.7); Eosinophil % 2.3 %; Hematocrit 27 % (35-47); Hemoglobin 8.9 g/dL (12.0-16.0); Lymphocyte % 8.9 %; Mean Corpuscular HGB Conc 33 g/dL (31-36); Mean Corpuscular Hemoglobin 27 pg (27-31); Mean Corpuscular Volume 84 fL (80-97); Mean Platelet Volume 5.8 fL (7.4-10.4); Platelet Count 385 10^3/uL (150-450); Red Blood Count 3.24 10^6 /uL (3.70-4.87); Red Cell Distribution Width 17 % (10-15); White Blood Count 8.4 10^3/uL (3.5-10.8)
[2019-06-28 10:15] LABS: Activated Partial Thrombo Time 36.7 seconds (26.0-38.0); INR 1.18 (0.82-1.09)
[2019-06-28 10:25] LABS: Albumin 3.3 g/dL (3.2-5.2); Albumin/Globulin Ratio 1.1 (1-3); BUN/Creatinine Ratio 25.4 (8-20); Calcium 8.6 mg/dL (8.6-10.3); EGFR African American 50.5 (>60); EGFR Non-African American 41.7 (>60); Globulin 2.9 g/dL (2-4); Magnesium 1.9 mg/dL (1.9-2.7); Potassium 3.6 mmol/L (3.5-5.0); Total Bilirubin 0.2 mg/dL (0.2-1.0); Total Protein 6.2 g/dL (6.4-8.9); Troponin I 0.01 ng/mL (<0.04)
[2019-06-28] MEDS ORDERED: NS 0.9% 1000 ML** 1,000 ML IV ONE (10:39)
[2019-06-28 11:23] LABS: TSH (Thyroid Stimulating Horm) 1.24 mcIU/mL (0.34-5.60)
[2019-06-28 13:11] VITALS: BP 150/62
--- NOTE | 2019-06-28 20:34 | CONS ---
CC: Daya Little NP* CONSULTATION REPORT: DATE OF CONSULT: 06/28/19. PRIMARY CARE PHYSICIAN: Daya Little NP PHYSICIAN REQUESTING CONSULTATION: Dr. Rivera. REASON FOR CONSULTATION: Syncope. HISTORY OF PRESENT ILLNESS: Ms. Tamiko Chowdhury is a 74-year-old woman with rectal carcinoma, status post resection and colectomy; bipolar disorder; anxiety ; hypothyroid; diabetes; CKD; and heart failure with reduced ejection fraction, who was sent from her longterm after being found down. The patient reports she does not remember fainting; however, she was brought here given concern after the patient was found on the floor at her longterm. The patient denies preceding chest pain, palpitations. She denies incontinence or tongue biting or confusion after regaining consciousness. The patient does report a significant amount of stress and feeling overwhelmed before fainting, but does not necessarily remember feeling diaphoretic or woozy or feeling like she was lightheaded or about to faint. Of note, the patient was recently admitted to the hospital for concern for GI bleed. While here, she was found to be in septic shock requiring an ICU admission as well as IV fluids, antibiotics, and vasopressors. Her CT scan showed colitis. She was treated with IV antibiotics. She was evaluated by GI who recommended colonoscopy; however, the patient felt very strongly against aggressive medical intervention. As her hemoglobin remained stable, her leukocytosis improved, the patient was discharged yesterday back to [facility]. On interview with me, the patient reports that she did not want to come to the hospital after being found down on the ground. She reports that she is a minimalist when it comes to her medical care and she prefers to return to [facility], as she feels back to her baseline. We had an extensive risk, benefit discussion regarding hospitalization and further workup. It is noted that the patient's hemoglobin is slightly higher than her discharge hemoglobin yesterday and her blood pressures have been mildly elevated this admission. The patient preferred to go home and we discussed her MOLST form, which indicated that she should be sent to the hospital for medical issues and she stated that she wanted to change that and this was performed with RN and ER staff. PAST MEDICAL HISTORY: 1. Rectal carcinoma, status post resection with colostomy. 2. CKD, stage 4. 3. Type 2 diabetes. 4. Hypothyroidism. 5. Bipolar. 6. Heart failure, reduced ejection fraction, 40 to 45%. HOME MEDICATIONS: 1. Albuterol every 4 hours as needed for shortness of breath. 2. Aspirin. 3. Coreg 3.125 twice a day. 4. Doxepin 10 mg at bedtime. 5. Furosemide 40 mg daily. 6. Gabapentin 600 mg twice a day. 7. NovoLog 20 units after meals. 8. Basaglar 40 units twice a day. 9. Levothyroxine 125 mcg daily. 10. Liraglutide 1.8 mg subcu at bedtime. 11. Metolazone 2.5 mg daily. 12. Entresto 49/51 twice a day. 13. Sertraline 100 mg in the morning. 14. Simvastatin 20 mg at night. 15. Spironolactone 25 mg daily. 16. Tramadol 50 mg 3 times a day as needed for pain. ALLERGIES: Reviewed and significant for LITHIUM and PENICILLIN, which cause hives. SOCIAL HISTORY: Longtime resident at [facility]. No history of alcohol, tobacco , or other drug use. Surrogate decision maker is her daughter, Sia or Latoya. REVIEW OF SYSTEMS: A complete 10-point review of systems was performed and pertinent positives and negatives are listed in the HPI. PHYSICAL EXAM: The patient is afebrile and vital signs are stable. In general , she is a chronically ill-appearing woman, in no acute distress, alert, interactive. Heart: Regular rate and rhythm. No murmurs, gallops, or rubs. Lungs: Clear to auscultation bilaterally. Abdomen: Soft, nontender, nondistended. Colostomy bag noted with scant amount of liquid brown stool. Extremities: Warm and well perfused without edema. Circumferential area of erythema over left lower extremity with dressing clean, dry, and intact. DIAGNOSTIC STUDIES/LAB DATA: Hemoglobin 8.9. INR 1.18. Creatinine 1.26. TSH 1.24. Brain CT with no acute intracranial abnormality, mild chronic small vessel ischemic disease is likely with mild cerebral volume loss. ASSESSMENT AND PLAN: Ms. Chowdhury is a 74-year-old woman with multiple medical problems and recent hospitalizations for colitis complicated by shock with concern for GI bleed, who is presenting from her longterm 1 day after discharge with syncope. The etiology of her syncope is unclear. Her hemoglobin and blood pressures are reassuring on evaluation in the ER. The patient did report significant stress before syncopal episode, so it is possible that the patient had vasovagal syncope. The patient did not wish to be admitted to the hospital and her MOLST has been updated to reflect her wishes. This seems consistent with her prior wishes to avoid workup for GI bleed as she considers herself a medical minimalist. The patient did understand indications for hospitalization and risks and benefits of admission versus returning to longterm. She should continue to follow up with her outpatient providers for ongoing chronic medical problems. Thank you for this interesting consult. TIME SPENT: Approximately 60 minutes was spent on consultation for this patient , more than half of which was spent at bedside for interview and exam. [id number]/[facility] #: [id number] [facility]
== END 2019-06-28 13:10 | disposition home or self-care (01) ==
LOC: ED 09:00
DX: R55 Syncope and collapse (principal); E11.22 Type 2 diabetes mellitus with diabetic chronic kidney disease; I13.0 Hypertensive heart and chronic kidney disease with heart failure and stage 1 through stage 4 chronic kidney disease, or unspecified chronic kidney disease; N18.4 Chronic kidney disease, stage 4 (severe); D63.1 Anemia in chronic kidney disease; E03.9 Hypothyroidism, unspecified; I50.9 Heart failure, unspecified; F31.9 Bipolar disorder, unspecified; E78.00 Pure hypercholesterolemia, unspecified; J45.909 Unspecified asthma, uncomplicated; C20 Malignant neoplasm of rectum; F41.9 Anxiety disorder, unspecified; Z88.0 Allergy status to penicillin; Z88.8 Allergy status to other drugs, medicaments and biological substances; Z79.899 Other long term (current) drug therapy; Z79.82 Long term (current) use of aspirin; Z79.4 Long term (current) use of insulin
CPT/HCPCS: 36415; 70450; 71045; 80053; 83605; 83735; 84443; 84484; 85025; 85610; 85730; 86850; 86900; 86901; 87040; 93005; 96360; 96361; 99283

== ENCOUNTER 2019-07-06 09:34 | Inpatient (IN) | payer MEDICARE, MEDICAID ==
[2019-07-06] MEDS ORDERED: NS 0.9% 1000 ML** 1,000 ML IV.FLUID IV ONE (09:50)
[2019-07-06] MEDS ORDERED: metroNIDAZOLE IV 500 MG/100ML* 500 MG/100 ML BAG IVPB ONE (09:50)
[2019-07-06] MEDS ORDERED: Ciprofloxacin 400MG IVPREMIX(* 400 MG/200 ML BAG IVPB ONE (09:50)
--- NOTE | 2019-07-06 09:56 | ED ---
Complex/Multi-Sys Presentation - HPI Summary HPI Summary: 74 year old F brought in by ambulance from [facility] to [facility] complains of lower left leg pain and jerky movements since this morning. The patient rates the pain 2/10 in severity. Symptoms aggravated by nothing. Symptoms alleviated by nothing. Patient denies fever, nausea, vomiting. Patient was recently discharged from the hospital 2-3 days ago with dx cellulitis of lower left leg. Nurse reports that [facility] staff last changed bandages on 07/04/19. - History Of Current Complaint Chief Complaint: EDGeneral Time Seen by Provider: 07/06/19 09:42 Hx Obtained From: Patient, Other: - nurse Onset/Duration: Lasting Hours, Still Present Timing: Constant Severity Currently: Mild Aggravating Factor(s): Nothing Alleviating Factor(s): Nothing Associated Signs And Symptoms: Positive: Other - NEG: Fever, vomiting, nausea - Allergies/Home Medications Allergies/Adverse Reactions: Allergies Allergy/AdvReac Type Severity Reaction Status Date / Time lithium Allergy Unknown Verified 07/06/19 09:44 Reaction Details Penicillins Allergy Hives Verified 07/06/19 09:44 Home Medications: Home Medications Insulin Glargine,Hum.rec.anlog [Basaglar Kwikpen U-100] 35 unit SQ Q12HR [History Confirmed 07/06/19] PMH/Surg Hx/FS Hx/Imm Hx Endocrine/Hematology History: Reports: Hx Diabetes - Type 2, Hx Thyroid Disease - hypothryoid., Hx Anemia Cardiovascular History: Reports: Hx Congestive Heart Failure, Hx Hypercholesterolemia, Hx Hypertension, Hx Peripheral Vascular Disease Respiratory History: Reports: Hx Asthma GI History: Reports: 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 History: Reports: Other Problems/Disorders - One kidney low performing Musculoskeletal History: Reports: Hx Arthritis - spine Sensory History: Reports: Hx Contacts or Glasses Denies: Hx Hearing Aid, Hx Hearing Problem Opthamlomology History: Reports: Hx Contacts or Glasses Psychiatric History: Reports: Hx Anxiety, Hx Depression, Hx Suicide Attempt - Over 20 years ago Denies: Other Psychiatric Issues/Disorders - Cancer History Cancer Type, Location and Year: rectal Hx Chemotherapy: Yes Hx Radiation Therapy: Yes - Surgical History Surgery Procedure, Year, and Place: rectal, hernia, tonsils, adnoids Hx Anesthesia Reactions: No Infectious Disease History: No Infectious Disease History: Reports: Hx of Known/Suspected MRSA Denies: Traveled Outside the [place] in Last 30 Days - Family History Known Family History: Positive: Cardiac Disease - Father with RI at age 77 y/o Negative: Renal Disease, Seizure Disorder - Social History Alcohol Use: None Hx Substance Use: No Substance Use Type: Reports: None Hx Tobacco Use: No Smoking Status (MU): Never Smoked Tobacco Have You Smoked in the Last Year: No Review of Systems Negative: Fever Negative: Vomiting, Nausea Positive: Other - lower left leg pain, jerky movements All Other Systems Reviewed And Are Negative: Yes Physical Exam - Summary Physical Exam Summary: VITAL SIGNS: Reviewed. GENERAL: Patient is an obese FEMALE who is lying comfortable in the stretcher. Patient is not in any acute respiratory distress. Patient is a poor historian. HEAD AND FACE: No signs of trauma. No ecchymosis, hematomas or skull depressions. No sinus tenderness. EYES: PERRLA, EOMI x 2, No injected conjunctiva, no nystagmus. EARS: Hearing grossly intact. Ear canals and tympanic membranes are within normal limits. MOUTH: Oropharynx within normal limits. NECK: Supple, trachea is midline, no adenopathy, no JVD, no carotid bruit, no c- spine tenderness, neck with full ROM. CHEST: Symmetric, no tenderness at palpation. LUNGS: Clear to auscultation bilaterally. No wheezing or crackles. CVS: Regular rate and rhythm, S1 and S2 present, no murmurs or gallops appreciated. ABDOMEN: Soft, non-tender. No signs of distention. No rebound, no guarding, and no masses palpated. Bowel sounds are normal. EXTREMITIES: Erythema from left leg down to proximal aspect of left foot. There are multiple wounds with dry discharge. Small amount of tissue in the medial aspect below the left malleolus which debride when we removed the bandages. NEURO: Alert and oriented x 3. No acute neurological deficits. Speech is normal and follows commands. SKIN: Dry and warm. Triage Information Reviewed: Yes Vital Signs On Initial Exam: Initial Vitals Temp Pulse Resp BP Pulse Ox 98.4 F 103 20 112/62 96 07/06/19 09:39 07/06/19 09:39 07/06/19 09:39 07/06/19 09:39 07/06/19 09:39 Vital Signs Reviewed: Yes Diagnostics - Vital Signs Vital Signs Temp Pulse Resp BP Pulse Ox 07/06/19 09:39 98.4 F 103 20 112/62 96 - Laboratory Result Diagrams: 07/06/19 10:08 07/06/19 10:08 Lab Statement: Any lab studies that have been ordered have been reviewed, and results considered in the medical decision making process. - Radiology Chest x-ray Radiology Interpretation Completed By: Radiologist Summary of Radiographic Findings: NO ACTIVE CARDIOPULMONARY DISEASE. ED physician has reviewed this report. Complex Multi-Symp Course/Dx Assessment/Plan: 74 year old F brought in by ambulance from [facility] to [facility] complains of lower left leg pain and jerky movements since this morning. The patient rates the pain 2/10 in severity. Symptoms aggravated by nothing. Symptoms alleviated by nothing. Patient denies fever, nausea, vomiting. Patient was recently discharged from the hospital 2-3 days ago with dx cellulitis of lower left leg. Nurse reports that [facility] staff last changed bandages on 07/04. Initially, the patient was positive for sepsis criteria. Therefore, the patient was placed on a quality assurance monitor, IV access was obtained, IV fluids were started 30 mL per KG, patient was given vancomycin, ciprofloxacin and Flagyl since the patient seems to have cellulitis in the left lower extremity. And blood work without any significant abnormality except for slight anemia, renal insufficiency, CRP of 13.7 which is at her baseline. The symptoms may be secondary to cellulitis. The symptoms have improved. I discussed my physical exam and findings with Dr. Mixon who accepted the patient for admission. - Diagnoses Provider Diagnoses: Cellulitis, Sepsis - Physician Notifications Discussed Care Of Patient With: Holly Mixon Time Discussed With Above Provider: 11:52 Instructed by Provider To: Other - Dr. Mixon, hospitalist, agrees to admit patient Discharge - Sign-Out/Discharge Documenting (check all that apply): Patient Departure - Admit Patient Received Moderate/Deep Sedation with Procedure: No - Discharge Plan Condition: Stable Disposition: ADMITTED TO [facility] - Billing Disposition and Condition Condition: STABLE Disposition: Admitted to [facility] - Attestation Statements Document Initiated by Scribe: Yes Documenting Scribe: Mandy Grullon Provider For Whom Scribe is Documenting (Include Credential): Carlos Chirinos MD Scribe Attestation: I, Mandy Grullon, scribed for Carlos Chirinos MD on 07/06/19 at 1856. Scribe Documentation Reviewed: Yes Provider Attestation: The documentation as recorded by the scribe, Mandy Grullon accurately reflects the service I personally performed and the decisions made by me, Carlos Chirinos MD Status of Scribafua Document: Viewed
[2019-07-06] MEDS ORDERED: Vancomycin(*) 1,000 MG VIAL IVPB SCH (10:00)
[2019-07-06 10:26] LABS: ABS Basophils 0.1 10^3/ul (0-0.2); ABS Eosinophils 0.3 10^3/ul (0-0.6); ABS Lymphocytes 0.6 10^3/ul (1.0-4.8); ABS Monocytes 0.6 10^3/ul (0-0.8); ABS Neutrophils 5.7 10^3/ul (1.5-7.7); Eosinophil % 3.9 %; Hematocrit 26 % (35-47); Hemoglobin 8.7 g/dL (12.0-16.0); Lymphocyte % 7.9 %; Mean Corpuscular HGB Conc 33 g/dL (31-36); Mean Corpuscular Hemoglobin 27 pg (27-31); Mean Corpuscular Volume 82 fL (80-97); Mean Platelet Volume 6.2 fL (7.4-10.4); Platelet Count 253 10^3/uL (150-450); Red Blood Count 3.21 10^6 /uL (3.70-4.87); Red Cell Distribution Width 17 % (10-15); White Blood Count 7.2 10^3/uL (3.5-10.8)
[2019-07-06 10:37] LABS: Activated Partial Thrombo Time 34.6 seconds (26.0-38.0); INR 1.11 (0.82-1.09)
[2019-07-06 10:43] LABS: Albumin 3.2 g/dL (3.2-5.2); Albumin/Globulin Ratio 1.2 (1-3); BUN/Creatinine Ratio 21.6 (8-20); C Reactive Protein 13.79 mg/L (<8.01); Calcium 9.8 mg/dL (8.6-10.3); EGFR African American 41.9 (>60); EGFR Non-African American 34.7 (>60); Globulin 2.7 g/dL (2-4); Potassium 4.2 mmol/L (3.5-5.0); Total Bilirubin 0.3 mg/dL (0.2-1.0); Total Protein 5.9 g/dL (6.4-8.9)
[2019-07-06] MEDS ORDERED: Vancomycin(*) 1,000 MG in NS 0.9% 250 ML* 250 ML IVPB ONE (11:00)
[2019-07-06 11:14] LABS: Urine Appearance Clear; Urine Bilirubin Negative (Negative); Urine Blood Negative (Negative); Urine Color Straw; Urine Glucose Negative (Negative); Urine Ketones Negative (Negative); Urine Nitrite Negative (Negative); Urine Protein Negative (Negative); Urine Specific Gravity 1.005 (1.010-1.030); Urine Urobilinogen Negative (Negative)
[2019-07-06 11:34] LABS: Erythrocyte Sed Rate 87 mm/Hr (0-29)
[2019-07-06] MEDS ORDERED: LORazepam INJ* 2 MG/ML 1 ML VIAL IV PUSH ONE (12:51)
[2019-07-06] MEDS ORDERED: Lorazepam PYXIS KEY PRN (12:51)
[2019-07-06] MEDS ORDERED: Lorazepam PYXIS KEY ONE (12:53)
[2019-07-06] MEDS ORDERED: Acetaminophen TAB* 325 MG PO PRN (13:00)
[2019-07-06] MEDS ORDERED: Ondansetron INJ* 2 MG/ML VIAL IV PRN (13:00)
[2019-07-06] MEDS ORDERED: Dextrose 50% VIAL 50 ml IV PUSH PRN (13:07)
[2019-07-06] MEDS ORDERED: Vancomycin per Pharmacy* NOTE FOLLOW UP SCH (14:00)
--- NOTE | 2019-07-06 15:12 | HP ---
CC: [facility]; Dr. Holly Somers* ADMISSION HISTORY AND PHYSICAL: DATE OF ADMISSION: 07/06/19 PRIMARY CARE PROVIDER: [facility]. MY ATTENDING WHILE IN THE HOSPITAL: Dr. Holly Somers* (dictated by ABHI Lancaster). CHIEF COMPLAINT: Malaise, shaking x2 days. HISTORY OF PRESENT ILLNESS: Ms. Chowdhury is a 74-year-old female with past medical history significant for heart failure, reduced ejection fraction, EF 40 % to 45%; rectal carcinoma, status post partial colectomy and colostomy; chronic kidney disease, stage 4; diabetes mellitus type 2, who has been admitted twice recently to the hospital and had several emergency department visits during this time as well. She initially was admitted with septic shock with concern for infection related to her wounds in her leg. She did not need vasopressive agents that admission to the hospital. She had severe acute kidney injury which came back down to her baseline. The patient was treated at this time also for COPD exacerbation. The patient was discharged from the hospital on antibiotics and came back approximately 1 month later with septic shock requiring vasopressive agents. The patient had colitis of her descending colon believed to be related to ischemia from her profoundly low blood pressure. The patient was treated at that time with cefepime, Flagyl and transitioned to cefuroxime and Flagyl. The patient had bleeding in her colostomy bag at that time, but declined a colonoscopy. The patient was discharged most recently on 06/27/19. The patient came back to the emergency department on 06/28/19 for syncope, but refused admission at that time and was sent to back to [facility]. The patient returned again today after per the patient and nursing staff she has been feeling abnormally for 2 days with malaise. She feels as though she had some low-grade fevers. She denies any chills. Denies any other focal pain except for pain in her left lower extremity , which she describes as mild and she cannot give further chronicity or information on character too. The patient had worsening redness and swelling in her leg [facility]. The patient on the night before her admission began to develop significant bilateral tremors, which occurred while she was talking. The patient was sent to the emergency department. There was some concern that the patient had bleeding from her rectum; however, the patient does not have an anus at this point. The patient had severe maceration of her labia likely due to poor incontinence care, a Pagan catheter was placed. The patient had tachycardia, but no hypotension, no white blood cell count, CRP which was only slightly elevated, though an ESR which was elevated significantly more, though there is no baseline to compare. The patient's left leg was found to be severely macerated, and in the emergency department, she was found to have tremors on both sides of her body with intermittent alterations in consciousness with occasionally stopping mid sentence or not responding to questions with deviation of the eyes to the right and upwards. The patient had no fevers, but did have tachycardia. Due to concern for nonspecific symptoms and concern for left lower extremity infection , we are asked to evaluate the patient for admission to the hospital. PAST MEDICAL HISTORY: Rectal carcinoma, status post resection; chronic kidney disease, stage 4; diabetes mellitus type 2; hypothyroidism; bipolar disorder; heart failure, reduced ejection fraction; chronic lower extremity wounds; recent history of hospitalization with colitis. PAST SURGICAL HISTORY: Colectomy, colostomy, hernia repair. MEDICATIONS: Per most recent discharge summary: 1. Metolazone 2.5 mg p.o. daily. 2. Abebe-D 600/400 one tab p.o. b.i.d. 3. Entresto 49/51 one tab p.o. b.i.d. 4. Levothyroxine 125 mcg p.o. daily. 5. Gabapentin 600 mg p.o. b.i.d. 6. Aspirin 81 mg p.o. daily. 7. Coreg 3.125 mg p.o. b.i.d. 8. Insulin aspart 20 units subcutaneous with meals. 9. Tramadol 50 mg t.i.d. 10. Spironolactone 25 mg p.o. daily. 11. Simvastatin 20 mg p.o. at bedtime. 12. Sertraline 100 mg p.o. daily. 13. Furosemide 40 mg p.o. daily. 14. Doxepin 10 mg p.o. at bedtime. 15. Victoza 1.8 mg subcutaneous at bedtime. 16. Basaglar 35u subcutaneous b.i.d. ALLERGIES: PENICILLINS, LITHIUM. FAMILY HISTORY: Both the patient's parents of heart disease per her report. SOCIAL HISTORY: The patient never smoked, drank, or used illicit drugs. The patient used to work as a legal administrative secretary. The patient has 2 children. Her 2 daughters, Sia and Latoya, will be her surrogate decision makers. REVIEW OF SYSTEMS: A 14-point review of systems was reviewed and is negative except as above in the HPI. PHYSICAL EXAMINATION GENERAL: The patient is a 74-year-old female who appears stated age, sitting in the bed with significant full body tremors. VITAL SIGNS: At the time of evaluation, temperature 98.4, pulse rate 94, respiratory rate 20, oxygen saturation 94% on room air, blood pressure 157/97. HEENT: Head: Normocephalic, atraumatic. Sclerae anicteric. No conjunctival injection. Nasal mucosa moist. Oral mucosa moist. No pharyngeal erythema, discharge, or exudate. NECK: Supple, nontender. No lymphadenopathy. No carotid bruits auscultated. No JVD. RESPIRATORY: Clear to auscultation bilaterally. No wheezes, rales, or rhonchi. Good air exchange bilaterally. CARDIAC: Regular rate and rhythm. Grade 2/6 systolic ejection murmur heard best at the right upper sternal border. No clicks, gallops, or rubs. Pulses are 2+ in the bilateral dorsalis pedis, posterior tibialis, and radial areas. No bilateral lower extremity edema noted. ABDOMEN: Soft, nontender, nondistended. Bowel sounds present and normoactive in all 4 quadrants. No hepatosplenomegaly. No abdominal bruits auscultated. No hepatojugular reflux. Colostomy in place draining brown formed stool. GENITOURINARY: No suprapubic or CVA tenderness. Significant maceration of the bilateral labia with signs of abscess. NEURO: Cranial nerves II through XII intact. Significant twitching. No other focal deficits. Alert and oriented x3. Occasional possible lapses in consciousness. PSYCHIATRIC: Pleasant and cooperative, somewhat anxious. DIAGNOSTIC STUDIES/LAB DATA: White blood cell count 7.2, hemoglobin 8.7, platelet count 253. ESR 87. INR 1.11, APTT 34.6. Sodium 135, potassium 4.2, chloride 98, carbon dioxide 29, anion gap 8, BUN 32, creatinine 1.48, glucose 90 , lactic acid 0.8, calcium 9.8. Bilirubin 0.3, AST 10, ALT 12, alkaline phosphatase 54. Troponin I 0.00. CRP 13.79. Protein 5.9, albumin 3.2, globulin 2.7: Urine: Clear, low specific gravity. Chest x-ray read as no active cardiopulmonary disease. ASSESSMENT AND PLAN: Impression: Ms. Chowdhury is a 74-year-old female with past medical history significant for rectal carcinoma, status post colectomy and colostomy; chronic kidney disease; diabetes mellitus type 2; and heart failure with reduced ejection fraction, who presents to the emergency department due to concerns for worsening infection and general malaise in her left lower extremity, found to have significant tremors of unknown cause. 1. Left lower extremity wound infection. The patient looks to have an infection of her wound on the left lower extremity with increased drainage, pain , erythema. The patient will be started on vancomycin and cefepime. The patient will be continued on dressings per the recommendation of Wound Care from her previous recent hospitalization. The patient will have a repeat wound culture. The patient previously had pseudomonas growing from her wound on 2 separate occasions. It is unclear whether this has been eradicated or not. She did not have a wound culture last time she was admitted, so it is not clear if this has been eradicated or not. Antibiotics can be narrowed pending culture data. Blood cultures have been sent. The patient's tremors may represent rigors , though her level of general illness does not seem to be consistent with this. Infectious disease consult may be warranted pending culture data for duration of therapy or if no culture data is available. 2. Tremors. The patient's tremors are bilateral and occurring almost continuously without consistent alterations in consciousness. This is not very consistent with seizures; however, the patient is on tramadol and does seem to have intermittent alteration in consciousness where her eyes deviate to the right. This has been described by previous providers who have taken care of the patient. An EEG will be obtained to rule out seizures. The patient has been treated with Ativan, which seems to have improved her tremors, though this is nondiagnostic for any specific cause. This will be monitored. The patient has no known history of seizures. The patient's tramadol will be held. We will obtain an EEG, though seizures are unlikely. 3. Chronic kidney disease. Creatinine is at baseline. 4. Diabetes mellitus type 2. The patient's blood glucose is currently excellent, though it is unclear how much she has been taking in. We will decrease the patient's scheduled mealtime insulin. Hold Victoza while in the hospital. Start sliding scale insulin. Patient has been on 70u daily for basal insulin The patient had a recent hemoglobin A1c of 8.9 that was 3 months ago. The patient's A1c will be updated to assess the efficacy of her insulin therapy. 5. Heart failure, reduced ejection fraction. The patient does not appear fluid overloaded. In fact, she appears fluid depleted at this point. The patient received a 3 L bolus while in the emergency department. This should be sufficient. The patient will now be monitored for fluid overload and hypoxia. Her diuretics and long-term medications will be held until it is clear she was not going to decompensate from her infection given clinical picture consistent possibly with rigors. These may be resumed in the future for hypertension and the patient should be discharged on these. Continue her carvedilol to avoid rebound hypertension. 6. Hypothyroidism. Continue levothyroxine at current dose. 7. History of colitis. The patient has no ongoing abdominal pain or pain in her colostomy. The patient has finished antibiotics for her colitis, it is likely ischemic. The patient was recommended to have a colonoscopy. The patient would be amenable to this currently, though there is no current indication, this may be done as outpatient. 8. DVT prophylaxis: Lovenox subcu. 9. FEN: The patient will have a heart-healthy diet without caffeine. No fluids are indicated at this time. 10. Code status: The patient indicates she would like to be a full code and she has no limitations on medical interventions that she would like to be done at this time. 11. Disposition: The patient is admitted to the hospital observation. TIME SPENT: Approximately 60 minutes was spent on the admission of this patient , 30 of which was spent [id number] with the patient obtaining history and physical and discussing treatment plan. This plan was discussed with my attending Dr. Holly Somers, and she is in agreement. ABHI LANCASTER [id number]/[facility] #: [id number] RYAN
[2019-07-06] MEDS: Cefepime 1 GM in Dextrose(*) 1 GM/50 ML BAG IV SCH (15:17)
[2019-07-06] MEDS: Heparin VIAL(*) 5000 UNITS/ML VIAL (FIVE THOUSAND) SUBCUT SCH ×2 (15:17→21:14)
[2019-07-06] MEDS ORDERED: Insulin LISPRO* 1 UNITS UNIT SUBCUT SCH ×2 (16:30)
[2019-07-06] MEDS ORDERED: Insulin ASPART (NF) 1 UNIT SUBCUT SCH (17:30)
[2019-07-06] MEDS: D5W 1000 ML BAG* 1,000 ML IV SCH (18:37)
--- NOTE | 2019-07-06 18:49 | PN ---
Hospitalist Progress Note Date of Service: 07/06/19 Patient was lethargic when she arrived to 4S. BG checked and was 20, then at 13. Patient was awake and answering questions during this time. Patient has been shaky since last night but had no hypoglycemia this AM or documented overnight. Patient has no new symptoms, patient finds the twitches annoying, but denies any pain. Patient's blood glucose responded to dextrose, but the twitching did not improve and still persists. EEG read pending. Started on D5W as her BG continues to fall. Decrease Gabapentin as this has been associated with myoclonus.
[2019-07-06] MEDS ORDERED: LORazepam TAB(*) 0.5 MG PO ONE (18:52)
--- NOTE | 2019-07-06 19:11 | EEG ---
ELECTROENCEPHALOGRAPHY: DATE OF STUDY: 07/06/19 PROVIDER: ABHI Reilly CLINICAL PROBLEM: Tamiko Chowdhury is a 74-year-old female, who came to the emergency room from [facility] with complaints of left leg pain and jerking movements since this morning. The patient was recently discharged from the hospital 2 to 3 days ago with cellulitis of the lower left leg. REPORT: This is a 16-channel EEG performed with video in the emergency room. In the beginning of the record, there was a posterior dominant 8 Hz alpha rhythm , which was symmetric and attenuated with eye opening. There was intermittent movement artifact. As the record continued, there was fragmentation of the alpha rhythm with drowsiness. There was superimposed movement artifact. During the recording there were different movements noted such as shoulder jerking, and limb movement. There was no change in cerebral activity when this occurred. Eventually, there was evidence of stage 2 sleep with vertex waves. Toward the end of the record the patient was woken up, and for a period of time , alpha activity was noted and then drowsiness. Again, shoulder jerking was noted and EEG showed no change in cerebral activity. CLINICAL IMPRESSION: This was an essentially normal EEG. There was normal awake and asleep activity. There was no evidence of epileptiform activity. Of note, the patient fell asleep quite quickly. There was no EEG correlate to her shoulder and limb movements. [id number]/[facility] #: [id number] [facility]
[2019-07-06] MEDS ORDERED: DOXEPIN 10 MG PO SCH (21:00)
[2019-07-06] MEDS ORDERED: Gabapentin CAP(*) 300 MG PO SCH (21:00)
[2019-07-06] MEDS: Gabapentin CAP(*) 300 MG PO SCH (21:13)
[2019-07-06] MEDS: Atorvastatin* 10 MG TAB PO SCH (21:14)
[2019-07-06] MEDS: Carvedilol TAB* 3.125 MG PO SCH (21:14)
[2019-07-07] MEDS ORDERED: Vancomycin(*) 1,000 MG in NS 0.9% 250 ML* 250 ML IVPB SCH ×2
[2019-07-07] MEDS: Cefepime 1 GM in Dextrose(*) 1 GM/50 ML BAG IV SCH (01:41)
[2019-07-07] MEDS: Levothyroxine TAB* 125 MCG TAB PO SCH (05:46)
[2019-07-07] MEDS: Heparin VIAL(*) 5000 UNITS/ML VIAL (FIVE THOUSAND) SUBCUT SCH ×3 (05:47→21:30)
[2019-07-07 06:53] LABS: ABS Eosinophils 0.3 10^3/ul (0-0.6); ABS Lymphocytes 0.6 10^3/ul (1.0-4.8); ABS Monocytes 0.5 10^3/ul (0-0.8); ABS Neutrophils 5.6 10^3/ul (1.5-7.7); Eosinophil % 4.1 %; Hematocrit 26 % (35-47); Hemoglobin 8.5 g/dL (12.0-16.0); Mean Corpuscular HGB Conc 33 g/dL (31-36); Mean Corpuscular Hemoglobin 28 pg (27-31); Mean Corpuscular Volume 83 fL (80-97); Mean Platelet Volume 6.3 fL (7.4-10.4); Platelet Count 232 10^3/uL (150-450); Red Blood Count 3.11 10^6 /uL (3.70-4.87); Red Cell Distribution Width 17 % (10-15)
[2019-07-07 07:09] LABS: BUN/Creatinine Ratio 18.4 (8-20); Calcium 8.8 mg/dL (8.6-10.3); EGFR African American 34.8 (>60); EGFR Non-African American 28.8 (>60); Magnesium 1.5 mg/dL (1.9-2.7); Potassium 4.5 mmol/L (3.5-5.0)
[2019-07-07] MEDS ORDERED: Magnesium Sulfate 2 GM IV* 2 GM/50 ML BAG IVPB ONE (09:12)
--- NOTE | 2019-07-07 11:42 | PN ---
Subjective Date of Service: 07/07/19 Interval History: Pt is not(? refusing to) answering my questions. I have to ask several times to get an answer to simple questions. Nursing has noted the same thing this AM. Objective Active Medications: Acetaminophen (Tylenol Tab*) 650 mg PO Q6H PRN PRN Reason: MILD PAIN or TEMP > 100.4 Last Admin: 07/06/19 19:21 Dose: 650 mg Aspirin (Aspirin 81 Mg Chew Tab*) 81 mg PO DAILY [facility] Atorvastatin Calcium (Lipitor*) 10 mg PO BEDTIME [facility] Last Admin: 07/06/19 21:14 Dose: 10 mg Carvedilol (Coreg Tab*) 3.125 mg PO BID [facility] Last Admin: 07/06/19 21:14 Dose: 3.125 mg Dextrose (Dextrose 50% Vial 50 Ml*) 25 ml IV PUSH .FOR FS < 60 - SS PRN PRN Reason: FS < 60 Last Admin: 07/06/19 16:04 Dose: 50 ml Heparin Sodium (Porcine) (Heparin Vial(*)) 5,000 units SUBCUT Q8HR [facility] Last Admin: 07/07/19 05:47 Dose: 5,000 units Dextrose (D5w 1000 Ml Bag*) 1,000 mls @ 50 mls/hr IV PER RATE [facility] Last Admin: 07/06/19 18:37 Dose: 50 mls/hr Levothyroxine Sodium (Synthroid Tab*) 125 mcg PO 0600 [facility] Last Admin: 07/07/19 05:46 Dose: 125 mcg Ondansetron HCl (Zofran Inj*) 4 mg IV Q6H PRN PRN Reason: NAUSEA Sertraline HCl (Zoloft*) 100 mg PO QAM [facility] Vital Signs - 8 hr 07/07/19 07:13 Temperature 97.5 F Pulse Rate 94 Respiratory 18 Rate Blood Pressure 152/92 (mmHg) O2 Sat by Pulse 95 Oximetry Oxygen Devices in Use Now: Nasal Cannula Appearance: Elderly female lying in bed, lethargic, briefly will open her eyes ( it is unclear to me if she is purposely refusing to answer questions or open her eyes), NAD Ears/Nose/Mouth/Throat: - - dry oral mucosa Respiratory: Symmetrical Chest Expansion and Respiratory Effort, Clear to Auscultation Cardiovascular: NL Sounds; No Murmurs; No JVD, RRR, No Edema Abdominal: NL Sounds; No Tenderness; No Distention, - - colostomy with soft brown stool Extremities: No Clubbing, Cyanosis Skin: - - L lower leg with almost circumfrencial erythema and mascerated tissue with larger than 06/23/19 ulcerations at the most superior aspect of the erythema , copious serous drainage, no purulence Neurological: - - lethargic or purposely not interacting Result Diagrams: 07/07/19 06:37 07/07/19 06:37 Microbiology and Other Data: Microbiology 07/06/19 10:13 Aerobic Blood Culture - Preliminary Blood Venous No Growth Day 1 Anaerobic Blood Culture - Preliminary No Growth Day 1 07/06/19 10:08 Aerobic Blood Culture - Preliminary Blood Venous No Growth Day 1 Anaerobic Blood Culture - Preliminary No Growth Day 1 Assess/Plan/Problems-Billing Assessment: - Patient Problems (1) Malaise Current Visit: Yes Status: Acute Code(s): R53.81 - OTHER MALAISE SNOMED Code(s): 464791269 Comment: Pt presented with malaise for 2 days. Unclear cause. I question if she may have been developing hypoglycemia as she did here. I do not think she is actively infected. Will monitor overnight for anything to declare itself. (2) Venous stasis ulcer Current Visit: Yes Status: Acute Comment: Pt with chronic ulceration to the L lower extremity. There has been intermittent infection. The wound currently is more erythematous than the last picture in the chart. I suspect that is secondary to mascerated tissue and not infection as she does not have a leukocytosis, only mild fever once last evening and her CRP is markedly reduced from just the end of May and is only mildly up at this time. I am going to stop her IV Abx and monitor her symptoms/VS/appearance of leg. (3) Altered mental status Current Visit: Yes Status: Acute Code(s): R41.82 - ALTERED MENTAL STATUS, UNSPECIFIED SNOMED Code(s): 109785167 Comment: Pt yesterday was conversant but would have moments where she " spaced out." Today she seems irritated by my asking questions but historically has not done this in the past. Will get ammonia level and ABG to eval for organic cause. May need CT brain. (4) Type II diabetes mellitus Current Visit: Yes Status: Acute Comment: Pt was severely hypoglycemic last evening. She was started on D5 and remains on this as her sugars are still low normal on the D5 at 50ml/hr. Hold insulin. (5) CKD (chronic kidney disease) stage 3, GFR 30-59 ml/min Current Visit: Yes Status: Acute Code(s): N18.3 - CHRONIC KIDNEY DISEASE, STAGE 3 (MODERATE) SNOMED Code(s): 046269540 Comment: Baseline creatinine is somewhat hard to determine as there has been significant fluctuations in the last several months. She is close to where she has been running and likely is at baseline. Monitor closely. (6) Hyperlipidemia Current Visit: Yes Status: Acute Code(s): E78.5 - HYPERLIPIDEMIA, UNSPECIFIED SNOMED Code(s): 14847376 Comment: Continue lipitor. (7) Hypothyroid Current Visit: Yes Status: Acute Code(s): E03.9 - HYPOTHYROIDISM, UNSPECIFIED SNOMED Code(s): 47101696 Comment: TSH last checked 06/28/19 Continue levothyroxine at home dose. (8) DVT prophylaxis Current Visit: Yes Status: Acute Code(s): TTW9053 - SNOMED Code(s): 688971823 Comment: SQ heparin (9) Full code status Current Visit: Yes Status: Acute Code(s): Z78.9 - OTHER SPECIFIED HEALTH STATUS SNOMED Code(s): 314734637
[2019-07-07] MEDS: Carvedilol TAB* 3.125 MG PO SCH ×2 (12:09→21:30)
[2019-07-07] MEDS: Sertraline* 100 MG TAB PO SCH (12:09)
[2019-07-07] MEDS: Aspirin 81 mg CHEW TAB* 81 MG TAB.CHEW PO SCH (12:09)
[2019-07-07] MEDS: Gabapentin CAP(*) 300 MG PO SCH (12:10)
[2019-07-07] MEDS: D5W 1000 ML BAG* 1,000 ML IV SCH (19:13)
[2019-07-07] MEDS: Atorvastatin* 10 MG TAB PO SCH (21:30)
[2019-07-08] MEDS: Levothyroxine TAB* 125 MCG TAB PO SCH (05:57)
[2019-07-08] MEDS: Heparin VIAL(*) 5000 UNITS/ML VIAL (FIVE THOUSAND) SUBCUT SCH ×3 (05:57→20:14)
[2019-07-08] MEDS: Aspirin 81 mg CHEW TAB* 81 MG TAB.CHEW PO SCH (08:14)
[2019-07-08] MEDS: Sertraline* 100 MG TAB PO SCH (08:14)
[2019-07-08] MEDS: Carvedilol TAB* 3.125 MG PO SCH ×2 (08:14→20:08)
[2019-07-08 08:59] LABS: Hematocrit 27 % (35-47); Hemoglobin 8.9 g/dL (12.0-16.0); Mean Corpuscular HGB Conc 33 g/dL (31-36); Mean Corpuscular Hemoglobin 27 pg (27-31); Mean Corpuscular Volume 82 fL (80-97); Mean Platelet Volume 6.4 fL (7.4-10.4); Platelet Count 247 10^3/uL (150-450); Red Blood Count 3.27 10^6 /uL (3.70-4.87); Red Cell Distribution Width 17 % (10-15); White Blood Count 4.7 10^3/uL (3.5-10.8)
[2019-07-08 09:08] LABS: ABS Eosinophils 0.2 10^3/ul (0-0.6); ABS Lymphocytes 0.4 10^3/ul (1.0-4.8); ABS Monocytes 0.4 10^3/ul (0-0.8); ABS Neutrophils 3.7 10^3/ul (1.5-7.7); Eosinophil % 4.2 %; Lymphocyte % 8.8 %
[2019-07-08 09:16] LABS: BUN/Creatinine Ratio 18.4 (8-20); Calcium 8.9 mg/dL (8.6-10.3); EGFR Non-African American 42.1 (>60); Potassium 4.3 mmol/L (3.5-5.0)
[2019-07-08] MEDS ORDERED: Vancomycin Trough Check NOTE FOLLOW UP ONE (11:30)
--- NOTE | 2019-07-08 13:21 | PN ---
Subjective Date of Service: 07/08/19 Interval History: Pt is feeling well. She denies any pain or SOB. She feels back to normal. Objective Active Medications: Acetaminophen (Tylenol Tab*) 650 mg PO Q6H PRN PRN Reason: MILD PAIN or TEMP > 100.4 Last Admin: 07/06/19 19:21 Dose: 650 mg Aspirin (Aspirin 81 Mg Chew Tab*) 81 mg PO DAILY [facility] Last Admin: 07/08/19 08:14 Dose: 81 mg Atorvastatin Calcium (Lipitor*) 10 mg PO BEDTIME [facility] Last Admin: 07/07/19 21:30 Dose: 10 mg Carvedilol (Coreg Tab*) 3.125 mg PO BID [facility] Last Admin: 07/08/19 08:14 Dose: 3.125 mg Dextrose (Dextrose 50% Vial 50 Ml*) 25 ml IV PUSH .FOR FS < 60 - SS PRN PRN Reason: FS < 60 Last Admin: 07/06/19 16:04 Dose: 50 ml Heparin Sodium (Porcine) (Heparin Vial(*)) 5,000 units SUBCUT Q8HR [facility] Last Admin: 07/08/19 05:57 Dose: 5,000 units Dextrose (D5w 1000 Ml Bag*) 1,000 mls @ 50 mls/hr IV PER RATE [facility] Last Admin: 07/07/19 19:13 Dose: 50 mls/hr Levothyroxine Sodium (Synthroid Tab*) 125 mcg PO 0600 [facility] Last Admin: 07/08/19 05:57 Dose: 125 mcg Ondansetron HCl (Zofran Inj*) 4 mg IV Q6H PRN PRN Reason: NAUSEA Sertraline HCl (Zoloft*) 100 mg PO QAM [facility] Last Admin: 07/08/19 08:14 Dose: 100 mg Vital Signs - 8 hr 07/08/19 07/08/19 07/08/19 07:18 08:00 08:20 Temperature 97.9 F Pulse Rate 83 Respiratory 18 18 Rate Blood Pressure 158/71 (mmHg) O2 Sat by Pulse 97 96 Oximetry 07/08/19 11:45 Temperature 97.3 F Pulse Rate 90 Respiratory 16 Rate Blood Pressure 176/62 (mmHg) O2 Sat by Pulse 98 Oximetry Oxygen Devices in Use Now: None Appearance: Elderly obese female sitting up in bed , NAD Eyes: No Scleral Icterus Ears/Nose/Mouth/Throat: Mucous Membranes Moist Respiratory: Symmetrical Chest Expansion and Respiratory Effort, Clear to Auscultation - anteriorly Cardiovascular: NL Sounds; No Murmurs; No JVD, RRR, - - trace-1+ LE edema Abdominal: NL Sounds; No Tenderness; No Distention, - - ostomy in place Extremities: No Clubbing, Cyanosis Skin: - - Dressing on L leg not removed by myself Neurological: Alert and Oriented x 3 Result Diagrams: 07/08/19 08:45 07/08/19 08:45 Microbiology and Other Data: Microbiology 07/06/19 10:13 Aerobic Blood Culture - Preliminary Blood Venous No Growth Day 1 Anaerobic Blood Culture - Preliminary No Growth Day 1 07/06/19 10:08 Aerobic Blood Culture - Preliminary Blood Venous No Growth Day 1 Anaerobic Blood Culture - Preliminary No Growth Day 1 Assess/Plan/Problems-Billing Assessment: - Patient Problems (1) Malaise Current Visit: Yes Status: Acute Code(s): R53.81 - OTHER MALAISE SNOMED Code(s): 522513275 Comment: Unclear cause. No signs of infection. She is now back to baseline. (2) Venous stasis ulcer Current Visit: Yes Status: Acute Comment: Pt with chronic ulceration to the L lower extremity. Wound without Abx is less erythematous in peaking under the dressing (not fully removed today). I do not think there is infection and therefore I stopped her Abx. Recheck again tomorrow. Continue calcium alginate to absorb the serous fluid. (3) Altered mental status Current Visit: Yes Status: Acute Code(s): R41.82 - ALTERED MENTAL STATUS, UNSPECIFIED SNOMED Code(s): 557692180 Comment: Resolved. Unclear cause. ? hypoglycemia. (4) Type II diabetes mellitus Current Visit: Yes Status: Acute Comment: Sugars are now elevated on D5. Will stop infusion and monitor sugars. Likely resume lantus tonight or tomorrow AM. (5) CKD (chronic kidney disease) stage 3, GFR 30-59 ml/min Current Visit: Yes Status: Acute Code(s): N18.3 - CHRONIC KIDNEY DISEASE, STAGE 3 (MODERATE) SNOMED Code(s): 265153896 Comment: Creatinine improved today. Continue to monitor intermittently. (6) Hyperlipidemia Current Visit: Yes Status: Acute Code(s): E78.5 - HYPERLIPIDEMIA, UNSPECIFIED SNOMED Code(s): 00427857 Comment: Continue lipitor. (7) Hypothyroid Current Visit: Yes Status: Acute Code(s): E03.9 - HYPOTHYROIDISM, UNSPECIFIED SNOMED Code(s): 43304107 Comment: TSH last checked 06/28/19 Continue levothyroxine at home dose. (8) DVT prophylaxis Current Visit: Yes Status: Acute Code(s): MRE5852 - SNOMED Code(s): 641707658 Comment: SQ heparin (9) Full code status Current Visit: Yes Status: Acute Code(s): Z78.9 - OTHER SPECIFIED HEALTH STATUS SNOMED Code(s): 108935362
[2019-07-08] MEDS: Atorvastatin* 10 MG TAB PO SCH (20:10)
[2019-07-09] MEDS: Heparin VIAL(*) 5000 UNITS/ML VIAL (FIVE THOUSAND) SUBCUT SCH ×2 (05:41→13:56)
[2019-07-09] MEDS: Levothyroxine TAB* 125 MCG TAB PO SCH (05:42)
[2019-07-09] MEDS: Carvedilol TAB* 3.125 MG PO SCH (09:22)
[2019-07-09] MEDS: Sertraline* 100 MG TAB PO SCH (09:22)
[2019-07-09] MEDS: Aspirin 81 mg CHEW TAB* 81 MG TAB.CHEW PO SCH (09:22)
[2019-07-09 12:03] VITALS: BP 180/73
--- NOTE | 2019-07-09 12:53 | DS ---
CC: Provider at [facility]* DISCHARGE SUMMARY: DATE OF ADMISSION: 07/06/19 DATE OF DISCHARGE: 07/09/19 PRIMARY CARE PROVIDER: Provider at [facility]. PRINCIPAL DIAGNOSES: 1. Altered mental status of unclear etiology. 2. Hypoglycemia shortly after admission - resolved. 3. Chronic left lower extremity venous stasis ulceration - stable. SECONDARY DIAGNOSES: 1. Type 2 diabetes. 2. Stage IV chronic kidney disease. 3. Hypothyroidism. 4. Bipolar disorder. 5. Chronic systolic congestive heart failure. DISCHARGE MEDICATIONS: 1. Basaglar 20 units subcutaneous q.h.s. (reduced frequency and dose). 2. Entresto 49/51 one tab p.o. b.i.d. 3. Levothyroxine 125 mcg p.o. daily. 4. Calcium plus D 600/400 one tab p.o. twice daily. 5. Victoza 1.8 mg subcutaneous q.h.s. 6. Simvastatin 20 mg p.o. q.h.s. 7. Aspirin 81 mg p.o. daily. 8. Lasix 40 mg p.o. daily. 9. Sertraline 100 mg p.o. daily. 10. Tramadol 50 mg p.o. t.i.d. p.r.n. pain. 11. Gabapentin 600 mg p.o. b.i.d. 12. Insulin Aspart 5 units subcutaneous p.c. (reduced dose). 13. Spironolactone 25 mg p.o. daily. 14. Coreg 3.125 mg p.o. twice daily. HOSPITAL COURSE: Ms. Chowdhury is a 74-year-old female who presented to the emergency room on 07/06/19 with complaints of malaise and shaking x2 days. The patient was noted to be conversant, however, at times would "space out." There was also twitching/shaking noted. The etiology of this on admission was not clear. She underwent EEG which was negative for seizure activity. The patient did, however, develop severe hypoglycemia with her blood sugar getting as low as 13. The patient's insulin was discontinued, and she was started on a D5 infusion. The patient has been off the D5 over the last 18 to 24 hours, and with this, her blood sugars have been ranging in the 130 to 200 range. This is with no insulin on board. Because of this, I have cut her Basaglar to 20 units at bedtime and her Aspart to 5 units p.c. She will need very close monitoring of her blood sugars upon return to [facility] with adjustment in her insulin regimen being made frequently to ensure that she does not develop marked hyper or hypoglycemia. The day after admission the patient was behaving as if she was refusing to interact. With much coxing, she would do what you ask; however, she was not very participatory in her care. The following day, however, the patient was awake and alert, interacting appropriately. No further shaking was noted. The cause of the altered mental status and shaking is unknown. There was some concern for infection involving the left lower extremity; however, she has been afebrile and does not have an elevated white blood cell count. Because of this, antibiotic therapy was stopped on the day after admission. The patient has continued to remain afebrile and the wounds generally are appearing better. Infection is not felt to be the cause of her altered mental status. In terms of the left lower extremity wounds, the patient needs very specific wound care to this area. She does much better if the wounds are kept dry, which it does not appear that they have been. The patient is to have Adaptic dressing applied only to the ulcerated areas, covered then by calcium alginate, then covered by 4x4 gauze, then covered by rolled gauze. The dressing is to be changed every 3 days or as needed for a saturated dressing. One must use extreme caution in removing the calcium alginate. If it adheres to the ulcerated areas, please use sterile saline to soak the calcium alginate, allow it to sit for a minute and then removed gently. The patient should also be keeping her leg elevated as much as possible. She should not be sitting in a wheelchair all day long with her leg in a dependent position as the wounds will never heal. Again, no antibiotics are felt to be needed at this time. Additionally, the patient has a macerated tyree-area. Her labia are erythematous and the tissue is broken down. This was felt to be due to poor tyree-care. A Pagan catheter has been inserted. A Pagan catheter should remain in place until the perineal tissue is healthy and intact. The Pagan catheter should be removed as soon as possible, however, otherwise she is at risk for infection. In terms of the patient's chronic medical conditions, the patient will be resuming all of her usual home medications on discharge. On the day of discharge, the patient is awake, alert, and oriented, sitting up in the bed in no acute distress. Cardiac exam revealed a normal S1, S2. She has no lower extremity edema. Lungs are clear to auscultation bilaterally. Abdomen is soft. It is nontender, nondistended. She has soft brown stool in her colostomy. The left lower extremity has chronic venous stasis skin changes as well as almost circumferential ulceration around the mid lower leg area. There are no signs of infection including no purulent drainage or significant erythema. The wound bases appear healthy. FOLLOWUP CONCERNS: The patient is being discharged to [facility] today, 07/09/19. ACTIVITY: Activity level is as tolerated. DIET: Heart healthy, diabetic. CONDITION ON DISCHARGE: Stable. TIME SPENT: 35 minutes was spent discharging this patient. [id number]/CPS #: [id number] MTDD
[2019-07-09] MEDS ORDERED: Spironolactone TAB* 25 MG PO ONE (13:34)
[2019-07-09] MEDS ORDERED: Furosemide TAB* 40 MG PO ONE (13:34)
== END 2019-07-09 15:41 | DRG 948 ==
LOC: ED 09:34 → MEDTELE 13:00 → OBSVTOIN 07-07 12:34
PROVIDERS: ADMIT Internal Medicine; ATTEND Hospitalist
DX: R41.82 Altered mental status, unspecified (principal); L97.821 Non-pressure chronic ulcer of other part of left lower leg limited to breakdown of skin; N18.4 Chronic kidney disease, stage 4 (severe); I50.22 Chronic systolic (congestive) heart failure; N76.4 Abscess of vulva; E11.649 Type 2 diabetes mellitus with hypoglycemia without coma; I87.8 Other specified disorders of veins; E11.622 Type 2 diabetes mellitus with other skin ulcer; E11.22 Type 2 diabetes mellitus with diabetic chronic kidney disease; E03.9 Hypothyroidism, unspecified; F31.9 Bipolar disorder, unspecified; Z85.048 Personal history of other malignant neoplasm of rectum, rectosigmoid junction, and anus; Z93.3 Colostomy status; Z79.84 Long term (current) use of oral hypoglycemic drugs; Z79.82 Long term (current) use of aspirin; Z79.4 Long term (current) use of insulin; Z79.899 Other long term (current) drug therapy; Z88.0 Allergy status to penicillin; Z88.8 Allergy status to other drugs, medicaments and biological substances; Z82.49 Family history of ischemic heart disease and other diseases of the circulatory system; R25.1 Tremor, unspecified
CPT/HCPCS: 36415; 36600; 71045; 80048; 80053; 81003; 82140; 82803; 83036; 83605; 83735; 84484; 85025; 85610; 85652; 85730; 86140; 87040; 95819; 99285; A9270-GY; G0378; J0692; J0744; J1644; J2060; J2405; J3370; J3475

== ENCOUNTER 2019-08-04 16:45 | Inpatient (IN) | payer MEDICARE, MEDICAID ==
--- NOTE | 2019-08-04 17:07 | ED ---
Complex/Multi-Sys Presentation - HPI Summary HPI Summary: 74 year old F brought in by EMS to [facility] complains of increased weakness since today. Patient reports intermittent shortness of breath and nausea. Patient has a chronic left leg venous ulcer to left leg. The patient rates the pain 0/10 in severity. Symptoms aggravated by nothing. Symptoms alleviated by nothing. Patient was recently admitted and discharged from hospital for sepsis per triage note. - History Of Current Complaint Chief Complaint: EDWeakness Time Seen by Provider: 08/04/19 17:00 Hx Obtained From: Patient, Other: - nurse triage note Onset/Duration: Lasting Days, Still Present Timing: Constant Severity Currently: None Aggravating Factor(s): nothing Alleviating Factor(s): nothing - Allergies/Home Medications Allergies/Adverse Reactions: Allergies Allergy/AdvReac Type Severity Reaction Status Date / Time cefdinir Allergy Rash Verified 07/15/19 11:27 lithium Allergy Hives Verified 07/15/19 11:27 Penicillins Allergy Hives Verified 07/15/19 11:27 PMH/Surg Hx/FS Hx/Imm Hx Endocrine/Hematology History: Reports: Hx Diabetes - Type 2, Hx Thyroid Disease - hypothryoid., Hx Anemia Cardiovascular History: Reports: Hx Congestive Heart Failure, Hx Hypercholesterolemia, Hx Hypertension, Hx Peripheral Vascular Disease Respiratory History: Reports: Hx Asthma GI History: Reports: 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 History: Reports: Other Problems/Disorders - One kidney low performing Musculoskeletal History: Reports: Hx Arthritis - spine Sensory History: Reports: Hx Contacts or Glasses Denies: Hx Hearing Aid, Hx Hearing Problem Opthamlomology History: Reports: Hx Contacts or Glasses Psychiatric History: Reports: Hx Anxiety, Hx Depression, Hx Suicide Attempt - Over 20 years ago Denies: Other Psychiatric Issues/Disorders - Cancer History Cancer Type, Location and Year: rectal Hx Chemotherapy: Yes Hx Radiation Therapy: Yes - Surgical History Surgery Procedure, Year, and Place: rectal, hernia, tonsils, adnoids Hx Anesthesia Reactions: No Infectious Disease History: No Infectious Disease History: Reports: Hx of Known/Suspected MRSA Denies: Traveled Outside the [place] in Last 30 Days - Family History Known Family History: Positive: Cardiac Disease - Father with AL at age 77 y/o Negative: Renal Disease, Seizure Disorder - Social History Alcohol Use: None Hx Substance Use: No Substance Use Type: Reports: None Hx Tobacco Use: No Smoking Status (MU): Never Smoked Tobacco Have You Smoked in the Last Year: No Review of Systems Positive: Shortness Of Breath Positive: Nausea Positive: Other - chronic venous ulcer Positive: Weakness All Other Systems Reviewed And Are Negative: Yes Physical Exam - Summary Physical Exam Summary: Appearance: The patient is well-nourished in no acute distress and in no acute pain. Skin: The skin is warm and dry, and skin color reflects adequate perfusion. HEENT: The head is normocephalic and atraumatic. The pupils are equal and reactive. The conjunctivae are clear and without drainage. Nares are patent and without drainage. Mouth reveals moist mucous membranes, and the throat is without erythema and exudate. The external ears are intact. The ear canals are patent and without drainage. The tympanic membranes are intact. Neck: The neck is supple with full range of motion and non-tender. There are no carotid bruits. There is no neck vein distension. Respiratory: Chest is non-tender. Lungs are clear to auscultation and breath sounds are symmetrical and equal. Cardiovascular: Heart is tachycardic and regular rhythm. There is no murmur or rub auscultated. There is no peripheral edema and pulses are symmetrical and equal. Abdomen: The abdomen is soft and non-tender. There are normal bowel sounds heard in all four quadrants and there is no organomegaly palpated. Musculoskeletal: The left lower extremity is erythematous, the skin on the left lower extremity is sloughing off, there is discharge diffusely, and it is purulent Neurological: Patient is alert and oriented to person, place and time. The patient has symmetrical motor strength in all four extremities. Cranial nerves are grossly intact. Deep tendon reflexes are symmetrical and equal in all four extremities. Psychiatric: The patient has an appropriate affect and does not exhibit any anxiety or depression. Triage Information Reviewed: Yes Vital Signs On Initial Exam: Initial Vitals Temp Pulse Resp BP Pulse Ox 97.8 F 83 20 158/55 93 08/04/19 16:46 08/04/19 16:46 08/04/19 16:46 08/04/19 16:46 08/04/19 16:46 Vital Signs Reviewed: Yes Diagnostics - Vital Signs Vital Signs Temp Pulse Resp BP Pulse Ox 08/04/19 16:46 97.8 F 83 20 158/55 93 - Laboratory Result Diagrams: 08/04/19 17:48 08/04/19 17:48 Lab Statement: Any lab studies that have been ordered have been reviewed, and results considered in the medical decision making process. - Radiology CXR Radiology Interpretation Completed By: ED Physician Summary of Radiographic Findings: No acute process. Pending official report Complex Multi-Symp Course/Dx Course Of Treatment: Ms. Chowdhury presented complaining that she has been getting progressively weak ever since she left the hospital about a month ago. She was admitted that time for sepsis. It's hard to get good answers from her as she does seem weak and somewhat scattered. She she was nontoxic in appearance but her pulse ox was low on room air so she was placed on oxygen. She had a clear infected left lower ankle. Her labs revealed renal insufficiency. She had been given a liter of fluid at that point and more fluid was held. I spoke with the hospitalists came to evaluate her for admission - Diagnoses Provider Diagnoses: Acute kidney injury superimposed on CKD, Weakness, Respiratory insufficiency, Cellulitis of left ankle - Physician Notifications Discussed Care Of Patient With: Alecia Sanchez Time Discussed With Above Provider: 19:26 Instructed by Provider To: Other - Dr. Sanchez, hospitalist, agrees to admit patient - Critical Care Time Critical Care Time: 30-74 min Discharge ED - Sign-Out/Discharge Documenting (check all that apply): Patient Departure - Admit Patient Received Moderate/Deep Sedation with Procedure: No - Discharge Plan Condition: Stable Disposition: ADMITTED TO [facility] Referrals: Daya Little NP [Primary Care Provider] - - Billing Disposition and Condition Condition: STABLE Disposition: Admitted to [facility] - Attestation Statements Document Initiated by Maureene: Yes Documenting Scribe: Mandy Grullon Provider For Whom Julio is Documenting (Include Credential): Hiro Alcocer MD Scribafua Attestation: IMandy, scribed for Hiro Alcocer MD on 08/04/19 at 2033. Scribe Documentation Reviewed: Yes Provider Attestation: The documentation as recorded by the manuelibMandy caal accurately reflects the service I personally performed and the decisions made by me, Hiro Alcocer MD Status of Scribe Document: Viewed
[2019-08-04] MEDS ORDERED: NS 0.9% 1000 ML** 1,000 ML IV.FLUID IV ONE (17:22)
[2019-08-04] MEDS ORDERED: ED Vancomycin 1 GM/250 ML 1 GM/250 ML PREMIX.SET IVPB ONE (17:25)
[2019-08-04 17:57] LABS: ABS Basophils 0.1 10^3/ul (0-0.2); ABS Eosinophils 0.1 10^3/ul (0-0.6); ABS Lymphocytes 0.9 10^3/ul (1.0-4.8); ABS Monocytes 0.7 10^3/ul (0-0.8); ABS Neutrophils 8.3 10^3/ul (1.5-7.7); Eosinophil % 1.1 %; Hematocrit 33 % (35-47); Lymphocyte % 9.3 %; Mean Corpuscular HGB Conc 33 g/dL (31-36); Mean Corpuscular Hemoglobin 27 pg (27-31); Mean Corpuscular Volume 80 fL (80-97); Mean Platelet Volume 6.6 fL (7.4-10.4); Platelet Count 293 10^3/uL (150-450); Red Blood Count 4.12 10^6 /uL (3.70-4.87); Red Cell Distribution Width 17 % (10-15)
[2019-08-04] MEDS ORDERED: Vancomycin(*) 1,000 MG BAG/ADDV IVPB ONE (18:04)
[2019-08-04 18:07] LABS: INR 1.11 (0.82-1.09)
[2019-08-04 18:14] LABS: Albumin 3.9 g/dL (3.2-5.2); Albumin/Globulin Ratio 1.4 (1-3); BUN/Creatinine Ratio 16.3 (8-20); C Reactive Protein 13.49 mg/L (<8.01); Calcium 9.4 mg/dL (8.6-10.3); EGFR African American 9.7 (>60); Globulin 2.7 g/dL (2-4); Potassium 4.8 mmol/L (3.5-5.0); Total Bilirubin 0.2 mg/dL (0.2-1.0); Total Protein 6.6 g/dL (6.4-8.9)
[2019-08-04 19:32] LABS: Urine Appearance Turbid; Urine Bacteria Absent (Absent); Urine Bilirubin Negative (Negative); Urine Blood 2+ (Negative); Urine Color Yellow; Urine Glucose Negative (Negative); Urine Ketones Negative (Negative); Urine Nitrite Negative (Negative); Urine Protein 1+(30 mg/dL) (Negative); Urine Red Blood Cell 2+(6-10/hpf) (Absent); Urine Squamous Epithelial Cell Present (Absent); Urine Transitional Epithelial Present (Absent); Urine Urobilinogen Negative (Negative); Urine White Blood Cell 3+(>20/hpf) (Absent)
[2019-08-04] MEDS ORDERED: Dextrose 50% VIAL 50 ml IV PUSH PRN (20:48)
[2019-08-04] MEDS ORDERED: Vancomycin(*) 1,000 MG in NS 0.9% 250 ML* 250 ML IVPB ONE (20:50)
[2019-08-04] MEDS ORDERED: Vancomycin per Pharmacy* NOTE FOLLOW UP SCH (21:00)
[2019-08-04 21:34] LABS: Urine Appearance Cloudy; Urine Bacteria Absent (Absent); Urine Bilirubin Negative (Negative); Urine Blood 1+ (Negative); Urine Color Straw; Urine Glucose Negative (Negative); Urine Ketones Negative (Negative); Urine Nitrite Negative (Negative); Urine Protein Negative (Negative); Urine Red Blood Cell 1+(3-5/hpf) (Absent); Urine Specific Gravity 1.006 (1.010-1.030); Urine Urobilinogen Negative (Negative); Urine White Blood Cell 3+(>20/hpf) (Absent)
[2019-08-04 21:37] LABS: Urine Creatinine Concentration 35.74 mg/dL
[2019-08-04 21:44] LABS: Influenza A Molecular NEGATIVE (Negative); Influenza B Molecular NEGATIVE (Negative)
[2019-08-04] MEDS: NS 0.9% 1000 ML** 1,000 ML IV SCH (22:10)
[2019-08-04] MEDS: Calcium/Vitamin D TAB 250/125* TAB PO SCH (22:14)
[2019-08-04] MEDS: Carvedilol TAB* 3.125 MG PO SCH (22:14)
[2019-08-04] MEDS: Enoxaparin(*) 30 MG/0.3 ML SYR SUBCUT SCH (22:15)
[2019-08-04] MEDS: Atorvastatin* 10 MG TAB PO SCH (22:15)
--- NOTE | 2019-08-05 00:05 | PN ---
Sepsis Event Evaluation Date of Evaluation: 08/05/19 Time of Evaluation: 00:03 Current Stage of Sepsis: Sepsis Vital Signs - Last 12 Hours: Vital Signs - 12 hr Temp Pulse Resp BP Pulse Ox 08/04/19 21:50 98.3 F 67 20 106/57 100 08/04/19 21:00 68 20 100 08/04/19 20:46 79 21 106/57 100 08/04/19 20:16 78 27 111/48 100 08/04/19 20:00 73 22 100 08/04/19 19:46 70 24 132/53 100 08/04/19 19:24 100 08/04/19 19:16 70 21 115/68 100 08/04/19 19:00 81 13 08/04/19 18:45 78 14 112/56 100 08/04/19 18:16 76 25 97/46 99 08/04/19 18:00 80 22 100 08/04/19 17:24 69 19 96 08/04/19 17:16 72 20 96/65 88 08/04/19 16:46 97.8 F 83 20 158/55 93 Lactic Acid: 08/04/19 08/04/19 17:48 21:25 Lactic Acid 0.6 0.3 L - Cardiopulmonary Exam Capillary Refill: < or = to 5 seconds Respiratory: Clear to Auscultation Cardiovascular: NL Sounds; No Murmurs; No JVD, No Edema - Peripheral Pulse Exam Pedal Pulses: Bilateral Normal Posterior Tibial Pulse: Bilateral Normal - Skin Exam Skin Exam: Normal Turgor - [place] Coma Scale Best Eye Response: 4 - Spontaneous Best Motor Response: 6 - Obeys Commands Best Verbal Response: 5 - Oriented Coma Scale Total: 15 Assess/Plan/Problems-Billing Assessment:
--- NOTE | 2019-08-05 00:27 | HP ---
CC: PCP, [facility]; Daya Little NP * MEDICINE HISTORY AND PHYSICAL: DATE OF ADMISSION: 08/04/19 PRIMARY CARE PROVIDER: At [facility]. PROVIDER: Donell Lebron NP. ATTENDING PHYSICIAN: Dr. Laz Prater * (dictated by Donell Lebron NP). CONSULTING LOOM OPERATOR: Bubba Burnette MD. CHIEF COMPLAINT: Malaise, shakiness. HISTORY OF PRESENT ILLNESS: Ms. Chowdhury is a 74-year-old female who resides at [facility], [place] with recurrent hospitalizations at [facility], with her last occurring from 07/06/19 through 07/09/19. She has a past medical history significant for heart failure with reduced ejection fraction of 40% to 45%, chronic left lower extremity venous stasis ulceration, type 2 diabetes, stage 4 chronic kidney disease, hypothyroidism, bipolar disorder, and rectal carcinoma; status post partial colectomy and colostomy. She had previously been admitted with concern for septic shock related to leg wound as well as severe acute kidney injury. Her most recent admission was concerning for altered mental status and hypoglycemia and worsening lower extremity wounds. When I asked the patient what prompted her to come to the ER today, she is unable to tell me. She states that she has not felt well for the past 4 weeks. She is unable to tell me what felt differently about today, except that she just does not feel well. I did speak with her daughter, Latoya Chowdhury, who states that she saw her mother this morning and noticed that she looked frail and less spunky than usual. Her personality was different, and it appeared as though her mother did not feel well. She asked her mother if she would like to go to the hospital, and the patient agreed. Nursing staff at [facility], [place] also confirmed this by stating that the patient stated she felt shaky, had altered mental status, and had requested to go to the hospital. Here in the ER, Ms. Chowdhury was noted to have chronic left leg venous ulcer with sloughing skin and concerns for purulent drainage. A wound culture was obtained and is currently growing out Gram-positive cocci and neutrophils. She was started on vancomycin. Labs are drawn and there was concern for blood glucose of 63 as well as BUN of 86 with creatinine of 5.28. At discharge in June, her creatinine was 1.25 with a repeat on 07/15/19 at 1.10; however, on 07/27/19, her creatinine was noted to be 3.16 in the outpatient setting. Ms. Chowdhury is unsure why those labs were drawn. She was also noted to become hypoxic while in the ER with her O2 sats dropping down into the 80s, and she was placed on oxygen by nasal cannula with good effect and appropriate improvement to 100%. When assessed, Ms. Chowdhury is very anxious and continues to ask when she can go to her room upstairs. She does respond appropriately and does answer questions. She states that she is scared. She does not feel well. She is unsure if she has felt feverish or had chills. She denies any congestion or cold or flu symptoms. She denies chest pain or cough, but endorsed shortness of breath. She does feel shaky and rundown. She denies abdominal pain, nausea , or vomiting. She does state that she has had multiple episodes of diarrhea in her colostomy, and she states she was being given stool softeners but has had loose stools already. She does not think that she has urinated in quite some time. She does not endorse burning with urination. She denies any new joint or muscular pain. Denies pain to her left lower extremity wound. Denies difficulty swallowing or changes in vision or hearing. Given the patient's assessment findings, Hospital Medicine was consulted for admission. PAST MEDICAL HISTORY: Significant for: 1. Type 2 diabetes. 2. Stage 4 chronic kidney disease. 3. Chronic left lower extremity venous stasis ulceration. 4. Hypothyroidism. 5. Bipolar disorder. 6. Chronic systolic congestive heart failure with reduced ejection fraction of 40% to 45%. 7. Rectal carcinoma, status post resection with partial colectomy and colostomy. PAST SURGICAL HISTORY: Includes colectomy, colostomy, and hernia repair. HOME MEDICATIONS: 1. Zofran 4 mg q.6 hours p.r.n. 2. Victoza 1.8 mg subcu at bedtime. 3. NovoLog insulin 5 units subcu after meals. 4. Glargine insulin 20 units b.i.d. 5. Acetaminophen 500 mg b.i.d. 6. Spironolactone 25 mg daily. 7. Simvastatin 20 mg at bedtime. 8. Levothyroxine 125 mcg q.a.m. 9. Furosemide 40 mg daily. 10. Carvedilol 3.125 mg b.i.d. 11. Aspirin 81 mg daily. 12. Sertraline 100 mg q.a.m. 13. Entresto 49 mg/51 mg one tab b.i.d. 14. Gabapentin 600 mg b.i.d. 15. Calcium carbonate/vitamin D3 one tab b.i.d. ALLERGIES: Include CEFDINIR, LITHIUM, and PENICILLINS. FAMILY HISTORY: Both the patient's parents of heart disease. SOCIAL HISTORY: She denies any history of smoking, alcohol use, or illicit drug use. She is retired, formerly working as a executive secretary. She reports she has 2 children, Latoya Chowdhury and Sia, and they also serve as her surrogate decision makers. REVIEW OF SYSTEMS: A 12-point review of systems was obtained and reviewed, and all pertinent positives and negatives are as per HPI. PHYSICAL EXAMINATION GENERAL: This is a 74-year-old female who appears stated age, lying on the ED stretcher, in no acute distress. VITAL SIGNS: Temperature 97.8, heart rate 78, respiratory rate 22, blood pressure 115/68, and O2 saturation is 100% on 4 L nasal cannula. HEENT: Head is atraumatic and normocephalic. Pupils are equal and round and reactive to light and accommodation. Sclerae are nonicteric. Extraocular movements are intact. Oral mucosa is moist without oropharyngeal erythema, exudate, or discharge. NECK: Supple, nontender. No lymphadenopathy appreciated. No carotid bruits auscultated. No JVD noted. LUNGS: With no expiratory wheezing, rales, or rhonchi, fair airflow throughout. She does not take deep breaths. CARDIAC: Normal S1 and S2 heart sounds. Regular rate and rhythm. I did appreciate a soft systolic murmur best heard along the right upper sternal border. Distal pulses are 2+ and intact and present in the bilateral radial and pedal pulses. No lower extremity edema noted. There is no edema of the upper extremities. ABDOMEN: Soft, nontender, nondistended with normoactive bowel sounds. No CVA tenderness noted. Left-sided colostomy in place with no drainage in the bag. MUSCULOSKELETAL: No clubbing or cyanosis. There is active range of motion of all 4 extremities. SKIN: Angry erythema and excoriation of the bilateral labia noted. To the left lower extremity, there is sloughing skin with significant erythema and areas of purulent drainage. NEUROLOGIC: Cranial nerves II through XII are grossly intact. No focal deficits. She is alert and oriented x3, follows commands. Sensation is intact to light touch to the lower extremities. DIAGNOSTIC STUDIES/LAB DATA: CBC: WBC 10.0, hemoglobin 11, hematocrit 33, platelet count 293. INR 1.11. CMP: Sodium 136, potassium 4.8, chloride 95, carbon dioxide 30, BUN 86, creatinine 5.28, glucose 63, lactic acid 0.6, calcium 9.4. Total bilirubin 0.2, AST 9, ALT 11, alk phos 85. Troponin 0.0. CRP 13.49. UA shows 2+ blood, negative for nitrites, 3+ leukocyte esterase, absent urine bacteria. Chest x-rays reviewed. By my review, I do not any see acute pathology. Old medical records are reviewed. ASSESSMENT AND PLAN: This is a 74-year-old female who presents today with concerns for [id number] kidney failure, acute respiratory failure with hypoxia, and left lower extremity infection secondary to chronic venous stasis ulceration and concurrent cellulitis. The plan is as follows: 1. Yinuh-nz-natfegl kidney injury and renal failure. I suspect prerenal causes as she does endorse multiple episodes of diarrhea. She is also on Lasix , spironolactone, and Entresto. I am unsure of what her p.o. intake is. In any event, this is likely contributing to hypovolemia. There is also a question of potential infection. It is unclear if it is the infection or the hypovolemia or a combination of both that is contributing to her presentation. In any event, we will hold her furosemide, spironolactone, and Entresto. I have reviewed her case with Dr. Burnette of nephrology and appreciate his recommendations. He also recommended holding gabapentin and initiating a multiple myeloma workup, which includes free light chain and electrophoresis studies. I have already ordered a renal ultrasound, and we will want calculate a FENa, although it does appear most likely to be hypovolemia and prerenal causes at this time contributing to her presentation. She has had a Pagan catheter placed in the ER, which would be helpful for strict Is and Os and is likely also going to help with her skin integrity issues. We will recheck a BMP tomorrow and should there fail to be improvement, a re-consultation with nephrology may be appropriate. We will continue her on fluid hydration, which we will do cautiously given her history of systolic congestive heart failure. 2. Left lower infection. Wound culture is showing 2+ neutrophils, 3+ Gram- positive cocci, and 2+ Gram-positive bacilli. Given previous cultures, we will continue with the vancomycin that she has been started on here in the ER and await further sensitives. She does have allergies to PENICILLIN and CEFDINIR, so Zosyn and cephalosporins are contraindicated in this event. She does meet for sepsis, with her leg wounds as the most likely source. She meets at 1816 p.m. by criteria of elevated heart rate, increased respiratory rate, and decreased blood pressure. She has not had fever or leukocytosis and her lactic acid is normal; however, she does have acute kidney injury, tachypnea, tachycardia, and mean blood pressure with the lowest noted at 57. She has been appropriately fluid resuscitated in the ER and we will continue her on normal saline 75, which is also to help with her acute-on- chronic renal injury. 3. Acute respiratory failure with hypoxia. I am unsure what is driving this, as she is currently comfortable on 4 L, which will likely be titrated downward. She did have a period when she desaturated into the 80s per the ER staff. Her chest x-ray is relatively unremarkable. Cannot rule out pulmonary embolism , as I cannot check CT at this time as nuclear medicine is not available. Could consider a D-dimer, though it may be false elevated given the level of inflammation and current infection. We will continue to monitor her respiratory status. This may be an early presentation, and pathology may not yet be seen on chest x-rays. Ordered a flu swab, follow up labs. Continue to monitor her assessment and wean oxygen as able. 4. Type 2 diabetes. She presents to the ER with a blood glucose of 63, now improved to the 100s. We will hold her Lantus this evening. We will start her on Lispro sliding scale only and resume home Lantus insulin as indicated. We will hold her Victoza while she is here in the hospital. I do note her most recent A1c was 7.2 last month. 5. History of systolic heart failure with reduced ejection fraction. I do not appreciate any significant fluid overload. Again, as per above, she does appear to be fluid depleted likely secondary to diuretics and diarrhea. We will hold her diuretics with concern for potential further decompensation from infection and acute kidney injury. Resume when medically stable and when appropriate. She can continue on her carvedilol. 6. Hypothyroidism. Continue levothyroxine at current dose. 7. FEN. Consistent carbohydrate diet and normal saline hydration. 8. DVT prophylaxis. Renally dosed subcu Lovenox. 9. Code status. She is a full code. MOLST completed in June and code status confirmed with patient and her daughter, Latoya. TIME SPENT: Approximately 70 minutes were spent on this admission with more than half that time spent [id number] with the patient, obtaining history and physical, performing physical examination, and reviewing the plan of care. Plan of care was also reviewed with my attending, Dr. Prater, who is in agreement. D[place]LL LEBRON [place] [id number]/CPS #: [id number] RYAN
[2019-08-05] MEDS: Melatonin 3 MG TAB PO SCH ×2 (01:15→20:40)
[2019-08-05] MEDS: Acetaminophen TAB* 325 MG PO PRN ×5 (04:05→21:59)
[2019-08-05] MEDS ORDERED: Vancomycin Random Level* NOTE FOLLOW UP ONE (06:00)
[2019-08-05 06:57] LABS: Anion Gap 9 mmol/L (2-11); BUN/Creatinine Ratio 16.2 (8-20); Blood Urea Nitrogen 77 mg/dL (6-24); CO2 Carbon Dioxide 23 mmol/L (22-32); Calcium 8.1 mg/dL (8.6-10.3); Chloride 105 mmol/L (101-111); EGFR African American 10.9 (>60); Glucose 84 mg/dL (70-100); Potassium 4.9 mmol/L (3.5-5.0); Sodium 137 mmol/L (135-145)
[2019-08-05 06:59] LABS: Vancomycin Random < 2.0 mcg/mL
[2019-08-05 07:31] LABS: ABS Eosinophils 0.1 10^3/ul (0-0.6); ABS Lymphocytes 0.6 10^3/ul (1.0-4.8); ABS Monocytes 0.3 10^3/ul (0-0.8); ABS Neutrophils 4.6 10^3/ul (1.5-7.7); Eosinophil % 1.4 %; Hematocrit 28 % (35-47); Lymphocyte % 10.5 %; Mean Corpuscular HGB Conc 32 g/dL (31-36); Mean Corpuscular Hemoglobin 27 pg (27-31); Mean Corpuscular Volume 83 fL (80-97); Mean Platelet Volume 7.1 fL (7.4-10.4); Nucleated Red Blood Cells % 0.1; Platelet Count 199 10^3/uL (150-450); Red Blood Count 3.38 10^6 /uL (3.70-4.87); Red Cell Distribution Width 18 % (10-15); White Blood Count 5.5 10^3/uL (3.5-10.8)
[2019-08-05] MEDS: Levothyroxine TAB* 125 MCG TAB PO SCH (07:32)
[2019-08-05] MEDS: Insulin LISPRO* 1 UNITS UNIT SUBCUT SCH ×3 (08:29→17:38)
[2019-08-05] MEDS ORDERED: Vancomycin 1500 MG IV - x ONCE IVPB ONE ×2 (08:30)
[2019-08-05] MEDS ORDERED: Influenza VAC *QUAD* 2019-20* 0.5 ML SYRINGE IM ONE (09:00)
[2019-08-05] MEDS: Carvedilol TAB* 3.125 MG PO SCH ×2 (09:23→20:40)
[2019-08-05] MEDS: Sertraline* 100 MG TAB PO SCH (09:23)
[2019-08-05] MEDS: Calcium/Vitamin D TAB 250/125* TAB PO SCH ×2 (09:23→20:40)
[2019-08-05] MEDS: Aspirin 81 mg CHEW TAB* 81 MG TAB.CHEW PO SCH (09:23)
--- NOTE | 2019-08-05 09:43 | PN ---
Subjective Date of Service: 08/05/19 Interval History: States that she presented to the emergency room d/t increased weakness and not feeling well. Labs reviewed: BUN/Creatinine slightly improved Reports that she slept poorly overnight, reports feeling tired this AM Denies chest pain. Denies abd pain , vomiting or diarrhea, does c/o nausea- improved after zofran Family History: Unchanged from Admission Social History: Unchanged from Admission Past Medical History: Unchanged from Admission Objective Active Medications: Acetaminophen (Tylenol Tab*) 650 mg PO Q4H PRN PRN Reason: PAIN-MILD/TEMP >/= 100.4 Last Admin: 08/05/19 07:37 Dose: 650 mg Aspirin (Aspirin 81 Mg Chew Tab*) 81 mg PO DAILY [facility] Last Admin: 08/05/19 09:23 Dose: 81 mg Atorvastatin Calcium (Lipitor*) 10 mg PO BEDTIME [facility] Last Admin: 08/04/19 22:15 Dose: 10 mg Calcium/Vitamin D (Oscal D Tab 250/125*) 1 tab PO BID [facility] Last Admin: 08/05/19 09:23 Dose: 1 tab Carvedilol (Coreg Tab*) 3.125 mg PO BID [facility] Last Admin: 08/05/19 09:23 Dose: 3.125 mg Dextrose (Dextrose 50% Vial 50 Ml*) 25 ml IV PUSH .FOR FS < 60 - SS PRN PRN Reason: FS < 60 Enoxaparin Sodium (Lovenox(*)) 30 mg SUBCUT Q24H [facility] Last Admin: 08/04/19 22:15 Dose: 30 mg Sodium Chloride (Ns 0.9% 1000 Ml) 1,000 mls @ 75 mls/hr IV PER RATE [facility] Last Admin: 08/04/19 22:10 Dose: 75 mls/hr Vancomycin HCl 1,500 mg/ (Sodium Chloride) 250 mls @ 166.667 mls/hr IVPB ONCE ONE Stop: 08/05/19 09:59 Last Admin: 08/05/19 09:19 Dose: 166.667 mls/hr Insulin Human Lispro (Humalog*) 0 units SUBCUT AC [facility]; Protocol Last Admin: 08/05/19 08:29 Dose: Not Given Levothyroxine Sodium (Synthroid Tab*) 125 mcg PO QAM@0600 [facility] Last Admin: 08/05/19 07:32 Dose: 125 mcg Melatonin (Melatonin) 3 mg PO BEDTIME [facility] Last Admin: 08/05/19 01:15 Dose: 3 mg Ondansetron HCl (Zofran Inj*) 4 mg IV Q6H PRN PRN Reason: NAUSEA/VOMITING Pharmacy Consult (Vancomycin Per Pharmacy*) 1 note FOLLOW UP .VANC PER PHARMACY [facility]; Protocol Pharmacy Consult (Vancomycin Random Level*) 1 note FOLLOW UP 0600 ONE Stop: 08/06/19 06:01 Sertraline HCl (Zoloft*) 100 mg PO QAM [facility] Last Admin: 08/05/19 09:23 Dose: 100 mg Vital Signs - 8 hr 08/05/19 08/05/19 08/05/19 03:49 08:00 08:23 Temperature 98.4 F 97.3 F Pulse Rate 66 68 Respiratory 14 20 Rate Blood Pressure 97/38 126/37 (mmHg) O2 Sat by Pulse 100 100 100 Oximetry Oxygen Devices in Use Now: Nasal Cannula Appearance: alert, resting in bed, no acute distress Eyes: No Scleral Icterus Ears/Nose/Mouth/Throat: Clear Oropharnyx, Mucous Membranes Moist Neck: NL Appearance and Movements; NL JVP, Trachea Midline Respiratory: Symmetrical Chest Expansion and Respiratory Effort, Clear to Auscultation Cardiovascular: NL Sounds; No Murmurs; No JVD, No Edema Abdominal: NL Sounds; No Tenderness; No Distention Extremities: No Edema, No Clubbing, Cyanosis Skin: - - scaley dried skin, with redness noted to left lower leg. Dressing intact Neurological: Alert and Oriented x 3 Nutrition: Taking PO's Result Diagrams: 08/05/19 05:29 08/05/19 05:29 Microbiology and Other Data: Microbiology 08/04/19 17:11 Skin and Soft Tissue MRSA/MSSA (PCR - Final Leg Left Mrsa Positive S.aureus Positive Gram Stain - Final Assess/Plan/Problems-Billing Assessment: - Patient Problems (1) Acute kidney injury superimposed on CKD Current Visit: No Status: Acute Code(s): N17.9 - ACUTE KIDNEY FAILURE, UNSPECIFIED; N18.9 - CHRONIC KIDNEY DISEASE, UNSPECIFIED SNOMED Code(s): 44885406 Comment: -Likely d/t dehydration and medications - holding lasix, spironolactone, entresto -Cr trending down - will continue IVF -Continue to monitor, avoid nephrotoxic medications - renal ultrasound - no hydronephrosis , no obstructing stones -repeat BMP in the AM (2) Wound of left lower extremity Current Visit: No Status: Acute Code(s): S81.802A - UNSPECIFIED OPEN WOUND, LEFT LOWER LEG, INITIAL ENCOUNTER SNOMED Code(s): 519301462 Comment: - with redness and purlent drainage- wound culture positive for MRSA, MSSA, Staphylococcus aureus, corynebacterium striatum - continue vancomycin - consider consult to ID in the AM (3) Diabetes Current Visit: No Status: Acute Code(s): E11.9 - TYPE 2 DIABETES MELLITUS WITHOUT COMPLICATIONS SNOMED Code(s): 14753085 Comment: -Blood sugars 95-149 -Lispro ss with fingerstick AC - holding lantus (4) CHF (congestive heart failure) Current Visit: No Status: Acute Code(s): I50.9 - HEART FAILURE, UNSPECIFIED SNOMED Code(s): 13905943 Comment: stable - Recent echo from 10/23/18 with EF 40-45% - holding home medications entresto, furosemide, spironolactone- d/t hypovolemia and YESSY - Daily weight and Strict I&Os- will monitor fluid status closely (5) Hypothyroid Current Visit: No Status: Acute Code(s): E03.9 - HYPOTHYROIDISM, UNSPECIFIED SNOMED Code(s): 91122728 Comment: Continue levothyroxine at home dose. (6) DVT prophylaxis Current Visit: No Status: Acute Code(s): YHU7239 - SNOMED Code(s): 158198141 Comment: damir (7) Full code status Current Visit: No Status: Acute Code(s): Z78.9 - OTHER SPECIFIED HEALTH STATUS SNOMED Code(s): 219354633
[2019-08-05] MEDS: Ondansetron INJ* 2 MG/ML VIAL IV PRN (10:19)
[2019-08-05] MEDS: NS 0.9% 1000 ML** 1,000 ML IV SCH (14:28)
[2019-08-05] MEDS: Enoxaparin(*) 30 MG/0.3 ML SYR SUBCUT SCH (20:40)
[2019-08-05] MEDS: Atorvastatin* 10 MG TAB PO SCH (20:40)
[2019-08-06] MEDS: Acetaminophen TAB* 325 MG PO PRN ×3 (04:27→17:17)
[2019-08-06] MEDS: Levothyroxine TAB* 125 MCG TAB PO SCH (04:28)
[2019-08-06] MEDS: NS 0.9% 1000 ML** 1,000 ML IV SCH (05:04)
[2019-08-06] MEDS ORDERED: Vancomycin Random Level* NOTE FOLLOW UP ONE (06:00)
[2019-08-06] MEDS: Insulin LISPRO* 1 UNITS UNIT SUBCUT SCH ×3 (07:49→16:50)
[2019-08-06] MEDS: Carvedilol TAB* 3.125 MG PO SCH ×2 (08:34→21:23)
[2019-08-06] MEDS: Calcium/Vitamin D TAB 250/125* TAB PO SCH ×2 (08:34→21:23)
[2019-08-06] MEDS: Aspirin 81 mg CHEW TAB* 81 MG TAB.CHEW PO SCH (08:34)
[2019-08-06] MEDS: Sertraline* 100 MG TAB PO SCH (08:34)
--- NOTE | 2019-08-06 11:18 | CONS ---
CONSULTATION REPORT: DATE OF CONSULTATION: 08/06/19 REQUESTING PROVIDER: Priya Lynch NP. CONSULTING SERVICE: Infectious Disease. REASON FOR CONSULTATION: Left leg wound. IMPRESSION: 1. Admitted with fatigue, malaise, anorexia, found to have acute kidney injury and a creatinine of 5.2. It was 3.1 on 07/27/19, and 1 on 07/15/19. BUN was 86. BUN to creatinine ratio was 16. Renal ultrasound was unremarkable. Urinalysis shows white cells and red cells. She is receiving hydration here with slight improvement. 2. Left lower extremity chronic superficial wounds with surrounding intense erythema in a very discrete pattern similar to her presentation in May. I remain concerned that there is an allergic reaction to some component of the dressing. Wound also grew Staphylococcus aureus, which is PCR positive for methicillin- resistant Staphylococcus aureus. Blood cultures have been negative. 3. Obesity. 4. PENICILLIN and CEPHALOSPORIN allergy. 5. Type 2 diabetes. 6. Stage 4 chronic kidney disease. 7. Bipolar disorder. RECOMMENDATIONS: Vancomycin goal trough 10 to 15. She has been reluctant to have daily dressing changes, which I will encourage as well as using Vaseline gauze instead of the products she is currently using in the event that there is an allergic component. HISTORY OF PRESENT ILLNESS: This is a 74-year-old woman, who lives at [facility] , who has been in the hospital couple times this summer and over the last 3 weeks has had worsening renal function detected and creatinine is up to 5 when she came in now for malaise and weakness. She has also had a left lower extremity wound she has been following with [facility] and been treated at [facility]. She has grown pseudomonas in the past in this wound, which is somewhat painful to her. She has had no fever, chills, or sweats. She has had a culture taken here that grew Staph. aureus. The PCR is positive for MRSA; corynebacterium striatum also grew. She has had no fever here. She had some brief hypotension initially and had some volume resuscitation and vancomycin. Today, she denies leg pain, fevers, chills, or sweats. Notes that her appetite is decreased. PAST MEDICAL HISTORY: 1. Obesity. 2. Bipolar disorder. 3. Chronic kidney disease stage 4. 4. Type 2 diabetes with neuropathy. 5. Chronic left lower extremity venous stasis changes. 6. Hypothyroidism. 7. Chronic systolic congestive heart failure, ejection fraction 40%. 8. History of rectal cancer, status post resection and partial colectomy and colostomy. 9. Status post hernia repair. MEDICATIONS: 1. Aspirin. 2. Tylenol. 3. Lipitor. 4. Calcium. 5. Vitamin D. 6. Coreg. 7. Enoxaparin. 8. Levothyroxine. 9. Melatonin. 10. Sertraline. 11. Zofran as needed. 12. Vancomycin 1500 mg. ALLERGIES: CEFDINIR, LITHIUM, PENICILLIN. FAMILY HISTORY: No recurrent infections. SOCIAL HISTORY: She lives at [facility]. She is a nonsmoker. REVIEW OF SYSTEMS: All negative, except as noted above to a 12-point review. PHYSICAL EXAM: Vital Signs: Temperature 36.4, heart rate 67, respiratory rate 17, blood pressure 134/57, oxygen saturation 100% on room air. In general, she is awake, not in distress. Neurologic: She is oriented x3, follows all commands. She has decreased sensation to light touch in both feet. HEENT: There is no conjunctival hemorrhage. Oropharynx without lesions. Neck is supple without mass. Heart is regular rate and rhythm without murmurs, rubs, or gallops. Lungs are clear to auscultation bilaterally. Abdomen: Soft, nontender, nondistended. There are bowel sounds present. Skin: There is no rash or splinter hemorrhage. Musculoskeletal: There is no spine tenderness to palpation. There is bilateral lower extremity 1+ edema. The left lower extremity below the knee, there is circumferential intense erythema which is blanching and a fair amount of superficial debris in the wound. There is some bleeding when the dressing was removed. There are no underlying deeper layers exposed that I can see. DIAGNOSTIC STUDIES/LAB DATA: White blood cell count 5, hemoglobin 9, platelets 199. Creatinine is 4.7. Please see impressions and recommendations outlined above. Thank you for asking me to see Ms. Chowdhury in consultation. [id number]/[facility] #: [id number] MTDGerri
[2019-08-06 13:22] LABS: Vancomycin Random 15.7 mcg/mL
[2019-08-06 14:13] LABS: Calcium 7.9 mg/dL (8.6-10.3)
[2019-08-06 14:18] LABS: BUN/Creatinine Ratio 15.3 (8-20); EGFR African American 11.2 (>60); EGFR Non-African American 9.3 (>60)
[2019-08-06 14:19] LABS: Potassium 5.7 mmol/L (3.5-5.0)
[2019-08-06] MEDS ORDERED: Vancomycin(*) 1,250 MG IV x ONCE IVPB ONE ×2 (15:30)
--- NOTE | 2019-08-06 16:25 | PN ---
Subjective Date of Service: 08/06/19 Interval History: Patient seen and examined. Patient appears to be despondent and making statements about "not wanting to live" anymore, and making statement "I can't do this anymore", but cannot articulate what she means. Does not state she has a plan for suicide but states she is very depressed. She denies pain, no SOB, no fevers or chills. Does endorse fatigue and general malaise. Family History: Unchanged from Admission Social History: Unchanged from Admission Past Medical History: Unchanged from Admission Objective Active Medications: Acetaminophen (Tylenol Tab*) 650 mg PO Q4H PRN PRN Reason: PAIN-MILD/TEMP >/= 100.4 Last Admin: 08/06/19 08:36 Dose: 650 mg Aspirin (Aspirin 81 Mg Chew Tab*) 81 mg PO DAILY [facility] Last Admin: 08/06/19 08:34 Dose: 81 mg Atorvastatin Calcium (Lipitor*) 10 mg PO BEDTIME [facility] Last Admin: 08/05/19 20:40 Dose: 10 mg Calcium/Vitamin D (Oscal D Tab 250/125*) 1 tab PO BID [facility] Last Admin: 08/06/19 08:34 Dose: 1 tab Carvedilol (Coreg Tab*) 3.125 mg PO BID [facility] Last Admin: 08/06/19 08:34 Dose: 3.125 mg Dextrose (Dextrose 50% Vial 50 Ml*) 25 ml IV PUSH .FOR FS < 60 - SS PRN PRN Reason: FS < 60 Enoxaparin Sodium (Lovenox(*)) 30 mg SUBCUT Q24H [facility] Last Admin: 08/05/19 20:40 Dose: 30 mg Sodium Chloride (Ns 0.9% 1000 Ml) 1,000 mls @ 75 mls/hr IV PER RATE [facility] Last Admin: 08/06/19 05:04 Dose: 75 mls/hr Vancomycin HCl 1,250 mg/ (Sodium Chloride) 250 mls @ 166.667 mls/hr IVPB ONCE ONE Stop: 08/06/19 19:29 Insulin Human Lispro (Humalog*) 0 units SUBCUT AC [facility]; Protocol Last Admin: 08/06/19 11:56 Dose: Not Given Levothyroxine Sodium (Synthroid Tab*) 125 mcg PO QAM@0600 [facility] Last Admin: 08/06/19 04:28 Dose: 125 mcg Melatonin (Melatonin) 3 mg PO BEDTIME [facility] Last Admin: 08/05/19 20:40 Dose: 3 mg Ondansetron HCl (Zofran Inj*) 4 mg IV Q6H PRN PRN Reason: NAUSEA/VOMITING Last Admin: 08/05/19 10:19 Dose: 4 mg Patiromer (Veltassa Powder*) 8.4 gm PO DAILY [facility] Pharmacy Consult (Vancomycin Per Pharmacy*) 1 note FOLLOW UP .VANC PER PHARMACY [facility]; Protocol Pharmacy Consult (Vancomycin Random Level*) 1 note FOLLOW UP 0600 ONE Stop: 08/08/19 06:01 Sertraline HCl (Zoloft*) 100 mg PO QAM [facility] Last Admin: 08/06/19 08:34 Dose: 100 mg Vital Signs - 8 hr 08/06/19 08/06/19 08:30 11:21 Temperature 97.5 F Pulse Rate 66 Respiratory 17 16 Rate Blood Pressure 157/60 (mmHg) O2 Sat by Pulse 98 Oximetry Oxygen Devices in Use Now: None Appearance: alert, sad Ears/Nose/Mouth/Throat: Mucous Membranes Moist Neck: NL Appearance and Movements; NL JVP, Trachea Midline Respiratory: Symmetrical Chest Expansion and Respiratory Effort, Clear to Auscultation Cardiovascular: NL Sounds; No Murmurs; No JVD, RRR Extremities: No Clubbing, Cyanosis, - - LLE circumferential wound with erythema and drainage Neurological: Alert and Oriented x 3 Nutrition: Taking PO's Result Diagrams: 08/05/19 05:29 08/06/19 12:36 Microbiology and Other Data: Microbiology 08/04/19 17:11 Skin and Soft Tissue MRSA/MSSA (PCR - Final Leg Left Mrsa Positive S.aureus Positive Gram Stain - Final Diagnostic Imaging: Patient Name: BINA RAMESH Medical Record#: [id number] Ordering Physician: Ruby Etienne NP Acct.#: [id number] : 1945 Age: 74 Sex: F Location: [address] [place] [address] - MEDICAL Exam Date: 08/05/192000 ADM Status: ADM IN Order Information: US RENAL COMPLETE Accession Number: [id number] CPT: 54421 Indication: Renal failure. Comparison: June 23, 2019 CT Technique: Renal ultrasound. Report: 10.8 x 6.7 x 5.6 cm RIGHT kidney and 10.4 x 6.1 x 5.3 cm LEFT kidney demonstrate mildly increased cortical echogenicity. No conspicuous stones or hydronephrosis. RIGHT lower pole cortical 4.9 x 6.3 x 3.7 cm cyst with a thin partially calcified internal septation noted grossly unchanged compared with the June 23, 2019 CT. 1.4 cm cortical cyst lower pole LEFT kidney. IMPRESSION: #. Mildly increased renal cortical echogenicity suggesting medical renal disease. #. Negative for hydronephrosis. #. Mildly complex 4.9 x 6.3 x 3.7 cm cyst inferior pole RIGHT kidney without gross change compared with the June 23, 2019 CT. Assess/Plan/Problems-Billing Assessment: This is a 74 year old female with multiple admissions since october for wounds and renal disease that presents from [facility] with complaints of vague weakness , found to have dehydration, YESSY and worsening chronic leg wound. - Patient Problems (1) Wound of left lower extremity Code(s): S81.802A - UNSPECIFIED OPEN WOUND, LEFT LOWER LEG, INITIAL ENCOUNTER SNOMED Code(s): 174491046 Comment: - Chronic venous insufficiency, noted in record since last october - +MRSA/MSSA and corynebacterium striatum - Continue vancomycin with goal troughs 15-20 - ID consulted - Had pseudomonas in june in wound and has pos in urine culture today as well , will defer to ID on treatment, may represent colonization - Local wound care (2) Acute kidney injury superimposed on CKD Code(s): N17.9 - ACUTE KIDNEY FAILURE, UNSPECIFIED; N18.9 - CHRONIC KIDNEY DISEASE, UNSPECIFIED SNOMED Code(s): 58873169 Comment: - Likely d/t dehydration and medications and poor PO intake, continue holding lasix, spironolactone, entresto - Cr trending down - will continue IVF - Continue to monitor, avoid nephrotoxic medications - renal ultrasound - no hydronephrosis , no obstructing stones - Follow BNP (3) Bipolar disorder Comment: - With passive SI today - continue sertraline, SW and psych consulted - Supportive care (4) Diabetes Code(s): E11.9 - TYPE 2 DIABETES MELLITUS WITHOUT COMPLICATIONS SNOMED Code(s) : 46820508 Comment: - Blood sugars 95-149 - Lispro ss with fingerstick AC - holding lantus (5) Hypothyroid Code(s): E03.9 - HYPOTHYROIDISM, UNSPECIFIED SNOMED Code(s): 01603296 Comment: - Continue levothyroxine at home dose. (6) DVT prophylaxis Code(s): IPS5497 - SNOMED Code(s): 643201138 Comment: - lovenox sq - Monitor H&H in AM, Hgb 11 at admission and dropped to 9 today, may be dilutional but had GIB last month, will DC if any further drop and assess for bleeding (7) Full code status Code(s): Z78.9 - OTHER SPECIFIED HEALTH STATUS SNOMED Code(s): 749544472 Status and Disposition: Inpatient, return to [facility] when medically stable.
[2019-08-06] MEDS: Patiromer POWDER* 8.4 GM PAK PO SCH (17:07)
[2019-08-06] MEDS ORDERED: Vancomycin(*) 1,250 MG in NS 0.9% 250 ML* 250 ML IVPB ONE (18:00)
[2019-08-06] MEDS: Melatonin 3 MG TAB PO SCH (21:14)
[2019-08-06] MEDS: Atorvastatin* 10 MG TAB PO SCH (21:15)
[2019-08-06] MEDS: Enoxaparin(*) 30 MG/0.3 ML SYR SUBCUT SCH (23:53)
[2019-08-07] MEDS: Acetaminophen TAB* 325 MG PO PRN ×2 (00:13→08:44)
[2019-08-07] MEDS: Ondansetron INJ* 2 MG/ML VIAL IV PRN (03:54)
[2019-08-07] MEDS ORDERED: Vancomycin Random Level* NOTE FOLLOW UP ONE (06:00)
[2019-08-07] MEDS: NS 0.9% 1000 ML** 1,000 ML IV SCH ×2 (06:15→22:15)
[2019-08-07] MEDS: Levothyroxine TAB* 125 MCG TAB PO SCH (06:15)
[2019-08-07] MEDS: Aspirin 81 mg CHEW TAB* 81 MG TAB.CHEW PO SCH (08:44)
[2019-08-07] MEDS: Carvedilol TAB* 3.125 MG PO SCH ×2 (08:45→20:19)
[2019-08-07] MEDS: Sertraline* 100 MG TAB PO SCH (08:45)
[2019-08-07] MEDS: Calcium/Vitamin D TAB 250/125* TAB PO SCH ×2 (08:45→20:19)
[2019-08-07] MEDS: Insulin LISPRO* 1 UNITS UNIT SUBCUT SCH ×3 (09:20→17:40)
[2019-08-07] MEDS: Patiromer POWDER* 8.4 GM PAK PO SCH (09:41)
[2019-08-07 10:32] LABS: Hematocrit 32 % (35-47); Hemoglobin 10.1 g/dL (12.0-16.0); Mean Corpuscular HGB Conc 32 g/dL (31-36); Mean Corpuscular Hemoglobin 26 pg (27-31); Mean Corpuscular Volume 82 fL (80-97); Red Blood Count 3.85 10^6 /uL (3.70-4.87); Red Cell Distribution Width 17 % (10-15); White Blood Count 5.8 10^3/uL (3.5-10.8)
[2019-08-07 10:43] LABS: BUN/Creatinine Ratio 16.3 (8-20); Calcium 8.4 mg/dL (8.6-10.3); EGFR African American 13.2 (>60); EGFR Non-African American 10.9 (>60)
[2019-08-07 10:45] LABS: Potassium 5.6 mmol/L (3.5-5.0)
[2019-08-07] MEDS ORDERED: Sertraline* 50 MG TAB PO ONE (12:10)
[2019-08-07 12:11] LABS: Platelet Count 239 10^3/uL (150-450)
--- NOTE | 2019-08-07 13:29 | CONS ---
CONSULTATION REPORT: DATE OF CONSULT: 08/07/19 ATTENDING CLINICIAN: Priya Lynch NP CONSULTING PHYSICIAN: Dr. Yuriy Rand. REASON FOR CONSULT: Depression with passive suicidal thoughts. SUBJECTIVE HISTORY: Tamiko Chowdhury is a 74-year-old white female with a history of unipola r depression who resides at the [facility], who was brought in on 08/04/19 se condary to several weeks of increasing malaise and shakiness. She has a number of medical conditions including chronic lower extremity venous stasis with ulcerations; type 2 diabetes; stage 4 chronic k idney disease; hypothyroidism; and rectal carcinoma, status post partial colectomy and colostomy. I understand that she has had several recent admissions through the summer for some of these issues and has not been doing well. Apparently, she appeared to have a depressed affect and admitted to some p assive suicidal thoughts to the primary team. When I entered the patient's room, she was lying in be d, appearing to be somewhat somatic and uncomfortable with difficulty breathing and she has trouble s ustaining eye contact. The patient endorses feeling depressed as well as having several neurovegetat laxmi symptoms including difficulty sleeping, poor concentration, limited energy, hopelessness, psychom otor retardation, and passive suicidal thoughts to the effect that she would prefer to no longer be a live. I asked if she had any plan for suicide and she strongly denied this, stating that her Cath[place] c ze as well as her commitment to her 2 daughters and 3 grandsons would prohibit her from ever con sidering this. During the interview, she is cooperative, although our session is truncated because o f limited tolerance for answering questions partially due to dyspneic breathing. PAST PSYCHIATRIC HISTORY: The patient states that she had 2 lifetime hospitalizations both at the [facility] in [place], [place], during her 20s. I understand that she had depression with the of both of her daughters and had suicidal ideations as well as at least 1 suicide attempt and she declines to tell me the means by which she attempted to hurt he rself at that time. She can only recall being on 1 antidepressant, which was sertraline, which had b een prescribed by her primary care provider. She denies being in any recent therapy or treatment in the community. SUBSTANCE ABUSE HISTORY: The patient denies alcohol or illicit drug abuse historically. She denies any history of tobacco use. PAST MEDICAL HISTORY: Significant for type 2 diabetes; stage 4 chronic kidney disease; chronic left lower extremity venous stasis ulceration; hypothyroidism; chronic systolic congestive heart failure w ith reduced ejection fraction of 40% to 45%; rectal carcinoma, status post resection and partial marcy ctomy and colostomy; infected wound on her left lower extremity, being treated with antibiotics. HOME MEDICATIONS: Include: 1. Zofran. 2. Victoza. 3. NovoLog. 4. Glargine insulin. 5. Acetaminophen. 6. Spironolactone. 7. Simvastatin. 8. Levothyroxine. 9. Furosemide. 10. Carvedilol. 11. Aspirin. 12. Sertraline 100 mg p.o. daily. 13. Entresto. 14. Gabapentin. 15. Calcium carbonate/vitamin D3. ALLERGIES: Include CEFDINIR, LITHIUM, and PENICILLINS. FAMILY HISTORY: The patient is unaware of any mental illness in her family. SOCIAL HISTORY: The patient was born and raised in [place], where she had 1 older sister, who is no w . She was able to graduate high school and had 2 years of college. 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 She was for approxi mately 19 years until about 15 years ago when she and her , although they never form ally each other. The patient is Alev[employer]. She was never in the and has no history of legal problems. MENTAL STATUS EXAM: The patient is an overweight, disheveled, aging woman with poor grooming, who is lying on her side in her hospital bed. She appears to be somatic and uncomfortable, although she is able to answer questions. Speech is halting and she appears to be short of breath. Mood is clearly depressed with a constricted affect. Thought process is linear and goal directed. Thought content is significant for frustration over her medical problems. She is endorsing passive suicidal ideation s with no plans to self-harm. She denies homicidality. Insight and judgment are fair given her will ingness to accept antidepressant therapy. Cognitively, she is awake and alert, but fatigued. DIAGNOSES: [place] I: Major depressive disorder, recurrent, severe, without psychotic features. [place] II : Deferred. IMPRESSION: The patient is a 74-year-old white female with a history of unipolar depressio n as well as several comorbid medical problems who presented to the hospital with weakness and malais e, who very much appears to be depressed. She is on serotonin reuptake inhibitor, which is at a ther apeutic dose of 100; however, this could certainly be increased. RECOMMENDATIONS TO PRIMARY TEAM: Psychiatry will increase the patient's sertraline from 100 to 150 m g daily. I do not believe that she requires one-to-one observations nor do I believe that she requir es psychiatric hospitalization as she has no plan or intention of self-harm. Psychiatry will continu e to follow the patient with you. These findings were discussed with attending, Priya Lynch as well as nursing staff and the patient. Thank you for the consult. [id number]/[facility] #: [id number]
[2019-08-07 14:21] LABS: Kappa Free Light Chain 7.22 mg/dL; Lambda Free Light Chain 2.73 mg/dL
--- NOTE | 2019-08-07 15:32 | CONSULT ---
Subjective Date of Service: 08/07/19 Interval History: Ms. Chowdhury is a 74 yo female with PMH significant for depression, anxiety, bipolar disorder, DM2, venous stasis, CKD, and CHF; who presented to the emergency room with complaints of malaise and shakiness. She was admitted to the hospital for acute on chronic YESSY, acute hypoxic respiratory failure, and left LE infection. Patient has had wounds to the left LE for about 40 weeks, she has been followed by the wound clinic [place] [facility] Patient seen and examined at bedside. Family History: Unchanged from Admission Social History: Unchanged from Admission Past Medical History: Unchanged from Admission Review of Systems - Measurements Intake and Output: Intake and Output Last 24 Hours 08/05/19 08/06/19 08/07/19 08/08/19 06:59 06:59 06:59 06:59 Intake Total 2317 5041 2946 840 Output Total 894 176 8219 Balance 1767 4091 1496 840 Weight 187 lb 14.4 oz 206 lb 14.4 oz 205 lb 3.2 oz Intake: IV Fluids 2317 3191 1746 NS (0.9%) 707 2941 1746 Vancomycin 250 IVPB 250 Vancomycin 250 Oral 0 1600 1200 840 Output: Urine 475 Pagan 550 950 975 Colostomy 0 Other: Estimated Void Medium # Bowel Movements 0 # Voids 0 1 - Review of Systems Constitutional Symptoms: Negative: Fever, Other - chills Dermatology: Positive: Other - Chronic ulcers to left leg Endocrinology: Positive: Obesity, Diabetes Mellitus Objective Active Medications: Acetaminophen (Tylenol Tab*) 650 mg PO Q4H PRN Reason: PAIN-MILD/TEMP >/= 100.4 Aspirin (Aspirin 81 Mg Chew Tab*) 81 mg PO DAILY [facility] Atorvastatin Calcium (Lipitor*) 10 mg PO BEDTIME [facility] Calcium/Vitamin D (Oscal D Tab 250/125*) 1 tab PO BID [facility] Carvedilol (Coreg Tab*) 3.125 mg PO BID [facility] Dextrose (Dextrose 50% Vial 50 Ml*) 25 ml IV PUSH .FOR FS < 60 - SS PRN Reason : FS < 60 Enoxaparin Sodium (Lovenox(*)) 30 mg SUBCUT Q24H [facility] Sodium Chloride (Ns 0.9% 1000 Ml) 1,000 mls @ 75 mls/hr IV PER RATE [facility] Insulin Human Lispro (Humalog*) 0 units SUBCUT AC [facility]; Protocol Levothyroxine Sodium (Synthroid Tab*) 125 mcg PO QAM@0600 [facility] Melatonin (Melatonin) 3 mg PO BEDTIME [facility] Ondansetron HCl (Zofran Inj*) 4 mg IV Q6H PRN Reason: NAUSEA/VOMITING Patiromer (Veltassa Powder*) 8.4 gm PO DAILY [facility] Pharmacy Consult (Vancomycin Per Pharmacy*) 1 note FOLLOW UP .VANC PER PHARMACY [facility]; Protocol Pharmacy Consult (Vancomycin Random Level*) 1 note FOLLOW UP 0600 ONE Stop: 08/08/19 06:01 Sertraline HCl (Zoloft*) 150 mg PO QAM [facility] Oxygen Devices in Use Now: None Appearance: NAD, laying in bed Ears/Nose/Mouth/Throat: Mucous Membranes Moist Respiratory: Symmetrical Chest Expansion and Respiratory Effort Cardiovascular: - - 1+ DP pulses bilateral Skin: - - See skin note below Neurological: Alert and Oriented x 3 Nutrition: Taking PO's Result Diagrams: 08/08/19 06:13 08/10/19 04:50 Additional Lab and Data: Above labs were pulled into note, when edited prior to signing. Please see below for labs from day of consultation. Laboratory Tests 07/07/19 08/04/19 08/07/19 06:37 17:48 09:50 WBC 7.0 Hgb 8.5 L Hct 26 L Plt Count 232 Sodium 138 Potassium 5.6 H Chloride 111 Carbon Dioxide 16 L BUN 66 H Creatinine 4.04 H Glucose 102 H C-Reactive Protein 13.49 H Total Protein 6.6 Albumin 3.9 Microbiology and Other Data: Microbiology 08/04/19 17:11 Skin and Soft Tissue MRSA/MSSA (PCR - Final Leg Left Mrsa Positive S.aureus Positive Gram Stain - Final Diagnostic Imaging: Diagnostic Imaging: Exam Date: 10/23/18 1419 - VL ANK/BRACHIAL INDICES Right: Value (SBP) Index Brachial: 157 Posterior tibialis: 170 1.08 Dorsalis pedis: 155 0.99 Digit: 92 0.59 Left: Value (SBP) Index Brachial: 147 Posterior tibialis: 110 0.70 Dorsalis pedis: 130 0.83 Digit: 64 0.41 IMPRESSION: Claudication values and derangement of arterial waveforms are recorded in the left lower extremity. In the presence of a chronic left lower extremity wound this could be seen in the setting of "critical limb ischemia". Exam Date: 05/21/19 1310 - VL LOWER EXT VEINS BILATERAL IMPRESSION: #. No evidence for RIGHT lower extremity DVT with assessment of the peroneal veins is limited as noted. #. No evidence for LEFT lower extremity DVT through the popliteal vein. The calf veins could not be visualized limiting assessment. Patency of the LEFT posterior tibial and peroneal veins is indeterminate. #. Extensive LEFT lower leg subcutaneous edema. Skin Deviation Note - Skin Deviation Findings Left medial lower leg -There are multiple superficial open areas, total area involved measures 19 cm and circumferential around the leg. The wound bases are red granulation tissue. There is a small amount of serous draiange. The surrounding skin with dark red erythema. There is also dry and flaky skin to the leg and foot. Left lateral lower leg - There are multiple superficial open areas, total area involved measures 19 cm and circumferential around the leg. The wound bases are red granulation tissue. There is a small amount of serous draiange. The surrounding skin with mild erythema. There is also dry and flaky skin to the leg and foot. Wound Problem/Plan Assessment: Ms. Chowdhury is a 74 yo female with PMH significant for depression, anxiety, bipolar disorder, DM2, venous stasis, CKD, and CHF; who presented to the emergency room with complaints of malaise and shakiness. She was admitted to the hospital for acute on chronic YESSY, acute hypoxic respiratory failure, and left LE infection. Patient has had wounds to the left LE for about 36 weeks, she has been followed by the wound clinic at [facility]. 1. Left LE venous stasis ulcers. Known abnormal ABIs. Recommend washing the leg with soap and water daily. Apply lotion to the intact skin. Apply telfa to open areas followed by rolled gauze, change dressing daily and as needed for soiling. Other options include applying barrier cream or Sensi-care barrier cream to the left lower leg and leaving open to air or applying vaseline gauze to the open areas. Suspect some of the irritation is secondary to the dressings previously being used as there has been improvement in the erythema since the dressing was changed. Do NOT apply tape to the skin. Pt is requesting the leg be covered. Keep legs elevated as able. Consider referral back to the wound center at discharge. Consider rechecking ABIs as they have not recently been done. 2. DM2. HgA1C was 8.3 on 04/23/19. Maintain good glycemic control to allow for wound healing. 3. Morbid obesity. BMI 40.7 4. Diet. Consistent Carbohydrate diet. 5. Code Status. Full Code Status. 6. Disposition. Inpatient, disposition per primary medicine team. Is Patient a Wound Clinic Patient: Yes - Last visit 07/16/19 with Aida Hollis NP Current Treatment: Medihoney, petroleum gauze, rolled gauze, and 2 layers of Medigrip Comment: Wound clinic recommendations for oil emulsion, medihoney, and rolled gauze. Above is what [place] has been using. Counseling and/or Coordination of Care Minutes: 35 Points of Discussion: TIME SPENT: Time for this wound consult was 35 minutes and 25 minutes was spent with the patient discussing past medical history; removing old dressing; assessing, measuring, and photographing the wounds; reapply the dressing. Attending: Coco Charles
[2019-08-07 15:53] LABS: Albumin 2.7 g/dL (3.4-4.7); Albumin/Globulin Ratio 0.97; Gamma Globulin 0.6 g/dL (0.6-1.6); Total Protein(PEP) 5.4 g/dL (6.3 - 7.9)
--- NOTE | 2019-08-07 16:34 | PN ---
Subjective Date of Service: 08/07/19 Interval History: Patient seen and examined. No acute overnight events. Patient remains tired appearing and breathless and uninterested in participating in physical exam. Denies SOB, no chest pain, no fevers or chills. Her only complaint is that she is tired and feels "winded". Family History: Unchanged from Admission Social History: Unchanged from Admission Past Medical History: Unchanged from Admission Objective Active Medications: Acetaminophen (Tylenol Tab*) 650 mg PO Q4H PRN PRN Reason: PAIN-MILD/TEMP >/= 100.4 Last Admin: 08/07/19 08:44 Dose: 650 mg Aspirin (Aspirin 81 Mg Chew Tab*) 81 mg PO DAILY [facility] Last Admin: 08/07/19 08:44 Dose: 81 mg Atorvastatin Calcium (Lipitor*) 10 mg PO BEDTIME [facility] Last Admin: 08/06/19 21:15 Dose: 10 mg Calcium/Vitamin D (Oscal D Tab 250/125*) 1 tab PO BID [facility] Last Admin: 08/07/19 08:45 Dose: 1 tab Carvedilol (Coreg Tab*) 3.125 mg PO BID [facility] Last Admin: 08/07/19 08:45 Dose: 3.125 mg Dextrose (Dextrose 50% Vial 50 Ml*) 25 ml IV PUSH .FOR FS < 60 - SS PRN PRN Reason: FS < 60 Enoxaparin Sodium (Lovenox(*)) 30 mg SUBCUT Q24H [facility] Last Admin: 08/06/19 23:53 Dose: Not Given Sodium Chloride (Ns 0.9% 1000 Ml) 1,000 mls @ 75 mls/hr IV PER RATE [facility] Last Admin: 08/07/19 06:15 Dose: 75 mls/hr Insulin Human Lispro (Humalog*) 0 units SUBCUT AC [facility]; Protocol Last Admin: 08/07/19 14:09 Dose: Not Given Levothyroxine Sodium (Synthroid Tab*) 125 mcg PO QAM@0600 [facility] Last Admin: 08/07/19 06:15 Dose: 125 mcg Melatonin (Melatonin) 3 mg PO BEDTIME [facility] Last Admin: 08/06/19 21:14 Dose: 3 mg Ondansetron HCl (Zofran Inj*) 4 mg IV Q6H PRN PRN Reason: NAUSEA/VOMITING Last Admin: 08/07/19 03:54 Dose: 4 mg Patiromer (Veltassa Powder*) 8.4 gm PO DAILY [facility] Last Admin: 08/07/19 09:41 Dose: 8.4 gm Pharmacy Consult (Vancomycin Per Pharmacy*) 1 note FOLLOW UP .VANC PER PHARMACY [facility]; Protocol Pharmacy Consult (Vancomycin Random Level*) 1 note FOLLOW UP 0600 ONE Stop: 08/08/19 06:01 Sertraline HCl (Zoloft*) 150 mg PO QAM [facility] Oxygen Devices in Use Now: None Appearance: alert, NAD Eyes: PERRLA Ears/Nose/Mouth/Throat: Mucous Membranes Moist Neck: NL Appearance and Movements; NL JVP, Trachea Midline Respiratory: Symmetrical Chest Expansion and Respiratory Effort, Clear to Auscultation Cardiovascular: NL Sounds; No Murmurs; No JVD, RRR, No Edema Extremities: No Clubbing, Cyanosis Skin: - - LLE cellulitis and chronic venous wounds Nutrition: Taking PO's Result Diagrams: 08/07/19 09:50 08/07/19 09:50 Microbiology and Other Data: Microbiology 08/04/19 17:11 Skin and Soft Tissue MRSA/MSSA (PCR - Final Leg Left Mrsa Positive S.aureus Positive Gram Stain - Final Diagnostic Imaging: Patient Name: BINA RAMESH Medical Record#: [id number] Ordering Physician: Ruby Etienne NP Acct.#: [id number] : 1945 Age: 74 Sex: F Location: [address] [place] [address] - MEDICAL Exam Date: 08/05/192000 ADM Status: ADM IN Order Information: US RENAL COMPLETE Accession Number: [id number] CPT: 76332 Indication: Renal failure. Comparison: June 23, 2019 CT Technique: Renal ultrasound. Report: 10.8 x 6.7 x 5.6 cm RIGHT kidney and 10.4 x 6.1 x 5.3 cm LEFT kidney demonstrate mildly increased cortical echogenicity. No conspicuous stones or hydronephrosis. RIGHT lower pole cortical 4.9 x 6.3 x 3.7 cm cyst with a thin partially calcified internal septation noted grossly unchanged compared with the June 23, 2019 CT. 1.4 cm cortical cyst lower pole LEFT kidney. IMPRESSION: #. Mildly increased renal cortical echogenicity suggesting medical renal disease. #. Negative for hydronephrosis. #. Mildly complex 4.9 x 6.3 x 3.7 cm cyst inferior pole RIGHT kidney without gross change compared with the June 23, 2019 CT. Assess/Plan/Problems-Billing Assessment: This is a 74 year old female with multiple admissions since october for wounds and renal disease that presents from [facility] with complaints of vague weakness , found to have dehydration, YESSY and worsening chronic leg wound. - Patient Problems (1) Wound of left lower extremity Code(s): S81.802A - UNSPECIFIED OPEN WOUND, LEFT LOWER LEG, INITIAL ENCOUNTER SNOMED Code(s): 391248879 Comment: - Chronic venous insufficiency, noted in record since last october - +MRSA/MSSA and corynebacterium striatum - Continue vancomycin with goal troughs 15-20 - ID consulted - Had pseudomonas in june in wound and has pos in urine culture today as well , will defer to ID on treatment, may represent colonization - Local wound care (2) Acute kidney injury superimposed on CKD Code(s): N17.9 - ACUTE KIDNEY FAILURE, UNSPECIFIED; N18.9 - CHRONIC KIDNEY DISEASE, UNSPECIFIED SNOMED Code(s): 74975619 Comment: - Likely d/t dehydration and medications and poor PO intake, continue holding lasix, spironolactone, entresto - Cr trending down - will continue gentle IVF, does not appear fluid overloaded , lungs are clear - renal ultrasound - no hydronephrosis , no obstructing stones - H&H low yesterday, no s/s bleeding, anemia likely 2/2 chronic renal disease - Refused patiromir yesterday for elevated potassium, will try again today (3) Bipolar disorder Comment: - With passive SI, no plan - continue sertraline at higher dose as per Dr. Rand - SW and psychiatry following - Supportive care (4) Diabetes Code(s): E11.9 - TYPE 2 DIABETES MELLITUS WITHOUT COMPLICATIONS SNOMED Code(s) : 74635705 Comment: - Blood sugars stable - Lispro ss with fingerstick AC - holding lantus (5) Hypothyroid Code(s): E03.9 - HYPOTHYROIDISM, UNSPECIFIED SNOMED Code(s): 89294522 Comment: - Continue levothyroxine at home dose. (6) DVT prophylaxis Code(s): LBR3827 - SNOMED Code(s): 715578944 Comment: - lovenox sq - H&H stabilized, HgB 10 today with no bleeding, will continue lovenox (7) Full code status Code(s): Z78.9 - OTHER SPECIFIED HEALTH STATUS SNOMED Code(s): 781423821 Status and Disposition: Inpatient, return to [facility] when medically stable.
[2019-08-07] MEDS ORDERED: Patiromer POWDER* 8.4 GM PAK PO ONE (17:49)
[2019-08-07] MEDS: Atorvastatin* 10 MG TAB PO SCH (20:19)
[2019-08-07] MEDS: Enoxaparin(*) 30 MG/0.3 ML SYR SUBCUT SCH (20:19)
[2019-08-07] MEDS: Melatonin 3 MG TAB PO SCH (20:19)
[2019-08-07] MEDS: Sodium Polystyrene ORAL.SOL* 15 GM/60 ML BTL PO SCH (22:12)
[2019-08-08] MEDS: Levothyroxine TAB* 125 MCG TAB PO SCH (05:46)
[2019-08-08] MEDS ORDERED: Vancomycin Random Level* NOTE FOLLOW UP ONE (06:00)
[2019-08-08 06:31] LABS: Hematocrit 34 % (35-47); Hemoglobin 10.3 g/dL (12.0-16.0); Mean Corpuscular HGB Conc 30 g/dL (31-36); Mean Corpuscular Hemoglobin 27 pg (27-31); Mean Corpuscular Volume 90 fL (80-97); Mean Platelet Volume 6.6 fL (7.4-10.4); Platelet Count 199 10^3/uL (150-450); Red Blood Count 3.83 10^6 /uL (3.70-4.87); Red Cell Distribution Width 18 % (10-15); White Blood Count 4.8 10^3/uL (3.5-10.8)
[2019-08-08] MEDS: Sodium Polystyrene ORAL.SOL* 15 GM/60 ML BTL PO SCH ×4 (06:49→20:31)
[2019-08-08 06:55] LABS: Calcium 8.1 mg/dL (8.6-10.3); Sodium 139 mmol/L (135-145)
[2019-08-08 06:57] LABS: Vancomycin Random 18.4 mcg/mL
[2019-08-08 07:00] LABS: BUN/Creatinine Ratio 14.8 (8-20); Blood Urea Nitrogen 54 mg/dL (6-24); EGFR African American 14.8 (>60); EGFR Non-African American 12.2 (>60); Glucose 102 mg/dL (70-100)
[2019-08-08 07:04] LABS: Anion Gap 11 mmol/L (2-11); Chloride 115 mmol/L (101-111)
[2019-08-08] MEDS: Insulin LISPRO* 1 UNITS UNIT SUBCUT SCH ×3 (08:22→17:12)
[2019-08-08 08:45] LABS: CO2 Carbon Dioxide 13 mmol/L (22-32)
[2019-08-08] MEDS: Calcium/Vitamin D TAB 250/125* TAB PO SCH ×2 (09:09→20:30)
[2019-08-08] MEDS: Sertraline* 50 MG TAB PO SCH (09:09)
[2019-08-08] MEDS: Aspirin 81 mg CHEW TAB* 81 MG TAB.CHEW PO SCH (09:09)
[2019-08-08] MEDS: Carvedilol TAB* 3.125 MG PO SCH ×2 (09:09→20:30)
[2019-08-08] MEDS: Ondansetron INJ* 2 MG/ML VIAL IV PRN (10:06)
--- NOTE | 2019-08-08 11:37 | PN ---
Progress Note - Progress Note Date of Service: 08/08/19 SOAP: Subjective: CC: Left leg wounds HPI: Ms. Chowdhury is a 74 yo female with PMH significant for obesity, bipolar, CKD 4 , DM2, peripheral neuropathy, chronic left LE venous stasis ulcers, hypothyroidism, S CHF, hx rectal CA s/p partial colectomy and colostomy. Denies fever, chills, or vomiting. She reports poor appetite, occasional nausea, liquid stool in her ostomy. Objective: Vital Signs 08/08/19 11:15 Temperature 98.0 F Temperature Temporal Artery Source Scan Pulse Rate 72 Respiratory 17 Rate Blood Pressure 148/58 (mmHg) Blood Pressure 88 Mean O2 Sat by Pulse 100 Oximetry Patient on Room Yes Air Physical Exam: General: NAD, laying in bed Neurological: Alert and Oriented HEENT: Moist MM, no thrush Cardiovascular: Heart rate regular, no LE edema Respiratory: Lung sounds clear Abdomen: Bowel sounds present; ABD soft, non tender and large Skin: There is an area of circumferential erythema to her lower leg, with multiple superficial open areas. The wound bases are red granulation tissue. There is a small amount of bleeding noted after removal of the dressings. Laboratory Results - last 24 hr 08/07/19 08/08/19 08/08/19 20:14 06:13 06:13 WBC 4.8 RBC 3.83 Hgb 10.3 L Hct 34 L MCV 90 MCH 27 MCHC 30 L RDW 18 H Plt Count 199 MPV 6.6 L Sodium 139 Potassium TNP Chloride 115 H Carbon Dioxide 13 L* Anion Gap 11 BUN 54 H Creatinine 3.65 H Est GFR ( Amer) 14.8 Est GFR (Non-Af Amer) 12.2 BUN/Creatinine Ratio 14.8 Glucose 102 H POC Glucose (mg/dL) 145 H Calcium 8.1 L Random Vancomycin 18.4 Microbiology 08/04/19 17:11 Skin and Soft Tissue MRSA/MSSA (PCR - Final Leg Left Mrsa Positive S.aureus Positive Gram Stain - Final Wound Culture - Final Staphylococcus Aureus Corynebacterium Striatum Pseudomonas Aeruginosa 08/04/19 17:48 Aerobic Blood Culture - Preliminary Blood Venous No Growth Day 3 08/04/19 17:48 Aerobic Blood Culture - Preliminary Blood Venous No Growth Day 3 Anaerobic Blood Culture - Preliminary No Growth Day 3 08/04/19 19:15 Urine Culture - Final Urine Pseudomonas Aeruginosa Assessment: 1. Left lower extremity cellulitis and chronic wounds. Wound culture with staph aureus, corynebacterium, and pseudomonas. She has a history of urinary incontinence and has been noted in the past to have her LE dressing soiled with urine. Wounds and erythema are improving since discontinuing previous dressing. She is receiving IV vancomycin. Blood cultures with no growth. Afebrile and no leukocytosis. 2. Asymptomatic bacteriuria. Pseudomonas in the urine culture, asymptomatic prior to urinary catheter. Plan: Continue Vancomycin, will plan to treat for 5 days total. Day 4/5. Continue current dressing changes.
--- NOTE | 2019-08-08 14:48 | PN ---
Subjective Date of Service: 08/08/19 Interval History: Patient seen and examined. No acute overnight events. Patient feeling improved/ better than yesterday. States no pain and her wounds feel better. No fevers or chills, no SOB. She does appear more animated today. Family History: Unchanged from Admission Social History: Unchanged from Admission Past Medical History: Unchanged from Admission Objective Active Medications: Acetaminophen (Tylenol Tab*) 650 mg PO Q4H PRN PRN Reason: PAIN-MILD/TEMP >/= 100.4 Last Admin: 08/07/19 08:44 Dose: 650 mg Aspirin (Aspirin 81 Mg Chew Tab*) 81 mg PO DAILY [facility] Last Admin: 08/08/19 09:09 Dose: 81 mg Atorvastatin Calcium (Lipitor*) 10 mg PO BEDTIME [facility] Last Admin: 08/07/19 20:19 Dose: 10 mg Calcium/Vitamin D (Oscal D Tab 250/125*) 1 tab PO BID [facility] Last Admin: 08/08/19 09:09 Dose: 1 tab Carvedilol (Coreg Tab*) 3.125 mg PO BID [facility] Last Admin: 08/08/19 09:09 Dose: 3.125 mg Dextrose (Dextrose 50% Vial 50 Ml*) 25 ml IV PUSH .FOR FS < 60 - SS PRN PRN Reason: FS < 60 Enoxaparin Sodium (Lovenox(*)) 30 mg SUBCUT Q24H [facility] Last Admin: 08/07/19 20:19 Dose: 30 mg Sodium Chloride (Ns 0.9% 1000 Ml) 1,000 mls @ 75 mls/hr IV PER RATE [facility] Last Admin: 08/07/19 22:15 Dose: 75 mls/hr Vancomycin HCl 1,000 mg/ (Sodium Chloride) 250 mls @ 166.667 mls/hr IVPB Q48H [facility] Insulin Human Lispro (Humalog*) 0 units SUBCUT AC [facility]; Protocol Last Admin: 08/08/19 13:07 Dose: 2 unit Levothyroxine Sodium (Synthroid Tab*) 125 mcg PO QAM@0600 [facility] Last Admin: 08/08/19 05:46 Dose: 125 mcg Melatonin (Melatonin) 3 mg PO BEDTIME [facility] Last Admin: 08/07/19 20:19 Dose: 3 mg Ondansetron HCl (Zofran Inj*) 4 mg IV Q6H PRN PRN Reason: NAUSEA/VOMITING Last Admin: 08/08/19 10:06 Dose: 4 mg Pharmacy Consult (Vancomycin Per Pharmacy*) 1 note FOLLOW UP .VANC PER PHARMACY [facility]; Protocol Pharmacy Consult (Vancomycin Random Level*) 1 note FOLLOW UP 0600 ONE Stop: 08/10/19 06:01 Sertraline HCl (Zoloft*) 150 mg PO QAM [facility] Last Admin: 08/08/19 09:09 Dose: 150 mg Sodium Polystyrene Sulfonate (Kayexalate Oral.Keyana*) 15 gm PO Q6H [facility] Last Admin: 08/08/19 09:11 Dose: 15 gm Vital Signs - 8 hr 08/08/19 08/08/19 08/08/19 07:15 08:00 11:15 Temperature 97.0 F 98.0 F Pulse Rate 68 72 Respiratory 18 20 17 Rate Blood Pressure 144/37 148/58 (mmHg) O2 Sat by Pulse 100 100 100 Oximetry Oxygen Devices in Use Now: None Appearance: alert, NAD Eyes: PERRLA Ears/Nose/Mouth/Throat: Mucous Membranes Moist Neck: NL Appearance and Movements; NL JVP, Trachea Midline Respiratory: Symmetrical Chest Expansion and Respiratory Effort, Clear to Auscultation Cardiovascular: NL Sounds; No Murmurs; No JVD, RRR Abdominal: NL Sounds; No Tenderness; No Distention Extremities: No Edema, No Clubbing, Cyanosis Skin: - - LLE wounds dressed, CDI Neurological: Alert and Oriented x 3 Nutrition: Taking PO's Result Diagrams: 08/08/19 06:13 08/08/19 12:05 Microbiology and Other Data: Microbiology 08/04/19 17:11 Skin and Soft Tissue MRSA/MSSA (PCR - Final Leg Left Mrsa Positive S.aureus Positive Gram Stain - Final Diagnostic Imaging: Patient Name: BINA RAMESH Medical Record#: [id number] Ordering Physician: Ruby Etienne NP Acct.#: [id number] : 1945 Age: 74 Sex: F Location: [address] [place] [address] - MEDICAL Exam Date: 08/05/192000 ADM Status: ADM IN Order Information: US RENAL COMPLETE Accession Number: [id number] CPT: 33646 Indication: Renal failure. Comparison: June 23, 2019 CT Technique: Renal ultrasound. Report: 10.8 x 6.7 x 5.6 cm RIGHT kidney and 10.4 x 6.1 x 5.3 cm LEFT kidney demonstrate mildly increased cortical echogenicity. No conspicuous stones or hydronephrosis. RIGHT lower pole cortical 4.9 x 6.3 x 3.7 cm cyst with a thin partially calcified internal septation noted grossly unchanged compared with the June 23, 2019 CT. 1.4 cm cortical cyst lower pole LEFT kidney. IMPRESSION: #. Mildly increased renal cortical echogenicity suggesting medical renal disease. #. Negative for hydronephrosis. #. Mildly complex 4.9 x 6.3 x 3.7 cm cyst inferior pole RIGHT kidney without gross change compared with the June 23, 2019 CT. Assess/Plan/Problems-Billing Assessment: This is a 74 year old female with multiple admissions since october for wounds and renal disease that presents from [facility] [place] with complaints of vague weakness , found to have dehydration, YESSY and worsening chronic leg wound. - Patient Problems (1) Wound of left lower extremity Code(s): S81.802A - UNSPECIFIED OPEN WOUND, LEFT LOWER LEG, INITIAL ENCOUNTER SNOMED Code(s): 009826491 Comment: - Chronic venous insufficiency, noted in record since last october - +MRSA/MSSA and corynebacterium striatum - Continue vancomycin with goal troughs 15-20 - ID consulted and following - Local wound care - Overall improvement noted today (2) Acute kidney injury superimposed on CKD Code(s): N17.9 - ACUTE KIDNEY FAILURE, UNSPECIFIED; N18.9 - CHRONIC KIDNEY DISEASE, UNSPECIFIED SNOMED Code(s): 67471922 Comment: - Likely d/t dehydration and medications and poor PO intake, continue holding lasix, spironolactone, entresto - Cr trending down to 3.65 today with hydration - Renal ultrasound - no hydronephrosis , no obstructing stones - [place]/lambda ratio is <3, pending SPEP - H&H low no s/s bleeding, anemia likely 2/2 chronic renal disease - Refused patiromir yesterday for elevated potassium, education provided on adherence to medical treatment - (3) Bipolar disorder Comment: - With passive SI, no plan - continue sertraline at higher dose as per Dr. Rand - and psychiatry following, mood seems somewhat improved today - Supportive care (4) Diabetes Code(s): E11.9 - TYPE 2 DIABETES MELLITUS WITHOUT COMPLICATIONS SNOMED Code(s) : 00112635 Comment: - Blood sugars stable - Lispro ss with fingerstick AC - holding lantus, PO intake has been decreased during this hospitalization (5) Hypothyroid Code(s): E03.9 - HYPOTHYROIDISM, UNSPECIFIED SNOMED Code(s): 81775927 Comment: - Continue levothyroxine at home dose. (6) DVT prophylaxis Code(s): GFA1832 - SNOMED Code(s): 337786267 Comment: - lovenox sq - H&H stabilized, HgB 10 today with no bleeding, will continue lovenox (7) Full code status Code(s): Z78.9 - OTHER SPECIFIED HEALTH STATUS SNOMED Code(s): 919361682 Status and Disposition: Inpatient, return to [facility] [place] when medically stable, 2-3 days.
[2019-08-08] MEDS ORDERED: Vancomycin(*) 1,000 MG in NS 0.9% 250 ML* 250 ML IVPB SCH (18:00)
[2019-08-08] MEDS: Enoxaparin(*) 30 MG/0.3 ML SYR SUBCUT SCH (20:30)
[2019-08-08] MEDS: Atorvastatin* 10 MG TAB PO SCH (20:30)
[2019-08-08] MEDS: Melatonin 3 MG TAB PO SCH (20:30)
[2019-08-08] MEDS: Acetaminophen TAB* 325 MG PO PRN (20:32)
[2019-08-09] MEDS: Ondansetron INJ* 2 MG/ML VIAL IV PRN ×4 (00:36→17:57)
[2019-08-09] MEDS: NS 0.9% 1000 ML** 1,000 ML IV SCH ×3 (03:24→20:28)
[2019-08-09] MEDS: Sodium Polystyrene ORAL.SOL* 15 GM/60 ML BTL PO SCH ×6 (03:26→20:29)
[2019-08-09] MEDS: Levothyroxine TAB* 125 MCG TAB PO SCH (05:22)
[2019-08-09] MEDS ORDERED: Al Hydrox/Mg Hydrox/Simet LIQ* 30 ML UDC PO PRN (07:53)
[2019-08-09] MEDS: Insulin LISPRO* 1 UNITS UNIT SUBCUT SCH ×3 (07:56→17:14)
[2019-08-09] MEDS: Calcium/Vitamin D TAB 250/125* TAB PO SCH ×2 (09:06→20:28)
[2019-08-09] MEDS: Sertraline* 50 MG TAB PO SCH (09:06)
[2019-08-09] MEDS: Aspirin 81 mg CHEW TAB* 81 MG TAB.CHEW PO SCH (09:06)
[2019-08-09] MEDS: Carvedilol TAB* 3.125 MG PO SCH ×2 (09:06→20:28)
--- NOTE | 2019-08-09 11:20 | CONSULT ---
Identification - Patient Identification Reason for Psychiatric Consultation: Suicidal Ideation -: Patient is a 74 year old, F admitted on 08/04/19. - MHU Identification Employment Status: Disabled Hx Psychiatric Hospitalization: Yes History - Objective HPI: Tamiko is seen for follow up psychiatric care on the [address] [place] [address] unit. She appears to have a brighter affect although she requests that we delay our conversation. "Can you come back and see me in a few days?" The patient feels like she's tolerating the increased dose of sertraline and has had 3 doses of it thus far without complaint. She denies SI. Exam Appearance: Obese Hygiene: Dirty Grooming: Disheveled Psychomotor Activities: Normal Exhibits Abnormal Movement: No Attitude and Relatedness: Cooperative Eye Contact: Good - Speech Quality: Unpressured Latencies: Long Quantity: Terse Patient's Decription of Mood: "Fine" Observed Affect: Fair Affect Consistent with: Dysphoria Patient's Thought Process: Coherent Thought Content: No Passive Wish, No Suicidal Planning, No Homicidal Ideation, No Paranoid Ideation Experiencing Hallucinations: No, Sensorium is Clear Type of Hallucinations: Visual: No, Auditory: No, Command: No Level of Consciousness: Alert Orientation: Yes Intact, Yes Orientated to Time, Yes Orientated to Place, Yes Orientated to Person Impulse Control: Tenuous Insight and Judgement: Fair Impression - Impression Clinical Impression: 74 y.o. , white female with a history of unipolar depression currently hospitalized on the Medical service due to weakness, malaise and an infection in her leg who presents with depressed mood and passive SI. Inpatient DSM-V Dx: F33.1 Merits Inpatient Hospitalization: No BSU: Problem List - Patient Problems (1) MDD (major depressive disorder), recurrent episode, moderate Current Visit: Yes Status: Acute Code(s): F33.1 - MAJOR DEPRESSIVE DISORDER , RECURRENT, MODERATE SNOMED Code(s): 528833713 Plan - Treatment Plan Treatment Plan: The patient is not suicidal and does not require 1:1 observations nor BSU stabilization. We have increased sertraline from 100 to 150mg PO qday. Psychiatry will f/u tomorrow (08/10). Continued Medication Management: Different Medication Medications: Current Medications Acetaminophen (Tylenol Tab*) 650 mg PO Q4H PRN PRN Reason: PAIN-MILD/TEMP >/= 100.4 Last Admin: 08/08/19 20:32 Dose: 650 mg Al Hydrox/Mg Hydrox/Simethicone (Maalox Plus*) 30 ml PO Q6H PRN PRN Reason: DYSPEPSIA Last Admin: 08/09/19 09:06 Dose: 30 ml Aspirin (Aspirin 81 Mg Chew Tab*) 81 mg PO DAILY [facility] Last Admin: 08/09/19 09:06 Dose: 81 mg Atorvastatin Calcium (Lipitor*) 10 mg PO BEDTIME [facility] Last Admin: 08/08/19 20:30 Dose: 10 mg Calcium/Vitamin D (Oscal D Tab 250/125*) 1 tab PO BID [facility] Last Admin: 08/09/19 09:06 Dose: 1 tab Carvedilol (Coreg Tab*) 3.125 mg PO BID [facility] Last Admin: 08/09/19 09:06 Dose: 3.125 mg Dextrose (Dextrose 50% Vial 50 Ml*) 25 ml IV PUSH .FOR FS < 60 - SS PRN PRN Reason: FS < 60 Enoxaparin Sodium (Lovenox(*)) 30 mg SUBCUT Q24H [facility] Last Admin: 08/08/19 20:30 Dose: 30 mg Sodium Chloride (Ns 0.9% 1000 Ml) 1,000 mls @ 75 mls/hr IV PER RATE [facility] Last Admin: 08/09/19 03:24 Dose: 75 mls/hr Vancomycin HCl 1,000 mg/ (Sodium Chloride) 250 mls @ 166.667 mls/hr IVPB Q48H [facility] Last Admin: 08/08/19 17:17 Dose: 166.667 mls/hr Insulin Human Lispro (Humalog*) 0 units SUBCUT [facility]; Protocol Last Admin: 08/09/19 07:56 Dose: Not Given Levothyroxine Sodium (Synthroid Tab*) 125 mcg PO QAM@0600 [facility] Last Admin: 08/09/19 05:22 Dose: 125 mcg Melatonin (Melatonin) 3 mg PO BEDTIME [facility] Last Admin: 08/08/19 20:30 Dose: 3 mg Ondansetron HCl (Zofran Inj*) 4 mg IV Q6H PRN PRN Reason: NAUSEA/VOMITING Last Admin: 08/09/19 06:19 Dose: 4 mg Pharmacy Consult (Vancomycin Per Pharmacy*) 1 note FOLLOW UP .VANC PER PHARMACY [facility]; Protocol Pharmacy Consult (Vancomycin Random Level*) 1 note FOLLOW UP 0600 ONE Stop: 08/10/19 06:01 Sertraline HCl (Zoloft*) 150 mg PO QAM [facility] Last Admin: 08/09/19 09:06 Dose: 150 mg Sodium Polystyrene Sulfonate (Kayexalate Oral.Keyana*) 15 gm PO Q6H [facility] Last Admin: 08/09/19 09:13 Dose: Not Given
--- NOTE | 2019-08-09 16:10 | PN ---
Subjective Date of Service: 08/09/19 Interval History: Patient seen and examined. No acute overnight events. Remains with low appetite , had some nausea this morning which is now resolved. Denies SOB, no fevers or chills. No pain in leg. Family History: Unchanged from Admission Social History: Unchanged from Admission Past Medical History: Unchanged from Admission Objective Active Medications: Acetaminophen (Tylenol Tab*) 650 mg PO Q4H PRN PRN Reason: PAIN-MILD/TEMP >/= 100.4 Last Admin: 08/08/19 20:32 Dose: 650 mg Al Hydrox/Mg Hydrox/Simethicone (Maalox Plus*) 30 ml PO Q6H PRN PRN Reason: DYSPEPSIA Last Admin: 08/09/19 09:06 Dose: 30 ml Aspirin (Aspirin 81 Mg Chew Tab*) 81 mg PO DAILY [facility] Last Admin: 08/09/19 09:06 Dose: 81 mg Atorvastatin Calcium (Lipitor*) 10 mg PO BEDTIME [facility] Last Admin: 08/08/19 20:30 Dose: 10 mg Calcium/Vitamin D (Oscal D Tab 250/125*) 1 tab PO BID [facility] Last Admin: 08/09/19 09:06 Dose: 1 tab Carvedilol (Coreg Tab*) 3.125 mg PO BID [facility] Last Admin: 08/09/19 09:06 Dose: 3.125 mg Dextrose (Dextrose 50% Vial 50 Ml*) 25 ml IV PUSH .FOR FS < 60 - SS PRN PRN Reason: FS < 60 Enoxaparin Sodium (Lovenox(*)) 30 mg SUBCUT Q24H [facility] Last Admin: 08/08/19 20:30 Dose: 30 mg Sodium Chloride (Ns 0.9% 1000 Ml) 1,000 mls @ 75 mls/hr IV PER RATE [facility] Last Admin: 08/09/19 03:24 Dose: 75 mls/hr Vancomycin HCl 1,000 mg/ (Sodium Chloride) 250 mls @ 166.667 mls/hr IVPB Q48H [facility] Last Admin: 08/08/19 17:17 Dose: 166.667 mls/hr Insulin Human Lispro (Humalog*) 0 units SUBCUT AC [facility]; Protocol Last Admin: 08/09/19 12:47 Dose: 2 unit Levothyroxine Sodium (Synthroid Tab*) 125 mcg PO QAM@0600 [facility] Last Admin: 08/09/19 05:22 Dose: 125 mcg Melatonin (Melatonin) 3 mg PO BEDTIME [facility] Last Admin: 08/08/19 20:30 Dose: 3 mg Ondansetron HCl (Zofran Inj*) 4 mg IV Q6H PRN PRN Reason: NAUSEA/VOMITING Last Admin: 08/09/19 12:47 Dose: 4 mg Pharmacy Consult (Vancomycin Per Pharmacy*) 1 note FOLLOW UP .VANC PER PHARMACY [facility]; Protocol Pharmacy Consult (Vancomycin Random Level*) 1 note FOLLOW UP 0600 ONE Stop: 08/10/19 06:01 Sertraline HCl (Zoloft*) 150 mg PO QAM [facility] Last Admin: 08/09/19 09:06 Dose: 150 mg Sodium Polystyrene Sulfonate (Kayexalate Oral.Keyana*) 15 gm PO Q6H [facility] Last Admin: 08/09/19 09:13 Dose: Not Given Vital Signs - 8 hr 08/09/19 08/09/19 08/09/19 08:20 11:15 15:48 Temperature 97.0 F 97.7 F Pulse Rate 67 90 Respiratory 18 20 18 Rate Blood Pressure 172/69 157/74 (mmHg) O2 Sat by Pulse 94 100 100 Oximetry Oxygen Devices in Use Now: None Appearance: alert, appears tired, NAD Eyes: PERRLA Ears/Nose/Mouth/Throat: Mucous Membranes Moist Neck: NL Appearance and Movements; NL JVP, Trachea Midline Respiratory: Symmetrical Chest Expansion and Respiratory Effort, Clear to Auscultation Cardiovascular: NL Sounds; No Murmurs; No JVD, RRR Abdominal: NL Sounds; No Tenderness; No Distention Extremities: No Clubbing, Cyanosis Skin: - - LLE wound improved, dressing CDI Neurological: Alert and Oriented x 3 Nutrition: Taking PO's, - Result Diagrams: 08/08/19 06:13 08/08/19 12:05 Microbiology and Other Data: Microbiology 08/04/19 17:11 Skin and Soft Tissue MRSA/MSSA (PCR - Final Leg Left Mrsa Positive S.aureus Positive Gram Stain - Final Diagnostic Imaging: Patient Name: BINA RAMESH Medical Record#: [id number] Ordering Physician: Ruby Etienne NP Acct.#: [id number] : 1945 Age: 74 Sex: F Location: [address] [place] [address] - MEDICAL Exam Date: 08/05/192000 ADM Status: ADM IN Order Information: US RENAL COMPLETE Accession Number: [id number] CPT: 65374 Indication: Renal failure. Comparison: June 23, 2019 CT Technique: Renal ultrasound. Report: 10.8 x 6.7 x 5.6 cm RIGHT kidney and 10.4 x 6.1 x 5.3 cm LEFT kidney demonstrate mildly increased cortical echogenicity. No conspicuous stones or hydronephrosis. RIGHT lower pole cortical 4.9 x 6.3 x 3.7 cm cyst with a thin partially calcified internal septation noted grossly unchanged compared with the June 23, 2019 CT. 1.4 cm cortical cyst lower pole LEFT kidney. IMPRESSION: #. Mildly increased renal cortical echogenicity suggesting medical renal disease. #. Negative for hydronephrosis. #. Mildly complex 4.9 x 6.3 x 3.7 cm cyst inferior pole RIGHT kidney without gross change compared with the June 23, 2019 CT. Assess/Plan/Problems-Billing Assessment: This is a 74 year old female with multiple admissions since october for wounds and renal disease that presents from [facility] with complaints of vague weakness , found to have dehydration, YESSY and worsening chronic leg wound. - Patient Problems (1) Wound of left lower extremity Code(s): S81.802A - UNSPECIFIED OPEN WOUND, LEFT LOWER LEG, INITIAL ENCOUNTER SNOMED Code(s): 334757032 Comment: - Chronic venous insufficiency, noted in record since last october - +MRSA/MSSA and corynebacterium striatum - Continue vancomycin with goal troughs 15-20 - ID consulted and following - Local wound care - Overall improvement, continue vanco (2) Acute kidney injury superimposed on CKD Code(s): N17.9 - ACUTE KIDNEY FAILURE, UNSPECIFIED; N18.9 - CHRONIC KIDNEY DISEASE, UNSPECIFIED SNOMED Code(s): 66624928 Comment: - Likely d/t dehydration and medications and poor PO intake, continue holding lasix, spironolactone, entresto - Cr trending down to 3.65 today with hydration - Renal ultrasound - no hydronephrosis , no obstructing stones - [place]/lambda ratio is <3, pending SPEP - H&H low no s/s bleeding, anemia likely 2/2 chronic renal disease - Refused patiromir yesterday for elevated potassium, education provided on adherence to medical treatment, follow labs (3) Bipolar disorder Comment: - With passive SI, no plan - continue sertraline at higher dose as per Dr. Rand - SW and psychiatry following, mood seems somewhat improved last few days - Supportive care (4) Diabetes Code(s): E11.9 - TYPE 2 DIABETES MELLITUS WITHOUT COMPLICATIONS SNOMED Code(s) : 19667450 Comment: - Blood sugars stable - Lispro ss with fingerstick AC - holding lantus, PO intake has been decreased during this hospitalization (5) Hypothyroid Code(s): E03.9 - HYPOTHYROIDISM, UNSPECIFIED SNOMED Code(s): 57681262 Comment: - Continue levothyroxine at home dose. (6) DVT prophylaxis Code(s): PQQ6560 - SNOMED Code(s): 173030856 Comment: - lovenox sq (7) Full code status Code(s): Z78.9 - OTHER SPECIFIED HEALTH STATUS SNOMED Code(s): 810172421 Status and Disposition: Inpatient, return to [facility] when medically stable, 1-2 days
[2019-08-09] MEDS: Melatonin 3 MG TAB PO SCH (20:28)
[2019-08-09] MEDS: Enoxaparin(*) 30 MG/0.3 ML SYR SUBCUT SCH (20:28)
[2019-08-09] MEDS: Atorvastatin* 10 MG TAB PO SCH (20:28)
[2019-08-10] MEDS: Ondansetron INJ* 2 MG/ML VIAL IV PRN ×2 (00:48→07:54)
[2019-08-10] MEDS: Sodium Polystyrene ORAL.SOL* 15 GM/60 ML BTL PO SCH ×2 (03:13→08:46)
[2019-08-10 05:59] LABS: Calcium 8.4 mg/dL (8.6-10.3); EGFR African American 19.9 (>60); EGFR Non-African American 16.4 (>60)
[2019-08-10] MEDS ORDERED: Vancomycin Random Level* NOTE FOLLOW UP ONE (06:00)
[2019-08-10] MEDS: Levothyroxine TAB* 125 MCG TAB PO SCH (06:03)
[2019-08-10] MEDS: NS 0.9% 1000 ML** 1,000 ML IV SCH (06:05)
[2019-08-10 07:33] VITALS: BP 155/96
[2019-08-10] MEDS: Calcium/Vitamin D TAB 250/125* TAB PO SCH (07:53)
[2019-08-10] MEDS: Insulin LISPRO* 1 UNITS UNIT SUBCUT SCH ×2 (07:53→12:31)
[2019-08-10] MEDS: Sertraline* 50 MG TAB PO SCH (07:53)
[2019-08-10] MEDS: Aspirin 81 mg CHEW TAB* 81 MG TAB.CHEW PO SCH (07:53)
[2019-08-10] MEDS: Carvedilol TAB* 3.125 MG PO SCH (07:53)
--- NOTE | 2019-08-10 09:36 | PN ---
Progress Note - Progress Note Date of Service: 08/10/19 SOAP: Subjective: CC: Left leg wounds HPI: Ms. Chowdhury is a 74 yo female with PMH significant for obesity, bipolar, CKD 4 , DM2, peripheral neuropathy, chronic left LE venous stasis ulcers, hypothyroidism, S CHF, hx rectal CA s/p partial colectomy and colostomy. Denies fever, chills, or vomiting. She reports poor appetite, and nausea. She has liquid stool in her ostomy at baseline. Objective: Vital Signs - 8 hr 08/10/19 07:22 Temperature 98.1 F Pulse Rate 106 Respiratory 24 Rate Blood Pressure 155/96 (mmHg) O2 Sat by Pulse 98 Oximetry Physical Exam: General: NAD, laying in bed Neurological: Alert and Oriented HEENT: Moist MM, no thrush Cardiovascular: Heart rate regular Respiratory: Lung sounds clear Abdominal: Bowel sounds present; ABD soft, large, non tender Skin: No rash, dressing to left LE intact (declined dressing change) Laboratory Results - last 24 hr 08/10/19 08/10/19 08/10/19 04:50 05:00 07:24 Sodium 144 Potassium 4.0 D Chloride 115 H Carbon Dioxide 21 L Anion Gap 8 BUN 34 H Creatinine 2.83 H Est GFR ( Amer) 19.9 Est GFR (Non-Af Amer) 16.4 BUN/Creatinine Ratio 12.0 Glucose 113 H POC Glucose (mg/dL) 135 H Calcium 8.4 L Random Vancomycin 18.9 Microbiology 08/04/19 17:48 Aerobic Blood Culture - Final Blood Venous No Growth Day 5 08/04/19 17:48 Aerobic Blood Culture - Final Blood Venous No Growth Day 5 Anaerobic Blood Culture - Final No Growth Day 5 08/04/19 17:11 Skin and Soft Tissue MRSA/MSSA (PCR - Final Leg Left Mrsa Positive S.aureus Positive Gram Stain - Final Wound Culture - Final Staphylococcus Aureus Corynebacterium Striatum Pseudomonas Aeruginosa 08/04/19 19:15 Urine Culture - Final Urine Pseudomonas Aeruginosa Assessment: 1. Left lower extremity cellulitis and chronic wounds. Wound culture with staph aureus, corynebacterium, and pseudomonas. She has a history of urinary incontinence and has been noted in the past to have her LE dressing soiled with urine. Wounds and erythema are improving since discontinuing previous dressing. Blood cultures with no growth. Afebrile and no leukocytosis. 2. Asymptomatic bacteriuria. Pseudomonas in the urine culture, asymptomatic prior to urinary catheter. Plan: Discontinue Vancomycin, completed a 5 day course. Continue current dressing changes.
--- NOTE | 2019-08-10 11:25 | DS ---
CC: Dr. Serafin Leyva, Infectious Disease; Dr. Bubba Burnette, Nephrology; [facility] * DATE OF ADMISSION: 08/04/2019. DATE OF DISCHARGE: 08/10/2019. PRIMARY CARE PHYSICIAN: [facility]. MY ATTENDING PHYSICIAN FOR TODAY: Dr. Cindy Hylton* (dictated by Andrew Lynch NP). HOSPITAL COURSE: Please refer to admitting history and physical on August 04. However, in short, Ms. Chowdhury is a 74-year-old female patient who has multiple comorbid conditions who presented to the emergency department with complaints of malaise and general weakness. The patient had a recent admission for sepsis and septic shock. There was some concern that she may be experiencing early sepsis again because she has worsening lower extremity wounds. The patient stated that she has been having some progressive malaise over the past month. She was unable to articulate why she did not feel well; however, the patient's daughter stated that she saw her mother in the morning and she looked less animated the usual and she though that her mother just in general was not feeling well. In the emergency department, it was noted that the wound on her left lower extremity did appear to be worsening and appeared to have an increasing cellulitis with a significant amount of edema, erythema and sloughing skin and also some purulent drainage. Wound culture was obtained which showed gram positive cocci and neutrophils. It did grow out MRSA on that wound culture. The patient also had some transient hypoxia with O2 sats in the 80s. She was briefly placed on oxygen. She did not appear to be septic at that time; however, she did have quite an elevated renal function. The patient does have CKD at baseline; however, she did appear to be very dry. Her creatinine normally is around the 1 to 2 range; however, her creatinine was 5.28 and her BUN was 86. It should also be noted that the patient does take diuretics and Entresto and has had some poor p.o. intake and less fluid intake. For these reasons, the patient was admitted. The patient was seen by Dr. Leyva of infectious disease for her chronic ulcerations in her left lower extremity and her MRSA infection. There was also a case consult with Dr. Burnette of Nephrology. The patient was rehydrated with IV fluids. Her nephrotoxic medications were held. These include Lasix, Spironolactone, and Entresto. Dr. Burnette also recommended holding her Gabapentin. There were also some studies to rule out multiple myeloma, free light chains, and SPEP were also completed. Those studies did yield chronic renal disease and did not show any acute pathologic process. Renal ultrasound also showed chronic renal disease and no acute pathology. Overall, the patient did appear to be presenting with hypovolemia and YESSY on CKD. Pagan catheter was placed. Her output was closely monitored. Also helped to maintain her skin. The patient is incontinent at baseline. The patient did slowly response to IV fluids which were managed judiciously. The patient does have a history of heart failure as well. She did not appear fluid overloaded at any time during this admission. In terms of her hypoxia, the only time she had a desaturation was when she was in the emergency department. She did seem to be quite breathless initially on admission; however , her chest x-ray was completely normal and oxygen was stopped. Her respiratory status remained stable. Flu swab was negative as she had no white count and she had no further respiratory issues. A primary horse and wagon driver in her presentation however though was persistent depression. The patient did make some passive suicidal statements while she was her. The patient was stating that she did not want to live anymore and did not want to go on like this anymore. She was seen by Dr. Rand of Psychiatry who recommended that the patient be increased on her SSRI. She has been taking Sertraline, but at a lower dose. That was increased to 150 mg daily with good effect. The patient does have a tendency to still be depressed. She did have somewhat of a poor appetite and she does require frequent reminders and encouragement to eat and drink. I think this is something that will have to still continue to be managed when she is discharged back to the alf. Part of her problem with the dehydration may have been triggered by her poor oral intake and again this is something that will have to be closely monitored as her SSRI becomes effective over the next couple of weeks at her new dose. In terms of her history of diabetes, her blood sugars remained stable. She was placed on Lispro sliding scale. Her last A1c about a month ago was 7.2 and her blood sugars have been appropriately managed. In terms of her history of heart failure, she was not fluid overloaded at all during this admission and her cardiac status remained stable. For wound management, because MRSA was found in the wound, she was maintained on IV Vancomycin. Her goal troughs were between 15 and 20. Vancomycin was renally dosed and managed by Dr. Leyva. She received a total of five days treatment of Vancomycin to which she responded very well. She was also seen in conjunction with Wound Care with nurse practitioner Nava Cruz who managed her dressing changes and wound care. Recommendations for wound care will be as follows: Daily dressing changes with Telfa on open areas, apply ABD if dressing is copious and cover in rolled gauze, change dressings daily; once superficial wounds are close, leave open with applied barrier cream daily and keep left lower extremity elevated as much as possible. On the day of discharge, 08/10/2019, the patient's vital signs are stable. She has had no acute overnight events. She did have some transient nausea overnight which has resolved. Her colostomy output has been normal and she has had no further complaints. The patient has been cleared for discharge by Infectious Disease with no further antibiotics for treatment. At this time she is stable for discharge back to [facility]. DISCHARGE DIAGNOSES: 1. Left lower extremity wound with MRSA infection. 2. YESSY on CKD secondary to dehydration. 3. Major depressive disorder. SECONDARY DIAGNOSES: 1. Diabetes mellitus type 2. 2. Hypothyroidism. 3. Systolic heart failure. 4. Hypothyroidism. 5. History of rectal carcinoma with partial colectomy and colostomy. 6. Recent history of sepsis. MEDICATIONS FOR DISCHARGE: 1. Zofran 4 mg p.o. q.6 hours as needed. 2. Victoza 1.8 mg subcu at bedtime. 3. NovoLog 5 units subcu before meals. 4. Glargine 20 units subcu 2 times a day. 5. Tylenol 500 mg p.o. b.i.d. as needed. 6. Aldactone 25 mg p.o. daily. 7. Zocor 20 mg p.o. at bedtime. 8. Levothyroxine 125 mcg p.o. in the morning. 9. Lasix 40 mg p.o. daily. 10. Carvedilol 3.125 mg p.o. b.i.d. 11. Aspirin 81 mg p.o. daily. 12. Entresto one tab p.o. b.i.d. 13. Gabapentin 600 mg p.o. b.i.d. 14. Calcium Carbonate with vitamin D3 one tablet p.o. b.i.d. CHANGE IN MEDICATION: 1. Zoloft was 100 mg daily, now new dose is 150 mg p.o. in the morning. 2. Also added is Maalox Plus 30 ml p.o. q.6 hours as needed for dyspepsia or indigestion. REVIEW OF SYSTEMS ON THE DAY OF DISCHARGE: The patient denies any fever, fatigue or chills. No headache. No visual disturbances. No chest pain, no shortness of breath. She does complain of some fatigue and some transient nausea which is primarily her baseline. Denies any abdominal pain. No urinary complaints. No arthralgias or myalgias. No further constitutional complaints. PHYSICAL EXAMINATION: General: Older female in no acute distress. Vital Signs : Blood pressure 155/86, heart rate 89, respiratory rate 22, O2 saturation 98 percent on room air with a temperature of 98.1. HEENT: Patient is atraumatic, normocephalic. PERRLA. Nonicteric sclerae. Oral mucosa is moist. Tongue is midline. Neck: Supple, nontender. No JVD noted and no carotid bruits auscultated. Cardiovascular: S1 and S2 present. No murmurs, gallops, or rubs noted. Rate and rhythm are regular. Lungs: Clear bilaterally at the apices, slightly diminished at the bases with no wheezing, rhonchi, or rales. Abdomen: Soft, nontender, nondistended. Positive bowel sounds in all four quadrants. Colostomy is draining soft tissue, medium brown in color. No blood or mucus noted in her colostomy bag. Abdomen is otherwise soft and nontender. Urine: She has a Pagan catheter draining clear yellow urine. Musculoskeletal: There is no clubbing, no cyanosis. She has some trace edema bilaterally to the ankles and dorsal aspect of her feet. Her left lower extremity has a fresh dressing which is clean, dry, and intact. Her skin on the wound, however, the margins of the wound have retracted. There is less erythema and edema. She has several small open areas which have again improved. She has +2 distal pulses palpable. She has full range of motion and gross motor and sensation are intact. Neurologic: She can be confused and forgetful, but she is otherwise alert to person and place and no other focal deficits are noted. Psychiatric: She is quite depressed, but otherwise denies any suicidal ideation and has been otherwise appropriate. LABORATORY DATA: WBC 4.8, RBC 3.83, hemoglobin 10.3, hematocrit 34, platelets 199; sodium 144, potassium 4.0, chloride 115, CO2 21, BUN 34, creatinine 2.83, GFR 16.4, glucose 113, calcium 8.4, albumin/globulin (PEP) 0.97, alpha-1 globulins 0.3, alpha- 2 globulins 1.0, beta-1 globulin 0.8, gamma globulin 0.6. PEP impression is no apparent monoclonal protein on serum electrophoresis noted. Influenza A and B are negative. [place] light chain 7.22, lambda light chain 2.73, kappa/lambda ratio 2.64. Urinalysis initially was cloudy urine with 3+ WBC, 1+ RBC, 3+ leukocyte esterase. Wound culture showing MRSA and staph of the left lower extremity wound. Blood cultures negative to date. Colonized urine with pseudomonas. IMAGING STUDIES: 1. Chest x-ray dated 08/04/2019 shows no evidence for any acute cardiopulmonary disease. 2. Renal ultrasound shows mildly increased renal cortical echogenicity suggesting medical renal disease. Negative for hydronephrosis. Mildly complex cyst on the inferior pole of the right kidney without gross change compared to 06/23/2019 CT. DISPOSITION: The patient will be discharged to [facility] in stable condition via ambulance transport. DIET: Heart-healthy, diabetic as tolerated. ACTIVITY: Progress activity as tolerated. The patient when she is in a chair or wheelchair should have the left lower extremity elevated at all times. Dressing changes as noted above. FOLLOW-UP: The patient should follow-up with her primary care provider at [facility]. Can follow-up with Wound Care or Dr. Leyva for her wounds on an as needed basis. Again, the patient was discharged in stable condition. All questions were answered. Case Management has followed up with family regarding her discharge plan of care. TIME SPENT: Forty-five minutes on discharge planning. ANDREW LYNCH NP [id number]/[facility] #: [id number] RYAN
[2019-08-11 15:19] LABS: Albumin 2.7 g/dL (3.4-4.7); Albumin/Globulin Ratio 0.89; Gamma Globulin 0.7 g/dL (0.6-1.6); Total Protein(PEP) 5.7 g/dL (6.3 - 7.9)
[2019-08-11 15:29] LABS: Albumin 49 %; Albumin/Globulin Ratio 0.94 %; Gamma Globulin 11 %; Total Protein(PEP) Urine 21 mg/dL
== END 2019-08-10 12:55 | DRG 683 ==
LOC: ED 16:45 → MED 19:52
PROVIDERS: ADMIT Internal Medicine; ATTEND Internal Medicine
DX: N17.9 Acute kidney failure, unspecified (principal); L03.116 Cellulitis of left lower limb; 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 of unspecified part of left lower leg with unspecified severity; I13.0 Hypertensive heart and chronic kidney disease with heart failure and stage 1 through stage 4 chronic kidney disease, or unspecified chronic kidney disease; I50.22 Chronic systolic (congestive) heart failure; Z68.41 Body mass index [BMI] 40.0-44.9, adult; R45.851 Suicidal ideations; N18.4 Chronic kidney disease, stage 4 (severe); E86.0 Dehydration; B95.62 Methicillin resistant Staphylococcus aureus infection as the cause of diseases classified elsewhere; E03.9 Hypothyroidism, unspecified; I50.9 Heart failure, unspecified; E78.00 Pure hypercholesterolemia, unspecified; E11.51 Type 2 diabetes mellitus with diabetic peripheral angiopathy without gangrene; M47.9 Spondylosis, unspecified; F41.9 Anxiety disorder, unspecified; E11.22 Type 2 diabetes mellitus with diabetic chronic kidney disease; E66.9 Obesity, unspecified; E86.1 Hypovolemia; B96.5 Pseudomonas (aeruginosa) (mallei) (pseudomallei) as the cause of diseases classified elsewhere; E11.42 Type 2 diabetes mellitus with diabetic polyneuropathy; I87.8 Other specified disorders of veins; F31.9 Bipolar disorder, unspecified; Z90.49 Acquired absence of other specified parts of digestive tract; Z88.1 Allergy status to other antibiotic agents; Z88.0 Allergy status to penicillin; Z91.5 Personal history of self-harm; Z82.49 Family history of ischemic heart disease and other diseases of the circulatory system; Z93.3 Colostomy status; Z88.8 Allergy status to other drugs, medicaments and biological substances; Z85.048 Personal history of other malignant neoplasm of rectum, rectosigmoid junction, and anus; Z92.3 Personal history of irradiation; Z86.14 Personal history of Methicillin resistant Staphylococcus aureus infection
CPT/HCPCS: 36415; 71045; 76775; 80048; 80053; 80202; 81003; 81015; 82570; 83605; 83883; 84155; 84156; 84165; 84166; 84300; 84484; 84540; 85025; 85027; 85379; 85610; 86140; 87040; 87070; 87077; 87086; 87186; 87205; 87640; 87641; 90686; 99285; A9270-GY; J1650; J2405; J3370

== ENCOUNTER → 2020-03-14 03:00 | Emergency (ER) | payer MEDICAID, MEDICARE ==
--- NOTE | 2020-03-14 04:13 | ED ---
Head Injury - HPI Summary HPI Summary: 75 year old F presenting to [facility] via EMS with a chief complaint of a head injury. Patient states that she fell and injured her head. She notes bruises on her forehead. Patient denies syncope and CHAO. Patient does not know why she fell. Patient felt sick yesterday morning; she states that she woke up and felt funny, and that she proceeded to lie down when she experienced onset of diffuse body aches and nausea. Home Medications Medication Instructions Recorded Confirmed Type Aspirin 81 mg CHEW TAB* 81 mg PO DAILY 10/23/18 08/04/19 History Calcium Carbonate/Vitamin D3 1 tab PO BID 10/23/18 08/04/19 History [Calcium 600-Vit D3 400 Tablet] Gabapentin TAB(NF) [Neurontin 600 600 mg PO BID 10/23/18 08/04/19 History mg TAB(NF)] Levothyroxine TAB* [Synthroid 125 125 mcg PO QAM 10/23/18 08/04/19 History MCG TAB*] Sacubitril/Valsartan [Entresto 49 1 tab PO BID 10/23/18 08/04/19 History mg-51 mg Tablet] Carvedilol TAB* [Coreg TAB*] 3.125 mg PO BID 03/16/19 08/04/19 History Simvastatin TAB(NF) [Zocor 20 MG 20 mg PO BEDTIME 05/21/19 08/04/19 History (NF)] Furosemide TAB* [Lasix TAB*] 40 mg PO DAILY 06/11/19 08/04/19 History Liraglutide (NF) [Victoza (NF)] 1.8 mg SUBCUT BEDTIME 06/11/19 08/04/19 History Acetaminophen [Mapap] 500 mg PO BID 07/15/19 08/04/19 History Insulin Glargine,Hum.rec.anlog 20 unit SQ BID 07/15/19 08/04/19 History [Basaglar Kwikpen 100 inuts/ml 3 ml x 5 Pens] Sertraline* [Zoloft*] 150 mg PO QAM tab 08/10/19 Rx Cranberry Conc/C/Bacill Coag [Azo 250 mg PO DAILY 03/14/20 03/14/20 History Cranberry Tablet] Ferrous Sulfate TAB* 325 mg PO BID 03/14/20 03/14/20 History Insulin ASPART (NF) [Novolog 100 5 units SUBCUT PC 03/14/20 03/14/20 History units/ml 10 ml VIAL (NF)] Melatonin/Pyridoxine HCl (B6) 5 mg PO BEDTIME 03/14/20 03/14/20 History [Melatonin 5 mg Tablet] - History Of Current Complaint Chief Complaint: EDFall Stated Complaint: FACIAL SWELLING PER EMS Hx Obtained From: Patient Onset/Duration: Started Hours Ago Pain Intensity: 5 Pain Scale Used: 0-10 Numeric Location of Head Injury: Frontal - Patient fell on her face and hurt her forehead. Associated Signs And Symptoms: Nausea - yesterday, Bruising - Bruising on forehead., Other: - body aches yesterday - Allergies/Home Medications Allergies/Adverse Reactions: Allergies Allergy/AdvReac Type Severity Reaction Status Date / Time cefdinir Allergy Rash Verified 07/15/19 11:27 lithium Allergy Hives Verified 07/15/19 11:27 Penicillins Allergy Hives Verified 07/15/19 11:27 Home Medications: Home Medications Aspirin 81 mg CHEW TAB* 81 mg PO DAILY 10/23/18 [History Confirmed 03/14/20] Calcium Carbonate/Vitamin D3 [Calcium 600-Vit D3 400 Tablet] 1 tab PO BID [History Confirmed 03/14/20] Gabapentin TAB(NF) [Neurontin 600 mg TAB(NF)] 600 mg PO BID 10/23/18 [History Confirmed 03/14/20] Levothyroxine TAB* [Synthroid 125 MCG TAB*] 125 mcg PO QAM 10/23/18 [History Confirmed 03/14/20] Sacubitril/Valsartan [Entresto 49 mg-51 mg Tablet] 1 tab PO BID 10/23/18 [ History Confirmed 03/14/20] Carvedilol TAB* [Coreg TAB*] 3.125 mg PO BID 03/16/19 [History Confirmed ] Simvastatin TAB(NF) [Zocor 20 MG (NF)] 20 mg PO BEDTIME 05/21/19 [History Confirmed 03/14/20] Furosemide TAB* [Lasix TAB*] 40 mg PO DAILY 06/11/19 [History Confirmed 03/14/20 ] Liraglutide (NF) [Victoza (NF)] 1.2 mg SUBCUT BEDTIME 06/11/19 [History Confirmed 03/14/20] Acetaminophen [Mapap] 1,000 mg PO TID 07/15/19 [History Confirmed 03/14/20] Insulin Glargine,Hum.rec.anlog [Basaglar Kwikpen 100 inuts/ml 3 ml x 5 Pens] 20 unit SQ BID 07/15/19 [History Confirmed 03/14/20] Sertraline* [Zoloft*] 150 mg PO QAM tab 08/10/19 [Rx Confirmed 03/14/20] Cranberry Conc/C/Bacill Coag [Azo Cranberry Tablet] 250 mg PO DAILY 03/14/20 [ History Confirmed 03/14/20] Ferrous Sulfate TAB* 325 mg PO BID 03/14/20 [History Confirmed 03/14/20] Insulin ASPART (NF) [Novolog 100 units/ml 10 ml VIAL (NF)] 5 units SUBCUT PC [History Confirmed 03/14/20] Melatonin/Pyridoxine HCl (B6) [Melatonin 5 mg Tablet] 5 mg PO BEDTIME 03/14/20 [ History Confirmed 03/14/20] PMH/Surg Hx/FS Hx/Imm Hx Endocrine/Hematology History: Reports: Hx Diabetes, Hx Thyroid Disease - hypothryoid., Hx Anemia Cardiovascular History: Reports: Hx Congestive Heart Failure, Hx Hypercholesterolemia, Hx Hypertension, Hx Peripheral Vascular Disease Respiratory History: Reports: Hx Asthma GI History: Reports: 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 History: Reports: Other Problems/Disorders - One kidney low performing Musculoskeletal History: Reports: Hx Arthritis - spine Sensory History: Reports: Hx Contacts or Glasses Denies: Hx Hearing Aid, Hx Hearing Problem Opthamlomology History: Reports: Hx Contacts or Glasses Psychiatric History: Reports: Hx Anxiety, Hx Depression, Hx Suicide Attempt - Over 20 years ago Denies: Other Psychiatric Issues/Disorders - Cancer History Cancer Type, Location and Year: rectal Hx Chemotherapy: Yes Hx Radiation Therapy: Yes - Surgical History Surgery Procedure, Year, and Place: rectal, hernia, tonsils, adnoids Hx Anesthesia Reactions: No Infectious Disease History: No Infectious Disease History: Reports: Hx of Known/Suspected MRSA Denies: Traveled Outside the [place] in Last 30 Days - Family History Known Family History: Positive: Cardiac Disease - Father with OH at age 77 y/o Negative: Renal Disease, Seizure Disorder - Social History Alcohol Use: None Hx Substance Use: No Substance Use Type: Reports: None Hx Tobacco Use: No Smoking Status (MU): Never Smoked Tobacco Have You Smoked in the Last Year: No Review of Systems Positive: Nausea Positive: Myalgia - body aches Positive: Bruising - Bruising on forehead. Neurological/Mental Status: Other - positive - head injury Negative: Headache, Syncope All Other Systems Reviewed And Are Negative: Yes Physical Exam - Summary Physical Exam Summary: Appearance: Well-appearing, Well-nourished, lying in bed comfortably Skin: Scattered bruising on forehead. Eyes: sclera anicteric, no conjunctival pallor; Extraocular movements intact. HENT: mucous membranes moist, pharynx appears normal. Neck: Supple, nontender Respiratory: Clear to auscultation, no signs of respiratory distress. Respiratory exam limited and normal. Cardiovascular: Normal S1, S2. No murmurs. Normal distal pulses in tibial and radial bilaterally. Abdomen: Soft, nontender, normal active bowel sounds present Musculoskeletal: Normal, Strength/ROM Intact. Neurological: A&Ox3, awake and alert, mentation is normal, speech is fluent and appropriate, GCS 15. Psychiatric: affect is normal, does not appear anxious or depressed Triage Information Reviewed: Yes Vital Signs On Initial Exam: Initial Vitals Temp Pulse Resp BP Pulse Ox 98.2 F 86 18 149/71 100 03/14/20 03:03 03/14/20 03:03 03/14/20 03:03 03/14/20 03:03 03/14/20 03:03 Vital Signs Reviewed: Yes - Swapna Coma Scale Best Eye Response: 4 - Spontaneous Best Motor Response: 6 - Obeys Commands Best Verbal Response: 5 - Oriented Coma Scale Total: 15 Procedures - Sedation Patient Received Moderate/Deep Sedation with Procedure: No Diagnostics - Vital Signs Vital Signs Temp Pulse Resp BP Pulse Ox 03/14/20 03:03 98.2 F 86 18 149/71 100 - Laboratory Lab Statement: Any lab studies that have been ordered have been reviewed, and results considered in the medical decision making process. - CT Maxillofacial CT CT Interpretation Completed By: Radiologist Summary of CT Findings: IMPRESSION: Hematoma located in the right cheek with associated inflammatory changes. No. associated facial fracture. This imaging report has been reviewed and interpreted by Dr. Raymond. Brain CT CT Interpretation Completed By: Radiologist Summary of CT Findings: IMPRESSION: No acute intracranial findings. This imaging report has been reviewed and interpreted by Dr. Raymond. Head Injury Course/Dx Course Of Treatment: 75 year old F presents to [facility] via EMS with a chief complaint of a head injury. Patient states that she fell, injuring her head. She notes bruises to her forehead. Patient denies syncope and CHAO. On physical exam, extraocular movements intact, scattered bruising on forehead, respiratory exam limited but normal, GCS 15. Maxillofacial CT shows the following: IMPRESSION: Hematoma located in the right cheek with associated inflammatory changes. No associated facial fracture. Brain CT shows the following: IMPRESSION : No acute intracranial findings. Patient is in stable condition and was dicharged to home. - Diagnoses Provider Diagnoses: Facial contusion - Critical Care Time Critical Care Statement: Critical care time is provided exclusive of any time spent performing procedures. Discharge ED - Sign-Out/Discharge Documenting (check all that apply): Patient Departure - Discharge to home. - Discharge Plan Condition: Good Disposition: HOME Patient Education Materials: Hematoma (ED) Referrals: Daya Little NP [Primary Care Provider] - 4 Days Additional Instructions: Use ice compresses to the area to help with pain and swelling. It will take several weeks for the injury to heal. - Billing Disposition and Condition Condition: GOOD Disposition: Home - Attestation Statements Document Initiated by Julio: Yes Documenting Scribe: Kimberli Grimes Provider For Whom Julio is Documenting (Include Credential): Hiro Raymond MD Scribe Attestation: Kimberli Borges, scribed for Hiro Raymond MD on 03/15/20 at 0105. Scribe Documentation Reviewed: Yes Provider Attestation: The documentation as recorded by the manuelibe, Kimberli Grimes accurately reflects the service I personally performed and the decisions made by me, Hiro Raymond MD Status of Scribe Document: Viewed
[2020-03-14 04:53] VITALS: BP 137/65
--- OUTSIDE RECORDS SUMMARY | 2020-03-14 05:35 | XMS REPORT | Continuity of Care Document ---
:1945 External Reference #:[id number] Author Name Kimberly Lim MD (transmitted by agent of provider Oneida Hall) Address [address], [address] [place] [address] Care Team Providers Name Role Phone Blaine David MD - Hospitalist Care Team Information Manager Lan Problems Description No Information Available Social History Type Date Description Comments Sex Unknown ETOH Use Occasionally consumes alcohol wine Tobacco Use Start: Unknown End: Patient is a former smoker Unknown Recreational Drug Use Denies Drug Use Smoking Status Reviewed: 01/18/20 Patient is a former smoker Allergies, Adverse Reactions, Alerts Active Allergies Reaction Severity Comments Date Penicillin 01/14/2015 [place] pt almost 01/14/2015 Medications Active Medications SIG Qnty Indications Ordering Provider Date Victoza start 0.6mg for 1 9ml E11.22 Miguel Angel Hurley MD 05/10/2019 18mg/3ML Solution week, then 1.2mg Pen-Inject for 1 week, then 1.8mg daily Basaglar Kwikpen 60 units in the 15ml Miguel Angel Hurley MD 02/08/2019 100Unit/ML am, 40 units at Solution Pen-Inject bedtime. Sertraline HCL 1 by mouth every Unknown 50mg Tablets day Ondansetron HCL one by mouth Unknown 4mg Tablets every 8 hours as needed for nausea Tylenol Extra Strength 1-2 tabs by mouth Unknown every 6 hours as 500mg Tablets needed Melatonin 1 by mouth @ at Unknown 3mg Capsules bedtime Iron 1 by mouth every Unknown 325(65Fe) mg Tablets day Tramadol HCL 1-2 tablets by Unknown 50mg Tablets mouth every 6 hours as needed pain Sertraline HCL 1 by mouth every Unknown 100mg day Tablets Carvedilol 1 by mouth twice Unknown 3.125mg Tablets a day Calcium take one tablet Unknown Carbonate-Vitamin D by mouth twice a day with food [id number] Tablets Novolog Flexpen 20 units with 30ml Miguel Angel Hurley MD 100Unit/ML meals plus Solution Pen-Inject sliding scale, mdd 100 Aspirin 81 Low Dose 1 by mouth every Unknown 81mg day Chewtabs Entresto 1 tab by mouth Unknown 49-51mg Tablets twice daily Simvastatin 1 by mouth every Unknown 20mg Tablets day Gabapentin 2 tabets twice Nicole-Theresa Connell, 600mg Tablets daily PRINCIPAL INVESTIGATOR Furosemide 1 tablet daily Roma Mendoza 40mg Tablets A., PRINCIPAL INVESTIGATOR Levothyroxine Sodium 1 tab by mouth Atbeverly, 125mcg once daily Basia, P.A. Tablets Medications Administered in Office Medication SIG Qnty Indications Ordering Provider Date Depomedrol 40MG Александр Jackson MD 03/02/2018 Injection Depomedrol 80MG Alhaji De M.D. 02/11/2015 Injection Immunizations Description No Information Available Vital Signs Date Vital Result Comment 01/18/2020 11:09am Height 60 inches 5'0" 11/19/2019 8:58am Height 60 inches 5'0" Weight 176.00 lb Heart Rate 87 /min BP Systolic Sitting 132 mmHg R arm BP Diastolic Sitting 66 mmHg R arm O2 % BldC Oximetry 99 % BMI (Body Mass Index) 34.4 kg/m2 Results Description No Information Available Procedures Description No Information Available Medical Devices Description No Information Available Encounters Type Date Location Provider Dx Diagnosis Office Visit 11/19/2019 [facility] Kimberly Lim MD I12.0 Hyp chr kidney 9:00a disease w stage 5 chr kidney disease or Esrd E11.22 Type 2 diabetes mellitus w diabetic chronic kidney disease D63.1 Anemia in chronic kidney disease N18.5 Chronic kidney disease, stage 5 D50.9 Iron deficiency anemia, unspecified I12.9 Hypertensive chronic kidney disease w stg 1-4/unsp chr kdny Office Visit 08/10/2019 [facility] Navacynthia Herr L03.116 Cellulitis of 10:08a For Infectious Mejia, PRINCIPAL INVESTIGATOR left lower limb Diseases L97.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 R82.71 Bacteriuria Office Visit 08/10/2019 11:40a [facility] N17.9 Acute kidney Assoc,[facility] Dot, failure, Hospitalists PRINCIPAL INVESTIGATOR unspecified E11.22 Type 2 diabetes mellitus w diabetic chronic kidney disease N18.9 Chronic kidney disease, unspecified E86.0 Dehydration L03.116 Cellulitis of left lower limb B95.62 Methicillin resis staph infct causing diseases classd elswhr Office Visit 08/09/2019 11:40a [facility] N17.9 Acute kidney Assoc,[facility] Dot, failure, Hospitalists PRINCIPAL INVESTIGATOR unspecified E11.22 Type 2 diabetes mellitus w diabetic chronic kidney disease N18.9 Chronic kidney disease, unspecified L03.116 Cellulitis of left lower limb B95.62 Methicillin resis staph infct causing diseases classd elswhr Office Visit 08/08/2019 [facility] Navacynthia Herr L03.116 Cellulitis of 10:42a For Infectious Mejia PRINCIPAL INVESTIGATOR left lower limb Diseases E11.622 Type 2 diabetes mellitus with other skin ulcer L97.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 R82.71 Bacteriuria Office Visit 08/08/2019 11:39a [facility] N17.9 Acute kidney Assoc,[facility] Doto, failure, Hospitalists PRINCIPAL INVESTIGATOR unspecified E11.22 Type 2 diabetes mellitus w diabetic chronic kidney disease N18.9 Chronic kidney disease, unspecified L03.116 Cellulitis of left lower limb B95.62 Methicillin resis staph infct causing diseases classd elswhr Office Visit 08/07/2019 8:30a [facility] Nava Herr L97.921 Non- prs [facility] Ba, PRINCIPAL INVESTIGATOR ulc unsp prt of l low leg limited to brkdwn skin E11.622 Type 2 diabetes mellitus with other skin ulcer Office Visit 08/07/2019 11:39a [facility] N17.9 Acute kidney Assoc,[facility] Syed, failure, Hospitalists PRINCIPAL INVESTIGATOR unspecified N18.9 Chronic kidney disease, unspecified L03.116 Cellulitis of left lower limb B95.62 Methicillin resis staph infct causing diseases classd elswhr Office Visit 08/06/2019 10:39a [facility] Serafin Reina E11.622 Type 2 Infectious Di Vasquez diabetes Diseases mellitus with other skin ulcer L97.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 N17.9 Acute kidney failure, unspecified E11.22 Type 2 diabetes mellitus w diabetic chronic kidney disease N18.4 Chronic kidney disease, stage 4 (severe) Office Visit 08/06/2019 11:38a [facility] Priya N17.9 Acute kidney Assoc,[facility] Syed, failure, Hospitalists PRINCIPAL INVESTIGATOR unspecified N18.9 Chronic kidney disease, unspecified L03.116 Cellulitis of left lower limb B95.62 Methicillin resis staph infct causing diseases classd elswhr Office Visit 08/05/2019 [facility] Oneida N17.9 Acute kidney 11:38a Assoc,peggy Ghosh, PRINCIPAL INVESTIGATOR failure, Hospitalists unspecified N18.9 Chronic kidney disease, unspecified B95.62 Methicillin resis staph infct causing diseases classd elswhr L03.116 Cellulitis of left lower limb Office Visit 08/04/2019 [facility] Ruby N17.9 Acute kidney 11:38a Assoc,peggy Etienne, PRINCIPAL INVESTIGATOR failure, Hospitalists unspecified J96.01 Acute respiratory failure with hypoxia L03.116 Cellulitis of left lower limb E11.9 Type 2 diabetes mellitus without complications Assessments Date Code Description Provider 01/18/2020 I12.0 Hypertensive chronic kidney disease Kimberly Lim MD with stage 5 chronic kidney disease or end stage renal disease 01/18/2020 N18.4 Chronic kidney disease, stage 4 Kimberly Lim MD (severe) 11/19/2019 I12.0 Hypertensive chronic kidney disease Kimberly Lim MD with stage 5 chronic kidney disease or end stage renal disease 11/19/2019 E11.22 Type 2 diabetes mellitus with Kimberly Lim MD diabetic chronic kidney disease 11/19/2019 D63.1 Anemia in chronic kidney disease Kimberly Lim MD 11/19/2019 N18.5 Chronic kidney disease, stage 5 Kimberly Lim MD 11/19/2019 D50.9 Iron deficiency anemia, unspecified Kimberly Lim MD 11/19/2019 I12.9 Hypertensive chronic kidney disease Kimberly Lim MD with stage 1 through stage 4 chronic kidney disease, or unspecified chronic kidney disease 08/10/2019 L03.116 Cellulitis of left lower limb Nava Ba, PRINCIPAL INVESTIGATOR 08/10/2019 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 of Nava Ba, PRINCIPAL INVESTIGATOR unspecified part of left lower leg with unspecified severity 08/10/2019 N17.9 Acute kidney failure, unspecified Priya [place] Doto, PRINCIPAL INVESTIGATOR 08/10/2019 R82.71 Bacteriuria Nava Ba, PRINCIPAL INVESTIGATOR 08/10/2019 E11.22 Type 2 diabetes mellitus with Priya [place] Doto, PRINCIPAL INVESTIGATOR diabetic chronic kidney disease 08/10/2019 N18.9 Chronic kidney disease, unspecified Priya Arleth Doto, PRINCIPAL INVESTIGATOR 08/10/2019 E86.0 Dehydration Priya Arleth Doto, PRINCIPAL INVESTIGATOR 08/10/2019 L03.116 Cellulitis of left lower limb Priya Arleth Doto, PRINCIPAL INVESTIGATOR 08/10/2019 B95.62 Methicillin resistant Staphylococcus Priya Arleth Doto , PRINCIPAL INVESTIGATOR aureus infection as the cause of diseases classified elsewhere 08/09/2019 N17.9 Acute kidney failure, unspecified Priya Arleth Doto, PRINCIPAL INVESTIGATOR 08/09/2019 E11.22 Type 2 diabetes mellitus with Priya Arleth Doto, PRINCIPAL INVESTIGATOR diabetic chronic kidney disease 08/09/2019 N18.9 Chronic kidney disease, unspecified Priya Arleth Doto, PRINCIPAL INVESTIGATOR 08/09/2019 L03.116 Cellulitis of left lower limb Priya Reinoso Doto, PRINCIPAL INVESTIGATOR 08/09/2019 B95.62 Methicillin resistant Staphylococcus Priya [place] Doto , PRINCIPAL INVESTIGATOR aureus infection as the cause of diseases classified elsewhere 08/08/2019 L03.116 Cellulitis of left lower limb Nava Ba, PRINCIPAL INVESTIGATOR 08/08/2019 N17.9 Acute kidney failure, unspecified Priya Reinoso Doto, PRINCIPAL INVESTIGATOR 08/08/2019 E11.622 Type 2 diabetes mellitus with other Nava W[place] Ba, PRINCIPAL INVESTIGATOR skin ulcer 08/08/2019 E11.22 Type 2 diabetes mellitus with Priya Lynch, PRINCIPAL INVESTIGATOR diabetic chronic kidney disease 08/08/2019 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 of Nava Ba, JORGE L unspecified part of left lower leg with unspecified severity 08/08/2019 N18.9 Chronic kidney disease, unspecified Priya Lynch, PRINCIPAL INVESTIGATOR 08/08/2019 R82.71 Bacteriuria Nava Ba, PRINCIPAL INVESTIGATOR 08/08/2019 L03.116 Cellulitis of left lower limb Priya Lynch, PRINCIPAL INVESTIGATOR 08/08/2019 B95.62 Methicillin resistant Staphylococcus Priya Lynch , PRINCIPAL INVESTIGATOR aureus infection as the cause of diseases classified elsewhere 08/07/2019 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 of Nava Ba, PRINCIPAL INVESTIGATOR unspecified part of left lower leg limited to breakdown of skin 08/07/2019 N17.9 Acute kidney failure, unspecified Priya Ramirezo, PRINCIPAL INVESTIGATOR 08/07/2019 E11.622 Type 2 diabetes mellitus with other Nava Ba, PRINCIPAL INVESTIGATOR skin ulcer 08/07/2019 N18.9 Chronic kidney disease, unspecified Priya Ramirezo, PRINCIPAL INVESTIGATOR 08/07/2019 L03.116 Cellulitis of left lower limb Priya Lynch, PRINCIPAL INVESTIGATOR 08/07/2019 B95.62 Methicillin resistant Staphylococcus Priya Lynch , PRINCIPAL INVESTIGATOR aureus infection as the cause of diseases classified elsewhere 08/06/2019 E11.622 Type 2 diabetes mellitus with other Serafin Vasquez M.D. skin ulcer 08/06/2019 N17.9 Acute kidney failure, unspecified Priya Reinoso Doto, PRINCIPAL INVESTIGATOR 08/06/2019 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 of Serafin Vasquez M.D. unspecified part of left lower leg with unspecified severity 08/06/2019 N18.9 Chronic kidney disease, unspecified Priya Reinoso Doto, PRINCIPAL INVESTIGATOR 08/06/2019 N17.9 Acute kidney failure, unspecified Serafin Vasquez M.D. 08/06/2019 L03.116 Cellulitis of left lower limb Priya Lynch, PRINCIPAL INVESTIGATOR 08/06/2019 E11.22 Type 2 diabetes mellitus with Serafin Vasquez M.D. diabetic chronic kidney disease 08/06/2019 B95.62 Methicillin resistant Staphylococcus Priya Lynch , PRINCIPAL INVESTIGATOR aureus infection as the cause of diseases classified elsewhere 08/06/2019 N18.4 Chronic kidney disease, stage 4 Serafin Vasquez M.D. (severe) 08/05/2019 N17.9 Acute kidney failure, unspecified [place], PRINCIPAL INVESTIGATOR 08/05/2019 N18.9 Chronic kidney disease, unspecified Oneida Augie, PRINCIPAL INVESTIGATOR 08/05/2019 B95.62 Methicillin resistant Staphylococcus Oneida Ghosh, PRINCIPAL INVESTIGATOR aureus infection as the cause of diseases classified elsewhere 08/05/2019 L03.116 Cellulitis of left lower limb Oneida Ghosh, PRINCIPAL INVESTIGATOR 08/04/2019 N17.9 Acute kidney failure, unspecified Ruby [place], PRINCIPAL INVESTIGATOR 08/04/2019 J96.01 Acute respiratory failure with Rubysusanna Etienne, PRINCIPAL INVESTIGATOR hypoxia 08/04/2019 L03.116 Cellulitis of left lower limb Ruby Jaimie, PRINCIPAL INVESTIGATOR 08/04/2019 E11.9 Type 2 diabetes mellitus without Ruby Etienne, PRINCIPAL INVESTIGATOR complications Plan of Treatment Future Appointment(s):04/17/2020 10:40 am - Kimberly Lim MD at [facility] [id number] /28/2020 - Kimberly Lim MDI12.0 Hypertensive chronic kidney disease with stage 5 chronic kidney disease or end stage renal diseaseFollow up:3 usibliB04.4 Chronic kidney disease, stage 4 (severe) Functional Status Description No Information Available Mental Status Description No Information Available Referrals Description No Information Available
--- OUTSIDE RECORDS SUMMARY | 2020-03-14 05:35 | XMS REPORT | Continuity of Care Document ---
:1945 External Reference #:[id number] Author Name Kimberly Lim MD (transmitted by agent of provider Glo Kendrick) Address [address], [address] [place] [address] Care Team Providers Name Role Phone Blaine David MD - Hospitalist Care Team Information Accessioner [phone] Problems Description No Information Available Social History Type Date Description Comments Sex Unknown ETOH Use Occasionally consumes alcohol wine Tobacco Use Start: Unknown End: Patient is a former smoker Unknown Recreational Drug Use Denies Drug Use Smoking Status Reviewed: 01/18/20 Patient is a former smoker Allergies, Adverse Reactions, Alerts Active Allergies Reaction Severity Comments Date Penicillin 01/14/2015 [place] pt almost 01/14/2015 Medications Active Medications SIG [...] by mouth twice a day with food [id number] Tablets Novolog Flexpen 20 units with 30ml Miguel Angel Hurley MD 100Unit/ML meals plus Solution Pen-Inject sliding scale, mdd 100 Aspirin 81 Low Dose 1 by mouth every Unknown 81mg day Chewtabs Entresto 1 tab by mouth Unknown 49-51mg Tablets twice daily Simvastatin 1 by mouth every Unknown 20mg Tablets day Gabapentin 2 tabets twice Nicole-Theresa Connell, 600mg Tablets daily [employer] Furosemide 1 tablet daily Roma Mendoza 40mg Tablets A., ELECTROTYPER HELPER Levothyroxine Sodium 1 tab by mouth Javier, 125mcg once daily Basia, P.A. 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 N18.5 Chronic kidney disease, stage 5 D50.9 Iron deficiency anemia, unspecified I12.9 Hypertensive chronic kidney disease w stg 1-4/unsp chr kdny [facility] L03.116 Cellulitis of 10:08a For Infectious Mejia, [employer]LECT[employer]YPER HELPER left lower limb Diseases L97.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 R82.71 Bacteriuria Office Visit 08/10/2019 11:40a [facility] N17.9 Acute kidney Assoc,[facility], failure, Hospitalists [employer] unspecified E11.22 Type 2 diabetes mellitus w diabetic chronic kidney disease N18.9 Chronic kidney disease, unspecified E86.0 Dehydration L03.116 Cellulitis of left lower limb B95.62 Methicillin resis staph infct causing diseases classd elswhr Office Visit 08/09/2019 11:40a [facility] N17.9 Acute kidney Assoc,[facility], failure, Hospitalists E[employer]ROTYPER HELPER unspecified E11.22 Type 2 diabetes mellitus w diabetic chronic kidney disease N18.9 Chronic kidney disease, unspecified L03.116 Cellulitis of left lower limb B95.62 Methicillin resis staph infct causing diseases classd elswhr [facility] L[facility].116 Cellulitis of 10:42a For Infectious Mejia, [employer]YPER HELPER left lower limb Diseases E11.622 Type 2 diabetes mellitus with other skin ulcer L97.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 R82.71 Bacteriuria Office Visit 08/08/2019 11:39a [facility] N17.9 Acute kidney Assoc,[facility], failure, Hospitalists E[employer]YPER HEL[employer] unspecified E11.22 Type 2 diabetes mellitus w diabetic chronic kidney disease N18.9 Chronic kidney disease, unspecified L03.116 Cellulitis of left lower limb B95.62 Methicillin resis staph infct causing diseases classd elswhr Office Visit 08/07/2019 8:30a [facility] Nava Herr L97.921 Non- prs [facility] Ba ul unsp prt of l low leg limited to brkdwn skin E11.622 Type 2 diabetes mellitus with other skin ulcer Office Visit 08/07/2019 11:39a [facility] N17.9 Acute kidney Assoc,peggy Lynch, failure, Hospitalists [employer]YPER HELPER unspecified N18.9 Chronic kidney disease, unspecified L03.116 Cellulitis of left lower limb B95.62 Methicillin resis staph infct causing diseases classd elswhr Office Visit 08/06/2019 10:39a [facility] Serafin Reina E11.622 Type 2 Infectious Di Vasquez diabetes Diseases mellitus with other skin ulcer L97.929 Non-prs chronic ul unsp prt of l low leg w unsp severity N17.9 Acute kidney failure, unspecified E11.22 Type 2 diabetes mellitus w diabetic chronic kidney disease N18.4 Chronic kidney disease, stage 4 (severe) Office Visit 08/06/2019 11:38a [facility] N17.9 Acute kidney Assoc,peggy Lynch, failure, Hospitalists ELECTR[employer]YPER HELPER unspecified N18.9 Chronic kidney disease, unspecified L03.116 Cellulitis of left lower limb B95.62 Methicillin resis staph infct causing diseases classd elswhr Office Visit 08/05/2019 [facility] [place] N17.9 Acute kidney 11:38a peggy Guzman NP failure, Hospitalists unspecified N18.9 Chronic kidney disease, unspecified B95.62 Methicillin resis staph infct causing diseases classd elswhr L03.116 Cellulitis of left lower limb Office Visit 08/04/2019 [facility] Ruby N17.9 Acute kidney 11:38a peggy Guzman NP failure, Hospitalists unspecified J96.01 Acute respiratory failure with hypoxia L03.116 Cellulitis of left lower limb E11.9 Type 2 diabetes mellitus without complications Assessments Date Code Description Provider 01/18/2020 I12.9 Hypertensive chronic kidney disease Kimberly Lim MD with stage 1 through stage 4 chronic kidney disease, or unspecified chronic kidney disease 01/18/2020 N18.4 Chronic kidney disease, stage 4 Kimberly Lim MD (severe) 01/18/2020 R30.0 Dysuria Kimberly Lim MD 01/18/2020 D50.9 Iron deficiency anemia, unspecified Kimberly Lim MD 01/18/2020 I12.0 Hypertensive chronic kidney disease Kimberly Lim MD with stage 5 chronic kidney disease or end stage renal disease 11/19/2019 I12.0 Hypertensive chronic kidney disease Kimberly [...] MD 11/19/2019 I12.9 Hypertensive chronic kidney disease Kimebrly Lim MD with stage 1 through stage 4 chronic kidney disease, or unspecified chronic kidney disease 08/10/2019 L03.116 Cellulitis of left lower limb Nava Ba, JORGE L 08/10/2019 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 with unspecified severity 08/10/2019 N17.9 Acute kidney failure, unspecified Priya Lynch, JORGE L 08/10/2019 R82.71 Bacteriuria Nava Ba, JORGE L 08/10/2019 E11.22 Type 2 diabetes mellitus with Priya Lynch NP diabetic chronic kidney disease 08/10/2019 N18.9 Chronic kidney disease, unspecified Priya Lynch, JORGE L 08/10/2019 E86.0 Dehydration Priya Lynch, JORGE L 08/10/2019 L03.116 Cellulitis of left lower limb Priya Lynch, JORGE L 08/10/2019 B95.62 Methicillin resistant Staphylococcus Priya Lynch NP aureus infection as the cause of diseases classified elsewhere 08/09/2019 N17.9 Acute kidney failure, unspecified Priya Lynch, E[employer]ROTYPER HELPER 08/09/2019 E11.22 Type 2 diabetes mellitus with Priya Lynch, ELECTROTYPER HELPER diabetic chronic kidney disease 08/09/2019 N18.9 Chronic kidney disease, unspecified Priya Reinoso Doto, ELECTROTYPER HELPER 08/09/2019 L03.116 Cellulitis of left lower limb Priya Ramirezo, ELECTROTYPER HELPER 08/09/2019 B95.62 Methicillin resistant Staphylococcus Priya Ramirezo , ELECTROTYPER HELPER aureus infection as the cause of diseases classified elsewhere 08/08/2019 L03.116 Cellulitis of left lower limb Nava Ba, ELECTROTYPER HELPER 08/08/2019 N17.9 Acute kidney failure, unspecified Priya Ramirezo, ELECTROTYPER HELPER 08/08/2019 E11.622 Type 2 diabetes mellitus with other Nava Ba, ELECTROTYPER HELPER skin ulcer 08/08/2019 E11.22 Type 2 diabetes mellitus with Priya Lynch, ELECTROTYPER HELPER diabetic chronic kidney disease 08/08/2019 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 of Nava Ba, ELECTROTYPER HELPER unspecified part of left lower leg with unspecified severity 08/08/2019 N18.9 Chronic kidney disease, unspecified Priya Ramirezo, ELECTROTYPER HELPER 08/08/2019 R82.71 Bacteriuria Nava Ba, ELECTROTYPER HELPER 08/08/2019 L03.116 Cellulitis of left lower limb Priya Lynch, ELECTROTYPER HELPER 08/08/2019 B95.62 Methicillin resistant Staphylococcus Priya Lynch , ELECTROTYPER HELPER aureus infection as the cause of diseases classified elsewhere 08/07/2019 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 of Nava Ba, ELECTROTYPER HELPER unspecified part of left lower leg limited to breakdown of skin 08/07/2019 N17.9 Acute kidney failure, unspecified Priya Ramirezo, ELECTROTYPER HELPER 08/07/2019 E11.622 Type 2 diabetes mellitus with other Nava Ba, ELECTROTYPER HELPER skin ulcer 08/07/2019 N18.9 Chronic kidney disease, unspecified Priya Ramirezo, ELECTROTYPER HELPER 08/07/2019 L03.116 Cellulitis of left lower limb Priya Ramirezo, ELECTROTYPER HELPER 08/07/2019 B95.62 Methicillin resistant Staphylococcus Priya Ramirezo , ELECTROTYPER HELPER aureus infection as the cause of diseases classified elsewhere 08/06/2019 E11.622 Type 2 diabetes mellitus with other Serafin Vasquez M.D. 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 unspecified part of left lower leg with unspecified severity 08/06/2019 N18.9 Chronic kidney disease, unspecified Priya Lynch, ELECTROTYPER HELPER 08/06/2019 N17.9 Acute kidney failure, unspecified Serafin Vasquez M.D. 08/06/2019 L03.116 Cellulitis of left lower limb Priya Ramirezchandana, ELECTROTYPER HELPER 08/06/2019 E11.22 Type 2 diabetes mellitus with Serafin Vasquez M.D. diabetic chronic kidney disease 08/06/2019 B95.62 Methicillin resistant Staphylococcus Priya Reinoso Syed , JORGE L aureus infection as the cause of diseases classified elsewhere 08/06/2019 N18.4 Chronic kidney disease, stage 4 Serafin Vasquez M.D. (severe) 08/05/2019 N17.9 Acute kidney failure, unspecified [place], ELECTROTYPER HELPER 08/05/2019 N18.9 Chronic kidney disease, unspecified Oneida Augie, ELECTROTYPER HELPER 08/05/2019 B95.62 Methicillin resistant Staphylococcus Oneida Ghosh, ELECTROTYPER HELPER aureus infection as the cause of diseases classified elsewhere 08/05/2019 L03.116 Cellulitis of left lower limb One[place] Ghosh, ELECTROTYPER HELPER 08/04/2019 N17.9 Acute kidney failure, unspecified Rubysusanna Etienne, ELECTROTYPER HELPER 08/04/2019 J96.01 Acute respiratory failure with Ruby Etienne, ELECTROTYPER HELPER hypoxia 08/04/2019 L03.116 Cellulitis of left lower limb Ruby Etienne, ELECTROTYPER HELPER 08/04/2019 E11.9 Type 2 diabetes mellitus without Ruby Etienne NP complications Plan of Treatment Future Appointment(s):04/17/2020 10:40 am - Kimberly Lim MD at [facility] [id number] /28/2020 - Kimberly Lim MDI12.9 Hypertensive chronic kidney disease with stage 1 through stage 4 chronic kidney disease, or unspecified chronic kidney [id number] Chronic kidney disease, stage 4 (severe)Comments:INCREASE [id number] DysuriaComments:Start Cipro 250 mg by mouth twice a day for 5 days. She is allergic to penicillin.D50.9 Iron deficiency anemia, unspecifiedComments:As already mentioned the patient refuses iron IV. She would rather have blood transfusions. She takes by mouth iron which unfortunately is not very well absorbed in CKD patients. We will continue tofollow her CBC.I12.0 Hypertensive chronic kidney disease with stage 5 chronic kidney disease or end stage renal diseaseFollow up:3 months Functional Status Description No Information Available Mental Status Description No Information Available Referrals Description No Information Available
== END | disposition home or self-care (01) ==
LOC: ED 03:00
DX: S00.83XA Contusion of other part of head, initial encounter (principal); E11.9 Type 2 diabetes mellitus without complications; Z79.4 Long term (current) use of insulin; E03.9 Hypothyroidism, unspecified; D64.9 Anemia, unspecified; I50.9 Heart failure, unspecified; E78.00 Pure hypercholesterolemia, unspecified; I10 Essential (primary) hypertension; I73.9 Peripheral vascular disease, unspecified; J45.909 Unspecified asthma, uncomplicated; Z85.048 Personal history of other malignant neoplasm of rectum, rectosigmoid junction, and anus; Z93.2 Ileostomy status; Z79.82 Long term (current) use of aspirin; W19.XXXA Unspecified fall, initial encounter; Y92.9 Unspecified place or not applicable
CPT/HCPCS: 70450; 70486; 99283

== ENCOUNTER 2020-11-21 14:23 | Inpatient (IN) ==
[2020-11-21 15:49] LABS: ABS Lymphocytes 0.4 10^3/ul (1.0-4.8); ABS Monocytes 0.3 10^3/ul (0-0.8); ABS Neutrophils 3.4 10^3/ul (1.5-7.7); Eosinophil % 0.7 %; Hematocrit 26 % (35-47); Hemoglobin 8.3 g/dL (12.0-16.0); Lymphocyte % 9.9 %; Mean Corpuscular HGB Conc 33 g/dL (31-36); Mean Corpuscular Hemoglobin 27 pg (27-31); Mean Corpuscular Volume 82 fL (80-97); Mean Platelet Volume 7.1 fL (7.4-10.4); Platelet Count 235 10^3/uL (150-450); Red Blood Count 3.11 10^6 /uL (3.70-4.87); Red Cell Distribution Width 18 % (10-15); White Blood Count 4.1 10^3/uL (3.5-10.8)
[2020-11-21 15:57] LABS: Activated Partial Thrombo Time 43.2 seconds (26.0-38.0); INR 1.26 (0.82-1.09)
[2020-11-21 16:08] LABS: Albumin 3.6 g/dL (3.2-5.2); BUN/Creatinine Ratio 22.9 (8-20); C Reactive Protein 32.53 mg/L (<8.01); Calcium 9.3 mg/dL (8.6-10.3); EGFR African American 17.6 (>60); EGFR Non-African American 14.5 (>60); Globulin 3.5 g/dL (2-4); Potassium 4.9 mmol/L (3.5-5.0); Total Bilirubin 0.2 mg/dL (0.2-1.0); Total Protein 7.1 g/dL (6.4-8.9)
[2020-11-21 16:09] LABS: Influenza A Molecular Negative (Negative); Influenza B Molecular Negative (Negative)
[2020-11-21 16:10] LABS: Troponin I 0.01 ng/mL (<0.03)
[2020-11-21] MEDS ORDERED: Levofloxacin 750 MG IVPREMIX 750 MG/150 ML BAG IVPB ONE (16:20)
[2020-11-21] MEDS ORDERED: Cefepime 2 GM in NS 0.9% 50 ML 50 ML IVPB ONE (16:20)
[2020-11-21] MEDS ORDERED: NS 0.9% 50 ML 50 ML ONE (16:39)
[2020-11-21 16:54] LABS: Ferritin 291.7 ng/mL (11-307)
[2020-11-21] MEDS ORDERED: Cefepime 2 GM IV - ED ONCE IV ONE (17:00)
[2020-11-21] MEDS ORDERED: Ondansetron 4 mg VIAL 2 MG/ML 2 ml VIAL IV PRN (17:59)
[2020-11-21] MEDS: NS 0.9% 1000 ml BAG 1,000 ML IV SCH ×2 (18:00→20:41)
[2020-11-21 18:30] LABS: Urine Appearance Cloudy; Urine Bilirubin Negative (Negative); Urine Blood Negative (Negative); Urine Color Yellow; Urine Glucose Negative (Negative); Urine Ketones Negative (Negative); Urine Nitrite Negative (Negative); Urine Protein Negative (Negative); Urine Specific Gravity 1.014 (1.010-1.030); Urine Urobilinogen Negative (Negative)
[2020-11-21] MEDS ORDERED: Dextrose 50% Syringe 50 ml 25 GM/50 ML SYRINGE IV PUSH PRN (18:31)
[2020-11-21] MEDS ORDERED: Albuterol HFA INHALER 8 gm MDI INH PRN (18:32)
[2020-11-21] MEDS: Heparin 5000 UNITS/ML 1 mL VIAL SUBCUT SCH (20:49)
[2020-11-21] MEDS ORDERED: Remdesivir 5 MG/ML LIQ IV Vial 200 MG in NS 0.9% 250 ml 210 ML IV ONE (21:00)
[2020-11-22] MEDS: Heparin 5000 UNITS/ML 1 mL VIAL SUBCUT SCH ×3 (06:01→21:26)
[2020-11-22 06:30] LABS: ABS Lymphocytes 0.3 10^3/ul (1.0-4.8); ABS Monocytes 0.2 10^3/ul (0-0.8); ABS Neutrophils 2.5 10^3/ul (1.5-7.7); Eosinophil % 0.2 %; Hematocrit 25 % (35-47); Hemoglobin 7.9 g/dL (12.0-16.0); Lymphocyte % 10.7 %; Mean Corpuscular HGB Conc 32 g/dL (31-36); Mean Corpuscular Hemoglobin 26 pg (27-31); Mean Corpuscular Volume 82 fL (80-97); Mean Platelet Volume 7.1 fL (7.4-10.4); Platelet Count 226 10^3/uL (150-450); Red Cell Distribution Width 17 % (10-15); White Blood Count 3.1 10^3/uL (3.5-10.8)
[2020-11-22 06:54] LABS: Albumin 3.1 g/dL (3.2-5.2); BUN/Creatinine Ratio 27.7 (8-20); EGFR African American 21.8 (>60); Globulin 3.1 g/dL (2-4); Total Bilirubin 0.2 mg/dL (0.2-1.0); Total Protein 6.2 g/dL (6.4-8.9)
[2020-11-22] MEDS: Insulin GLARGINE 100 un/ml 10 ml VIAL SUBCUT SCH (09:35)
[2020-11-22] MEDS: Remdesivir 5 MG/ML LIQ IV Vial 100 MG in NS 0.9% 250 ml 230 ML IV SCH (21:28)
[2020-11-23] MEDS: Heparin 5000 UNITS/ML 1 mL VIAL SUBCUT SCH ×3 (05:34→22:50)
[2020-11-23 07:05] LABS: Hematocrit 24 % (35-47); Hemoglobin 7.6 g/dL (12.0-16.0); Mean Corpuscular HGB Conc 32 g/dL (31-36); Mean Corpuscular Hemoglobin 26 pg (27-31); Mean Corpuscular Volume 82 fL (80-97); Mean Platelet Volume 6.7 fL (7.4-10.4); Platelet Count 269 10^3/uL (150-450); Red Cell Distribution Width 18 % (10-15); White Blood Count 3.3 10^3/uL (3.5-10.8)
[2020-11-23 07:20] LABS: BUN/Creatinine Ratio 30.6 (8-20); Calcium 8.1 mg/dL (8.6-10.3); EGFR African American 26.6 (>60); Potassium 4.2 mmol/L (3.5-5.0)
[2020-11-23 09:08] LABS: ABS Lymphocytes 0.6 10^3/ul (1.0-4.8); ABS Monocytes 0.4 10^3/ul (0-0.8); ABS Neutrophils 2.2 10^3/ul (1.5-7.7); Eosinophil % 0.5 %
[2020-11-23] MEDS: Insulin GLARGINE 100 un/ml 10 ml VIAL SUBCUT SCH (09:59)
[2020-11-23] MEDS: Remdesivir 5 MG/ML LIQ IV Vial 100 MG in NS 0.9% 250 ml 230 ML IV SCH (22:48)
[2020-11-24] MEDS: Heparin 5000 UNITS/ML 1 mL VIAL SUBCUT SCH ×3 (04:49→20:05)
[2020-11-24 08:42] LABS: Albumin 3.1 g/dL (3.2-5.2); Albumin/Globulin Ratio 1.1 (1-3); Calcium 7.8 mg/dL (8.6-10.3); EGFR African American 27.9 (>60); EGFR Non-African American 23.1 (>60); Globulin 2.9 g/dL (2-4); Potassium 4.3 mmol/L (3.5-5.0); Total Bilirubin 0.2 mg/dL (0.2-1.0)
[2020-11-24 09:15] LABS: Hematocrit 24 % (35-47); Hemoglobin 7.9 g/dL (12.0-16.0); Mean Corpuscular HGB Conc 32 g/dL (31-36); Mean Corpuscular Hemoglobin 27 pg (27-31); Mean Corpuscular Volume 82 fL (80-97); Red Blood Count 2.97 10^6 /uL (3.70-4.87); Red Cell Distribution Width 18 % (10-15)
[2020-11-24 09:27] LABS: ABS Basophils 0.1 10^3/ul (0-0.2); ABS Eosinophils 0.1 10^3/ul (0-0.6); ABS Lymphocytes 1.4 10^3/ul (1.0-4.8); ABS Monocytes 0.8 10^3/ul (0-0.8); ABS Neutrophils 5.3 10^3/ul (1.5-7.7); Eosinophil % 1.1 %; Lymphocyte % 18.7 %; Mean Platelet Volume 7.2 fL (7.4-10.4); Nucleated Red Blood Cells % 0.1; Platelet Count 326 10^3/uL (150-450); White Blood Count 7.7 10^3/uL (3.5-10.8)
[2020-11-24] MEDS: Insulin GLARGINE 100 un/ml 10 ml VIAL SUBCUT SCH (09:40)
[2020-11-24] MEDS: Remdesivir 5 MG/ML LIQ IV Vial 100 MG in NS 0.9% 250 ml 230 ML IV SCH (21:19)
[2020-11-25] MEDS: Heparin 5000 UNITS/ML 1 mL VIAL SUBCUT SCH ×2 (05:34→12:44)
[2020-11-25 08:08] LABS: Albumin/Globulin Ratio 1.1 (1-3); BUN/Creatinine Ratio 31.7 (8-20); EGFR African American 33.4 (>60); EGFR Non-African American 27.6 (>60); Globulin 2.7 g/dL (2-4); Potassium 4.5 mmol/L (3.5-5.0); Total Bilirubin 0.2 mg/dL (0.2-1.0); Total Protein 5.7 g/dL (6.4-8.9)
[2020-11-25] MEDS: Insulin GLARGINE 100 un/ml 10 ml VIAL SUBCUT SCH (08:42)
[2020-11-25 11:46] VITALS: BP 139/59
== END 2020-11-25 14:34 | disposition swing bed (61) | DRG 177 ==
LOC: ED 14:23 → MED 19:08
PROVIDERS: ADMIT Pediatrics; ATTEND Student in an Organized Health Care Education/Training Program

== ENCOUNTER 2020-11-25 14:32 | Inpatient (IN) ==
[2020-11-25] MEDS ORDERED: Dextrose 50% Syringe 50 ml 25 GM/50 ML SYRINGE IV PUSH PRN (15:05)
[2020-11-25] MEDS ORDERED: Ondansetron 4 mg VIAL 2 MG/ML 2 ml VIAL IV PRN (15:05)
[2020-11-25] MEDS ORDERED: Albuterol HFA INHALER 8 gm MDI INH PRN (15:17)
[2020-11-25] MEDS: Insulin GLARGINE 100 un/ml 10 ml VIAL SUBCUT SCH (21:25)
[2020-11-25] MEDS: Heparin 5000 UNITS/ML 1 mL VIAL SUBCUT SCH (21:27)
[2020-11-26] MEDS: Heparin 5000 UNITS/ML 1 mL VIAL SUBCUT SCH ×3 (05:52→20:20)
[2020-11-26] MEDS: Cholecalciferol (VIT D3) 1,000 unit TAB PO SCH (08:34)
[2020-11-26] MEDS: Insulin GLARGINE 100 un/ml 10 ml VIAL SUBCUT SCH (20:27)
[2020-11-27] MEDS: Heparin 5000 UNITS/ML 1 mL VIAL SUBCUT SCH ×3 (05:09→20:36)
[2020-11-27] MEDS: Cholecalciferol (VIT D3) 1,000 unit TAB PO SCH (09:01)
[2020-11-27] MEDS: Insulin GLARGINE 100 un/ml 10 ml VIAL SUBCUT SCH (20:36)
[2020-11-28] MEDS: Heparin 5000 UNITS/ML 1 mL VIAL SUBCUT SCH ×3 (05:53→21:48)
[2020-11-28 06:38] LABS: BUN/Creatinine Ratio 29.6 (8-20); Calcium 8.3 mg/dL (8.6-10.3); EGFR African American 25.7 (>60); EGFR Non-African American 21.2 (>60)
[2020-11-28 06:40] LABS: Potassium 5.3 mmol/L (3.5-5.0)
[2020-11-28] MEDS: Cholecalciferol (VIT D3) 1,000 unit TAB PO SCH (10:27)
[2020-11-28] MEDS: Insulin GLARGINE 100 un/ml 10 ml VIAL SUBCUT SCH (21:47)
[2020-11-29] MEDS: Heparin 5000 UNITS/ML 1 mL VIAL SUBCUT SCH ×3 (05:46→21:25)
[2020-11-29 05:57] LABS: BUN/Creatinine Ratio 29.8 (8-20); EGFR African American 25.8 (>60); EGFR Non-African American 21.3 (>60); Potassium 4.6 mmol/L (3.5-5.0)
[2020-11-29] MEDS: Cholecalciferol (VIT D3) 1,000 unit TAB PO SCH (09:12)
[2020-11-29] MEDS: Insulin GLARGINE 100 un/ml 10 ml VIAL SUBCUT SCH (21:31)
[2020-11-30] MEDS: Heparin 5000 UNITS/ML 1 mL VIAL SUBCUT SCH ×3 (05:29→22:35)
[2020-11-30] MEDS: Cholecalciferol (VIT D3) 1,000 unit TAB PO SCH (07:52)
[2020-11-30] MEDS: Insulin GLARGINE 100 un/ml 10 ml VIAL SUBCUT SCH (22:36)
[2020-12-01] MEDS: Heparin 5000 UNITS/ML 1 mL VIAL SUBCUT SCH ×4 (05:53→20:29)
[2020-12-01] MEDS: Cholecalciferol (VIT D3) 1,000 unit TAB PO SCH (08:18)
[2020-12-01] MEDS: Insulin GLARGINE 100 un/ml 10 ml VIAL SUBCUT SCH (22:02)
[2020-12-02] MEDS: Heparin 5000 UNITS/ML 1 mL VIAL SUBCUT SCH ×3 (05:50→21:30)
[2020-12-02] MEDS: Cholecalciferol (VIT D3) 1,000 unit TAB PO SCH (08:22)
[2020-12-02] MEDS: Insulin GLARGINE 100 un/ml 10 ml VIAL SUBCUT SCH (21:30)
[2020-12-03] MEDS: Heparin 5000 UNITS/ML 1 mL VIAL SUBCUT SCH ×3 (05:49→21:00)
[2020-12-03] MEDS: Cholecalciferol (VIT D3) 1,000 unit TAB PO SCH (09:27)
[2020-12-03] MEDS: Insulin GLARGINE 100 un/ml 10 ml VIAL SUBCUT SCH (21:02)
[2020-12-04] MEDS: Heparin 5000 UNITS/ML 1 mL VIAL SUBCUT SCH ×3 (05:20→21:38)
[2020-12-04] MEDS: Cholecalciferol (VIT D3) 1,000 unit TAB PO SCH (08:25)
[2020-12-04] MEDS: Insulin GLARGINE 100 un/ml 10 ml VIAL SUBCUT SCH (21:38)
[2020-12-05] MEDS: Heparin 5000 UNITS/ML 1 mL VIAL SUBCUT SCH ×3 (05:22→21:12)
[2020-12-05 05:59] LABS: ABS Basophils 0.1 10^3/ul (0-0.2); ABS Eosinophils 0.1 10^3/ul (0-0.6); ABS Lymphocytes 0.6 10^3/ul (1.0-4.8); ABS Monocytes 0.5 10^3/ul (0-0.8); ABS Neutrophils 3.5 10^3/ul (1.5-7.7); Eosinophil % 2.1 %; Hematocrit 25 % (35-47); Hemoglobin 8.5 g/dL (12.0-16.0); Lymphocyte % 12.8 %; Mean Corpuscular HGB Conc 33 g/dL (31-36); Mean Corpuscular Hemoglobin 27 pg (27-31); Mean Corpuscular Volume 82 fL (80-97); Mean Platelet Volume 6.5 fL (7.4-10.4); Platelet Count 237 10^3/uL (150-450); Red Blood Count 3.12 10^6 /uL (3.70-4.87); Red Cell Distribution Width 19 % (10-15); White Blood Count 4.8 10^3/uL (3.5-10.8)
[2020-12-05 06:17] LABS: BUN/Creatinine Ratio 37.7 (8-20); Calcium 9.3 mg/dL (8.6-10.3); EGFR African American 26.5 (>60); EGFR Non-African American 21.9 (>60); Potassium 4.3 mmol/L (3.5-5.0)
[2020-12-05] MEDS: Cholecalciferol (VIT D3) 1,000 unit TAB PO SCH (09:03)
[2020-12-05] MEDS: Insulin GLARGINE 100 un/ml 10 ml VIAL SUBCUT SCH (21:13)
[2020-12-06] MEDS: Heparin 5000 UNITS/ML 1 mL VIAL SUBCUT SCH ×3 (06:12→22:14)
[2020-12-06] MEDS: Cholecalciferol (VIT D3) 1,000 unit TAB PO SCH (09:22)
[2020-12-06] MEDS: Insulin GLARGINE 100 un/ml 10 ml VIAL SUBCUT SCH (22:14)
[2020-12-07] MEDS: Heparin 5000 UNITS/ML 1 mL VIAL SUBCUT SCH ×3 (06:04→22:09)
[2020-12-07] MEDS: Cholecalciferol (VIT D3) 1,000 unit TAB PO SCH (09:13)
[2020-12-07] MEDS: Insulin GLARGINE 100 un/ml 10 ml VIAL SUBCUT SCH (22:10)
[2020-12-08] MEDS: Heparin 5000 UNITS/ML 1 mL VIAL SUBCUT SCH ×3 (04:40→21:49)
[2020-12-08] MEDS: Cholecalciferol (VIT D3) 1,000 unit TAB PO SCH (09:21)
[2020-12-08] MEDS: Insulin GLARGINE 100 un/ml 10 ml VIAL SUBCUT SCH (20:53)
[2020-12-09] MEDS: Heparin 5000 UNITS/ML 1 mL VIAL SUBCUT SCH (05:44)
[2020-12-09] MEDS: Cholecalciferol (VIT D3) 1,000 unit TAB PO SCH (08:14)
[2020-12-09] MEDS ORDERED: Enoxaparin 30 MG/0.3 ML SYR SUBCUT SCH (09:00)
[2020-12-09] MEDS: Enoxaparin 30 MG/0.3 ML SYR SUBCUT SCH (12:02)
[2020-12-09] MEDS: Insulin GLARGINE 100 un/ml 10 ml VIAL SUBCUT SCH (21:21)
[2020-12-10] MEDS: Cholecalciferol (VIT D3) 1,000 unit TAB PO SCH (09:28)
[2020-12-10] MEDS: Enoxaparin 30 MG/0.3 ML SYR SUBCUT SCH (12:37)
[2020-12-10] MEDS: Insulin GLARGINE 100 un/ml 10 ml VIAL SUBCUT SCH (21:16)
[2020-12-11] MEDS: Cholecalciferol (VIT D3) 1,000 unit TAB PO SCH (10:00)
[2020-12-11] MEDS: Enoxaparin 30 MG/0.3 ML SYR SUBCUT SCH (12:33)
[2020-12-11] MEDS: Insulin GLARGINE 100 un/ml 10 ml VIAL SUBCUT SCH (21:22)
[2020-12-12] MEDS: Cholecalciferol (VIT D3) 1,000 unit TAB PO SCH (09:49)
[2020-12-12] MEDS: Enoxaparin 30 MG/0.3 ML SYR SUBCUT SCH (12:53)
[2020-12-12] MEDS: Insulin GLARGINE 100 un/ml 10 ml VIAL SUBCUT SCH (21:57)
[2020-12-13] MEDS: Cholecalciferol (VIT D3) 1,000 unit TAB PO SCH (09:48)
[2020-12-13] MEDS: Enoxaparin 30 MG/0.3 ML SYR SUBCUT SCH (12:57)
[2020-12-13] MEDS: Insulin GLARGINE 100 un/ml 10 ml VIAL SUBCUT SCH (21:47)
[2020-12-14] MEDS: Cholecalciferol (VIT D3) 1,000 unit TAB PO SCH (09:27)
[2020-12-14] MEDS: Enoxaparin 30 MG/0.3 ML SYR SUBCUT SCH (11:11)
[2020-12-14] MEDS: Insulin GLARGINE 100 un/ml 10 ml VIAL SUBCUT SCH (21:30)
[2020-12-15] MEDS: Cholecalciferol (VIT D3) 1,000 unit TAB PO SCH (10:22)
[2020-12-15] MEDS: Enoxaparin 30 MG/0.3 ML SYR SUBCUT SCH (10:24)
[2020-12-15] MEDS: Insulin GLARGINE 100 un/ml 10 ml VIAL SUBCUT SCH (22:29)
[2020-12-16 06:31] LABS: Hematocrit 26 % (35-47); Hemoglobin 8.6 g/dL (12.0-16.0); Mean Platelet Volume 6.5 fL (7.4-10.4); Platelet Count 214 10^3/uL (150-450)
[2020-12-16 06:53] LABS: EGFR African American 27.9 (>60); EGFR Non-African American 23.1 (>60)
[2020-12-16] MEDS: Cholecalciferol (VIT D3) 1,000 unit TAB PO SCH (08:43)
[2020-12-16] MEDS: Enoxaparin 30 MG/0.3 ML SYR SUBCUT SCH (12:57)
[2020-12-16] MEDS: Insulin GLARGINE 100 un/ml 10 ml VIAL SUBCUT SCH (21:42)
[2020-12-17] MEDS: Cholecalciferol (VIT D3) 1,000 unit TAB PO SCH (09:15)
[2020-12-17] MEDS: Enoxaparin 30 MG/0.3 ML SYR SUBCUT SCH (12:35)
[2020-12-17] MEDS: Insulin GLARGINE 100 un/ml 10 ml VIAL SUBCUT SCH (21:18)
[2020-12-18 07:51] VITALS: BP 143/64
[2020-12-18] MEDS: Cholecalciferol (VIT D3) 1,000 unit TAB PO SCH (09:19)
[2020-12-18] MEDS: Enoxaparin 30 MG/0.3 ML SYR SUBCUT SCH (12:10)
== END 2020-12-18 14:05 | DRG 177 ==
LOC: MED 14:32 → SSU 12-08 20:14
PROVIDERS: ADMIT Student in an Organized Health Care Education/Training Program; ATTEND Internal Medicine

== ENCOUNTER 2021-08-12 15:01 | Inpatient (IN) ==
[2021-08-12] MEDS ORDERED: Ciprofloxacin 400mg IVPREMIX 400 MG/200 ML BAG IVPB ONE (15:41)
[2021-08-12] MEDS ORDERED: metroNIDAZOLE IV 500 MG/100ML 500 MG/100 ML BAG IVPB ONE (15:41)
[2021-08-12 15:54] LABS: Urine Appearance Cloudy; Urine Bilirubin Negative (Negative); Urine Blood Negative (Negative); Urine Color Yellow; Urine Glucose Negative (Negative); Urine Ketones Negative (Negative); Urine Nitrite Negative (Negative); Urine Protein Negative (Negative); Urine Specific Gravity 1.015 (1.002-1.030); Urine Urobilinogen Negative (Negative)
[2021-08-12 15:57] LABS: Urine Bacteria Absent (Absent); Urine Red Blood Cell 1+(3-5/hpf) (Absent); Urine Squamous Epithelial Cell Present (Absent); Urine White Blood Cell 3+(>20/hpf) (Absent)
[2021-08-12] MEDS ORDERED: Vancomycin 1,000 MG in NS 0.9% 250 ml 250 ML IVPB SCH (16:00)
[2021-08-12] MEDS ORDERED: Vancomycin 1,000 MG - ED ONCE IVPB ONE ×2 (16:00→19:30)
[2021-08-12 16:14] LABS: ABS Eosinophils 0.1 10^3/ul (0-0.6); ABS Lymphocytes 0.3 10^3/ul (1.0-4.8); ABS Monocytes 0.4 10^3/ul (0-0.8); ABS Neutrophils 4.6 10^3/ul (1.5-7.7); Eosinophil % 1.9 %; Hematocrit 25 % (35-47); Lymphocyte % 4.8 %; Mean Corpuscular HGB Conc 33 g/dL (31-36); Mean Corpuscular Hemoglobin 29 pg (27-31); Mean Corpuscular Volume 88 fL (80-97); Mean Platelet Volume 5.9 fL (7.4-10.4); Platelet Count 180 10^3/uL (150-450); Red Blood Count 2.79 10^6 /uL (3.70-4.87); Red Cell Distribution Width 17 % (10-15); White Blood Count 5.4 10^3/uL (3.5-10.8)
[2021-08-12 16:23] LABS: Activated Partial Thrombo Time 25.5 seconds (26.0-38.0); INR 1.13 (0.86-1.15)
[2021-08-12 16:33] LABS: Albumin 3.1 g/dL (3.2-5.2); C Reactive Protein 244.62 mg/L (<8.01); Calcium 8.6 mg/dL (8.6-10.3); EGFR African American 17.6 (>60); EGFR Non-African American 14.5 (>60); Globulin 3.1 g/dL (2-4); Total Bilirubin 0.1 mg/dL (0.2-1.0); Total Protein 6.2 g/dL (6.4-8.9)
[2021-08-12 16:34] LABS: Potassium 5.2 mmol/L (3.5-5.0); Troponin I 0.02 ng/mL (<0.03)
[2021-08-12] MEDS ORDERED: NS 0.9% 1000 ml BAG 1,000 ML IV ONE (16:55)
[2021-08-12 17:36] LABS: Rapid COVID-19 Molecular Undetected (Undetected)
[2021-08-12] MEDS ORDERED: NS 0.9% 1000 ml BAG 1,000 ML IV SCH (18:45)
[2021-08-12] MEDS ORDERED: Albuterol HFA INHALER 8 gm MDI INH PRN (18:47)
[2021-08-12] MEDS ORDERED: Vancomycin per Pharmacy 1 EA NOTE FOLLOW UP SCH (19:00)
[2021-08-12 21:49] LABS: TSH Ultra Thyroid Stim Horm 2.26 mcIU/mL (0.34-5.60)
[2021-08-12] MEDS: Enoxaparin 30 MG/0.3 ML SYR SUBCUT SCH (22:36)
[2021-08-12] MEDS: CMCS: Simvastatin 20 mg TAB (NF) PO SCH (23:40)
[2021-08-13] MEDS: metroNIDAZOLE IV 500 MG/100ML 500 MG/100 ML BAG IVPB SCH ×3 (01:51→17:55)
[2021-08-13 05:55] LABS: ABS Eosinophils 0.1 10^3/ul (0-0.6); ABS Lymphocytes 0.4 10^3/ul (1.0-4.8); ABS Monocytes 0.6 10^3/ul (0-0.8); ABS Neutrophils 3.6 10^3/ul (1.5-7.7); Eosinophil % 2.2 %; Hematocrit 21 % (35-47); Hemoglobin 6.9 g/dL (12.0-16.0); Lymphocyte % 7.6 %; Mean Corpuscular HGB Conc 33 g/dL (31-36); Mean Corpuscular Hemoglobin 29 pg (27-31); Mean Corpuscular Volume 87 fL (80-97); Mean Platelet Volume 5.8 fL (7.4-10.4); Nucleated Red Blood Cells % 0.1; Platelet Count 176 10^3/uL (150-450); Red Blood Count 2.39 10^6 /uL (3.70-4.87); Red Cell Distribution Width 17 % (10-15); White Blood Count 4.6 10^3/uL (3.5-10.8)
[2021-08-13 06:12] LABS: Blood Urea Nitrogen 98 mg/dL (6-24); Calcium 7.7 mg/dL (8.6-10.3); EGFR African American 17.8 (>60); EGFR Non-African American 14.7 (>60); Glucose 72 mg/dL (70-100); Potassium 4.8 mmol/L (3.5-5.0); Sodium 139 mmol/L (135-145)
[2021-08-13 06:14] LABS: Chloride 115 mmol/L (101-111)
[2021-08-13 06:18] LABS: Anion Gap 10 mmol/L (2-11); CO2 Carbon Dioxide 14 mmol/L (22-32)
[2021-08-13] MEDS ORDERED: Calcium Carb (TUMS) 500 mg CHEW TAB PO PRN (06:25)
[2021-08-13] MEDS ORDERED: Vancomycin Random Level NOTE FOLLOW UP ONE (08:00)
[2021-08-13 08:58] LABS: Hematocrit 23 % (35-47); Hemoglobin 7.4 g/dL (12.0-16.0)
[2021-08-13] MEDS: Cefepime 2 GM in Dextrose 2 GM/50 ML BAG IV SCH (09:24)
[2021-08-13] MEDS ORDERED: Dextrose 50% Syringe 50 ml 25 GM/50 ML SYRINGE IV PUSH PRN (09:31)
[2021-08-13 10:21] LABS: Ferritin 356.8 ng/mL (11-307)
[2021-08-13 10:26] LABS: Vitamin B12 387 pg/mL (180-914)
[2021-08-13 10:29] LABS: Erythrocyte Sed Rate > 120 mm/Hr (0-29)
[2021-08-13 10:52] LABS: % Iron Saturation 10 % (15-55); Iron < 20 ug/dL (50-212); Total Iron Binding Capacity 202 mcg/dL (250-450); Transferrin 144 mg/dL (203-362); Unsaturated Iron Binding < 187 ug/dL
[2021-08-13] MEDS ORDERED: Vancomycin 1000 MG in NS 0.9% 250 ML IVPB ONE (15:00)
[2021-08-13] MEDS ORDERED: Gadobenate (CONTRAST) 529 MG/ML 10 ML SDV IV ONE (20:03)
[2021-08-13] MEDS: CMCS: Simvastatin 20 mg TAB (NF) PO SCH (21:31)
[2021-08-13] MEDS: Dextran 70/Hypromellose Tears Eye Drops 15 ml BTL (for Artificials Tears) BOTH EYES PRN (21:31)
[2021-08-13] MEDS: Enoxaparin 30 MG/0.3 ML SYR SUBCUT SCH (21:31)
[2021-08-14] MEDS: metroNIDAZOLE IV 500 MG/100ML 500 MG/100 ML BAG IVPB SCH ×3 (01:47→18:01)
[2021-08-14] MEDS ORDERED: Vancomycin Random Level NOTE FOLLOW UP ONE (06:00)
[2021-08-14 06:25] LABS: ABS Eosinophils 0.1 10^3/ul (0-0.6); ABS Lymphocytes 0.5 10^3/ul (1.0-4.8); ABS Monocytes 0.7 10^3/ul (0-0.8); ABS Neutrophils 3.1 10^3/ul (1.5-7.7); Eosinophil % 2.4 %; Hematocrit 20 % (35-47); Hemoglobin 6.7 g/dL (12.0-16.0); Lymphocyte % 10.5 %; Mean Corpuscular HGB Conc 33 g/dL (31-36); Mean Corpuscular Hemoglobin 29 pg (27-31); Mean Corpuscular Volume 88 fL (80-97); Mean Platelet Volume 5.7 fL (7.4-10.4); Platelet Count 183 10^3/uL (150-450); Red Blood Count 2.32 10^6 /uL (3.70-4.87); Red Cell Distribution Width 17 % (10-15); White Blood Count 4.4 10^3/uL (3.5-10.8)
[2021-08-14 06:40] LABS: Vancomycin Random 23.8 mcg/mL
[2021-08-14 06:46] LABS: Calcium 8.2 mg/dL (8.6-10.3); EGFR African American 17.2 (>60); EGFR Non-African American 14.2 (>60); Magnesium 2.1 mg/dL (1.9-2.7)
[2021-08-14] MEDS: Cefepime 2 GM in Dextrose 2 GM/50 ML BAG IV SCH (10:43)
[2021-08-14] MEDS ORDERED: Furosemide 20 mg/2 ml IV VIAL IV ONE (16:29)
[2021-08-14] MEDS: Enoxaparin 30 MG/0.3 ML SYR SUBCUT SCH (21:18)
[2021-08-14] MEDS: CMCS: Simvastatin 20 mg TAB (NF) PO SCH (21:20)
[2021-08-15] MEDS: metroNIDAZOLE IV 500 MG/100ML 500 MG/100 ML BAG IVPB SCH ×3 (01:18→17:27)
[2021-08-15 04:44] LABS: Hematocrit 24 % (35-47); Hemoglobin 7.9 g/dL (12.0-16.0); Mean Corpuscular HGB Conc 33 g/dL (31-36); Mean Corpuscular Hemoglobin 29 pg (27-31); Mean Corpuscular Volume 88 fL (80-97); Mean Platelet Volume 5.3 fL (7.4-10.4); Platelet Count 197 10^3/uL (150-450); Red Blood Count 2.73 10^6 /uL (3.70-4.87); Red Cell Distribution Width 17 % (10-15); White Blood Count 6.5 10^3/uL (3.5-10.8)
[2021-08-15 05:01] LABS: Calcium 8.5 mg/dL (8.6-10.3); EGFR African American 17.3 (>60); EGFR Non-African American 14.3 (>60); Potassium 4.5 mmol/L (3.5-5.0)
[2021-08-15] MEDS ORDERED: Vancomycin Random Level NOTE FOLLOW UP ONE (06:00)
[2021-08-15] MEDS: Cefepime 2 GM in Dextrose 2 GM/50 ML BAG IV SCH (08:01)
[2021-08-15] MEDS: Vancomycin 500 MG in NS 0.9% 250 ML IVPB ONE ×2 (17:52→18:24)
[2021-08-15] MEDS: CMCS: Simvastatin 20 mg TAB (NF) PO SCH (21:59)
[2021-08-15] MEDS: Enoxaparin 30 MG/0.3 ML SYR SUBCUT SCH (22:01)
[2021-08-16] MEDS: metroNIDAZOLE IV 500 MG/100ML 500 MG/100 ML BAG IVPB SCH ×3 (01:43→17:16)
[2021-08-16] MEDS ORDERED: Vancomycin Random Level NOTE FOLLOW UP ONE (06:00)
[2021-08-16 06:39] LABS: Hematocrit 25 % (35-47); Hemoglobin 8.1 g/dL (12.0-16.0); Mean Corpuscular HGB Conc 33 g/dL (31-36); Mean Corpuscular Hemoglobin 29 pg (27-31); Mean Corpuscular Volume 87 fL (80-97); Mean Platelet Volume 5.3 fL (7.4-10.4); Platelet Count 209 10^3/uL (150-450); Red Blood Count 2.84 10^6 /uL (3.70-4.87); Red Cell Distribution Width 17 % (10-15); White Blood Count 5.3 10^3/uL (3.5-10.8)
[2021-08-16 06:54] LABS: Calcium 8.7 mg/dL (8.6-10.3); EGFR African American 19.7 (>60); EGFR Non-African American 16.3 (>60); Potassium 4.3 mmol/L (3.5-5.0)
[2021-08-16 07:55] LABS: ABS Eosinophils 0.2 10^3/ul (0-0.6); ABS Lymphocytes 0.6 10^3/ul (1.0-4.8); ABS Monocytes 0.6 10^3/ul (0-0.8); ABS Neutrophils 3.9 10^3/ul (1.5-7.7); Eosinophil % 3.5 %; Lymphocyte % 11.1 %; Nucleated Red Blood Cells % 0.2
[2021-08-16] MEDS: Cefepime 2 GM in Dextrose 2 GM/50 ML BAG IV SCH (08:18)
[2021-08-16] MEDS: CMCS: Simvastatin 20 mg TAB (NF) PO SCH (19:53)
[2021-08-16] MEDS: Enoxaparin 30 MG/0.3 ML SYR SUBCUT SCH (19:54)
[2021-08-17] MEDS: metroNIDAZOLE IV 500 MG/100ML 500 MG/100 ML BAG IVPB SCH ×3 (00:55→16:38)
[2021-08-17 05:48] LABS: Hematocrit 24 % (35-47); Hemoglobin 8.2 g/dL (12.0-16.0); Mean Corpuscular HGB Conc 34 g/dL (31-36); Mean Corpuscular Hemoglobin 29 pg (27-31); Mean Corpuscular Volume 87 fL (80-97); Mean Platelet Volume 5.4 fL (7.4-10.4); Platelet Count 195 10^3/uL (150-450); Red Blood Count 2.81 10^6 /uL (3.70-4.87); Red Cell Distribution Width 16 % (10-15); White Blood Count 4.7 10^3/uL (3.5-10.8)
[2021-08-17] MEDS ORDERED: Vancomycin Random Level NOTE FOLLOW UP ONE (06:00)
[2021-08-17 06:03] LABS: EGFR African American 18.4 (>60); EGFR Non-African American 15.2 (>60); Magnesium 1.9 mg/dL (1.9-2.7); Potassium 4.7 mmol/L (3.5-5.0)
[2021-08-17 06:04] LABS: Vancomycin Random 15.5 mcg/mL
[2021-08-17] MEDS: Cefepime 2 GM in Dextrose 2 GM/50 ML BAG IV SCH (08:22)
[2021-08-17 14:20] LABS: C Reactive Protein 79.63 mg/L (<8.01)
[2021-08-17] MEDS ORDERED: Vancomycin 750 MG in NS 0.9% 250 ML IVPB ONE (18:00)
[2021-08-17] MEDS: CMCS: Simvastatin 20 mg TAB (NF) PO SCH (19:43)
[2021-08-17] MEDS: Enoxaparin 30 MG/0.3 ML SYR SUBCUT SCH (19:44)
[2021-08-18] MEDS: metroNIDAZOLE IV 500 MG/100ML 500 MG/100 ML BAG IVPB SCH ×2 (00:47→08:00)
[2021-08-18 06:05] LABS: Hematocrit 25 % (35-47); Hemoglobin 8.2 g/dL (12.0-16.0); Mean Corpuscular HGB Conc 33 g/dL (31-36); Mean Corpuscular Hemoglobin 29 pg (27-31); Mean Corpuscular Volume 87 fL (80-97); Mean Platelet Volume 5.4 fL (7.4-10.4); Platelet Count 193 10^3/uL (150-450); Red Blood Count 2.87 10^6 /uL (3.70-4.87); Red Cell Distribution Width 16 % (10-15); White Blood Count 6.2 10^3/uL (3.5-10.8)
[2021-08-18 06:31] LABS: Calcium 8.8 mg/dL (8.6-10.3); EGFR African American 21.5 (>60); EGFR Non-African American 17.8 (>60); Magnesium 1.7 mg/dL (1.9-2.7); Potassium 4.8 mmol/L (3.5-5.0)
[2021-08-18] MEDS ORDERED: Magnesium Sulfate IV 1GM/100ML 1 GM/100 ML BAG IV ONE (08:43)
[2021-08-18] MEDS: Cefepime 2 GM in Dextrose 2 GM/50 ML BAG IV SCH (09:27)
[2021-08-18] MEDS ORDERED: Ondansetron 4 mg VIAL 2 MG/ML 2 ml VIAL IV PRN (15:50)
[2021-08-18] MEDS: Enoxaparin 30 MG/0.3 ML SYR SUBCUT SCH (22:00)
[2021-08-18] MEDS: CMCS: Simvastatin 20 mg TAB (NF) PO SCH (22:02)
[2021-08-19] MEDS ORDERED: Vancomycin Random Level NOTE FOLLOW UP ONE (06:00)
[2021-08-19] MEDS ORDERED: Magnesium Sulfate IV 1GM/100ML 1 GM/100 ML BAG IV ONE (06:51)
[2021-08-19] MEDS: CMCS: Simvastatin 20 mg TAB (NF) PO SCH (20:22)
[2021-08-19] MEDS: Enoxaparin 30 MG/0.3 ML SYR SUBCUT SCH (20:22)
[2021-08-20] MEDS: CMCS: Simvastatin 20 mg TAB (NF) PO SCH (22:00)
[2021-08-20] MEDS: Enoxaparin 30 MG/0.3 ML SYR SUBCUT SCH (22:01)
[2021-08-20] MEDS ORDERED: Furosemide 40 mg/4 ml IV VIAL IV SLOW PU ONE (22:28)
[2021-08-21 07:00] LABS: Hematocrit 23 % (35-47); Hemoglobin 7.8 g/dL (12.0-16.0); Mean Corpuscular HGB Conc 34 g/dL (31-36); Mean Corpuscular Hemoglobin 29 pg (27-31); Mean Corpuscular Volume 87 fL (80-97); Platelet Count 201 10^3/uL (150-450); Red Blood Count 2.65 10^6 /uL (3.70-4.87); Red Cell Distribution Width 16 % (10-15); White Blood Count 6.6 10^3/uL (3.5-10.8)
[2021-08-21 07:08] LABS: Calcium 8.4 mg/dL (8.6-10.3); EGFR African American 15.9 (>60); EGFR Non-African American 13.2 (>60); Magnesium 1.9 mg/dL (1.9-2.7); Potassium 4.8 mmol/L (3.5-5.0)
[2021-08-21 07:19] LABS: ABS Eosinophils 0.2 10^3/ul (0-0.6); ABS Lymphocytes 0.9 10^3/ul (1.0-4.8); ABS Monocytes 0.5 10^3/ul (0-0.8); ABS Neutrophils 4.9 10^3/ul (1.5-7.7); Eosinophil % 3.4 %; Lymphocyte % 13.4 %; Nucleated Red Blood Cells % 0.1
[2021-08-21] MEDS ORDERED: Albuterol/Ipratropium NEB.SOL (2.5/0.5 MG) 3 ML NEB.SOLN INH PRN (12:13)
[2021-08-21] MEDS: CMCS: Simvastatin 20 mg TAB (NF) PO SCH (21:19)
[2021-08-21] MEDS: Enoxaparin 30 MG/0.3 ML SYR SUBCUT SCH (21:21)
[2021-08-22] MEDS: CMCS: Simvastatin 20 mg TAB (NF) PO SCH (20:49)
[2021-08-22] MEDS: Enoxaparin 30 MG/0.3 ML SYR SUBCUT SCH (20:49)
[2021-08-23] MEDS: Enoxaparin 30 MG/0.3 ML SYR SUBCUT SCH (20:43)
[2021-08-23] MEDS: CMCS: Simvastatin 20 mg TAB (NF) PO SCH (20:47)
[2021-08-24] MEDS: Enoxaparin 30 MG/0.3 ML SYR SUBCUT SCH (21:52)
[2021-08-24] MEDS: CMCS: Simvastatin 20 mg TAB (NF) PO SCH (21:55)
[2021-08-25 07:31] LABS: Hematocrit 23 % (35-47); Mean Corpuscular HGB Conc 35 g/dL (31-36); Mean Corpuscular Hemoglobin 30 pg (27-31); Mean Corpuscular Volume 85 fL (80-97); Platelet Count 295 10^3/uL (150-450); Red Blood Count 2.68 10^6 /uL (3.70-4.87); Red Cell Distribution Width 16 % (10-15); White Blood Count 6.6 10^3/uL (3.5-10.8)
[2021-08-25 07:45] LABS: Calcium 8.9 mg/dL (8.6-10.3); Potassium 4.9 mmol/L (3.5-5.0)
[2021-08-25 11:09] LABS: ABS Eosinophils 0.2 10^3/ul (0-0.6); ABS Lymphocytes 0.8 10^3/ul (1.0-4.8); ABS Monocytes 0.5 10^3/ul (0-0.8); ABS Neutrophils 5.1 10^3/ul (1.5-7.7); Eosinophil % 3.4 %; Lymphocyte % 11.8 %; Nucleated Red Blood Cells % 0.1
[2021-08-25] MEDS: CMCS: Simvastatin 20 mg TAB (NF) PO SCH (22:27)
[2021-08-25] MEDS: Enoxaparin 30 MG/0.3 ML SYR SUBCUT SCH (22:28)
[2021-08-26] MEDS: Dextran 70/Hypromellose Tears Eye Drops 15 ml BTL (for Artificials Tears) BOTH EYES PRN (08:44)
[2021-08-26 16:25] LABS: Rapid COVID-19 Molecular Undetected (Undetected)
[2021-08-26] MEDS: Enoxaparin 30 MG/0.3 ML SYR SUBCUT SCH (19:53)
[2021-08-26] MEDS: CMCS: Simvastatin 20 mg TAB (NF) PO SCH (19:54)
[2021-08-27 08:00] VITALS: BP 159/76
[2021-08-27] MEDS: Dextran 70/Hypromellose Tears Eye Drops 15 ml BTL (for Artificials Tears) BOTH EYES PRN (08:26)
== END 2021-08-27 11:15 | DRG 871 ==
LOC: ED 15:01 → SUATTDRO 18:31 → SSU 18:31
PROVIDERS: ADMIT Internal Medicine; ATTEND Internal Medicine

== ENCOUNTER 2021-10-11 15:08 | Inpatient (IN) ==
[2021-10-11 17:27] LABS: Hematocrit 29 % (35-47); Hemoglobin 9.5 g/dL (12.0-16.0); Mean Corpuscular HGB Conc 33 g/dL (31-36); Mean Corpuscular Hemoglobin 28 pg (27-31); Mean Corpuscular Volume 83 fL (80-97); Mean Platelet Volume 5.7 fL (7.4-10.4); Platelet Count 332 10^3/uL (150-450); Red Blood Count 3.47 10^6 /uL (3.70-4.87); Red Cell Distribution Width 17 % (10-15); Venous Bicarbonate HCO3 22.3 mmol/L (24-28); White Blood Count 28.1 10^3/uL (3.5-10.8)
[2021-10-11 17:33] LABS: ABS Lymphocytes 0.8 10^3/ul (1.0-4.8); ABS Monocytes 2.1 10^3/ul (0-0.8); ABS Neutrophils 25.3 10^3/ul (1.5-7.7); Eosinophil % 0.1 %; Lymphocyte % 2.7 %
[2021-10-11] MEDS ORDERED: Ciprofloxacin 400mg IVPREMIX 400 MG/200 ML BAG IVPB ONE (17:42)
[2021-10-11] MEDS ORDERED: metroNIDAZOLE IV 500 MG/100ML 500 MG/100 ML BAG IVPB ONE (17:42)
[2021-10-11] MEDS ORDERED: Lactated Ringers 1000 ml BAG 1,000 ML IV ONE (17:43)
[2021-10-11 17:45] LABS: ALT 5 U/L (7-52); AST 5 U/L (13-39); Activated Partial Thrombo Time 41.1 seconds (26.0-38.0); Albumin 3.2 g/dL (3.2-5.2); Albumin/Globulin Ratio 0.9 (1-3); Alkaline Phosphatase 82 U/L (35-149); Blood Urea Nitrogen 88 mg/dL (6-24); C Reactive Protein 453.33 mg/L (<8.01); CO2 Carbon Dioxide 21 mmol/L (22-32); Calcium 9.1 mg/dL (8.6-10.3); Chloride 97 mmol/L (101-111); Globulin 3.6 g/dL (2-4); Glucose 222 mg/dL (70-100); Sodium 133 mmol/L (135-145); Total Protein 6.8 g/dL (6.4-8.9)
[2021-10-11 17:49] LABS: Influenza A Molecular Negative (Negative); Influenza B Molecular Negative (Negative)
[2021-10-11 17:51] LABS: Anion Gap 15 mmol/L (2-11); Potassium 5.1 mmol/L (3.5-5.0)
[2021-10-11] MEDS ORDERED: Vancomycin 1,750 MG in NS 0.9% 500 ml BAG 500 ML IVPB ONE (18:00)
[2021-10-11 18:39] LABS: Ferritin 868.6 ng/mL (11-307)
[2021-10-11 19:05] LABS: Troponin I 0.01 ng/mL (<0.03)
[2021-10-11] MEDS ORDERED: Dextran 70/Hypromellose Tears Eye Drops 15 ml BTL (for Artificials Tears) BOTH EYES PRN (20:33)
[2021-10-11] MEDS ORDERED: Albuterol HFA INHALER 8 gm MDI INH PRN (20:33)
[2021-10-11] MEDS ORDERED: Lactated Ringers 1000 ml BAG 1,000 ML IV SCH (21:00)
[2021-10-11] MEDS ORDERED: Vancomycin per Pharmacy 1 EA NOTE FOLLOW UP SCH (21:00)
[2021-10-11 22:43] LABS: Magnesium 2.1 mg/dL (1.9-2.7)
[2021-10-11 22:48] LABS: LDH 133 U/L (140-271)
[2021-10-11 22:55] LABS: TSH Ultra Thyroid Stim Horm 1.59 mcIU/mL (0.34-5.60)
[2021-10-11] MEDS ORDERED: Dextrose 50% Syringe 50 ml 25 GM/50 ML SYRINGE IV PUSH PRN (23:00)
[2021-10-12 01:34] LABS: Rapid COVID-19 Molecular Undetected (Undetected)
[2021-10-12] MEDS: Heparin 5000 UNITS/ML 1 mL VIAL SUBCUT SCH ×4 (01:52→21:40)
[2021-10-12] MEDS: metroNIDAZOLE IV 500 MG/100ML 500 MG/100 ML BAG IVPB SCH ×3 (03:09→21:40)
[2021-10-12] MEDS ORDERED: Morphine 2 MG/ML SYRINGE IV ONE (03:24)
[2021-10-12 04:05] LABS: Hematocrit 32 % (35-47); Hemoglobin 10.2 g/dL (12.0-16.0); Mean Corpuscular HGB Conc 32 g/dL (31-36); Mean Corpuscular Hemoglobin 27 pg (27-31); Mean Corpuscular Volume 85 fL (80-97); Mean Platelet Volume 5.8 fL (7.4-10.4); Platelet Count 345 10^3/uL (150-450); Red Blood Count 3.79 10^6 /uL (3.70-4.87); Red Cell Distribution Width 17 % (10-15); White Blood Count 35.8 10^3/uL (3.5-10.8)
[2021-10-12 04:08] LABS: ABS Monocytes 2.4 10^3/ul (0-0.8); ABS Neutrophils 32.4 10^3/ul (1.5-7.7); Eosinophil % 0.1 %; Lymphocyte % 2.7 %
[2021-10-12 04:19] LABS: Blood Urea Nitrogen 96 mg/dL (6-24); C Reactive Protein 414.41 mg/L (<8.01); CO2 Carbon Dioxide 17 mmol/L (22-32); Calcium 8.3 mg/dL (8.6-10.3); Chloride 99 mmol/L (101-111); Glucose 292 mg/dL (70-100); Sodium 131 mmol/L (135-145)
[2021-10-12 04:20] LABS: Anion Gap 15 mmol/L (2-11); Potassium 5.4 mmol/L (3.5-5.0)
[2021-10-12 04:30] LABS: Lipase < 10 U/L (11.0-82.0)
[2021-10-12] MEDS ORDERED: NS 0.9% 500 ml BAG 500 ML IV ONE (04:38)
[2021-10-12] MEDS ORDERED: SODIUM ZIRCONIUM CYCLOSILICATE 10 GM PACKET PO ONE (04:40)
[2021-10-12] MEDS ORDERED: NS 0.9% 1000 ml BAG 1,000 ML IV SCH (04:45)
[2021-10-12 04:58] LABS: Troponin I 0.04 ng/mL (<0.03)
[2021-10-12] MEDS ORDERED: Calcium Gluconate 2 GM in NS 0.9% 100 ml BAG 100 ML IV ONE (05:00)
[2021-10-12] MEDS ORDERED: Ciprofloxacin 200mg IVPREMIX 200 MG/100 ML BAG IV SCH (06:00)
[2021-10-12 06:40] LABS: Urine Appearance Cloudy; Urine Bilirubin Negative (Negative); Urine Blood Negative (Negative); Urine Color Amber; Urine Glucose Negative (Negative); Urine Ketones Negative (Negative); Urine Nitrite Negative (Negative); Urine Protein Negative (Negative); Urine Specific Gravity 1.017 (1.002-1.030); Urine Urobilinogen Negative (Negative)
[2021-10-12 07:37] LABS: Troponin I 0.04 ng/mL (<0.03)
[2021-10-12] MEDS ORDERED: Vancomycin Random Level NOTE FOLLOW UP ONE (09:00)
[2021-10-12 10:09] LABS: Troponin I 0.04 ng/mL (<0.03)
[2021-10-12 10:38] LABS: Vancomycin Random 19.1 mcg/mL
[2021-10-12] MEDS ORDERED: Vancomycin- *ENEMA* PR 500MG PR ONE (12:45)
[2021-10-12] MEDS ORDERED: Etomidate 40 mg/20 ml (2 MG/ML) 20 ml VIAL (40 mg) ONE (14:55)
[2021-10-12] MEDS ORDERED: Succinylcholine 200 mg VIAL 20 mg/ml 10 ml VIAL (200 mg) ONE (14:55)
[2021-10-12] MEDS ORDERED: Ciprofloxacin 400mg IVPREMIX 400 MG/200 ML BAG IVPB SCH (22:00)
[2021-10-13] MEDS ORDERED: Lactated Ringers 500 ml BAG 500 ML IV SCH (01:00)
[2021-10-13] MEDS ORDERED: Acetaminophen IV 1 GM/100ML 100 ML IV PRN (01:05)
[2021-10-13] MEDS: metroNIDAZOLE IV 500 MG/100ML 500 MG/100 ML BAG IVPB SCH ×3 (03:54→22:22)
[2021-10-13 04:52] LABS: INR 3.57 (0.86-1.15)
[2021-10-13 05:05] LABS: Hematocrit 41 % (35-47); Hemoglobin 12.6 g/dL (12.0-16.0); Mean Corpuscular HGB Conc 31 g/dL (31-36); Mean Corpuscular Hemoglobin 27 pg (27-31); Mean Corpuscular Volume 86 fL (80-97); Mean Platelet Volume 6.4 fL (7.4-10.4); Platelet Count 489 10^3/uL (150-450); Red Blood Count 4.77 10^6 /uL (3.70-4.87); Red Cell Distribution Width 17 % (10-15); White Blood Count 53.1 10^3/uL (3.5-10.8)
[2021-10-13 05:20] LABS: PCO2 Arterial 21 mmHg (35-45); PO2 Arterial 94 mmHg (80-100)
[2021-10-13 05:32] LABS: Albumin 2.4 g/dL (3.2-5.2); Albumin/Globulin Ratio 0.9 (1-3); Calcium 7.8 mg/dL (8.6-10.3); Globulin 2.6 g/dL (2-4); Magnesium 2.3 mg/dL (1.9-2.7); Total Bilirubin 0.4 mg/dL (0.2-1.0)
[2021-10-13] MEDS ORDERED: Lactated Ringers 500 ml BAG 500 ML IV ONE (05:33)
[2021-10-13 05:41] LABS: Potassium 6.8 mmol/L (3.5-5.0)
[2021-10-13] MEDS ORDERED: NS 0.9% 500 ml BAG 500 ML IV ONE (05:44)
[2021-10-13] MEDS ORDERED: Dextrose 50% Syringe 50 ml 25 GM/50 ML SYRINGE IV PUSH STA (05:45)
[2021-10-13 05:58] LABS: Anisocytosis 1+; Polychromasia 1+
[2021-10-13 06:00] LABS: ABS Basophils 0.1 10^3/ul (0-0.2); ABS Lymphocytes 2.1 10^3/ul (1.0-4.8); ABS Monocytes 3.3 10^3/ul (0-0.8); ABS Neutrophils 47.6 10^3/ul (1.5-7.7); ABS Nucleated RBC 0.1 10^3/ul; Eosinophil % 0.1 %; Lymphocyte % 3.9 %; Nucleated Red Blood Cells % 0.1
[2021-10-13] MEDS ORDERED: CALCIUM GLUCONATE 1GM/50ML NS 1 GM/50 ML BAG IV ONE (06:00)
[2021-10-13 06:03] LABS: Dohle Bodies Present
[2021-10-13] MEDS ORDERED: Albuterol 2.5mg/3 ml (0.083%) NEB.SOLN INH ONE ×2 (06:11→09:00)
[2021-10-13] MEDS ORDERED: Dextrose 50% Syringe 50 ml 25 GM/50 ML SYRINGE IV PUSH ONE (06:15)
[2021-10-13 06:43] LABS: Activated Partial Thrombo Time 42.7 seconds (26.0-38.0); Fibrinogen 759.8 mg/dL (110.8-404.3)
[2021-10-13] MEDS ORDERED: Norepinephrine 16MCG/ML IVPRE 4,000 MCG/250 ML BAG IV ONE ×2 (06:46→09:46)
[2021-10-13] MEDS ORDERED: Succinylcholine 200 mg VIAL 20 mg/ml 10 ml VIAL (200 mg) ONE ×2 (06:55→06:56)
[2021-10-13] MEDS ORDERED: Etomidate 40 mg/20 ml (2 MG/ML) 20 ml VIAL (40 mg) ONE (06:56)
[2021-10-13] MEDS ORDERED: Atropine 0.1 MG/ML 10 ml SYR (1 mg) ONE ×3 (06:58→07:22)
[2021-10-13] MEDS ORDERED: Magnesium Sulfate 2 gm BAG 2 GM/50 ML ONE (06:58)
[2021-10-13] MEDS ORDERED: Norepinephrine IV 1 MG/ML 4 ML VIAL ONE (06:58)
[2021-10-13] MEDS ORDERED: EPINEPHrine SYR 0.1MG/ML 10 ml SYRINGE ONE ×2 (06:58)
[2021-10-13] MEDS ORDERED: Phenylephrine IV 10 MG/ML 1 ml VIAL ONE (07:08)
[2021-10-13] MEDS ORDERED: EPINEPHRINE 1 MG/ML 4 MG in D5W 1000 ML BAG 996 ML IV SCH (07:40)
[2021-10-13 07:57] LABS: Potassium 7.9 mmol/L (3.5-5.0)
[2021-10-13] MEDS ORDERED: Sodium Bicarbonate 8.4% SYR 50 ml SYRINGE IV ONE ×3 (08:07→09:23)
[2021-10-13] MEDS ORDERED: Sodium Bicarbonate 8.4% VIAL 1 MEQ/ML 50 ml VIAL (50 meq) ONE (08:21)
[2021-10-13] MEDS: Heparin 5000 UNITS/ML 1 mL VIAL SUBCUT SCH (08:34)
[2021-10-13 08:59] LABS: PCO2 Arterial 21 mmHg (35-45); PO2 Arterial 155 mmHg (80-100)
[2021-10-13] MEDS ORDERED: Sodium Bicarb 8.4% Vial 50 ML 150 MEQ in D5W 1000 ml BAG 850 ML IV SCH ×2 (09:00→14:43)
[2021-10-13 09:16] LABS: Hematocrit 28 % (35-47); Hemoglobin 8.5 g/dL (12.0-16.0); Mean Corpuscular HGB Conc 30 g/dL (31-36); Mean Corpuscular Hemoglobin 27 pg (27-31); Mean Corpuscular Volume 88 fL (80-97); Mean Platelet Volume 6.4 fL (7.4-10.4); Platelet Count 306 10^3/uL (150-450); Red Cell Distribution Width 18 % (10-15); White Blood Count 46.2 10^3/uL (3.5-10.8)
[2021-10-13 09:17] LABS: ABS Basophils 0.2 10^3/ul (0-0.2); ABS Eosinophils 0.2 10^3/ul (0-0.6); ABS Lymphocytes 2.5 10^3/ul (1.0-4.8); ABS Monocytes 1.8 10^3/ul (0-0.8); ABS Neutrophils 41.6 10^3/ul (1.5-7.7); ABS Nucleated RBC 0.2 10^3/ul; Eosinophil % 0.3 %; Lymphocyte % 5.4 %; Nucleated Red Blood Cells % 0.5
[2021-10-13] MEDS ORDERED: Hydrocortisone INJ 100 MG/2ML 2 ML VIAL IV ONE (09:23)
[2021-10-13] MEDS ORDERED: Vasopressin 100 UNITS in D5W 250 ml BAG 245 ML IV SCH (09:30)
[2021-10-13 09:31] LABS: Magnesium 3.1 mg/dL (1.9-2.7); Phosphorus 12.2 mg/dL (2.5-5.0)
[2021-10-13] MEDS ORDERED: Vasopressin 100 UNITS in NS 0.9% 250 ml 245 ML IV SCH (09:46)
[2021-10-13] MEDS ORDERED: Insulin Infusion 100unit/100mL 100 UNIT/100 ML BAG IV SCH ×2 (10:00→14:15)
[2021-10-13] MEDS ORDERED: Fidaxomicin 200 mg TAB (NF) PO SCH (10:00)
[2021-10-13 10:04] LABS: Anisocytosis 1+; Polychromasia 2+
[2021-10-13 10:28] LABS: Albumin 1.9 g/dL (3.2-5.2); Albumin/Globulin Ratio 0.9 (1-3); Calcium 7.2 mg/dL (8.6-10.3); Globulin 2.1 g/dL (2-4); Total Bilirubin 0.7 mg/dL (0.2-1.0); eGFR CKD-EPI 10.3 (>60)
[2021-10-13 10:30] LABS: Potassium 6.8 mmol/L (3.5-5.0)
[2021-10-13] MEDS ORDERED: Vancomycin- *ENEMA* PR 500MG PR ONE (10:53)
[2021-10-13] MEDS ORDERED: Desmopressin Acetate 20 MCG in NS 0.9% 50 ML 50 ML IVPB ONE (11:00)
[2021-10-13] MEDS: Chlorhexidine MOUTHWASH 0.12% 15 ML UDC TOPICAL SCH ×3 (11:45→18:17)
[2021-10-13 13:42] LABS: Hematocrit 29 % (35-47); Hemoglobin 8.7 g/dL (12.0-16.0); Mean Corpuscular HGB Conc 30 g/dL (31-36); Mean Corpuscular Hemoglobin 26 pg (27-31); Mean Corpuscular Volume 88 fL (80-97); Mean Platelet Volume 6.8 fL (7.4-10.4); Platelet Count 297 10^3/uL (150-450); Red Blood Count 3.32 10^6 /uL (3.70-4.87); Red Cell Distribution Width 17 % (10-15); White Blood Count 48.9 10^3/uL (3.5-10.8)
[2021-10-13 13:57] LABS: Albumin 2.4 g/dL (3.2-5.2); Alkaline Phosphatase 189 U/L (35-149); Blood Urea Nitrogen 110 mg/dL (6-24); Calcium 7.6 mg/dL (8.6-10.3); Chloride 103 mmol/L (101-111); Globulin 2.3 g/dL (2-4); Glucose 296 mg/dL (70-100); Sodium 142 mmol/L (135-145); Total Protein 4.7 g/dL (6.4-8.9); eGFR CKD-EPI 10.5 (>60)
[2021-10-13 14:04] LABS: INR 3.42 (0.86-1.15)
[2021-10-13 14:12] LABS: ABS Basophils 0.3 10^3/ul (0-0.2); ABS Eosinophils 0.1 10^3/ul (0-0.6); ABS Lymphocytes 1.5 10^3/ul (1.0-4.8); ABS Monocytes 2.1 10^3/ul (0-0.8); ABS Neutrophils 44.8 10^3/ul (1.5-7.7); ABS Nucleated RBC 0.2 10^3/ul; Eosinophil % 0.3 %; Lymphocyte % 3.1 %; Nucleated Red Blood Cells % 0.4
[2021-10-13 14:14] LABS: Troponin I 0.55 ng/mL (<0.03)
[2021-10-13 14:15] LABS: ALT 2473 U/L (7-52); AST 7482 U/L (13-39)
[2021-10-13 14:26] LABS: PCO2 Arterial 21 mmHg (35-45); PO2 Arterial 110 mmHg (80-100)
[2021-10-13 14:29] LABS: Anion Gap 29 mmol/L (2-11); CO2 Carbon Dioxide 10 mmol/L (22-32)
[2021-10-13] MEDS: fentaNYL 100 mcg/2 ml 50 MCG/ML VIAL IV SLOW PU PRN ×3 (14:51→23:39)
[2021-10-13] MEDS: Valproic Acid IV 250 MG in NS 0.9% 100 ml BAG 100 ML IVPB SCH ×2 (16:19→20:42)
[2021-10-13] MEDS: Hydrocortisone INJ 100 MG/2ML 2 ML VIAL IV SCH (18:17)
[2021-10-13] MEDS: PHENYLEPHRINE DRIP IVPREMIX 50 MG/250 ML BAG IV SCH (20:35)
[2021-10-13 20:36] LABS: PCO2 Arterial 26 mmHg (35-45); PO2 Arterial 82 mmHg (80-100)
[2021-10-13 22:32] LABS: Hematocrit 28 % (35-47); Hemoglobin 8.6 g/dL (12.0-16.0); Mean Corpuscular HGB Conc 31 g/dL (31-36); Mean Corpuscular Hemoglobin 27 pg (27-31); Mean Corpuscular Volume 85 fL (80-97); Mean Platelet Volume 6.8 fL (7.4-10.4); Platelet Count 206 10^3/uL (150-450); Red Blood Count 3.25 10^6 /uL (3.70-4.87); Red Cell Distribution Width 17 % (10-15); White Blood Count 35.2 10^3/uL (3.5-10.8)
[2021-10-13 22:46] LABS: eGFR CKD-EPI 10.1 (>60)
[2021-10-13 22:48] LABS: Blood Urea Nitrogen 109 mg/dL (6-24); CO2 Carbon Dioxide 19 mmol/L (22-32); Calcium 6.8 mg/dL (8.6-10.3); Chloride 101 mmol/L (101-111); Glucose 345 mg/dL (70-100); Magnesium 2.7 mg/dL (1.9-2.7); Phosphorus 10.6 mg/dL (2.5-5.0); Sodium 143 mmol/L (135-145); eGFR CKD-EPI 10.1 (>60)
[2021-10-13 22:49] LABS: Anion Gap 23 mmol/L (2-11); Potassium 5.1 mmol/L (3.5-5.0)
[2021-10-13 23:02] LABS: ABS Basophils 0.1 10^3/ul (0-0.2); ABS Eosinophils 0.1 10^3/ul (0-0.6); ABS Monocytes 1.2 10^3/ul (0-0.8); ABS Neutrophils 32.7 10^3/ul (1.5-7.7); ABS Nucleated RBC 0.2 10^3/ul; Eosinophil % 0.3 %; Lymphocyte % 2.9 %; Nucleated Red Blood Cells % 0.5
[2021-10-13 23:04] LABS: Activated Partial Thrombo Time 40.3 seconds (26.0-38.0); INR 3.19 (0.86-1.15)
[2021-10-13 23:17] LABS: Troponin I 0.67 ng/mL (<0.03)
[2021-10-13] MEDS ORDERED: Norepinephrine 16MCG/ML IVPRE 4,000 MCG/250 ML BAG IV SCH (23:45)
[2021-10-14] MEDS: NORMOSOL-R pH 7.4 1000 mL BAG 1,000 ML IV SCH ×3 (00:43→19:46)
[2021-10-14] MEDS: Chlorhexidine MOUTHWASH 0.12% 15 ML UDC TOPICAL SCH ×7 (00:49→20:20)
[2021-10-14 00:59] LABS: Troponin I 0.64 ng/mL (<0.03)
[2021-10-14] MEDS ORDERED: Norepinephrine IV 4 MG in NS 0.9% 250 ml 4,000 MCG/246 ML IV.FLUID IV SCH (01:00)
[2021-10-14] MEDS: PHENYLEPHRINE DRIP IVPREMIX 50 MG/250 ML BAG IV SCH ×4 (01:00→14:41)
[2021-10-14] MEDS: Hydrocortisone INJ 100 MG/2ML 2 ML VIAL IV SCH ×3 (01:47→17:52)
[2021-10-14] MEDS: fentaNYL 100 mcg/2 ml 50 MCG/ML VIAL IV SLOW PU PRN ×4 (02:26→23:45)
[2021-10-14 04:26] LABS: Glucose Confirmatory 369 mg/dL (70-100)
[2021-10-14] MEDS: metroNIDAZOLE IV 500 MG/100ML 500 MG/100 ML BAG IVPB SCH ×3 (04:29→19:55)
[2021-10-14 04:35] LABS: Hematocrit 32 % (35-47); Hemoglobin 9.9 g/dL (12.0-16.0); Mean Corpuscular HGB Conc 31 g/dL (31-36); Mean Corpuscular Hemoglobin 27 pg (27-31); Mean Corpuscular Volume 86 fL (80-97); Mean Platelet Volume 6.9 fL (7.4-10.4); Platelet Count 228 10^3/uL (150-450); Red Blood Count 3.67 10^6 /uL (3.70-4.87); Red Cell Distribution Width 17 % (10-15); White Blood Count 39.7 10^3/uL (3.5-10.8)
[2021-10-14 04:46] LABS: INR 3.26 (0.86-1.15)
[2021-10-14 04:54] LABS: Albumin 2.3 g/dL (3.2-5.2); Alkaline Phosphatase 227 U/L (35-149); Blood Urea Nitrogen 115 mg/dL (6-24); CO2 Carbon Dioxide 17 mmol/L (22-32); Chloride 101 mmol/L (101-111); Globulin 2.2 g/dL (2-4); Glucose 312 mg/dL (70-100); Magnesium 2.8 mg/dL (1.9-2.7); Phosphorus 10.5 mg/dL (2.5-5.0); Sodium 144 mmol/L (135-145); Total Protein 4.5 g/dL (6.4-8.9); eGFR CKD-EPI 10.4 (>60)
[2021-10-14 05:03] LABS: Anion Gap 26 mmol/L (2-11); Potassium 5.5 mmol/L (3.5-5.0)
[2021-10-14 05:10] LABS: ALT 3551 U/L (7-52); AST > 10000 U/L (13-39)
[2021-10-14 05:11] LABS: Calcium 6.4 mg/dL (8.6-10.3)
[2021-10-14] MEDS: Levothyroxine 100 MCG/5 ML VIAL IV SCH (05:54)
[2021-10-14] MEDS ORDERED: Calcium Gluconate 2 GM in NS 0.9% 100 ml BAG 100 ML IV ONE (06:00)
[2021-10-14] MEDS: Valproic Acid IV 250 MG in NS 0.9% 100 ml BAG 100 ML IVPB SCH ×3 (06:25→22:21)
[2021-10-14] MEDS: Famotidine IV 10 MG/ML 2 ml VIAL (20 mg) IV SLOW PU SCH ×2 (07:52→20:20)
[2021-10-14] MEDS ORDERED: Vancomycin- *ENEMA* PR 500MG PR SCH (08:00)
[2021-10-14] MEDS: Vancomycin- *ENEMA* PR 500MG PR SCH ×2 (08:12→17:52)
[2021-10-14] MEDS ORDERED: Heparin 5000 UNITS/ML 1 mL VIAL SUBCUT SCH (09:00)
[2021-10-14] MEDS ORDERED: Fidaxomicin 200 mg TAB (NF) PO SCH (09:00)
[2021-10-14] MEDS ORDERED: LORazepam 2 mg VIAL 1 ml ONE ×2 (10:23→10:24)
[2021-10-14] MEDS ORDERED: Lorazepam PYXIS KEY ONE ×2 (10:23→10:49)
[2021-10-14] MEDS ORDERED: Propofol 10 mg/ml 100 ML BTL 0 ML ONE (10:29)
[2021-10-14 10:31] LABS: PCO2 Arterial 21 mmHg (35-45); PO2 Arterial 101 mmHg (80-100)
[2021-10-14] MEDS ORDERED: Lorazepam PYXIS KEY PRN (11:02)
[2021-10-14] MEDS ORDERED: LORazepam 2 mg VIAL 1 ml IV PUSH ONE (11:02)
[2021-10-14] MEDS: Fidaxomicin 200 mg TAB (NF) PO SCH (13:20)
[2021-10-14] MEDS: Vancomycin SOL ORALSYR 50 MG/ML ML PO SCH ×3 (13:20→22:24)
[2021-10-14] MEDS ORDERED: Vasopressin 100 UNITS in D5W 250 ml BAG 245 ML IV SCH (21:30)
[2021-10-14 23:21] LABS: PCO2 Arterial 21 mmHg (35-45); PO2 Arterial 88 mmHg (80-100)
[2021-10-14 23:25] LABS: Hematocrit 35 % (35-47); Hemoglobin 10.3 g/dL (12.0-16.0); Mean Corpuscular HGB Conc 30 g/dL (31-36); Mean Corpuscular Hemoglobin 26 pg (27-31); Mean Corpuscular Volume 88 fL (80-97); Mean Platelet Volume 7.2 fL (7.4-10.4); Platelet Count 231 10^3/uL (150-450); Red Blood Count 3.92 10^6 /uL (3.70-4.87); Red Cell Distribution Width 18 % (10-15); White Blood Count 43.8 10^3/uL (3.5-10.8)
[2021-10-14 23:37] LABS: Albumin/Globulin Ratio 1.1 (1-3); Globulin 1.9 g/dL (2-4); Total Bilirubin 1.2 mg/dL (0.2-1.0); Total Protein 3.9 g/dL (6.4-8.9); eGFR CKD-EPI 10.8 (>60)
[2021-10-14 23:45] LABS: Calcium 5.1 mg/dL (8.6-10.3); INR 9.64 (0.86-1.15); Potassium 5.6 mmol/L (3.5-5.0)
[2021-10-15 00:30] LABS: ABS Basophils 0.1 10^3/ul (0-0.2); ABS Eosinophils 0.3 10^3/ul (0-0.6); ABS Lymphocytes 1.6 10^3/ul (1.0-4.8); ABS Monocytes 2.7 10^3/ul (0-0.8); ABS Nucleated RBC 0.2 10^3/ul; Eosinophil % 0.7 %; Lymphocyte % 3.7 %; Nucleated Red Blood Cells % 0.4
[2021-10-15] MEDS ORDERED: Sodium Bicarbonate 8.4% SYR 50 ml SYRINGE IV ONE ×2 (00:59→05:10)
[2021-10-15] MEDS ORDERED: Phytonadione IV (Adult) 10 MG in NS 0.9% 50 ML 50 ML IV ONE (01:00)
[2021-10-15] MEDS ORDERED: Calcium Gluconate 2 GM in NS 0.9% 100 ml BAG 100 ML IV ONE ×2 (01:30→06:00)
[2021-10-15] MEDS: metroNIDAZOLE IV 500 MG/100ML 500 MG/100 ML BAG IVPB SCH (02:27)
[2021-10-15] MEDS: Vancomycin- *ENEMA* PR 500MG PR SCH ×2 (02:32→06:00)
[2021-10-15] MEDS: PHENYLEPHRINE DRIP IVPREMIX 50 MG/250 ML BAG IV SCH ×3 (02:46→08:37)
[2021-10-15] MEDS: Chlorhexidine MOUTHWASH 0.12% 15 ML UDC TOPICAL SCH ×2 (03:07→06:24)
[2021-10-15] MEDS: Hydrocortisone INJ 100 MG/2ML 2 ML VIAL IV SCH (03:07)
[2021-10-15] MEDS: Fidaxomicin 200 mg TAB (NF) PO SCH (03:09)
[2021-10-15] MEDS: fentaNYL 100 mcg/2 ml 50 MCG/ML VIAL IV SLOW PU PRN (03:27)
[2021-10-15 04:31] LABS: Hematocrit 33 % (35-47); Mean Corpuscular HGB Conc 30 g/dL (31-36); Mean Corpuscular Hemoglobin 26 pg (27-31); Mean Corpuscular Volume 88 fL (80-97); Mean Platelet Volume 7.1 fL (7.4-10.4); Platelet Count 227 10^3/uL (150-450); Red Cell Distribution Width 18 % (10-15); White Blood Count 39.2 10^3/uL (3.5-10.8)
[2021-10-15 04:47] VITALS: BP 56/21
[2021-10-15 04:48] LABS: Albumin 1.9 g/dL (3.2-5.2); Globulin 1.9 g/dL (2-4); Magnesium 2.8 mg/dL (1.9-2.7); Total Bilirubin 1.3 mg/dL (0.2-1.0); Total Protein 3.8 g/dL (6.4-8.9); eGFR CKD-EPI 10.4 (>60)
[2021-10-15 04:52] LABS: Calcium 5.5 mg/dL (8.6-10.3); Potassium 6.1 mmol/L (3.5-5.0)
[2021-10-15 04:53] LABS: INR >10.00 (0.86-1.15)
[2021-10-15] MEDS ORDERED: Bumetanide IV 0.25 MG/ML 4 ml VIAL (1 mg) SLOW PUSH ONE (05:11)
[2021-10-15] MEDS ORDERED: Dextrose 50% Syringe 50 ml 25 GM/50 ML SYRINGE IV PUSH ONE (05:13)
[2021-10-15] MEDS ORDERED: Albuterol 2.5mg/3 ml (0.083%) NEB.SOLN INH ONE (05:20)
[2021-10-15] MEDS ORDERED: NS 0.9% 100 ml BAG 100 ML ONE (05:32)
[2021-10-15] MEDS: Levothyroxine 100 MCG/5 ML VIAL IV SCH (05:41)
[2021-10-15] MEDS: Valproic Acid IV 250 MG in NS 0.9% 100 ml BAG 100 ML IVPB SCH (06:13)
[2021-10-15] MEDS ORDERED: Morphine 10 MG/ML VIAL (1 ml) IV ONE (08:45)
[2021-10-15] MEDS ORDERED: Morphine 10 MG/ML VIAL (1 ml) ONE (08:50)
[2021-10-15] MEDS ORDERED: Lactulose 300 ML for PR 200 GM/300 ML BTL PR SCH (09:00)
[2021-10-15] MEDS ORDERED: Lorazepam PYXIS KEY PRN (09:10)
[2021-10-15] MEDS ORDERED: LORazepam 2 mg VIAL 1 ml IV PUSH ONE (09:10)
[2021-10-15] MEDS ORDERED: LORazepam 2 mg VIAL 1 ml ONE (09:11)
== END 2021-10-15 09:18 | disposition expired | DRG 871 ==
LOC: ED 15:08 → SUATTDRO 20:27 → EDHOLD 20:27 → MED 10-12 01:06 → ICU 10-13 06:29
PROVIDERS: ADMIT Student in an Organized Health Care Education/Training Program; ATTEND Internal Medicine